=== PATIENT | male | born 1955 | race Caucasian/White ===

== ENCOUNTER 2017-11-02 12:06 | Outpatient (RCR) | payer SELFPAY | END 2017-11-05 23:59 | disposition home or self-care (01) | LOC: CR 12:06 | PROVIDERS: PCP Emergency Medicine; Visit Provider Family Medicine | DX: Z51.89 Encounter for other specified aftercare (principal) ==

== ENCOUNTER 2017-12-02 10:00 | Outpatient (RCR) | payer SELFPAY | END 2017-12-05 23:59 | disposition home or self-care (01) | LOC: CR 10:00 | PROVIDERS: PCP Emergency Medicine; Visit Provider Family Medicine | DX: Z51.89 Encounter for other specified aftercare (principal) ==

== ENCOUNTER 2018-01-04 10:00 | Outpatient (RCR) | payer SELFPAY | END 2018-01-05 23:59 | disposition home or self-care (01) | LOC: CR 10:00 | PROVIDERS: PCP Emergency Medicine; Visit Provider Family Medicine | DX: Z51.89 Encounter for other specified aftercare (principal) ==

== ENCOUNTER 2018-01-06 05:27 | Outpatient (RCR) | payer SELFPAY | END 2018-02-04 23:59 | disposition home or self-care (01) | LOC: CR 05:27 | PROVIDERS: PCP Emergency Medicine; Visit Provider Family Medicine | DX: Z51.89 Encounter for other specified aftercare (principal) ==

== ENCOUNTER 2018-02-24 09:00 | Outpatient (RCR) | payer SELFPAY | END 2018-03-07 23:59 | disposition home or self-care (01) | LOC: CR 09:00 | PROVIDERS: PCP Emergency Medicine; Visit Provider Family Medicine | DX: Z51.89 Encounter for other specified aftercare (principal) ==

== ENCOUNTER 2018-03-07 11:16 | Emergency (ER) | payer MEDICARE, SELFPAY ==
[2018-03-07 11:23] VITALS: BP 152/72; PULSE 71; RESP 20; TEMP 36.7; O2SAT 96
[2018-03-07 11:29] VITALS: RESP 20
--- NOTE | 2018-03-07 12:31 | W.ED.GENAD ---
Discharge Plan Disposition Patient Disposition: AGAINST MEDICAL ADVICE Condition: Stable Discharge Details Chief Complaint: GenMedical Clinical Impression: Cough, Bronchitis Primary Care Provider: Jonathan Medina ED Provider: Mookie Hamilton Home Meds and New Rx's Prescriptions: New azithromycin 250 mg tablet See Rx Instructions .ROUTE .COMPLEX Qty: 6 RF: 0 No Action docusate sodium 100 MG capsule 100 mg PO DAILY RF: 0 LAMISIL 15 GM CREAM..G. 15 gm Topical BID Qty: 1 RF: 4 aspirin 81 MG tablet,chewable 81 mg PO DAILY RF: 0 ergocalciferol (vitamin D2) [Vitamin D2] 50,000 UNIT capsule 1 tab-cap PO WEEKLY Qty: 12 RF: 4 venlafaxine 150 MG tablet extended release 24hr 150 mg PO DAILY Qty: 90 RF: 3 amlodipine 10 MG tablet 10 mg PO DAILY 60 Days Qty: 60 RF: 5 clonazepam 0.5 MG tablet,disintegrating 0.5 mg PO HS PRN 30 Days Qty: 30 RF: 1 atorvastatin 40 MG tablet 40 mg PO DAILY Qty: 90 RF: 3 nitroglycerin 0.4 MG tablet, sublingual 0.4 mg Sublingual PRN PRNQty: 25 RF: 2 gabapentin 800 mg tablet 400 mg PO .5 a.m. 1 tab pm Qty: 180 RF: 6 allopurinol 100 mg tablet 100 mg PO DAILY Qty: 90 RF: 3 lisinopril 10 mg tablet 10 mg PO DAILY Qty: 90 RF: 4 pantoprazole 40 mg tablet,delayed release (DR/EC) 40 mg PO DAILY Qty: 90 RF: 3 calcium carbonate [Tums] 200 MG tablet,chewable 200 mg PO PRNRF: 0 folic acid 400 MCG tablet 400 mcg PO DAILY RF: 0 Discharge Instructions Instructions: Acute Bronchitis (ED) Additional Instructions: Please take the medication as directed. Please follow-up closely with your primary care provider as soon as possible. If you like the remainder of your workup to be completed please return immediately. if you notice any worsening of your symptoms, or any new symptoms such as vomiting, diarrhea, fever, chills, shortness of breath, chest pain, numbness, weakness, or fainting , please return immediately to the emergency department for reevaluation. Please follow up with your primary care provider as soon as possible for reassessment and reevaluation. As always, it was a pleasure participating in your medical care today. Referrals: Jonathan Medina, [Primary Care Provider] - Discharge Data Discharge Date/Time-TO BE ENTERED AT DEPARTURE: 03/07/18 13:06 Medical Decision Making This is a pleasant 62-year-old male who presents with 2-3 days of mild cough with productive yellow sputum, occasional night sweats. He has no associated chest pain, no pleuritic chest pain, no pain in the arm neck or shoulders. He states that his symptoms are consistent with when he had his stents placed a year ago. Physical exam demonstrates no significant abnormalities. Differential includes bronchitis versus pneumonia versus unlikely atypical cardiac etiology. We will get labs, chest x-ray and EKG for further evaluation. EKG 11: 36 Rate 66, sinus rhythm, intervals normal, no significant ST elevations or depressions, inverted T wave noted in V1. Small Q wave in lead III. No other significant abnormalities. Patient is requesting to leave secondary to multiple other sick contacts here in the emergency department. Currently we are in a surge-like state with no beds available. Patient has not yet had his lab work or chest x-ray performed. I had a long discussion with him addressing his concerns, questions, and limits. Patient does have close follow-up with his PCP, he understands the risks of leaving without completion of his workup. His EKG is negative for any acute process, and this is encouraging however his workup is still clearly limited. Patient will be leaving against our medical advice or recommendation. He will be given azithromycin for concern for bronchitis versus community-acquired pneumonia. He will be following closely with his PCP, he will be returning if anything changes. HPI General Date/Time Provider Initiated Documentation: 03/07/18 11:25. HPI Narrative: This is a 62-year-old male with a past medical history of gout, hypertension, and 2 stents placed 1 year ago, who presents for evaluation of cough, with productive yellow sputum, occasional night sweats. Patient states his symptoms have been present for the last 2-3 days and have been gradually worsening. They are not exertional. He has no exertional chest pain, no chest pain general. He denies arm neck or shoulder pain. He states that the symptoms are inconsistent with when he had his stents placed. He is worried about pneumonia. He denies any fevers at home but does admit to occasional chills. He does admit to other sick contacts. He denies any other aggravating or modifying factors. He does not currently smoke. He denies any pertinent family history. He denies any recent surgeries. He denies any recent antibiotic use. Related Data Home Medications Medication Instructions Recorded Confirmed calcium carbonate [Tums] 200 mg PO PRN 05/29/12 03/15/15 folic acid 400 mcg PO DAILY 05/29/12 03/07/18 docusate sodium 100 mg PO DAILY tab-cap 11/01/13 03/07/18 aspirin 81 mg PO DAILY tab-cap 09/29/16 03/07/18 ergocalciferol (vitamin D2) 1 tab-cap PO WEEKLY #12 tab-cap 02/02/17 03/07/18 [Vitamin D2] venlafaxine 150 mg PO DAILY #90 tab-cap 06/08/17 03/07/18 amlodipine 10 mg PO DAILY 60 Days #60 tab-cap 09/16/17 03/07/18 clonazepam 0.5 mg PO HS PRN 30 Days #30 09/20/17 03/07/18 tab-cap atorvastatin 40 mg PO DAILY #90 tab-cap 10/01/17 03/07/18 nitroglycerin 0.4 mg SUBLINGUAL PRN PRN #25 10/19/17 03/07/18 tab.sl gabapentin 800 mg tablet 400 mg PO .5 a.m. 1 tab pm #180 11/24/17 03/07/18 tab-cap allopurinol 100 mg tablet 100 mg PO DAILY #90 tab-cap 12/28/17 03/07/18 lisinopril 10 mg tablet 10 mg PO DAILY #90 tab-cap 01/26/18 03/07/18 pantoprazole 40 mg tablet,delayed 40 mg PO DAILY #90 tab-cap 01/26/18 03/07/18 release azithromycin See Rx Instructions .ROUTE 03/07/18 .COMPLEX #6 tab Previous Rx's Medication Instructions Recorded ergocalciferol (vitamin D2) 1 tab-cap PO WEEKLY #12 tab-cap 02/02/17 [Vitamin D2] venlafaxine 150 mg PO DAILY #90 tab-cap 06/08/17 amlodipine 10 mg PO DAILY 60 Days #60 tab-cap 09/16/17 clonazepam 0.5 mg PO HS PRN 30 Days #30 09/20/17 tab-cap atorvastatin 40 mg PO DAILY #90 tab-cap 10/01/17 gabapentin 800 mg tablet 400 mg PO .5 a.m. 1 tab pm #180 11/24/17 tab-cap allopurinol 100 mg tablet 100 mg PO DAILY #90 tab-cap 12/28/17 lisinopril 10 mg tablet 10 mg PO DAILY #90 tab-cap 01/26/18 pantoprazole 40 mg tablet,delayed 40 mg PO DAILY #90 tab-cap 01/26/18 release azithromycin See Rx Instructions .ROUTE 03/07/18 .COMPLEX #6 tab Allergies Allergy/AdvReac Type Severity Reaction Status Date / Time Penicillins Allergy Mild Skin Rash Unverified 03/07/18 11:26 Sulfa (Sulfonamide Allergy Mild red spots Unverified 03/07/18 11:26 Antibiotics) codeine AdvReac Severe hypertention/pass Unverified 03/07/18 11:26 out aspirin AdvReac Intermediate stomach Unverified 03/07/18 11:26 bleeding General Stated Complaint: GenMedical KRISTIAN: 3 Review of Systems Review of Systems All systems reviewed & are unremarkable except as noted in HPI and below PFSH Medical History Chronic anxiety Chronic back pain DJD (degenerative joint disease) Depression GERD (gastroesophageal reflux disease) Gout Hypertension Obesity, Class III, BMI 40-49.9 (morbid obesity) Peripheral neuropathy Surgical History DISKECTOMY (03/07/89) HEMILAMINECTOMY (03/07/91) Hemorrhoidectomy (07/22/11) Family History Mother Essential hypertension Myocardial infarction Father Essential hypertension Asthma Brother Myocardial infarction FAMILY HISTORY CAD (coronary artery disease) Stroke COPD (chronic obstructive pulmonary disease) Social History Smoking/Tobacco Use Status: Never Exam Narrative Exam Narrative: 1.Const: Well-nourished, Well-developed, appearing stated age 2.Eyes: PERRL, no conjunctival injection, and symmetrical lids. 3.ENT: Atraumatic external nose and ears. Moist MM. Neck: Symmetric, trachea midline, No thyromegaly. 4.CVS: +S1/S2, No murmurs or gallops. Peripheral pulses 2+ and equal in all extremities. Brisk capillary refill in all extremities. 5.RESP: Unlabored respiratory effort. Clear to auscultation bilaterally. No wheezes rales or rhonchi 6.GI: Soft, Nontender/Nondistended, No hepatosplenomegaly. No guarding or rebound. 7.MSK: Normocephalic/Atraumatic, Extremities w/o deformity or ttp No cyanosis or clubbing, Normal movement of all extremities 8.Skin: Warm, Dry. No rashes or lesions. 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 Sensation grossly intact, no focal neurologic deficits. 10.Psych: (AAO) x3. Appropriate mood and affect Course Vital Signs Temperature 36.7 C 03/07/18 11:23 Pulse 71 03/07/18 11:23 Respiratory Rate 20 03/07/18 11:23 Blood Pressure 152/72 H 03/07/18 11:23 Pulse Oximetry 96 03/07/18 11:23 Temperature 36.7 C 03/07/18 11:23 Temperature Source Temporal Artery Scan 03/07/18 11:23 Pulse 71 03/07/18 11:23 Respiratory Rate 20 03/07/18 11:29 Respiratory Effort Non-Labored 03/07/18 11:29 Respiratory Depth Normal 03/07/18 11:29 Respiratory Pattern Normal 03/07/18 11:29 Blood Pressure 152/72 H 03/07/18 11:23 Blood Pressure Position Sitting 03/07/18 11:23 Pulse Oximetry 96 03/07/18 11:23 Oxygen Delivery Method Room Air 03/07/18 11:23 Oxygen Flow Rate 0 03/07/18 11:23 Pain Level 5 03/07/18 11:23
== END 2018-03-07 13:06 | disposition left against medical advice (07) ==
PROVIDERS: Emergency Provider Student in an Organized Health Care Education/Training Program; PCP Emergency Medicine
DX: J20.9 Acute bronchitis, unspecified (principal); Z53.29 Procedure and treatment not carried out because of patient's decision for other reasons; R94.31 Abnormal electrocardiogram [ECG] [EKG]; I10 Essential (primary) hypertension; Z95.5 Presence of coronary angioplasty implant and graft
CPT/HCPCS: 80053; 93005; 99283; 84484; 85025; 93010

== ENCOUNTER 2018-03-18 10:13 | Outpatient (CLI) | payer MEDICARE, SELFPAY ==
[2018-03-18 10:45] LABS: HCT 39.5 % (40.0-50.0); HGB 12.9 g/dL (13.5-17.5); Mean Corp. HGB Concentration 32.7 g/dL (32.0-36.0); Mean Corpuscular Hemoglobin 29.2 pg (27.0-33.0); Mean Corpuscular Volume 89.4 fL (80-95); Platelet Count 179 x1000/uL (130-400); RBC 4.42 m/cumm (4.50-6.00); RBC Distribution Width 14.6 % (11.8-14.1); White Blood Cell Count 5.82 k/cumm (4.4-10.8)
[2018-03-18 11:41] LABS: ESR 27 MM/HR (1-20)
[2018-03-18 11:45] LABS: ALT 44 U/L (12-78); AST 31 U/L (15-37); Albumin 3.5 g/dL (3.4-5.0); Alkaline Phosphatase 96 U/L (46-116); Anion Gap 11.5 mmol/L (3-11); BUN 17 mg/dL (7-18); Bilirubin, Total 0.4 mg/dL (0.2-1.0); CO2 25.5 mmol/L (21.0-32.0); CREATININE 1.34 mg/dL (0.70-1.30); Calcium 9.3 mg/dL (8.5-10.1); Chloride 102 mmol/L (98-107); Estimated GFR 53.84 (mL/min/1.73m2); Glucose 241 mg/dL (70-100); Potassium 4.4 mmol/L (3.5-5.1); Sodium 139 mmol/L (136-145)
== END 2018-03-18 10:33 ==
PROVIDERS: PCP Emergency Medicine; Visit Provider Internal Medicine Rheumatology
DX: M13.80 Other specified arthritis, unspecified site (principal); Z79.899 Other long term (current) drug therapy
CPT/HCPCS: 36415; 80053; 85027; 85652; 86140

== ENCOUNTER 2018-03-24 10:00 | Outpatient (RCR) | payer SELFPAY | END 2018-04-07 23:59 | disposition home or self-care (01) | LOC: CR 10:00 | PROVIDERS: PCP Emergency Medicine; Visit Provider Family Medicine | DX: Z51.89 Encounter for other specified aftercare (principal) ==

== ENCOUNTER 2018-04-08 03:54 | Outpatient (RCR) | payer SELFPAY | END 2018-05-05 23:59 | disposition home or self-care (01) | LOC: CR 03:54 | PROVIDERS: PCP Emergency Medicine; Visit Provider Family Medicine | DX: Z51.89 Encounter for other specified aftercare (principal) ==

== ENCOUNTER 2018-04-08 13:34 | Outpatient (CLI) | payer MEDICARE, SELFPAY | END 2018-04-08 13:54 | PROVIDERS: PCP Emergency Medicine; Visit Provider Internal Medicine Cardiovascular Disease | DX: I25.10 Atherosclerotic heart disease of native coronary artery without angina pectoris (principal); I10 Essential (primary) hypertension; I34.0 Nonrheumatic mitral (valve) insufficiency; E78.5 Hyperlipidemia, unspecified | CPT/HCPCS: 99214 ==

== ENCOUNTER 2018-06-06 06:37 | Outpatient (RCR) | payer SELFPAY | END 2018-07-05 23:59 | disposition home or self-care (01) | LOC: CR 06:37 | PROVIDERS: PCP Emergency Medicine; Visit Provider Family Medicine | DX: Z51.89 Encounter for other specified aftercare (principal) ==

== ENCOUNTER 2018-08-29 14:45 | Outpatient (CLI) | payer MEDICARE, SELFPAY ==
--- NOTE | 2018-08-29 14:40 | DI.RAD_ITS ---
SYMPTOM/DIAGNOSIS: BILAT KNEE PAIN RIGHT KNEE: The femoral tibial joint spaces are well maintained. There is mild spurring at the articular aspect of the patella. Patellar enthesophytes are also seen. IMPRESSION: Mild degenerative changes. LEFT KNEE: There is mild narrowing of the medial femoral tibial joint space and mild medial spurring. Spurring is also seen at the articular aspect of the patella. Spurring is also noted at the quadriceps insertion on the patella. No joint effusion is seen. IMPRESSION: Mild degenerative changes greatest of the medial femoral tibial joint.
== END 2018-08-29 15:05 ==
PROVIDERS: PCP Emergency Medicine; Referring Provider Emergency Medicine; Visit Provider Student in an Organized Health Care Education/Training Program
DX: M25.561 Pain in right knee (principal); M25.562 Pain in left knee; M17.0 Bilateral primary osteoarthritis of knee; Z98.890 Other specified postprocedural states; G62.9 Polyneuropathy, unspecified
CPT/HCPCS: 99203; 99214; 73564

== ENCOUNTER 2018-09-19 09:20 | Emergency (ER) | payer MEDICARE, SELFPAY ==
[2018-09-19 09:25] VITALS: BP 184/70; PULSE 79; RESP 14; TEMP 36.8; O2SAT 97
--- NOTE | 2018-09-19 09:25 | ED.GENADUL_ITS ---
Discharge Plan Disposition Patient Disposition: HOME Condition: Stable Discharge Details Chief Complaint: Headache Clinical Impression: Headache Primary Care Provider: Jonathan Medina ED Provider: Traci Fisher Home Meds and New Rx's Prescriptions: Continued lisinopril 20 mg tablet 20 mg PO DAILY Qty: 90 RF: 3 sulfasalazine 500 mg tablet 1 gm PO QAM RF: 0 sulfasalazine 500 mg tablet,delayed release (DR/EC) 0.5 gm PO .qhs RF: 0 docusate sodium 100 MG capsule 100 mg PO DAILY RF: 0 LAMISIL 15 GM CREAM..G. 15 gm Topical BID Qty: 1 RF: 4 aspirin 81 MG tablet,chewable 81 mg PO DAILY RF: 0 amlodipine 10 MG tablet 10 mg PO DAILY 60 Days Qty: 60 RF: 5 clonazepam 0.5 MG tablet,disintegrating 0.5 mg PO HS PRN 30 Days Qty: 30 RF: 1 nitroglycerin 0.4 MG tablet, sublingual 0.4 mg Sublingual PRN PRNQty: 25 RF: 2 gabapentin 800 mg tablet 400 mg PO .5 a.m. 1 tab pm Qty: 180 RF: 6 pantoprazole 40 mg tablet,delayed release (DR/EC) 40 mg PO DAILY Qty: 90 RF: 3 ergocalciferol (vitamin D2) [Vitamin D2] 50,000 unit capsule 50,000 unit PO WEEKLY Qty: 12 RF: 4 venlafaxine 150 mg tablet extended release 24hr 150 mg PO DAILY Qty: 90 RF: 3 calcium carbonate [Tums] 200 MG tablet,chewable 200 mg PO PRNRF: 0 folic acid 400 MCG tablet 400 mcg PO DAILY RF: 0 No Action atorvastatin 40 mg tablet 40 mg PO DAILY Qty: 90 RF: 3 allopurinol 100 mg tablet 100 mg PO DAILY Qty: 90 RF: 3 Discharge Instructions Instructions: General Headache (ED) Additional Instructions: You have elected to leave the emergency department AGAINST MEDICAL ADVICE. You may return to the emergency department anytime if you change your mind. Please return immediately to the emergency department if you develop any new or wor sening symptoms or if you become otherwise concerned. It is extremely important that you call as soon as possible to make an appointment to be seen by her primary care doctor in follow-up for this visit. It is also extremely important that you schedule an MRI to be performed soon as possible. Referrals: Jonathan Medina, DO [Primary Care Provider] - Discharge Data Discharge Date/Time-TO BE ENTERED AT DEPARTURE: 09/19/18 16:25 Medical Decision Making Acosta Driver is a 62-year-old man with history of gout, GERD, hypertension, coronary artery disease status post stent placement who presented to the emergency department with 3 to 4 days of sensation of buzzing in his head with concurrent headache. On exam patient is well and nontoxic appearing. Neurologic exam is nonfocal. TMs are normal bilaterally. Exam/history is not consistent with acute CVA, meningitis, sepsis, central venous thrombosis. Doubt acute intracranial bleeding. Unlikely stuttering TIA. Discussed patient with Dr. Can of neurology, who recommended MRI brain, particularly looking for low CSF volume which she states may be etiology of his symptoms. If MRI negative for findings consistent with low CSF volume, then LP could be performed for further evaluation. If MRI positive, then discuss with anesthesiology. CT had negative per radiology. Labs nondiagnostic nondiagnostic. Plan for MRI. Patient reporting complete resolution of his symptoms after Compazine and Benadryl. Notified by radiology that MRI at [facility] cannot accommodate the patient given his weight. Plan for transfer, patient amenable to the plan. I contacted transfer center at [facility], who refused ED to ED transfer on the basis that should the patient need to be admitted they would not be able to accept the patient to their facility based on limited bed space. [facility] accepted Pt for ED to ED transfer pending girth measurement for MRI. I discussed this plan for transfer to [facility] with the Pt, who at this time is refusing transfer to any facility. Patient has decision-making capacity. He states that he does not wish to be transferred out of [facility]. I discussed with the patient that LP could be performed in this ED, and could potentially be diagnostic particularly if we were to find low CSF volume. Patient refused lumbar puncture. I had a lengthy discussion with the patient regarding risks of leaving without full evaluation and treatment, including or permanent disability. Patient verbalized understanding of the risks and continue to refuse further evaluation either here at [facility] or transfer. Patient states that he has had significant bleeding with anticoagulation other than daily low-dose aspirin, will continue 81 mg aspirin daily. Plan for outpatient follow-up as soon as possible with his primary care doctor, and also with neurology. I had a lengthy discussion with the patient regarding return to emergency department precautions, that he may return to emergency department anytime should he change his mind about leaving AGAINST MEDICAL ADVICE, home care, and importance of outpatient follow-up and outpt MRI. Patient verbalized understanding the plan was amenable. Patient was discharged home with clear plan for outpatient follow-up. All questions were answered. Medical Records Medical records reviewed: Yes I reviewed the patient's medical records. Imaging Data Radiologic Study: Attestation: I personally reviewed and interpreted this imaging study as follows: Radiologist's impression: SYMPTOMS/DIAGNOSIS: HEADACHE, BUZZING IN HEAD CT BRAIN: Noncontrast examination. Comparison is 03/15/15. The ventricles and sulci are consistent with the patient's age. No acute territorial infarct, hemorrhage, midline shift or mass effect is identified. The visualized paranasal sinuses are clear as are the mastoid air cells. The calvarium is intact. IMPRESSION: No acute intracranial process. Lab Data Lab results reviewed: Yes I reviewed the patient's lab results. Laboratory Tests Range/Units 09/19/18 09/19/18 09/19/18 10:05 10:05 10:05 WBC (4.4-10.8) k/cumm 4.44 RBC (4.50-6.00) m/cumm 4.62 Hgb (13.5-17.5) g/dL 13.3 L Hct (40.0-50.0) % 40.3 MCV (80-95) fL 87.2 MCH (27.0-33.0) pg 28.8 MCHC (32.0-36.0) g/dL 33.0 RDW (11.8-14.1) % 14.2 H Plt Count (130-400) x1000/uL 172 MPV (8.0-11.0) fL 11.1 H Immature Gran % 0.2 Neutrophils % 62.4 Lymphocytes % 25.5 Monocytes % 8.1 Eosinophils % 3.6 Basophils % 0.2 Absolute Neutrophils (1.2-6.7) k/cumm 2.77 Absolute Lymphocytes (1.2-3.4) k/cumm 1.13 L Absolute Monocytes (0.11-0.7) k/cumm 0.36 Absolute Eosinophils (0.0-0.7) k/cumm 0.16 Absolute Basophils (0.0-0.2) k/cumm 0.01 PT (9.3-11.0) sec 10.5 INR (0.9-1.1) 1.1 APTT (21.0-31.4) sec 24.2 Sodium (136-145) mmol/L 138 Potassium (3.5-5.1) mmol/L 4.6 Chloride (98-107) mmol/L 102 Carbon Dioxide (21.0-32.0) mmol/L 29.4 Anion Gap (3-11) mmol/L 6.6 BUN (7-18) mg/dL 18 Creatinine (0.70-1.30) mg/dL 1.08 Estimated GFR/1.73 m2 (mL/min/1.73m2) >= 60.00 Glucose (70-100) mg/dL 178 H Calcium (8.5-10.1) mg/dL 9.3 Total Bilirubin (0.2-1.0) mg/dL 0.5 AST (15-37) U/L 31 ALT (12-78) U/L 45 Alkaline Phosphatase (46-116) U/L 95 Troponin I (0.00-0.06) ng/mL < 0.05 Total Protein (6.4-8.2) g/dL 7.7 Albumin (3.4-5.0) g/dL 3.6 ECG Data Attestation: I personally reviewed and interpreted this ECG (s) as follows: Interpretation: EKG shows sinus rhythm at 64, normal axis, no acute ischemic changes, nondiagnostic EKG HPI General Mode of arrival: ambulatory . Date/Time Provider Initiated Documentation: 09/19/18 09:25 . Limitations to Documentation: no limitations . Information obtained by: patient, RN notes reviewed and old records reviewed . HPI Narrative: Acosta Driver is a 62-year-old man with history of GERD, gout, hypertension, coronary artery disease status post stent placement on daily 81 mg aspirin presenting to the emergency department with buzzing in his head. Patient reports that for the past 3 to 4 days he has had a buzzing in his head. He notes that this does not feel like ringing in his ears. Patient reports that onset was sudden, with no known inciting factors. Patient reports that symptom has been somewhat intermittent, and does seem to improve when he lies down and get worse when he gets up and walks around. Has never had similar symptoms in the past. Patient also notes that he has had a headache that occurs with the buzzing, and also improves when the buzzing improves. Patient reports that headache is not the worst of his life, and was gradual in onset. He does have associated photophobia. Patient reports that his balance seems worse than baseline, although he notes that this has occurred multiple times in the past for him and does not seem worse than other episodes. He denies trauma. He denies fever, any other pain, shortness of breath, cough, vomiting, diarrhea, numbness/weakness the extremities, difficulty speaking, rash. No history of blood clot in the past. No vision changes other than photophobia. Related Data Home Medications Medication Instructions Recorded Confirmed calcium carbonate [Tums] 200 mg PO PRN 05/29/12 09/21/18 folic acid 400 mcg PO DAILY 05/29/12 09/21/18 docusate sodium 100 mg PO DAILY tab-cap 11/01/13 09/21/18 aspirin 81 mg PO DAILY tab-cap 09/29/16 09/21/18 amlodipine 10 mg PO DAILY 60 Days #60 tab-cap 09/16/17 09/21/18 clonazepam 0.5 mg PO HS PRN 30 Days #30 09/20/17 09/21/18 tab-cap nitroglycerin 0.4 mg SUBLINGUAL PRN PRN #25 10/19/17 09/21/18 tab.sl gabapentin 800 mg tablet 400 mg PO .5 a.m. 1 tab pm #180 11/24/17 09/21/18 tab-cap pantoprazole 40 mg tablet,delayed 40 mg PO DAILY #90 tab-cap 01/26/18 09/21/18 release sulfasalazine 500 mg tablet 1 gm PO QAM tab 03/15/18 09/21/18 sulfasalazine 500 mg 0.5 gm PO .qhs tab 03/15/18 09/21/18 tablet,delayed release ergocalciferol (vitamin D2) 50,000 50,000 unit PO WEEKLY #12 tab-cap 04/08/18 09/21/18 unit capsule lisinopril 20 mg tablet 20 mg PO DAILY #90 tab 04/08/18 09/21/18 venlafaxine 150 mg tablet,extended 150 mg PO DAILY #90 tab-cap 05/24/18 09/21/18 release 24 hr atorvastatin 40 mg tablet 40 mg PO DAILY #90 tab-cap 09/28/18 allopurinol 100 mg tablet 100 mg PO DAILY #90 tab-cap 09/30/18 Previous Rx's Medication Instructions Recorded amlodipine 10 mg PO DAILY 60 Days #60 tab-cap 09/16/17 clonazepam 0.5 mg PO HS PRN 30 Days #30 09/20/17 tab-cap gabapentin 800 mg tablet 400 mg PO .5 a.m. 1 tab pm #180 11/24/17 tab-cap pantoprazole 40 mg tablet,delayed 40 mg PO DAILY #90 tab-cap 01/26/18 release ergocalciferol (vitamin D2) 50,000 50,000 unit PO WEEKLY #12 tab-cap 04/08/18 unit capsule lisinopril 20 mg tablet 20 mg PO DAILY #90 tab 04/08/18 venlafaxine 150 mg tablet,extended 150 mg PO DAILY #90 tab-cap 05/24/18 release 24 hr atorvastatin 40 mg tablet 40 mg PO DAILY #90 tab-cap 09/28/18 allopurinol 100 mg tablet 100 mg PO DAILY #90 tab-cap 09/30/18 Allergies Allergy/AdvReac Type Severity Reaction Status Date / Time Penicillins Allergy Mild Skin Rash Verified 09/21/18 14:35 Sulfa (Sulfonamide Allergy Mild red spots Verified 09/21/18 14:35 Antibiotics) codeine AdvReac Severe hypertention/pass Verified 09/21/18 14:35 out aspirin AdvReac Intermediate stomach Verified 09/21/18 14:35 bleeding General KRISTIAN: 3 Review of Systems Review of Systems Constitutional: denies fevers Eyes: denies eye pain ENT: denies facial pain, dental pain, sore throat, ear pain, ringing in the ears Cardiovascular: denies chest pain, edema Respiratory: denies SOB, cough GI: denies abdominal pain, vomiting, diarrhea : denies flank pain MSK: denies back pain, neck pain, arthralgias, myalgias Skin: denies rash Neuro: denies vertigo, numbness, weakness, reports buzzing in head, headache PFSH Medical History Chronic anxiety Chronic back pain Depression Depression (Chronic) DJD (degenerative joint disease) External hemorrhoids with other complication (Resolved 05/11/11) GERD (gastroesophageal reflux disease) GERD (gastroesophageal reflux disease) (Chronic) Gout Gout (Chronic) Hypertension Hypertension (Chronic) Impacted cerumen of both ears (Resolved 03/12/16) COPELAND (nonalcoholic steatohepatitis) (Chronic 01/09/15) Obesity (Chronic 08/21/14) Obesity, Class III, BMI 40-49.9 (morbid obesity) Peripheral neuropathy Peripheral neuropathy (Chronic) Psoriatic arthritis (Chronic 11/01/13) Sensorineural hearing loss, bilateral (Chronic 04/24/13) Sensorineural hearing loss, bilateral (Chronic 01/07/15) Sleep apnea, unspecified (Chronic 04/17/15) Tubular adenoma (Chronic) Social History Smoking/Tobacco Use Status: Never Alcohol Intake: never Drug use: Never Substance use type: does not use Do you feel safe at home: Yes Do you feel safe in your relationship?: Yes Exam Narrative Exam Narrative: Constitutional: well and [id number], pleasant, conversing normally HENT: head atraumatic/normocephalic/normal inspection, mucous membranes moist, normal oropharynx, external ears normal b/l, TMs and canals normal b/l, no mastoid/preauricular/postauricular TTP Eyes: conjunctiva normal, sclera normal, pupils 3mm b/l ERRLA, EOMI Neck: no stridor, normal ROM, trachea midline Chest: normal inspection Resp: normal work of breathing, LCTAB Cardio: normal rate, normal rhythm, no murmur appreciated GI: abdomen soft, non-tender, non-distended Back: normal inspection, no rash Skin: warm, dry, normal color, no rash Neuro: alert, not altered, motor 5/5 throughout, normal cerebellar exam of the UEs and LEs, normal tone, no pronator drift, normal gait Ext: no edema Psych: normal mood, normal affect, normal behavior
--- NOTE | 2018-09-19 09:37 | DI.CT_ITS ---
SYMPTOMS/DIAGNOSIS: HEADACHE, BUZZING IN HEAD CT BRAIN: Noncontrast examination. Comparison is 03/15/15. The ventricles and sulci are consistent with the patient's age. No acute territorial infarct, hemorrhage, midline shift or mass effect is identified. The visualized paranasal sinuses are clear as are the mastoid air cells. The calvarium is intact. IMPRESSION: No acute intracranial process. The findings were discussed with the emergency department on the date of the examination.
[2018-09-19 10:11] LABS: Abs Immature Grans 0.01 k/cumm (0.0-0.09); Absolute Basophil Count 0.01 k/cumm (0.0-0.2); Absolute Eosinophil Count 0.16 k/cumm (0.0-0.7); Absolute Lymphocyte Count 1.13 k/cumm (1.2-3.4); Absolute Monocyte Count 0.36 k/cumm (0.11-0.7); Absolute Neutrophil Count 2.77 k/cumm (1.2-6.7); Basophils % 0.2; Eosinophils % 3.6; HCT 40.3 % (40.0-50.0); HGB 13.3 g/dL (13.5-17.5); Immature Grans % 0.2; Lymphocytes % 25.5; Mean Corpuscular Hemoglobin 28.8 pg (27.0-33.0); Mean Corpuscular Volume 87.2 fL (80-95); Mean Platelet Volume 11.1 fL (8.0-11.0); Monocytes % 8.1; Neutrophils % 62.4; Platelet Count 172 x1000/uL (130-400); RBC 4.62 m/cumm (4.50-6.00); RBC Distribution Width 14.2 % (11.8-14.1); White Blood Cell Count 4.44 k/cumm (4.4-10.8)
[2018-09-19 10:26] LABS: INR 1.1 (0.9-1.1); PTT Activated 24.2 sec (21.0-31.4); Prothrombin Time 10.5 sec (9.3-11.0)
[2018-09-19 10:30] LABS: ALT 45 U/L (12-78); AST 31 U/L (15-37); Albumin 3.6 g/dL (3.4-5.0); Alkaline Phosphatase 95 U/L (46-116); Anion Gap 6.6 mmol/L (3-11); BUN 18 mg/dL (7-18); Bilirubin, Total 0.5 mg/dL (0.2-1.0); CO2 29.4 mmol/L (21.0-32.0); CREATININE 1.08 mg/dL (0.70-1.30); Calcium 9.3 mg/dL (8.5-10.1); Chloride 102 mmol/L (98-107); Glucose 178 mg/dL (70-100); Potassium 4.6 mmol/L (3.5-5.1); Sodium 138 mmol/L (136-145); Total Protein 7.7 g/dL (6.4-8.2); Troponin I < 0.05 ng/mL (0.00-0.06)
[2018-09-19] MEDS: diphenhydrAMINE 50 MG/ML VIAL 25 MG IVP (11:37)
[2018-09-19] MEDS: Prochlorperazine 10 MG/2 ML VIAL IVP (11:38)
--- NOTE | 2018-09-19 14:16 | NUR.NOTE ---
pt back from mri unable to fit in machine md aware Nursing Note:
--- NOTE | 2018-09-19 14:59 | NUR.NOTE ---
pt resting in bed measurments obtained by this nurse for possible mri at [facility] Nursing Note:
--- NOTE | 2018-09-20 08:15 | NUR.NOTE ---
F/U referral faxed to pcp Dr Medina.Nursing Note:
== END 2018-09-19 16:25 | disposition home or self-care (01) ==
PROVIDERS: Emergency Provider Student in an Organized Health Care Education/Training Program; PCP Emergency Medicine
DX: R51 Headache (principal); H53.149 Visual discomfort, unspecified; I10 Essential (primary) hypertension
CPT/HCPCS: 36415; 80053; 93005; 96374; 96375; 99284; 70450; 84484; 85025; 85610; 85730; 93010; J0780; J1200

== ENCOUNTER 2018-10-04 09:45 | Outpatient (CLI) | payer MEDICARE, SELFPAY ==
[2018-10-04 12:45] LABS: ALT 43 U/L (12-78); AST 31 U/L (15-37); Albumin 3.7 g/dL (3.4-5.0); Alkaline Phosphatase 98 U/L (46-116); Anion Gap 12.3 mmol/L (3-11); BUN 15 mg/dL (7-18); Bilirubin, Total 0.4 mg/dL (0.2-1.0); CO2 23.7 mmol/L (21.0-32.0); CREATININE 1.09 mg/dL (0.70-1.30); Calcium 9.2 mg/dL (8.5-10.1); Calculated LDL 66 mg/dL; Chloride 103 mmol/L (98-107); Cholesterol 120 mg/dL (50-200); Glucose 112 mg/dL (70-100); HDL Cholesterol 38 mg/dL (40-60); Potassium 4.3 mmol/L (3.5-5.1); Sodium 139 mmol/L (136-145); Total Protein 7.1 g/dL (6.4-8.2); Triglyceride 80 mg/dL (30-150)
[2018-10-04 13:06] LABS: Bilirubin, Direct 0.13 mg/dL (0.00-0.20)
[2018-10-04 14:27] LABS: Hemoglobin A1C 6.3 % (4.5-6.2)
[2018-10-05 11:56] LABS: PSA, Screening 1.1 ng/ml (0-4.5)
== END 2018-10-04 10:05 ==
PROVIDERS: PCP Emergency Medicine; Visit Provider Emergency Medicine
DX: I10 Essential (primary) hypertension (principal); K75.81 Nonalcoholic steatohepatitis (NASH); R73.09 Other abnormal glucose; Z12.5 Encounter for screening for malignant neoplasm of prostate
CPT/HCPCS: 36415; 80048; 80061; 80076; 83721; 84153; 83036

== ENCOUNTER → 2018-10-10 14:24 | Outpatient (BNVA) | payer MEDICARE, SELFPAY | PROVIDERS: PCP Emergency Medicine; Referring Provider Emergency Medicine; Visit Provider Nurse Practitioner Adult Health | DX: G43.009 Migraine without aura, not intractable, without status migrainosus (principal); I10 Essential (primary) hypertension | CPT/HCPCS: 99204; 99214 ==

== ENCOUNTER → 2018-11-09 12:15 | Outpatient (BNVA) | payer MEDICARE, SELFPAY | PROVIDERS: PCP Emergency Medicine; Referring Provider Student in an Organized Health Care Education/Training Program; Visit Provider Psychiatry & Neurology Neurology | DX: G62.9 Polyneuropathy, unspecified (principal); M48.061 Spinal stenosis, lumbar region without neurogenic claudication; R51 Headache | CPT/HCPCS: 95885; 95908; 99215 ==

== ENCOUNTER → 2018-12-01 09:53 | Outpatient (BNVA) | payer MEDICARE, SELFPAY | PROVIDERS: PCP Emergency Medicine; Referring Provider Emergency Medicine; Visit Provider Physical Therapy Assistant | DX: Z12.11 Encounter for screening for malignant neoplasm of colon (principal); Z86.010 Personal history of colon polyps; I10 Essential (primary) hypertension; Z79.82 Long term (current) use of aspirin ==

== ENCOUNTER 2018-12-12 10:45 | Day surgery (SDC) | payer MEDICARE, SELFPAY ==
--- NOTE | 2018-12-12 07:07 | W.COLOREPORT ---
Date of service: 12/12/18 Time of Service: 12:09 Colonoscopy Report Date of procedure: 12/12/18 Pre-op diagnosis general: Hx of colon polyps Post-op diagnosis procedure note: other (Colon polyps, Diverticulosis) Procedure: Colonoscopy with polypectomy Surgeon: Shayna Cheng Anesthesia proc note operative: other (General/ ASA4 /Memo Gaines, PAMELA) Estimated blood loss (mL): 5 Pathology: other (ascending polyp, Hepatic flexure polyp and rectal polyp x4) Complications: None Disposition: same day Indications: Mr. Driver is a pleasant 63 year old male seen in the office for a follow up Colonoscopy. His last Colonoscopy was in 2014 and he was noted to have polyps. Risks, benefits and complications have been reviewed. Complications include but are not limited to bleeding, pain, perforation, missed small lesion/polyp, sore throat, aspiration and adverse reaction to the medications. Questions were entertained and answered to their satisfaction and they wished to proceed. No guarantees were given or implied. Prep: Miralax/Dulcolax Procedure Start Time: 12:09 Procedure End Time: 12:50 Retraction Time: 31 minutes Findings: multiple polyps. Ascending colon polyp was >2 cm and sessile, Hepatic flexure P x 1 and Rectal polyp x4 Procedure Description: After informed consent was obtained the patient was taken to the procedure room and placed in a left decubitous position. Monitors were applied and a time out was done. The patients name, date of , procedure, allergies to medications and metal in their body was reviewed. The patient was then sedated. Once sedated and comfortable a rectal exam was done. External exam was normal. Internal exam revealed a normal sphincter tone and no palpable masses. Unable to feel the prostate due the patients body habitus. The scope was then introduced and retro-flexed. No internal hemorrhoids were identified. The scope was then advanced to the cecum without difficulty. The TI and appendiceal orifice were identified. The prep was adequate. The scope was then slowly retracted over 31 minutes back into the rectum. Polyps were removed with hot snare in the distal ascending colon, with cold forceps in the hepatic flexure and x4 in the rectum. Moderate Descending colon diverticulosis was also noted. The scope was removed and the patient was woken up and taken back to Same day surgery in stable condition. The patient tolerated the procedure well and there were no immediate complications. Follow up: The patient should follow up in 3-5 years unless they develop changes in bowel habits or other new gastrointestinal complaints.
--- NOTE | 2018-12-12 07:08 | W.PM.DSUDISC ---
Discharge Plan Disposition Patient Disposition: HOME Condition: Good Discharge Details Reason For Visit: Colonoscopy Attending Provider: Shayna Cheng Primary Care Provider: Jonathan Medina Home Meds and New Rx's Prescriptions: Continued lisinopril 20 mg tablet 20 mg PO DAILY Qty: 90 RF: 3 sulfasalazine 500 mg tablet 1 gm PO QAM RF: 0 sulfasalazine 500 mg tablet,delayed release (DR/EC) 0.5 gm PO .qhs RF: 0 amlodipine 10 mg tablet 10 mg PO DAILY 60 Days Qty: 60 RF: 5 docusate sodium 100 MG capsule 100 mg PO DAILY RF: 0 aspirin 81 MG tablet,chewable 81 mg PO DAILY RF: 0 clonazepam 0.5 MG tablet,disintegrating 0.5 mg PO HS PRN 30 Days Qty: 30 RF: 1 nitroglycerin 0.4 MG tablet, sublingual 0.4 mg Sublingual PRN PRNQty: 25 RF: 2 pantoprazole 40 mg tablet,delayed release (DR/EC) 40 mg PO DAILY Qty: 90 RF: 3 ergocalciferol (vitamin D2) [Vitamin D2] 50,000 unit capsule 50,000 unit PO WEEKLY Qty: 12 RF: 4 venlafaxine 150 mg tablet extended release 24hr 150 mg PO DAILY Qty: 90 RF: 3 atorvastatin 40 mg tablet 40 mg PO DAILY Qty: 90 RF: 3 allopurinol 100 mg tablet 100 mg PO DAILY Qty: 90 RF: 3 calcium carbonate [Tums] 200 MG tablet,chewable 200 mg PO PRNRF: 0 folic acid 400 MCG tablet 400 mcg PO DAILY RF: 0 gabapentin 800 mg tablet 400 mg PO .5 a.m. 1 tab pm PRNRF: 0 Discontinued polyethylene glycol 3350 17 gram/dose powder 238 g PO ONCE Qty: 238 RF: 0 bisacodyl [Dulcolax (bisacodyl)] 5 mg tablet,delayed release (DR/EC) 5 mg PO ONCE Qty: 4 RF: 0 Discharge Instructions Instructions: Colonoscopy (DC), Diverticulosis (DC), Colorectal Polyps (DC) Additional Instructions: Findings: Multiple polyps Diverticulosis Follow up: 3-5 years Please call if you develop: fevers >101.5 Nausea or Vomiting Abdominal pain that is not transient DAY SURGERY UNIT POST ENDOSCOPY INSTRUCTIONS 1. Because there will be medication in your system for the next 24 hours, you may feel a little sleepy. Your coordination will be affected. Therefore: a. Do not drive or operate dangerous equipment for 24 hours. b. Do not drink alcohol beverages for 24 hours (not even beer). c. Plan to go home and rest for the day. 2. Generally there are no restrictions on your activity after a day or so has gone by, but you may feel a bit fatigued for a few days. 3 After you arrive home you may have a light meal and return to a normal diet as you can tolerate it without feeling sick to your stomach. 4. After surgery, you may feel pain or discomfort. This should be only transient, but if it persists please contact your doctor. 5. If there are any questions regarding the findings of your procedure, please feel free to contact your doctor. 6. If you are unable to contact your doctor with a problem, contact the hospital at [phone]. 7. Continue all your regular medications unless directed otherwise. I understand the above instructions and have no questions. Signature of Patient or Responsible Adult Escort Date/Time Name of Responsible Adult Escort Signature of Nurse Date/Time Activity:: Activity as Tolerated Diet:: high Fiber Diet Discharge Orders Discharge Orders: Discharge Order (Routine); Ordered 12/12/18 Ordered By: Shayna Cheng DS: Diagnosis Discharge Diagnosis (1) S/P colonoscopy: Status: Acute (2) Diverticulosis: Status: Acute
[2018-12-12 11:00] VITALS: BP 155/88; PULSE 82; RESP 16; TEMP 36.1; O2SAT 97
[2018-12-12] MEDS: Lactated Ringers 1,000 ML 80 ML IV (11:45)
--- NOTE | 2018-12-12 12:10 | BOWEL_PTH ---
PATIENT: Acosta Driver LOC: [facility] U#:[id number] AGE/SX: 63/M ROOM: RE12/12/[address]: Shayna Cheng MD : [id number] BED: DIS: 12/12/2018 SPEC #: [id number] RECD: 12/12/18 17:24 STATUS: [place] REQ #: [id number] CONCHITA: 12/12/18 12:[address]: Shayna Cheng DEPT: Surgical Specimen RECD BY: Sarah Sanon ENTERED: 12/12/18 17:25 SP TYPE: Bowel OTHR DR: Jonathan Medina DO Tissues: 1 - BIOPSY BOWEL 2 - BIOPSY BOWEL 3 - BIOPSY BOWEL Procedures: GROSS AND MICRO LEVEL 4 Comments: [id number]
[2018-12-12 13:42] VITALS: BP 136/86; PULSE 64; RESP 17; TEMP 36.4; O2SAT 95
== END 2018-12-12 14:03 | disposition home or self-care (01) ==
LOC: SUR 10:45
PROVIDERS: PCP Emergency Medicine; Visit Provider Surgery
PROC: 0DJD8ZZ Inspection of Lower Intestinal Tract, Via Natural or Artificial Opening Endoscopic (ICD-10-PCS; CPT 45378; principal; 2018-12-12 12:15)
DX: Z12.11 Encounter for screening for malignant neoplasm of colon (principal); D12.2 Benign neoplasm of ascending colon; D12.3 Benign neoplasm of transverse colon; K62.1 Rectal polyp; K57.30 Diverticulosis of large intestine without perforation or abscess without bleeding; Z86.010 Personal history of colon polyps; I10 Essential (primary) hypertension; K21.9 Gastro-esophageal reflux disease without esophagitis
CPT/HCPCS: 45385; 45380; 88305; J2250; J3010

== ENCOUNTER 2019-07-17 15:33 | Outpatient (CLI) | payer MEDICARE, SELFPAY ==
--- NOTE | 2019-07-17 15:02 | DI.RAD_ITS ---
EXAM: XR RIBS RT W PA LAT CHEST CLINICAL HISTORY: RT RIB PAIN, PERIPHERAL EDEMA, TECHNIQUE: COMPARISON: CR CHEST 2 VIEWS PA,LAT from 03/15/2015 FINDINGS: PA and lateral views of the chest and multiple additional right rib films were obtained. Heart is no t enlarged and the lungs are clear. Except for minimal changes left basilar scarring. No pleural ef fusion seen. No rib fracture or other rib deformity seen. IMPRESSION: Negative examination of the chest and ribs.
== END 2019-07-17 15:53 ==
PROVIDERS: PCP Emergency Medicine; Visit Provider Nurse Practitioner Family
DX: R07.81 Pleurodynia (principal); R60.0 Localized edema
CPT/HCPCS: 71046; 71100

== ENCOUNTER 2019-07-24 01:08 | Outpatient (CLI) | payer MEDICARE, SELFPAY ==
--- NOTE | 2019-07-24 14:37 | DI.US_ITS ---
APPROVED REPORT EXAM: Comprehensive 2D, Doppler, and color-flow Echocardiogram Patient Location: Out-Patient Biomedical Technician: Haydee Isaac RDCS (AE) Indications: CAD, Sleep apnea Other Information Study Quality: Fair Conclusion Left Ventricle : The left ventricle is normal size. Left ventricular systolic function is borderline. There is normal left ventricular wall thickness. There is normal LV segmental wall motion. The left ventricular diastolic function is normal. LVEF is 45-50%. Right Ventricle : The right ventricle is normal size. Atria : The left atrium size is normal. The right atrium size is normal. Valves: There are no hemodynamically significant valvular lesions. Great Vessels : IVC is normal in size and collapses >50% with inspiration. Compared to echocardiogram dated 12/14/2016: The patient's ejection fraction has decreased from 55-60% to 45-50%. Wall motion Left Ventricle The left ventricle is normal size. Left ventricular systolic function is borderline. There is normal left ventricular wall thickness. There is normal LV segmental wall motion. The left ventricular diast olic function is normal. There is no ventricular septal defect visualized. LVEF is 45-50%. Right Ventricle The right ventricle is normal size. The right ventricular systolic function is normal. Tricuspid regu rgitation was not visualized well enough to estimate RVSP. Atria The left atrium size is normal. The right atrium size is normal. The interatrial septum is intact wit h no evidence for an atrial septal defect. Aortic Valve Aortic valve is trileaflet. There is no aortic valvular stenosis. No aortic regurgitation is present. Mitral Valve There is mitral annular calcification. No evidence of mitral valve stenosis. Trace to mild mitral reg urgitation. Tricuspid Valve The tricuspid valve is normal in structure. There is no tricuspid valve stenosis. Trace tricuspid reg urgitation. Unable to assess PA pressure. Pulmonic Valve The pulmonary valve is normal in structure. There is no pulmonic valvular stenosis. There is no pulmo olena valvular regurgitation. Great Vessels The aortic root is normal in size. Aortic arch is normal in caliber. Ascending aorta is normal in yayo iber. IVC is normal in size and collapses >50% with inspiration. Pericardium There is no pericardial effusion. 2D Dimensions IVSD d PLAX 1.11 cm M: 0.6-1.2 LV Vol A2C d MOD 127.3 mL LVPW d PLAX 1.14 cm M: 0.6 - 1.2 LV Vol A4C d MOD 138.5 mL LVID d PLAX 5.41 cm M: 4.2 - 5.8 LA vol/ BSA A2C s A-L 11.4 mL/m2 LVDs 4.30 cm M: 2.5 - 4.0 LA vol/ BSA A4C s A-L 16.8 mL/m2 Ao Root d 3.10 cm M: 3.1 - 3.7 LA Vol/ BSA Biplane s A-L 14.4 mL/m2 RA Area A4C 21.88 cm2 LA Area A4C s MOD 16.83 cm2 RA Vol/ BSA A4C s A-L 24.2 mL/m2 LA Area A2C s MOD 13.35 cm2 Ao Asc Diam d 3.34 cm M: 2.6 - 3.4 LV EF A4C MOD 45.7 % LV EF Teichholz 40.0 % LV EF A2C MOD 49.8 % LVEF ([place]'s) 47.00 % M: 52 - 72 LV EF Biplane MOD 47.0 % LV Volume 89.29 mL M: 62 - 150 LV Volume Index 30.37 mL/m2 M: 34 - 74 LV Vol Biplane MOD 133.2 mL FS 19.65 % M-Mode TAPSE 2.65 cm (M/F) >1.7 LV Diastology MV E' medial 0.115 (>0.07 m/s) E/A Ratio 1.8 LV E/e MED 8.65 (<14) MV E Vmax 1.00 (0.4-1.3 m/s) MV E' lateral 0.143 (>0.1 m/s) MV A Vmax 0.55 (0.4-1.3 m/s) LV E/e LAT 6.95 (<14) MV E/A Ratio 1.74 MV E/E' medial 8.67 MV E/E' lateral 6.96 Aortic Valve LVOT Area 4.18 cm2 AoV Area Vmax 3.41 cm2 LVOT Vmax 1.04 m/s AoV Area/ BSA (Vmax) 1.16 cm2/m2 LVOT Mean Mika. 0.70 m/s SHANE Mean Mika. 3.39 cm2 LVOT Peak Grad 4.3 mmHg SHANE Mean Mika. Index 1.15 cm2/m2 LVOT Mean Grad 2.3 mmHg LVOT VTI 0.252 m LVOT Diam s 2.30 cm AoV Vmax 1.27 m/s Velocity Ratio 0.81 AoV Mean Mika. 0.87 m/s AoV Peak Grad 6.5 mmHg LVOT SV 105.07 mL AoV Mean Grad 3.4 mmHg AoV VTI 0.276 m AoV Area VTI 3.80 cm2 AoV Area/ BSA (VTI) 1.30 cm/m2 Mitral Valve MV DT 202 (160-240 msec) MV PHT 58 msec MV Area PHT 3.76 cm2 Pulmonary Valve PV Vmax 1.28 (0.5-1.5 m/s) RVOT Peak Gr. 3.02 mmHg PV Peak Grad 6.6 mmHg RVOT Mean Gr. 1.50 mmHg PV Mean Grad 3.4 mmHg RVOT VTI 0.179 m PV VTI 0.276 m RVOT Vmax 0.87 m/s
== END 2019-07-24 01:28 ==
PROVIDERS: PCP Emergency Medicine; Visit Provider Internal Medicine Cardiovascular Disease
DX: I25.118 Atherosclerotic heart disease of native coronary artery with other forms of angina pectoris (principal); I10 Essential (primary) hypertension; G47.30 Sleep apnea, unspecified
CPT/HCPCS: 93306

== ENCOUNTER 2019-07-24 09:48 | Outpatient (CLI) | payer MEDICARE, SELFPAY ==
[2019-07-24 15:48] LABS: Abs Immature Grans 0.01 k/cumm (0.0-0.09); Absolute Basophil Count 0.01 k/cumm (0.0-0.2); Absolute Eosinophil Count 0.17 k/cumm (0.0-0.7); Absolute Lymphocyte Count 1.85 k/cumm (1.2-3.4); Absolute Monocyte Count 0.73 k/cumm (0.11-0.7); Absolute Neutrophil Count 4.92 k/cumm (1.2-6.7); Basophils % 0.1; Eosinophils % 2.2; HCT 38.4 % (40.0-50.0); Immature Grans % 0.1 %; Lymphocytes % 24.1; Mean Corp. HGB Concentration 33.9 g/dL (32.0-36.0); Mean Corpuscular Hemoglobin 29.5 pg (27.0-33.0); Mean Corpuscular Volume 87.3 fL (80-95); Monocytes % 9.5; Platelet Count 213 x1000/uL (130-400); RBC Distribution Width 14.5 % (11.8-14.1); White Blood Cell Count 7.69 k/cumm (4.4-10.8)
== END 2019-07-24 10:08 ==
PROVIDERS: Nurse Practitioner Family; PCP Emergency Medicine; Visit Provider Emergency Medicine
DX: K92.1 Melena (principal); I25.118 Atherosclerotic heart disease of native coronary artery with other forms of angina pectoris; I10 Essential (primary) hypertension; G47.30 Sleep apnea, unspecified
CPT/HCPCS: 36415; 93306; 85025

== ENCOUNTER → 2019-07-27 10:50 | Outpatient (BNVA) | payer MEDICARE, SELFPAY | PROVIDERS: PCP Emergency Medicine; Referring Provider Emergency Medicine; Visit Provider Internal Medicine Cardiovascular Disease | DX: I25.118 Atherosclerotic heart disease of native coronary artery with other forms of angina pectoris (principal); R60.9 Edema, unspecified; I10 Essential (primary) hypertension; R06.02 Shortness of breath | CPT/HCPCS: 99204; 99215 ==

== ENCOUNTER 2019-11-22 14:50 | Outpatient (REF) | payer MEDICARE, SELFPAY ==
[2019-11-22 22:10] LABS: Hemoglobin A1C 6.2 % (<5.7)
== END 2019-11-22 15:10 ==
LOC: LBN 14:50
PROVIDERS: PCP Emergency Medicine; Visit Provider Emergency Medicine
DX: E11.9 Type 2 diabetes mellitus without complications (principal)
CPT/HCPCS: 80048; 83036

== ENCOUNTER → 2020-02-13 14:00 | Outpatient (BNVA) | payer MEDICARE, SELFPAY | PROVIDERS: PCP Emergency Medicine; Referring Provider Emergency Medicine; Visit Provider Internal Medicine Cardiovascular Disease | DX: I25.118 Atherosclerotic heart disease of native coronary artery with other forms of angina pectoris (principal); E66.9 Obesity, unspecified; R60.9 Edema, unspecified; I10 Essential (primary) hypertension; R06.02 Shortness of breath | CPT/HCPCS: 99214 ==

== ENCOUNTER 2020-05-21 10:39 | Outpatient (CLI) | payer MEDICARE, SELFPAY ==
[2020-05-21 12:49] LABS: Anion Gap 11.2 mmol/L (3-11); BUN 29 mg/dL (7-18); CO2 27.8 mmol/L (21.0-32.0); CREATININE 1.3 mg/dL (0.70-1.30); Calcium 10.2 mg/dL (8.5-10.1); Calculated LDL 117 mg/dL (<100); Chloride 101 mmol/L (98-107); Cholesterol 207 mg/dL (<200); Glucose 160 mg/dL (74-106); HDL Cholesterol 41 mg/dL (40-60); Sodium 140 mmol/L (136-145); Triglyceride 246 mg/dL (<150)
[2020-05-21 14:03] LABS: Hemoglobin A1C 6.6 % (<5.7)
== END 2020-05-21 10:40 | disposition home or self-care (01) ==
LOC: LOS 10:39
PROVIDERS: PCP Emergency Medicine; Visit Provider Emergency Medicine
DX: I10 Essential (primary) hypertension (principal); E11.9 Type 2 diabetes mellitus without complications
CPT/HCPCS: 36415; 80048; 80061; 83036

== ENCOUNTER 2020-07-01 09:28 | Emergency (ER) | payer MEDICARE, SELFPAY ==
[2020-07-01 09:36] VITALS: BP 158/92; PULSE 72; RESP 20; TEMP 36; O2SAT 98
--- NOTE | 2020-07-01 09:45 | DI.RAD_ITS ---
EXAM: XR ANKLE LT COMPLETE CLINICAL HISTORY: left lateral malleolus pain, twisting injury,. TECHNIQUE: 2D digital imaging was performed. COMPARISON: No exams were available for comparison FINDINGS: There is soft tissue swelling. Small calcific density subjacent to the lateral malleolus measuring 3 x 1 millimeter may be an avulsion injury. Small calcifications subjacent to the medial malleolus is either avulsion injury or accessory ossicle. There is no widening of the mortise. Talar dome appea rs unremarkable. Moderate size inferior calcaneal spur is noted. There is prominent calcification i n the plantar fascia. Vascular calcification in the posterior tibial artery is noted and this extend s into the plantar artery. There are significant degenerative changes evident at the talonavicular j oint level. Subtalar joint appears unremarkable and there are no prominent degenerative changes in t he ankle-tibiotalar joint. Calcification is noted within the distal Achilles tendon consistent chronic tendonitis. IMPRESSION: DATA REPOSITORY: RADIATION DOSE DELIVERED:
--- NOTE | 2020-07-01 09:51 | ED.GENADUL_ITS ---
Discharge Plan Disposition Patient Disposition: HOME Condition: Good Discharge Details Clinical Impression: Avulsion fracture of left ankle, Cellulitis Primary Care Provider: Jonathan Medina ED Provider: Sarah Chung Home Meds and New Rx's Prescriptions: New cephalexin 500 mg capsule 500 mg PO QID Qty: 40 RF: 0 diclofenac sodium 1 % gel 4 g topical QID Qty: 150 RF: 0 Continued nitroglycerin 0.4 mg tablet, sublingual 0.4 mg Sublingual PRN PRN (Reason: chest pain) Qty: 25 RF: 0 pantoprazole 40 mg tablet,delayed release (DR/EC) 40 mg PO DAILY Qty: 90 RF: 3 rosuvastatin [Crestor] 20 mg tablet 20 mg PO DAILY Qty: 90 RF: 3 lisinopril 20 mg tablet 20 mg PO DAILY Qty: 90 RF: 3 clonazepam 0.5 mg tablet 0.5 mg PO DAILY Qty: 30 RF: 2 docusate sodium 100 MG capsule 100 mg PO DAILY RF: 0 aspirin 81 MG tablet,chewable 81 mg PO DAILY RF: 0 ergocalciferol (vitamin D2) [Vitamin D2] 1,250 mcg (50,000 unit) capsule 50,000 unit PO WEEKLY Qty: 12 RF: 4 allopurinol 100 mg tablet 100 mg PO DAILY Qty: 90 RF: 3 furosemide 40 mg tablet 40 mg PO DAILY PRN (Reason: Leg swelling) Qty: 90 RF: 1 cyanocobalamin (vitamin B-12) [Vitamin B-12] 1,000 mcg tablet 1,000 mcg PO DAILY Qty: 90 RF: 3 sulfasalazine 500 mg tablet,delayed release (DR/EC) 500 mg PO .qhs Qty: 90 RF: 3 sulfasalazine 500 mg tablet 1,000 mg PO QAM Qty: 90 RF: 3 venlafaxine 150 mg tablet extended release 24hr 150 mg PO DAILY Qty: 90 RF: 3 folic acid 400 MCG tablet 400 mcg PO DAILY RF: 0 gabapentin 800 mg tablet 400 mg PO .5 a.m. 1 tab pm PRNRF: 0 Discharge Instructions Instructions: Cellulitis (ED) Additional Instructions: Take antibiotics as prescribed Follow-up with orthopedics in the outpatient setting Follow-up with your primary care physician in 24 to 48 hours for recheck of your likely skin infection Elevate your leg as much as possible You may take Tylenol as needed for discomfort You may also use Voltaren gel topically, this is an [id number] medication Referrals: Kvng Saldaña MD [ [facility] STAFF PHYSICIAN] - (avulsion fracture) Medical Decision Making <BRE Alexander - Last Filed: 07/01/20 11:54> Patient has a. Erythema on his left lateral ankle, distal pulses intact, no crepitus, x-ray shows evidence of avulsion injury There is concern for possible cellulitis given erythema which was delayed in onset, suspicion for septic arthritis or gout based on presentation, patient does have a mildly elevated CRP at 1.3 He requests outpatient follow-up, I have placed notification to care management to establish a 1 to 2-day outpatient recheck Patient is afebrile and nontoxic, he is ambulatory with steady and antalgic gait He was placed on Keflex and wound was marked Patient does have full range of motion of his ankle, low suspicion for septic arthritis As patient did not have an obvious wound with injury, low suspicion for open fracture Patient is given low threshold to return should he have new or worsening complaints and discharged home in stable condition with stable vitals at time of my evaluation Will use cane, placed in ankle boots Orthopedic referral supplied Differential Diagnosis Differential Diagnosis: Septic arthritis, cellulitis, strain, fracture Medical Records Medical records reviewed: Yes I reviewed the patient's medical records. Lab Data Lab results reviewed: Yes I reviewed the patient's lab results. <Traci Fisher MD - Last Filed: 07/01/20 12:05> Acosta Driver is a 64-year-old man with a history of GERD, hypertension, peripheral neuropathy who presented to emergency department with left-sided ankle pain after injury 1 week ago. X-rays show lateral malleolus avulsion. I was consulted regarding erythema of the lower leg. On my examination the patient has area 6x4 cm erythema lateral distal lower leg proximal to lateral malleolus. Able to range left ankle fully without issue. Mild tenderness palpation of the left lateral malleolus. Area of erythema is warm to the touch, no edema or drainage. Patient reports that he does not recall a skin wound from injury. He states he has been wrapping the ankle with an Gilles bandage. Labs reviewed, CRP mildly elevated, normal WBC. Concern for cellulitis, avulsion injury of the left ankle. Exam/history at this time is not consistent with open fracture, septic arthritis, sepsis. Agree with plan for outpatient antibiotic, outpatient follow-up with orthopedic, rosanna metzger. Medical Records Medical records reviewed: Yes I reviewed the patient's medical records. Lab Data Lab results reviewed: Yes I reviewed the patient's lab results. HPI <BRE Alexander - Last Filed: 07/01/20 11:54> This 64-year-old male with history of peripheral neuropathy, coronary artery disease, gout presents with report of left lateral ankle pain. Patient states that approximately a week ago he was in a restroom and turned quickly, twisting his ankle. He states he subsequently fell into the wall and had trouble ambulating after secondary to pain in his ankle. He denies any new paresthesias. He denies fever or chills. He was evaluated by his doctor but did not have imaging. He is concerned because he now has redness to the lateral region of his ankle and the pain is worsened. He does have a history of gout, he states the pain is worse. He denies any additional complaints at this time. General Mode of arrival: ambulatory . Date/Time Provider Initiated Documentation: 07/01/20 09:43 . Limitations to Documentation: no limitations . Related Data Home Medications Medication Instructions Recorded Confirmed folic acid 400 mcg PO DAILY 05/29/12 07/01/20 docusate sodium 100 mg PO DAILY tab-cap 11/01/13 07/01/20 aspirin 81 mg PO DAILY tab-cap 09/29/16 07/01/20 gabapentin 400 mg PO .5 a.m. 1 tab pm PRN 12/07/18 07/01/20 clonazepam 0.5 mg tablet 0.5 mg PO DAILY #30 tab 03/06/19 07/01/20 lisinopril 20 mg tablet 20 mg PO DAILY #90 tab 03/06/19 07/01/20 ergocalciferol (vitamin D2) 1,250 50,000 unit PO WEEKLY #12 tab-cap 07/04/19 07/01/20 mcg (50,000 unit) capsule allopurinol 100 mg tablet 100 mg PO DAILY #90 tab-cap 10/25/19 07/01/20 nitroglycerin 0.4 mg sublingual 0.4 mg SUBLINGUAL PRN PRN #25 11/22/19 07/01/20 tablet tab.sl pantoprazole 40 mg tablet,delayed 40 mg PO DAILY #90 tab-cap 11/22/19 07/01/20 release furosemide 40 mg tablet 40 mg PO DAILY PRN #90 tab 01/31/20 07/01/20 cyanocobalamin (vitamin B-12) 1,000 mcg PO DAILY #90 tab 03/04/20 07/01/20 1,000 mcg tablet sulfasalazine 500 mg tablet 1,000 mg PO QAM #90 tab 03/04/20 07/01/20 sulfasalazine 500 mg 500 mg PO .qhs #90 tab 03/04/20 07/01/20 tablet,delayed release venlafaxine 150 mg tablet,extended 150 mg PO DAILY #90 tab-cap 03/04/20 07/01/20 release 24 hr rosuvastatin 20 mg tablet 20 mg PO DAILY #90 tab 06/26/20 07/01/20 cephalexin 500 mg PO QID #40 cap 07/01/20 diclofenac sodium 4 g TOPICAL QID #150 g 07/01/20 Previous Rx's Medication Instructions Recorded clonazepam 0.5 mg tablet 0.5 mg PO DAILY #30 tab 03/06/19 lisinopril 20 mg tablet 20 mg PO DAILY #90 tab 03/06/19 ergocalciferol (vitamin D2) 1,250 50,000 unit PO WEEKLY #12 tab-cap 07/04/19 mcg (50,000 unit) capsule allopurinol 100 mg tablet 100 mg PO DAILY #90 tab-cap 10/25/19 nitroglycerin 0.4 mg sublingual 0.4 mg SUBLINGUAL PRN PRN #25 11/22/19 tablet tab.sl pantoprazole 40 mg tablet,delayed 40 mg PO DAILY #90 tab-cap 11/22/19 release furosemide 40 mg tablet 40 mg PO DAILY PRN #90 tab 01/31/20 cyanocobalamin (vitamin B-12) 1,000 mcg PO DAILY #90 tab 03/04/20 1,000 mcg tablet sulfasalazine 500 mg tablet 1,000 mg PO QAM #90 tab 03/04/20 sulfasalazine 500 mg 500 mg PO .qhs #90 tab 03/04/20 tablet,delayed release venlafaxine 150 mg tablet,extended 150 mg PO DAILY #90 tab-cap 03/04/20 release 24 hr rosuvastatin 20 mg tablet 20 mg PO DAILY #90 tab 06/26/20 cephalexin 500 mg PO QID #40 cap 07/01/20 diclofenac sodium 4 g TOPICAL QID #150 g 07/01/20 Allergies Allergy/AdvReac Type Severity Reaction Status Date / Time Penicillins Allergy Mild Skin Rash Verified 07/01/20 09:39 codeine AdvReac Severe hypertention/pass Verified 07/01/20 09:39 out General Stated Complaint: Orthopedic KRISTIAN: 4 <Traci Fisher MD - Last Filed: 07/01/20 12:05> This 64-year-old male with history of peripheral neuropathy, coronary artery disease, gout presents with report of left lateral ankle pain. Patient states that approximately a week ago he was in a restroom and turned quickly, twisting his ankle. He states he subsequently fell into the wall and had trouble ambulating after secondary to pain in his ankle. He denies any new p aresthesias. He denies fever or chills. He was evaluated by his doctor but did not have imaging. He is concerned because he now has redness to the lateral region of his ankle and the pain is worsened. He does have a history of gout, he states the pain is worse. He denies any additional complaints at this time. Review of Systems <BRE Alexander - Last Filed: 07/01/20 11:54> Narrative: Review of systems obtained x7 aside from where indicated in [facility] <BRE Alexander - Last Filed: 07/01/20 11:54> Medical History (Updated 07/01/20 @ 10:59 by BRE Alexander) Annual physical exam Chronic anxiety Chronic back pain Depression Diverticulosis DJD (degenerative joint disease) External hemorrhoids with other complication (05/11/11) GERD (gastroesophageal reflux disease) Gout Hypertension Impacted cerumen of both ears (03/12/16) Lumbar stenosis COP[place]AND (nonalcoholic steatohepatitis) (01/09/15) Obesity, Class III, BMI 40-49.9 (morbid obesity) Peripheral edema Peripheral neuropathy Psoriatic arthritis (11/01/13) Sensorineural hearing loss, bilateral (01/07/15) Sleep apnea, unspecified (04/17/15) Tubular adenoma 12/03/14; DENISE DEGROOT Surgical History DISKECTOMY (03/07/89) L5 S1 HEMILAMINECTOMY (03/07/91) Hemorrhoidectomy (07/22/11) L5 S/P colonoscopy (~12/12/18) 12/24: sessile serrated adenoma. Traditional serrated adenoma. 11/2014- [place]- Tubular adenoma Status post discectomy Status post hemorrhoidectomy Status post laminectomy Stented coronary artery (~2017) Family History Mother , 67 Essential hypertension Myocardial infarction Father , 67 Essential hypertension Asthma Brother , 64 Myocardial infarction FAMILY HISTORY CAD (coronary artery disease) Stroke COPD (chronic obstructive pulmonary disease) Social History Smoking/Tobacco Use Status: Never Smoking risk assessment performed?: Yes Alcohol Intake: never Drug use: Never Substance use type: does not use Caregiver/Support person: No Household members: spouse Housing: house Communication Needs: Hard of Hearing and Corrective Lenses Pets and animals: Yes Sexually active: No Do you think of yourself as: straight/heterosexual Current gender identity: male What is your relationship status?: How often do you talk on the phone with friends or family?: once per week How often do you get together with friends or relatives?: twice per week How often do you attend jehovah's witness or caodaism services?: decline to answer Do you belong to any clubs or organized social groups?: yes Panel score (0-1 are the most socially isolated patients): 3 Duration: < 15 minutes/day Frequency: 1-2 times per week Fatou/Gnosticism: Oriental Orthodox Special fatou needs: No Seatbelt use: always Drive intox or ride w/intox chassis driver: No Do you feel safe at home: Yes Do you feel safe in your relationship?: Yes Exam <BRE Alexander - Last Filed: 07/01/20 11:54> Const General: no acute distress Resp Effort & Inspection: normal respiratory effort Cardio Rate: regular rate Skin Other: approximately 6 x 6 regions of erythema to left lateral ankle Neuro General: patient alert and patient oriented x3 Extrem General: capillary refill normal Other: Distal pulses intact, tenderness to palpation to left lateral ankle, no evidence of obvious joint involvement, able to range ankle, reproducible palpable tenderness to left lateral ankle without crepitus No calf tenderness or swelling appreciated, no lymphangitis, Course <BRE Alexander - Last Filed: 07/01/20 11:54> Vital Signs Vital signs: Vital Signs Temperature 36.0 C L 07/01/20 09:36 Pulse 72 07/01/20 09:36 Respiratory Rate 20 07/01/20 09:36 Blood Pressure 158/92 H 07/01/20 09:36 Pulse Oximetry 98 07/01/20 09:36 Temperature 36.0 C L 07/01/20 09:36 Temperature Source Temporal Artery Scan 07/01/20 09:36 Pulse 72 07/01/20 09:36 Respiratory Rate 20 07/01/20 09:36 Respiratory Effort 07/01/20 09:40 Blood Pressure 158/92 H 07/01/20 09:36 Blood Pressure Position Sitting 07/01/20 09:36 Pulse Oximetry 98 07/01/20 09:36 Oxygen Delivery Method Room Air 07/01/20 09:36 Oxygen Flow Rate 0 07/01/20 09:36 Pain Level 9 07/01/20 09:40
[2020-07-01 10:34] LABS: Abs Immature Grans 0.03 10^3/uL (0.0-0.06); Absolute Basophil Count 0.03 10^3/uL (0.0-0.2); Absolute Eosinophil Count 0.25 10^3/uL (0.0-0.7); Absolute Lymphocyte Count 1.49 10^3/uL (1.2-3.4); Absolute Monocyte Count 0.56 10^3/uL (0.1-0.8); Absolute Neutrophil Count 4.34 10^3/uL (1.2-6.7); Basophils % 0.4; Eosinophils % 3.7; HCT 40.6 % (40.0-50.0); HGB 13.4 g/dL (13.5-17.5); Immature Grans % 0.4; Lymphocytes % 22.2; MCH 29.1 pg (27.0-33.0); MCV 88.3 fL (80-95); MPV 11.3 fL (8.0-11.0); Monocytes % 8.4; Neutrophils % 64.9; Nucleated RBC 0 %; Platelet Count 208 10^3/uL (130-400); RDW 14.1 % (11.8-14.1); RDW-SD 45.1 fL
[2020-07-01 10:39] LABS: Anion Gap 7.2 mmol/L (3-11); BUN 17 mg/dL (7-18); C-Reactive Protein 1.57 mg/dL (0.0-0.3); CO2 29.8 mmol/L (21.0-32.0); CREATININE 1.1 mg/dL (0.70-1.30); Calcium 9.3 mg/dL (8.5-10.1); Chloride 104 mmol/L (98-107); Glucose 138 mg/dL (74-106); Potassium 4.3 mmol/L (3.5-5.1); Sodium 141 mmol/L (136-145)
--- NOTE | 2020-07-01 11:21 | NUR.NOTE ---
Nursing Note: Referral faxed to PCP for follow up of cellulitis within 2 days. Mariann Kruger
== END 2020-07-01 11:10 | disposition home or self-care (01) ==
PROVIDERS: Emergency Provider Physician Assistant; PCP Emergency Medicine
DX: S82.65XA Nondisplaced fracture of lateral malleolus of left fibula, initial encounter for closed fracture (principal); L03.116 Cellulitis of left lower limb; X50.1XXA Overexertion from prolonged static or awkward postures, initial encounter
CPT/HCPCS: 29515; 80048; 99284; 73610; 85025; 86140; 99283

== ENCOUNTER → 2020-07-17 08:52 | Outpatient (BNVA) | payer MEDICARE, SELFPAY | PROVIDERS: PCP Emergency Medicine; Referring Provider Emergency Medicine; Visit Provider Physician Assistant Surgical | DX: S82.892A Other fracture of left lower leg, initial encounter for closed fracture (principal); X50.1XXA Overexertion from prolonged static or awkward postures, initial encounter | CPT/HCPCS: 99213 ==

== ENCOUNTER → 2020-08-12 10:39 | Outpatient (BNVA) | payer MEDICARE, SELFPAY | PROVIDERS: PCP Emergency Medicine; Referring Provider Emergency Medicine; Visit Provider Internal Medicine Cardiovascular Disease | DX: I25.118 Atherosclerotic heart disease of native coronary artery with other forms of angina pectoris (principal); I10 Essential (primary) hypertension | CPT/HCPCS: 99214 ==

== ENCOUNTER 2020-11-22 01:13 | Outpatient (CLI) | payer MEDICARE, SELFPAY ==
[2020-11-22 12:46] LABS: Calculated LDL 69 mg/dL (<100); Cholesterol 134 mg/dL (<200); HDL Cholesterol 43 mg/dL (40-60); Triglyceride 110 mg/dL (<150)
== END 2020-11-22 01:14 | disposition home or self-care (01) ==
LOC: LOS 01:13
PROVIDERS: PCP Emergency Medicine; Visit Provider Emergency Medicine
DX: I25.118 Atherosclerotic heart disease of native coronary artery with other forms of angina pectoris (principal)
CPT/HCPCS: 36415; 80061

== ENCOUNTER 2020-12-13 11:34 | Emergency (ER) | payer MEDICARE, SELFPAY ==
[2020-12-13 11:45] VITALS: BP 141/68; PULSE 67; RESP 16; TEMP 36.5; O2SAT 98
--- NOTE | 2020-12-13 11:56 | W.ED.GENAD ---
Discharge Plan Disposition Patient Disposition: HOME Condition: Stable Discharge Details Clinical Impression: Head injury Primary Care Provider: Jonathan Medina ED Provider: Vivek Juarez Home Meds and New Rx's Prescriptions: Continued nitroglycerin 0.4 mg tablet, sublingual 0.4 mg Sublingual PRN PRN (Reason: chest pain) Qty: 25 RF: 0 pantoprazole 40 mg tablet,delayed release (DR/EC) 40 mg PO DAILY Qty: 90 RF: 3 atorvastatin 40 mg tablet 40 mg PO DAILY Qty: 90 RF: 3 amlodipine 5 mg tablet 5 mg PO DAILY Qty: 90 RF: 3 lisinopril 20 mg tablet 20 mg PO DAILY Qty: 90 RF: 3 cyanocobalamin (vitamin B-12) [Vitamin B-12] 1,000 mcg tablet 1,000 mcg PO DAILY Qty: 90 RF: 3 venlafaxine 150 mg tablet extended release 24hr 150 mg PO DAILY Qty: 90 RF: 3 nystatin 100,000 unit/gram ointment 1 applic topical BID Qty: 15 RF: 2 docusate sodium 100 MG capsule 100 mg PO DAILY RF: 0 aspirin 81 MG tablet,chewable 81 mg PO DAILY RF: 0 sulfasalazine 500 mg tablet,delayed release (DR/EC) 500 mg PO .qhs Qty: 90 RF: 3 ergocalciferol (vitamin D2) [Vitamin D2] 1,250 mcg (50,000 unit) capsule 50,000 unit PO WEEKLY Qty: 12 RF: 4 sulfasalazine 500 mg tablet 1,000 mg PO QAM Qty: 180 RF: 3 allopurinol 100 mg tablet 100 mg PO DAILY Qty: 90 RF: 3 folic acid 400 MCG tablet 400 mcg PO DAILY RF: 0 diclofenac sodium 1 % gel 4 g topical QID Qty: 150 RF: 0 gabapentin 800 mg tablet 400 mg PO .5 a.m. 1 tab pm PRNRF: 0 Hold Instructions: Home Medication placed on hold at Doctor's office Discharge Instructions Instructions: Head Injury (ED) Additional Instructions: CT imaging of your head was unremarkable for any obvious emergent process. Please watch for new or worsening symptoms and return to the ER for any concerns. Otherwise please contact your primary care provider today or Wednesday to discuss your ER visit need for outpatient reevaluation Discharge Data Discharge Date/Time-TO BE ENTERED AT DEPARTURE: 12/13/20 13:17 Medical Decision Making This is a 65-year-old male, not anticoagulated, presenting after a mechanical slip and fall at a local grocery store striking the left side of his head. Reports mild global headache but denies LOC visual changes, neck pain, chest pain, shortness of breath, incontinence, nausea or vomiting. Given his age, injury, will obtain CT imaging of his head. Patient and family are comfortable with this plan. He appears well, nontoxic, neurologically intact. He has CT imaging is unremarkable per radiology. Discussed results with patient and family, they are relieved. They have no additional questions or concerns and are comfortable discharge. He remains asymptomatic. Standard discharge and return precautions provided This documentation was generated using [employer] system, please disregard any oddities of phrase or misspellings. Medical Records Medical records reviewed: Yes I reviewed the patient's medical records. Imaging Data Radiologic Study: Attestation: I personally reviewed and interpreted this imaging study as follows: Imaging: CT Scan Radiologist's impression: EXAM: CT HEAD WO CLINICAL HISTORY: fall/head injury/DUNLAP. TECHNIQUE: Imaging Protocol: Axial computed tomography images with coronal and sagittal reformatted images were created and reviewed COMPARISON: CT CT HEAD WO from 09/19/2018 FINDINGS: The ventricular system is normal in appearance. No evidence of acute intracranial hemorrhage, mass effect, or midline shift. The orbital structures are unremarkable. The temporal bone structures appear intact. Calvarium: Normal. Visualized Paranasal sinuses/Mastoids: Clear. IMPRESSION: Normal cranial CT. HPI General Mode of arrival: ambulatory. Date/Time Provider Initiated Documentation: 12/13/20 11:55. Limitations to Documentation: no limitations. Information obtained by: patient. HPI Narrative: This is a 65-year-old gentleman, past medical history that includes anxiety, chronic back pain, depression, GERD, hypertension, presenting to the ER today for evaluation status post mechanical slip and fall at a local supermarket because they were doing floor work, striking his head now with a mild dull global headache. This occurred just prior to arrival. He denies any other injury, LOC, neck pain, symptoms prior to the fall, nausea, vomiting, visual changes bowel or bladder incontinence, numbness, tingling, weakness, any other injuries. Patient did not take any medications prior to arrival. Patient is not anticoagulated. He came to the ER for evaluation at the request of the supermarket. Related Data Home Medications Medication Instructions Recorded Confirmed folic acid 400 mcg PO DAILY 05/29/12 12/13/20 docusate sodium 100 mg PO DAILY tab-cap 11/01/13 12/13/20 aspirin 81 mg PO DAILY tab-cap 09/29/16 12/13/20 gabapentin 400 mg PO .5 a.m. 1 tab pm PRN 12/07/18 12/13/20 nitroglycerin 0.4 mg sublingual 0.4 mg SUBLINGUAL PRN PRN #25 11/22/19 12/13/20 tablet tab.sl pantoprazole 40 mg tablet,delayed 40 mg PO DAILY #90 tab-cap 11/22/19 12/13/20 release sulfasalazine 500 mg 500 mg PO .qhs #90 tab 03/04/20 12/13/20 tablet,delayed release diclofenac sodium 4 g TOPICAL QID #150 g 07/01/20 12/13/20 atorvastatin 40 mg tablet 40 mg PO DAILY #90 tab 08/12/20 12/13/20 ergocalciferol (vitamin D2) 1,250 50,000 unit PO WEEKLY #12 tab-cap 09/03/20 12/13/20 mcg (50,000 unit) capsule sulfasalazine 500 mg tablet 1,000 mg PO QAM #180 tab 09/18/20 12/13/20 allopurinol 100 mg tablet 100 mg PO DAILY #90 tab-cap 10/11/20 12/13/20 cyanocobalamin (vitamin B-12) 1,000 mcg PO DAILY #90 tab 11/06/20 12/13/20 1,000 mcg tablet lisinopril 20 mg tablet 20 mg PO DAILY #90 tab 11/06/20 12/13/20 nystatin 100,000 unit/gram topical 1 applic TOPICAL BID #15 g 11/06/20 12/13/20 ointment venlafaxine 150 mg tablet,extended 150 mg PO DAILY #90 tab-cap 11/06/20 12/13/20 release 24 hr amlodipine 5 mg tablet 5 mg PO DAILY #90 tab 11/19/20 12/13/20 Previous Rx's Medication Instructions Recorded nitroglycerin 0.4 mg sublingual 0.4 mg SUBLINGUAL PRN PRN #25 09/16/20 tablet tab.sl pantoprazole 40 mg tablet,delayed 40 mg PO DAILY #90 tab-cap 11/22/19 release sulfasalazine 500 mg 500 mg PO .qhs #90 tab 03/04/20 tablet,delayed release diclofenac sodium 4 g TOPICAL QID #150 g 07/01/20 atorvastatin 40 mg tablet 40 mg PO DAILY #90 tab 08/12/20 ergocalciferol (vitamin D2) 1,250 50,000 unit PO WEEKLY #12 tab-cap 09/03/20 mcg (50,000 unit) capsule sulfasalazine 500 mg tablet 1,000 mg PO QAM #180 tab 09/18/20 allopurinol 100 mg tablet 100 mg PO DAILY #90 tab-cap 10/11/20 cyanocobalamin (vitamin B-12) 1,000 mcg PO DAILY #90 tab 11/06/20 1,000 mcg tablet lisinopril 20 mg tablet 20 mg PO DAILY #90 tab 11/06/20 nystatin 100,000 unit/gram topical 1 applic TOPICAL BID #15 g 11/06/20 ointment venlafaxine 150 mg tablet,extended 150 mg PO DAILY #90 tab-cap 11/06/20 release 24 hr amlodipine 5 mg tablet 5 mg PO DAILY #90 tab 11/19/20 Allergies Allergy/AdvReac Type Severity Reaction Status Date / Time Penicillins Allergy Mild Skin Rash Verified 12/13/20 11:53 codeine AdvReac Severe hypertention/pass Verified 12/13/20 11:53 out General Stated Complaint: HeadInjury KRISTIAN: 3 Review of Systems Constitutional Constitutional: Denies fever(s), Reports headache(s) and Denies weakness Eyes Eyes: Denies change in vision ENT Ears, Nose, Mouth, and Throat: Reports headache(s) and Denies neck pain Cardiovascular Cardiovascular: Denies chest pain and Denies dyspnea Respiratory Respiratory: Denies dyspnea Gastrointestinal Gastrointestinal: Denies nausea and Denies vomiting Musculoskeletal Musculoskeletal: Denies back pain, Denies neck pain, Denies numbness and Denies tingling Integumentary/Breasts Skin/Breast: Denies rash Neurologic Neurologic: Reports headache(s), Denies numbness, Denies tingling and Denies weakness Hematologic/Lymphatic Hematologic/Lymphatic: Denies easy bleeding and Denies easy bruising [facility] Medical History Annual physical exam Chronic anxiety Chronic back pain Depression Diverticulosis DJD (degenerative joint disease) External hemorrhoids with other complication (05/11/11) GERD (gastroesophageal reflux disease) Gout Hypertension Impacted cerumen of both ears (03/12/16) Lumbar stenosis COPELAND (nonalcoholic steatohepatitis) (01/09/15) Obesity, Class III, BMI 40-49.9 (morbid obesity) Peripheral edema Peripheral neuropathy Psoriatic arthritis (11/01/13) Sensorineural hearing loss, bilateral (01/07/15) Sleep apnea, unspecified (04/17/15) Tubular adenoma 12/03/14; DENISE DEGROOT Surgical History DISKECTOMY (03/07/89) L5 S1 HEMILAMINECTOMY (03/07/91) Hemorrhoidectomy (07/22/11) L5 S/P colonoscopy (~12/12/18) 12/24: sessile serrated adenoma. Traditional serrated adenoma. 11/2014- [place]ar- Tubular adenoma Status post discectomy Status post hemorrhoidectomy Status post laminectomy Stented coronary artery (~2017) Family History Mother , 67 Essential hypertension Myocardial infarction Father , 67 Essential hypertension Asthma Brother , 64 Myocardial infarction FAMILY HISTORY CAD (coronary artery disease) Stroke COPD (chronic obstructive pulmonary disease) Social History Smoking/Tobacco Use Status: Never Smoking risk assessment performed?: Yes Alcohol Intake: never Drug use: Never Substance use type: does not use Caregiver/Support person: No Household members: spouse Housing: house Communication Needs: Hard of Hearing and Corrective Lenses Pets and animals: Yes Sexually active: No Do you think of yourself as: straight/heterosexual Current gender identity: male What is your relationship status?: How often do you talk on the phone with friends or family?: once per week How often do you get together with friends or relatives?: twice per week How often do you attend yarsanism or religion services?: decline to answer Do you belong to any clubs or organized social groups?: yes Panel score (0-1 are the most socially isolated patients): 3 Duration: < 15 minutes/day Frequency: 1-2 times per week Fatou/Buddhism: Yarsani Special fatou needs: No Seatbelt use: always Drive intox or ride w/intox 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 Mild discomfort. Skin is intact Ears: external ears normal, TM's normal bilaterally and EAC's normal General nose exam: external nose normal Face and sinus: normal facial exam Mouth: moist mucous membranes Eyes General: appearance normal, both eyes and all related structures Alignment and Position: alignment normal Periorbital: periorbital findings normal Eyelids: eyelids normal Conjunctivae: conjunctivae normal Sclera: sclerae normal Cornea: corneas normal Pupils: PERRL EOM: EOM intact bilaterally Direct ophthalmoscopy: normal light reflex Neck Neck: normal visual inspection, full ROM, trachea midline, supple and nontender Resp Effort & Inspection: normal respiratory effort and able to speak in complete sentences Auscultation: clear to auscultation bilaterally Cardio Rate: regular rate Rhythm: regular rhythm GI Palpation: soft and nontender Back/Spine/Pelvis Back: No back tenderness Skin General skin exam: no rashes or lesions noted Neuro General: patient alert, patient awake, patient oriented x3, moves all extremities and no focal motor deficits Cognition: normal cognition Speech: speech normal Gait: normal gait Motor: muscle tone normal throughout Sensory Exam: no sensory deficits noted Extrem General: normal to inspection and full ROM Psych Appearance: grossly normal Mental Status: mental status grossly normal Course Vital Signs Vital signs: Vital Signs Temperature 36.5 C 12/13/20 11:45 Pulse 67 12/13/20 11:45 Respiratory Rate 16 12/13/20 11:45 Blood Pressure 141/68 H 12/13/20 11:45 Pulse Oximetry 98 12/13/20 11:45 Temperature 36.5 C 12/13/20 11:45 Pulse 67 12/13/20 11:45 Respiratory Rate 16 12/13/20 11:45 Respiratory Effort Non-Labored 12/13/20 11:51 Respiratory Depth Normal 12/13/20 11:51 Respiratory Pattern Normal 12/13/20 11:51 Blood Pressure 141/68 H 12/13/20 11:45 Blood Pressure Position Sitting 12/13/20 11:45 Pulse Oximetry 98 12/13/20 11:45 Oxygen Delivery Method Room Air 12/13/20 11:45 Oxygen Flow Rate 0 12/13/20 11:45 Pain Level 7 12/13/20 11:45
--- NOTE | 2020-12-13 12:00 | DI.CT_ITS ---
Exam(s) CT HEAD WO EXAM: CT HEAD WO CLINICAL HISTORY: fall/head injury/DUNLAP. TECHNIQUE: Imaging Protocol: Axial computed tomography images with coronal and sagittal reformatted images were created and reviewed COMPARISON: CT CT HEAD WO from 09/19/2018 FINDINGS: The ventricular system is normal in appearance. No evidence of acute intracranial hemorrhage, mass effect, or midline shift. The orbital structures are unremarkable. The temporal bone structures appear intact. Calvarium: Normal. Visualized Paranasal sinuses/Mastoids: Clear. IMPRESSION: Normal cranial CT. RADIATION DOSE DELIVERED: 979.26mGy.cm Total DLP 979.26mGy.cm Total DLP CTDIvol DATA REPOSITORY: All CT scans at this facility are submitted to the National Radiology Data Registry (NRDR) Dose Index Registry (DIR) with the [employer] [place] [employer] (ACR). RADIATION OPTIMIZATION: All CT scans at this facility use at least one of these dose optimization te chniques: automated exposure control; mA and/or kV adjustment per patient size (includes targeted exa ms where dose is matched to clinical indication); or iterative reconstruction.
[2020-12-13 13:15] VITALS: BP 143/80; PULSE 65; RESP 16; O2SAT 98
== END 2020-12-13 13:17 | disposition home or self-care (01) ==
PROVIDERS: Emergency Provider Physician Assistant; PCP Emergency Medicine
DX: S09.8XXA Other specified injuries of head, initial encounter (principal); W01.0XXA Fall on same level from slipping, tripping and stumbling without subsequent striking against object, initial encounter; Y92.512 Supermarket, store or market as the place of occurrence of the external cause
CPT/HCPCS: 99284; 70450; 99283

== ENCOUNTER 2021-02-13 02:42 | Outpatient (CLI) | payer MEDICARE, SELFPAY ==
[2021-02-13 10:11] LABS: BUN 17 mg/dL (7-18); Calcium 8.8 mg/dL (8.5-10.1); Calculated LDL 63 mg/dL (<100); Chloride 103 mmol/L (98-107); Cholesterol 131 mg/dL (<200); Glucose 147 mg/dL (74-106); HDL Cholesterol 39 mg/dL (40-60); Potassium 4.4 mmol/L (3.5-5.1); Sodium 140 mmol/L (136-145); Triglyceride 149 mg/dL (<150)
[2021-02-13 10:48] LABS: Hemoglobin A1C 6.8 % (<5.7)
== END 2021-02-13 02:43 | disposition home or self-care (01) ==
LOC: LBO 02:43
PROVIDERS: PCP Emergency Medicine; Visit Provider Emergency Medicine
DX: I10 Essential (primary) hypertension (principal); E11.9 Type 2 diabetes mellitus without complications
CPT/HCPCS: 36415; 80048; 80061; 83036

== ENCOUNTER 2021-08-05 13:28 | Outpatient (CLI) | payer MEDICARE, SELFPAY ==
[2021-08-05 13:23] LABS: HCT 40.5 % (40.0-50.0); HGB 13.6 g/dL (13.5-17.5); MCH 28.9 pg (27.0-33.0); MCHC 33.6 % (32.0-36.0); MCV 86 fL (80-95); MPV 11.4 fL (8.0-11.0); Platelet Count 188 10^3/uL (130-400); RDW 13.9 % (11.8-14.1); RDW-SD 43.5 fL; WBC 7.47 10^3/uL (4.4-10.8)
[2021-08-05 15:33] LABS: ALT 71 U/L (16-63); AST 68 U/L (15-37); Albumin 3.8 g/dL (3.4-5.0); Alkaline Phosphatase 101 U/L (46-116); Anion Gap 9.6 mmol/L (3-11); BUN 13 mg/dL (7-18); Bilirubin, Total 0.6 mg/dL (0.2-1.0); CO2 26.4 mmol/L (21.0-32.0); CREATININE 0.9 mg/dL (0.70-1.30); Calcium 9.3 mg/dL (8.5-10.1); Calculated LDL 70 mg/dL (<100); Chloride 104 mmol/L (98-107); Cholesterol 140 mg/dL (<200); Glucose 116 mg/dL (74-106); HDL Cholesterol 43 mg/dL (40-60); Lipase 53 U/L (73-393); Potassium 4.3 mmol/L (3.5-5.1); Sodium 140 mmol/L (136-145); Total Protein 7.4 g/dL (6.4-8.2); Triglyceride 135 mg/dL (<150)
[2021-08-05 23:07] LABS: PSA, Screening 1.4 ng/mL (<=4.5)
[2021-08-06 16:57] LABS: Uric Acid 5.9 mg/dL (3.5-7.2)
== END 2021-08-05 13:29 | disposition home or self-care (01) ==
LOC: LBO 13:36
PROVIDERS: PCP Family Medicine; Visit Provider Family Medicine
DX: E11.9 Type 2 diabetes mellitus without complications (principal); I10 Essential (primary) hypertension; K21.9 Gastro-esophageal reflux disease without esophagitis; M10.9 Gout, unspecified; R10.9 Unspecified abdominal pain; Z12.5 Encounter for screening for malignant neoplasm of prostate
CPT/HCPCS: 36415; 80053; 80061; 83690; 84153; 85027; 82043; 82570; 84550

== ENCOUNTER 2021-08-06 18:25 | Outpatient (REF) | payer MEDICARE, SELFPAY ==
[2021-08-06 17:34] LABS: COMMENT (LAB VIEW ONLY) 133.64 mg/dL
== END 2021-08-06 18:26 | disposition home or self-care (01) ==
LOC: LBN 18:25
PROVIDERS: PCP Nurse Practitioner Family; Visit Provider Family Medicine
DX: E11.9 Type 2 diabetes mellitus without complications (principal); I10 Essential (primary) hypertension; K21.9 Gastro-esophageal reflux disease without esophagitis; M10.9 Gout, unspecified; R10.9 Unspecified abdominal pain
CPT/HCPCS: 82043; 82570

== ENCOUNTER 2021-10-16 19:39 | Outpatient (REF) | payer MEDICARE, SELFPAY ==
[2021-10-16 22:16] LABS: Ferritin 183 ng/mL (26-388); TSH 1.36 uIU/mL (0.36-3.74)
[2021-10-16 22:48] LABS: Total Iron Binding Capacity 313 ug/dL (250-450)
== END 2021-10-16 19:40 | disposition home or self-care (01) ==
LOC: LBN 19:39
PROVIDERS: PCP Nurse Practitioner Family; Visit Provider Nurse Practitioner Family
DX: R53.83 Other fatigue (principal); K75.81 Nonalcoholic steatohepatitis (NASH)
CPT/HCPCS: 82728; 83550; 84443

== ENCOUNTER 2021-10-18 09:35 | Emergency (ER) | payer MEDICARE, SELFPAY ==
[2021-10-18 09:43] VITALS: BP 151/81; PULSE 70; RESP 20; TEMP 36.7; O2SAT 97
--- NOTE | 2021-10-18 10:08 | ED.GENADUL_ITS ---
Discharge Plan Disposition Patient Disposition: HOME Condition: Improving Discharge Details Clinical Impression: Right knee pain Primary Care Provider: Franck Plummer ED Provider: Waqas Bowman Home Meds and New Rx's Prescriptions: Continued nitroglycerin 0.4 mg tablet, sublingual 0.4 mg Sublingual PRN PRN (Reason: chest pain) Qty: 25 0RF gabapentin 800 mg tablet 800 mg PO ONCE PRN (Reason: pain) Qty: 90 2RF Hold Instructions: Home Medication placed on hold at Doctor's office Rx Instructions: hold as of 04/17 venlafaxine 150 mg tablet extended release 24hr 150 mg PO DAILY Qty: 90 3RF doxycycline hyclate 100 mg capsule 100 mg PO BID Qty: 10 0RF Rx Instructions: Avoid sun exposure. Take with meal. Take 1 pill every 12 hours x 5 days docusate sodium 100 MG capsule 100 mg PO DAILY aspirin 81 MG tablet,chewable 81 mg PO DAILY sulfasalazine 500 mg tablet,delayed release (DR/EC) 500 mg PO .qhs Qty: 90 3RF atorvastatin 40 mg tablet 40 mg PO DAILY Qty: 90 3RF ergocalciferol (vitamin D2) [Vitamin D2] 1,250 mcg (50,000 unit) capsule 50,000 unit PO WEEKLY Qty: 12 0RF sulfasalazine 500 mg tablet 1,000 mg PO QAM Qty: 180 3RF allopurinol 100 mg tablet 100 mg PO DAILY Qty: 90 3RF amlodipine 5 mg tablet 5 mg PO DAILY Qty: 90 3RF cyanocobalamin (vitamin B-12) [Vitamin B-12] 1,000 mcg tablet 1,000 mcg PO DAILY Qty: 90 3RF lisinopril 20 mg tablet 20 mg PO DAILY Qty: 90 3RF pantoprazole 40 mg tablet,delayed release (DR/EC) 40 mg PO DAILY Qty: 90 3RF folic acid 400 MCG tablet 400 mcg PO DAILY Discharge Instructions Instructions: Knee Pain (ED) Additional Instructions: May leave the Mepilex bandage in place 5 to 7 days time and then remove. Continue the previously prescribed antibiotics. May use Gilles bandage for comfort while awake and out of bed. May continue to use your crutches. Elevate above the level of the heart to reduce pain and swelling. Return to the emergency department for any acute concerns Medical Decision Making 65-year-old male presents from home stating that this past he tripped over a hose in the carwash and fell forward onto flexed right knee and abrasion to the right toes. He was seen in urgent care where wound care was initiated he was started on doxycycline. He now presents for ongoing right anterior knee pain. He states the left foot is improving. Abrasion was dressed with Mepilex. The patient was referred for x-ray to rule out underlying fracture HPI General Mode of arrival: ambulatory . Date/Time Provider Initiated Documentation: 10/18/21 09:59 . Limitations to Documentation: no limitations . Information obtained by: patient . History of Present Illness 65 year old M presents to the emergency department with the chief complaint of Right knee pain, described as moderate, Quality is described as dull, and is localized to the right and lower extremity. Patient started experiencing this day(s) and it has been constant. Rest improves symptom(s), Movement worsens symptoms . Patient notes denies fever/chills. Patient did receive the following treatments prior to arrival, other (Antibiotic) Related Data Home Medications Medication Instructions Recorded Confirmed folic acid 400 mcg tablet 400 mcg PO DAILY 05/29/12 10/18/21 docusate sodium 100 mg capsule 100 mg PO DAILY 11/01/13 10/18/21 aspirin 81 mg chewable tablet 81 mg PO DAILY 09/29/16 10/18/21 nitroglycerin 0.4 mg sublingual 0.4 mg sublingual PRN PRN chest 11/22/19 10/18/21 tablet pain ##25 sulfasalazine 500 mg 500 mg PO .qhs #90 tabs 03/04/20 10/18/21 tablet,delayed release venlafaxine 150 mg tablet,extended 150 mg PO DAILY #90 tab-caps 11/06/20 10/18/21 release 24 hr gabapentin 800 mg tablet 800 mg PO ONCE PRN pain #90 tabs 02/04/21 10/18/21 atorvastatin 40 mg tablet 40 mg PO DAILY #90 tabs 07/28/21 10/18/21 ergocalciferol (vitamin D2) 1,250 50,000 unit PO WEEKLY #12 tab-caps 09/30/21 10/18/21 mcg (50,000 unit) capsule (Vitamin D2) sulfasalazine 500 mg tablet 1,000 mg PO QAM #180 tabs 10/01/21 10/18/21 allopurinol 100 mg tablet 100 mg PO DAILY #90 tab-caps 10/15/21 10/18/21 amlodipine 5 mg tablet 5 mg PO DAILY #90 tabs 10/15/21 10/18/21 cyanocobalamin (vitamin B-12) 1,000 mcg PO DAILY #90 tabs 10/15/21 10/18/21 1,000 mcg tablet (Vitamin B-12) lisinopril 20 mg tablet 20 mg PO DAILY #90 tabs 10/15/21 10/18/21 pantoprazole 40 mg tablet,delayed 40 mg PO DAILY #90 tab-caps 10/15/21 10/18/21 release doxycycline hyclate 100 mg capsule 100 mg PO BID #10 caps 10/16/21 10/18/21 Previous Rx's Medication Instructions Recorded nitroglycerin 0.4 mg sublingual 0.4 mg sublingual PRN PRN chest 11/22/19 tablet pain ##25 sulfasalazine 500 mg 500 mg PO .qhs #90 tabs 03/04/20 tablet,delayed release venlafaxine 150 mg tablet,extended 150 mg PO DAILY #90 tab-caps 11/06/20 release 24 hr gabapentin 800 mg tablet 800 mg PO ONCE PRN pain #90 tabs 02/04/21 atorvastatin 40 mg tablet 40 mg PO DAILY #90 tabs 07/28/21 ergocalciferol (vitamin D2) 1,250 50,000 unit PO WEEKLY #12 tab-caps 09/30/21 mcg (50,000 unit) capsule (Vitamin D2) sulfasalazine 500 mg tablet 1,000 mg PO QAM #180 tabs 10/01/21 allopurinol 100 mg tablet 100 mg PO DAILY #90 tab-caps 10/15/21 amlodipine 5 mg tablet 5 mg PO DAILY #90 tabs 10/15/21 cyanocobalamin (vitamin B-12) 1,000 mcg PO DAILY #90 tabs 10/15/21 1,000 mcg tablet (Vitamin B-12) lisinopril 20 mg tablet 20 mg PO DAILY #90 tabs 10/15/21 pantoprazole 40 mg tablet,delayed 40 mg PO DAILY #90 tab-caps 10/15/21 release doxycycline hyclate 100 mg capsule 100 mg PO BID #10 caps 10/16/21 Allergies Allergy/AdvReac Type Severity Reaction Status Date / Time Penicillins Allergy Mild Skin Rash Verified 10/18/21 09:48 codeine AdvReac Severe hypertention/pass Verified 10/18/21 09:48 out General Stated Complaint: Orthopedic KRISTIAN: 3 Review of Systems Narrative: Left toe abrasions, no other injury, no knee/hip/back PFSH All Active Problems (Updated 10/18/21 @ 10:10 by Waqas Bowmna MD) Right knee pain (Acute) Irritable bowel syndrome (IBS) (Chronic) Epidermoid cyst of ear (Acute) Prediabetes (Acute) Avulsion fracture of left ankle (Acute 07/01/20) Cellulitis (Acute) Peripheral edema (Acute) S/P colonoscopy (Acute ~12/12/18) 12/24: sessile serrated adenoma. Traditional serrated adenoma. 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 (Chronic 09/29/16) stent [facility] 08/22 DJD (degenerative joint disease) (Chronic) WITH CHRONIC LOW BACK PAIN disability SSI Depression (Chronic) GERD (gastroesophageal reflux disease) (Chronic) Gout (Chronic) Hypertension (Chronic) COPELAND (nonalcoholic steatohepatitis) (Chronic 01/09/15) Obesity (Chronic 08/21/14) Peripheral neuropathy (Chronic) left great toe likely due to surgery Psoriatic arthritis (Chronic 11/01/13) Sensorineural hearing loss, bilateral (Chronic 01/07/15) Sleep apnea, unspecified (Chronic 04/17/15) Medical History Annual physical exam Chronic anxiety Chronic back pain DJD (degenerative joint disease) Obesity, Class III, BMI 40-49.9 (morbid obesity) Peripheral neuropathy Surgical History DISKECTOMY (03/07/89) L5 S1 HEMILAMINECTOMY (03/07/91) Hemorrhoidectomy (07/22/11) L5 Status post discectomy Status post hemorrhoidectomy Status post laminectomy Stented coronary artery (~2017) Family History Mother , 67 Essential hypertension Myocardial infarction Father , 67 Essential hypertension Asthma Brother , 64 Myocardial infarction FAMILY HISTORY CAD (coronary artery disease) Stroke COPD (chronic obstructive pulmonary disease) Social History Smoking/Tobacco Use Status: Never Smoking risk assessment performed?: Yes Alcohol Intake: never Drug use: Never Substance use type: does not use Caregiver/Support person: No Household members: spouse Housing: house Communication Needs: Hard of Hearing and Corrective Lenses Pets and animals: Yes Sexually active: No Do you think of yourself as: straight/heterosexual Current gender identity: male What is your relationship status?: How often do you talk on the phone with friends or family?: once per week How often do you get together with friends or relatives?: twice per week How often do you attend zoroastrian or mosque services?: decline to answer Do you belong to any clubs or organized social groups?: yes Panel score (0-1 are the most socially isolated patients): 3 Duration: < 15 minutes/day Frequency: 1-2 times per week Fatou/Adventist: Taoism Special fatou needs: No Seatbelt use: always 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 Exam Narrative Exam Narrative: GEN: awake, alert, oriented 3. Pleasant, well groomed, interactive. HEAD: Normocephalic, atraumatic ENT: Mucous membranes moist, oropharynx unremarkable, External ear exam unremarkable EYES: PERRL, EOMI NECK: Full ROM, no RAFFY, no menigismus CHEST/RESP: Nontender, clear to auscultation bilateral, no wheeze/rhonchi/rales CARDIOVASCULAR: RRR, no murmur, rub nguyen. 2+ Rad pulse bilateral ABDOMEN: Soft, nontender, no mass. +Bowel sounds EXT: Full ROM, no edema, right anterior infrapatellar abrasion with mild swelling and tenderness present. The joint is stable. Motor is 5 out of 5 throughout the lower extremity to the left toes on the dorsal surface have abrasions and previous repair/dressing with Steri-Strips Neuro: Grossly normal neurologic exam, conversant, interactive. Psych: Speech fluent, thoughts congruent, affect normal Course Vital Signs Vital signs: Vital Signs Temperature 36.7 C 10/18/21 09:43 Pulse 70 10/18/21 09:43 Respiratory Rate 20 10/18/21 09:43 Blood Pressure 151/81 H 10/18/21 09:43 Pulse Oximetry 97 10/18/21 09:43 Temperature 36.7 C 10/18/21 09:43 Temperature Source Temporal Artery Scan 10/18/21 09:43 Pulse 70 10/18/21 09:43 Respiratory Rate 20 10/18/21 09:43 Respiratory Effort Non-Labored 10/18/21 09:54 Blood Pressure 151/81 H 10/18/21 09:43 Blood Pressure Position Sitting 10/18/21 09:43 Pulse Oximetry 97 10/18/21 09:43 Oxygen Delivery Method Room Air 10/18/21 09:43 Oxygen Flow Rate 0 10/18/21 09:43 Pain Level 6 10/18/21 09:54
--- NOTE | 2021-10-18 10:30 | DI.RAD_ITS ---
Exam(s) XR KNEE RT 3V AP,LAT,CLARICE EXAM: XR KNEE RT 3V AP,LAT,CLARICE CLINICAL HISTORY: anterior pain after trauma. TECHNIQUE: 2D digital imaging was performed. Three views. COMPARISON: CR XR knee LT 4V AP,lat,clarice,pat from 08/29/2018 FINDINGS: BONES: No acute fracture is present. No bony destructive lesion is seen. Large patellar enthesophytes . JOINTS: The knee is normally aligned. No joint effusion is seen. Mild degenerative changes. SOFT TISSUE: Mild vascular calcifications. IMPRESSION: Unremarkable radiographs of the right knee. DATA REPOSITORY: RADIATION DOSE DELIVERED:
--- NOTE | 2021-10-18 10:44 | DI.VRAD_ITS ---
PROCEDURE INFORMATION: Exam: XR Right Knee Exam date and time: 10/18/2021 10:25 AM Age: 65 years old Clinical indication: Other: Anterior pain after trauma TECHNIQUE: Imaging protocol: Radiologic exam of the Right knee. Views: 3 views. COMPARISON: CR XR knee RT 4V AP,lat,omar,pat 08/29/2018 2:52 PM FINDINGS: Bones/joints: No acute bony abnormalities. Patellar enthesopathy is present. [id number] osteoarthritic changes are present. Soft tissues: No significant soft tissue abnormalities. Vasculature: Vascular calcifications are present. IMPRESSION: No acute findings. Dictated and Authenticated by: Donta Natarajan MD. Ordering:SONU Alan MD
[2021-10-18 10:51] VITALS: BP 151/81; PULSE 70; RESP 20; TEMP 36.7; O2SAT 97
== END 2021-10-18 11:37 | disposition home or self-care (01) ==
PROVIDERS: Emergency Provider Emergency Medicine; PCP Nurse Practitioner Family
DX: M25.561 Pain in right knee (principal); W01.0XXA Fall on same level from slipping, tripping and stumbling without subsequent striking against object, initial encounter; S90.414A Abrasion, right lesser toe(s), initial encounter
CPT/HCPCS: 73562; 99283

== ENCOUNTER 2022-01-17 09:02 | Emergency (ER) | payer MEDICARE, SELFPAY ==
[2022-01-17 09:05] VITALS: BP 169/69; PULSE 102; RESP 20; TEMP 37.3; O2SAT 97
--- OUTSIDE RECORDS SUMMARY | 2022-01-17 09:09 | XMS_ITS ---
:1955 Author Organization [facility] Address [address] [place] [address] Care Team Providers Name Role Phone Odalis Noriega Unavailable Unavailable PROBLEMS Type Condition ICD9-CM Code [id number] Onset Condition SNOMED Code Code Dates Status Problem Hammer toe of M20.42 Active 498435 [id number] left foot ALLERGIES Substance Reaction Event Type Date Status codeine hypertension, pass out Non Drug Allergy Sep, A ctive Penicillins skin rash Non Drug Allergy Sep, Active Suflfa red spots Non Drug Allergy Sep, Active Aspirin stomach bleeding Drug Allergy Sep, Active ENCOUNTERS Encounter Location Date Diagnosis [address] Sep, Abs cess of toe of left foot [address]97 L02.612 and Enmanuel er toe of left foot M20.[address] Sep, [id number] Aug, Abs cess of toe of left foot [address]47 L02.612 and Enmanuel er toe of left foot M20.[address] Aug, Abs cess of toe of left foot [address] L02.612 and Enmanuel er toe of left foot M20.[address] Aug, [address] IMMUNIZATIONS No Known Immunizations SOCIAL HISTORY Qualifiers Date Never Smoker REASON FOR REFERRAL FUNCTIONAL STATUS PLAN OF CARE Activity Details Follow Up prn Reason: VITAL SIGNS Height 77.5 in 2017-10-04 Height 77.5 in 2017-08-30 Height 77.5 in 2017-08-26 Weight 371 lbs 2017-08-30 Weight 366 lbs 2017-08-26 BMI 43.42 kg/m2 2017-08-30 BMI 42.84 kg/m2 2017-08-26 Temperature 98.3 degrees Fahrenheit 2017-10-04 Temperature 98.4 degrees Fahrenheit 2017-08-30 Temperature 97.7 degrees Fahrenheit 2017-08-26 Heart Rate 75 /min 2017-10-04 Heart Rate 62 /min 2017-08-30 Heart Rate 74 /min 2017-08-26 Respiratory Rate 16 /min 2017-10-04 Respiratory Rate 16 /min 2017-08-30 Respiratory Rate 20 /min 2017-08-26 Oximetry 95 % 2017-10-04 Oximetry 95 % 2017-08-30 Oximetry 98 % 2017-08-26 Blood pressure systolic 145 mm Hg 2017-10-04 Blood pressure diastolic 76 mm Hg 2017-10-04 MEDICATIONS Medication Instructions Dosage Frequency Start End Duration Statu s Date Date Clopidogrel orally once a 1 tab(s) 24h 30 day(s) Act denise Bisulfate 75 mg day Docusate Sodium orally once a 1 cap(s) 24h A ctive sodium 100 mg day -MEDICATIONS PER as directed Aug, Act denise [facility] 2018 PROVIDER Allopurinol 100 orally once a 1 tab(s) 24h A ctive mg day ERGOCALCIFEROL orally once a 1 cap(s) 30 day(s) Active 50,000 intl units week Folic Acid 0.4 mg orally once a 1 tab(s) 24h 30 day( s) Active day PANTOPRAZOLE 40 orally once a 1 tab(s) 24h 30 day(s) Active mg day amLODIPine orally once a 1 tab(s) 24h 30 day(s) Acti ve Besylate 5 mg day Lisinopril 10 mg orally once a 1 tab(s) 24h 30 day(s ) Active day Gabapentin 800 mg 0.5 tab in Act denise AM, 1 tab in PM GNP Terbinafine applied 1 ernst 12h 30 day(s) Active Hydrochloride 1% topically 2 times a day ASPIRIN 81 mg chewed once a 1 tab(s) 24h 30 day(s) A ctive day VENLAFAXINE 150 orally once a 1 cap(s) 24h 30 day(s) Active mg day NITROGLYCERIN sublingual as 0.4 mg tab A ctive needed Atorvastatin orally once a 1 tab(s) 24h 30 day(s) Ac tive Calcium 40 mg day Furosemide 40 mg orally once a 1 tab(s) 24h 30 day(s ) Active day Metoprolol orally once a 1 tab(s) 24h 30 day(s) Acti ve Succinate ER 25 day mg CALCIUM CARBONATE chewed once a 1 tab(s) 24h Active 400 mg day sulfaSALAzine 500 orally 2 times 2 tab(s) 12h 30 day (s) Active mg a day PROCEDURES Procedure Date Ordered Result Body Site I&D ABCESS/EFRAIN.CYST([id number]) August 26, 2017 POD-xray foot, 3 views August 26, 2017 COBAN TAPE ([id number]) August 30, 2017 INTERP FOOT, 3 VIEWS August 26, 2017 POD-xray foot, 3 views October 04, 2017 COBAN TAPE ([id number]) August 26, 2017 INTERP FOOT, 3 VIEWS October 04, 2017 RESULTS Name Result Date Reference Range POD Foot, L 3V (POD2) 2017-10-04 POD Foot, L 3V (POD2) 2017-08-26 CULTURE WOUND 2017-08-26 SED RATE 2017-08-26 ESR 42 0-20 CULTURE ANAEROBIC 2017-08-26 RESULT 1 PEPSTS CRP-INFLAM 2017-08-26 CRP 1.4 0.0-0.9 COMPMET 2017-08-26 GLUC 99 74-106 BUN 18 7-18 CREATS 1.09 0.55-1.30 EGFR >60 >=60 NA 139 136-144 K+ 4.4 3.7-5.0 CL 103 98-108 CO2 25 22-32 CA 9.2 8.5-10.1 TP 6.9 6.5-8.1 ALB 3.7 3.4-5.0 TBIL 0.4 0.3-1.2 DBIL 0.1 0.0-0.2 ALKP 91 46-116 AST 26 15-37 ALT 32 13-78 CBC WITH AUTO DIFF 2017-08-26 WBC 7.5 4.0-12.0 RBC 4.8 4.5-6.0 HGB 13.9 13.5-18.0 HCT 41.7 42.0-52.0 MCV 87 78-100 MCH 29.0 27.0-32.0 MCHC 33.3 32.0-36.0 RDW 14.1 11.0-14.0 PLT 192 140-440 MPV 11.6 7.4-11.0 ANC# 4.6 1.4-7.9 IG# 0.0 0.0-0.1 LY# 2.0 1.5-4.0 MO# 0.6 0.2-0.8 EO# 0.2 0.0-0.7 BA# 0.0 0.0-0.2 NE% 61.9 IG% 0.1 0.0-1.0 LY% 27.2 MO% 8.2 EO% 2.4 BA% 0.3 MULTIPLE LABS 2016-08-25 REASON FOR VISIT f/u, Referral Done, pt states he is here for a f/u on his left 2nd toe , pt states toe was doing well untill last night when he stubed his toe and it pulled the sca off and started bleeding , pt statesthe toenail fell off and he put the iordazobe on the wound so it wouldnt get infected, 2 week f/u ptcalled to reschedule , pt last seen by AR on 08/30/2017, pt was started on Cephalexin- Completed?, 2week f/u referral done, Pt last seen by AR on 08/30/2017, pt was started on cephalexin- Completed?, reschedule , 2 week f/u--patient r/s 09/01 due to conflict of other appt, 4 day f/u, Referral Done, Nonotes on last visit on 08/26/17 for ingrown toenail , Pt states no issues 2nd Left toes, aches but not much-sd, INGROWN TOE NAIL AND SORE TOES,LEFT FOOT, pt states that his left 2nd toe has blood blisters on it and it's very painful. The toe has been this way for 2-3 months, pt states that his big toes will bend down but he can't bend them upwards. They have been like this for a long time but do not cause him pain, Records request Insurance Providers [facility] Member Patient Patient Patient Patient Patient Subscriber Subscriber Subscriber Group Insurance Plan Plan Plan Plan ID Relationship Address Phone Name Date of ID Name Date of No Type Insurance Insurance Insurance Coverage to Subscriber Address Phone Name Dates MEDICARE [address] MEDICARE self TAMIKO [id number] [facility] [id number] MEDICARE 3000 [address] MEDICARE self TAMIKO [id number] [facility] [id number] [facility] [employer] ATT[employer] WHA self TAMIKO [id number] [facility]OND[facility] [place] [facility] [id number] SELF PAY SELF PAY self TAMIKO [id number] [address]AN [address]AN [place] SELF PAY [address] STRE[address] SELF PAY self T[place]IKO [id number] [place] [id number] S[address] SELF PAY self [place] [id number] [place] [id number] INSURANCE
--- OUTSIDE RECORDS SUMMARY | 2022-01-17 09:10 | XMS_ITS | Encounter Summary ---
:1955 Author Organization [facility] Address [address] [place] [address] Care Team Providers Name Role Phone Johann Simmons MD Primary Care Provider Encounter Details Date Type Department Care Team Description 12/03/2014 Results Only [facility]- Jessi Dawn, [address] [place] [address] [place], [place] [id number] (Wo rk) Social History Tobacco Use Types Packs/Day Years Used Date Smoking Tobacco: Never Assessed Sex Assigned at Date Recorded Not on file documented as of this encounter Plan of Treatment Not on filedocumented as of this encounter Procedures Procedure Name Priority Date/Time Associated Diagnosis Comme [facility] SURGICAL PATHOLOGY Routine 12/03/2014 18:11 Resul ts for this EDT procedure are i n the results section. documented in this encounter Results SURGICAL PATHOLOGY (12/03/2014 18:11 EDT) Component Value Ref Test Analysis Performed At [facility] Method Time Signature Pathology SURGICAL PATHOLOGY REPORT [facility] MEDICAL Report: Reports generated via electronic interface contain origina l data; CENTER however they are lacking the format of the original report. LABORATORY Caution should be taken when reading/interpreting unformat regina reports. SERVICES Name: ? ACOSTA MUNGUIA ? Accession #: ? [id number] ? : ? 1955 (Age: 5 0) ??M ? Collect Date: ? 12/03/2014 ? Location: ? [facility] ? Receive Date: ? 12/03/2014 ? Provider: JESSI CONKLIN MD Copy to: MELANY Casas CHINA DO ? Final Pathologic Diagnosis: A. COLON, ASCENDING, POLYP, BIOPSY: - ??Traditional serrated adenoma. B. COLON, DESCENDING, POLYP, BIOPSY: - ??Hyperplastic polyp. See comment. Comment: Radiologist Physician slides of this case were reviewed at the [facility] [place] ad[facility]al consultation conference. Deeper levels have been examined on (B1). Dr. Palacios 12/06/2014 05:52 PM Document reviewed and electronically signed by: YUMIKO PALACIOS MD Report ??Date: 12/06/2014 17:53 By the signature above, the attending physician certifies th at he/she has personally conducted a gross and/or microscopic examin ation of the described specimens and rendered or confirmed the above diagnosis. Specimen(s) Received: A. ??Ascending colon polyp B. ??Descending colon polyp Clinical History: H/O colon adenoma Gross Description: A. ?Received in formalin labelled with proper patie nt identification (initials T, A) and ascendi ng colon polyp are multiple fragments of kiran-brown tissue (2.0 x 1.1 x 0.4 cm i n aggregate). The specimen is submitted entirely in A1-A3. B. ?Received in formalin labelled with proper patie nt identification (initials T, A) and descending colon polyp are three fragments of kiran-pink tissue (each 0.3 x 0.2 x 0.2 cm). The specimens are submitted entirely in B1. 12/04/2014 8:47 AM End of Report Specimen Anatomical Collection Method Collection Time Receive d Time (Source) Location / / Volume Laterality 12/03/2014 18:11 12/03/2014 EDT 18:11 EDT Jessi Conklin MD PATHOLOGY ORDERABLES Performing Organization Address City/State/ZIP Code Phon e Number [facility] [address] [place] [id number] SERVICES documented in this encounter Visit Diagnoses Not on filedocumented in this encounter Care Teams [employer] Relationship Specialty Start Date End Date Johann Simmons MD PCP - General 07/23/11 [address] [place] [address] documented as of this encounter
--- OUTSIDE RECORDS SUMMARY | 2022-01-17 09:10 | XMS_ITS | Clinical Summary ---
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
--- OUTSIDE RECORDS SUMMARY | 2022-01-17 09:10 | XMS_ITS | Clinical Summary ---
:1955 Author Organization [facility] [place] [address] Care Team Providers Name Role Phone Adam Jonathan WYLIE Primary Care Provider Allergies Active Allergy Reactions Severity Noted Date Comments Acetaminophen-Calcium Other (See Comments) 08/20/2016 Drives blood Carbonat pressure up Aspirin-Codeine Anxiety High 08/20/2016 Makes me cr azy{ Penicillins Rash Medium 08/20/2016 Medications Medication Sig Dispensed Refills Start Date End Date Status sulfaSALAzine Take 1,000 mg by 0 Active (AZULFIDINE) 500 mg mouth 2 times Tablet daily. Per chart venlafaxine Take 150 mg by 0 Act denise (EFFEXOR-XR) 150 mg mouth daily. Per Capsule, Sust. Release chart 24 hr lisinopril Take 10 mg by 0 Activ e (PRINIVIL;ZESTRIL) 10 mouth daily. Per mg Tablet chart furosemide (LASIX) 40 Take 40 mg by 0 Active mg Tablet mouth daily. Per chart ergocalciferol Take 50,000 Units 0 Active (ERGOCALCIFEROL) 50,000 by mouth once a unit Capsule week. Per chart allopurinol (ZYLOPRIM) Take 100 mg by 0 Active 100 mg Tablet mouth daily. Per chart clonazePAM (KLONOPIN) Take 0.5 mg by 0 Active 0.5 mg Tablet, Rapid mouth daily. Per Dissolve chart METHYLCELLULOSE, WITH Take by mouth. 0 Active SUGAR, ORAL Per chart tolnaftate (TINACTIN) 1 Apply topically 2 0 Active % Cream times daily. Per chart docusate sodium Take 100 mg by 0 Active (COLACE) 100 mg Capsule mouth 2 times daily. Per chart folic acid (FOLVITE) Take 400 mcg by 0 Active 400 mcg Tablet mouth daily. Per chart calcium carbonate Take 1 tablet by 0 Active (TUMS) 200 mg calcium mouth daily. Per (500 mg) Tablet, chart Chewable aspirin 81 mg Tablet, Take 81 mg by 0 Active Delayed Release (E.C.) mouth daily. gabapentin (NEURONTIN) Take 400 mg by 0 Active 400 mg Capsule mouth every morning. gabapentin (NEURONTIN) Take 800 mg by 0 Active 800 mg Tablet mouth every evening. atorvastatin (LIPITOR) Take 40 mg by 0 Active 40 mg Tablet mouth daily. meTOPROLOL succinate Take 25 mg by 0 Active (TOPROL-XL) 25 mg mouth daily. Tablet Sustained Release 24 hr clopidogrel (PLAVIX) 75 Take 1 tablet by 90 tablet 3 7 Active mg Tablet mouth daily. nitroGLYcerin Place 1 tablet 90 tablet 12 08/21/2016 Active (NITROSTAT) 0.4 mg under the tongue Tablet, Sublingual every 5 minutes as needed for Chest pain. pantoprazole (PROTONIX) Take 1 tablet by 90 tablet 3 7 Active 40 mg Tablet, Delayed mouth daily. Release (E.C.) Active Problems Problem Noted Date ASCVD (arteriosclerotic cardiovascular disease) 2016 Social History Tobacco Use Types Packs/Day Years Used Date Never Assessed Sex Assigned at Date Recorded Not on file Last Filed Vital Signs Vital Sign Reading Time Taken Comments Blood Pressure 138/67 08/21/2016 7:40 AM EDT Pulse 71 08/21/2016 8:15 AM EDT Temperature 36.9 ??C (98.4 ??F) 08/21/2016 7:40 AM EDT Respiratory Rate 20 08/21/2016 7:40 AM EDT Oxygen Saturation 94% 08/21/2016 7:40 AM EDT Inhaled Oxygen Concentration - - Weight 161 kg (354 lb 15.1 oz) 08/20/2016 11:20 AM EDT Height 196.9 cm (6' 5.5) 08/20/2016 9:00 AM EDT Body Mass Index 41.55 08/20/2016 9:00 AM EDT Plan of Treatment Health Maintenance Due Date Last Done Comments Covid-19 Vaccine (#1) 05/03/1956 Hepatitis C Screening 1972 Tdap adult 1973 Tetanus vaccine 1973 Colonoscopy 11/01/1999 Zoster vaccine (1 of 2) 2004 Pneumoccocal Vaccine: 65+ (1 - PCV) 11/01/2019 Influenza (Flu) vaccine (1 of 1 - Influenza standard 11/06/2021 series) Insurance Payer Benefit Plan / Subscriber ID Effective Dates Phone Addre ss Type Group MEDICARE MEDICARE PART A [id number] 2010-Pardeep [phone] [place] [id number] Advance Directives Documents on File Type Date Recorded 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 Advance Directives and Living 05/20/2011 9:32 AM Will Latest Code Status on File Code Status Date Activated Date Inactivated Comments Full Code 08/20/2016 1:06 PM 08/21/2016 2:14 PM Does patient have capacity to make decision: Yes Full Code 08/20/2016 10:43 AM 08/20/2016 1:06 PM Does patient have capacity to make decision: Yes Healthcare Agents on File Name Relationship Healthcare Agent Communication Relationship Neeru Driver Spouse Health Care Agent Flavia March [facility] Agent (Mobile) Care Teams Bass String Winder Relationship Specialty Start Date End Date Jonathan Medina DO PCP - General Family Medicine 08/13/[address] [place] [address]
--- OUTSIDE RECORDS SUMMARY | 2022-01-17 09:10 | XMS_ITS | Encounter Summary ---
:1955 [place] [address] Care Team Providers Name Role Phone Jonathan Medina DO Primary Care Provider Reason for Visit Auth/Cert Specialty Diagnoses / Procedures Referred By Contact Refer red To Contact Diagnoses ASCVD (arteriosclerotic cardiovascular disease) ascvd Procedures CARDIAC CATHETERIZATION Referral ID Status Reason Start Date Expiration Date Visits Requ ested Visits Authorized [id number] 1 1 Encounter Details Date Type Department Care Team Description 08/20/2016 Surgery Family And Marriage Counsellor Paco Jolley CARDIAC CATHETERIZATION [facility] DR Zepeda [place] [address] [place] [id number] [phone] (Wo rk) Social History Tobacco Use Types Packs/Day Years Used Date Never Assessed Sex Assigned at Date Recorded Not on file documented as of this encounter Last Filed Vital Signs Vital Sign Reading Time Taken Comments Blood Pressure 155/93 08/20/2016 11:20 AM EDT Pulse 74 08/20/2016 11:20 AM EDT Temperature 37.1 ??C (98.8 ??F) 08/20/2016 9:00 AM EDT Respiratory Rate - - Oxygen Saturation 96% 08/20/2016 11:20 AM EDT Inhaled Oxygen Concentration - - Weight 161 kg (354 lb 15.1 oz) 08/20/2016 11:20 AM EDT Height 196.9 cm (6' 5.5) 08/20/2016 9:00 AM EDT Body Mass Index 41.55 08/20/2016 9:00 AM EDT documented in this encounter Discharge Summaries Cari Felipe MD - 08/21/2016 12:03 PM EDT Discharge Summary Patient Name: Acosta Drievr Patient Age: 60 y.o. Language: Senegalese Race: White Ethnicity: Unknown or Unavailable Admit date: 08/20/2016 Discharge date and time: 08/21/2016 Attending Physician: Paco Rubio II, MD Discharge Physician: Paco Rubio II, MD Follow-up Recommendations for Providers: - dual antiplatelet regimen as follows: - aspirin 81 mg daily lifelong - clopidogrel 75 mg daily for 6 months - switched omeprazole to pantoprazole while on plavix - recommend follow up with cardiology in 3-4 weeks; Dr Ruben Thacker Inpatient Provider Contact Information: Paco Rubio II, MD - attending Discharge Diagnoses (Hospital Problems) and Secondary Diagnoses (Chronic Problems): Active Hospital Problems Diagnosis ??? ASCVD (arteriosclerotic cardiovascular disease) Resolved Hospital Problems Diagnosis Date Resolved No resolved problems to display. There are no active non-hospital problems to display for this patient. Operations/Major Procedures: Operations: Procedure(s) with comments: CARDIAC CATHETERIZATION - Procedure: Coronary Angiography History of Presentation: Mr Driver has a Hx of HTN, HLD, GERD and Fhx for CAD, who was referred for cardiac catheterizationby Dr Ruben Thacker in the setting of anginal symptoms and recent abnormal cardiac stress test. He underwent cardiac catheterization on 08/20/16 via right femoral arteriotomy approach with successful placement of drug eluting stents to the mid LAD and mid LCx. Hospital Course: The patient was admitted following cardiac catheterization for overnight monitoring and observation.The patient did well overnight without significant chest pain or arrhythmias on telemetry. The rightfemoral access site was evaluated and the femoral pulse was palpable with no evidence of vascular com promise to the right groin (hematoma with overlying ecchymosis noted). Cardiac biomarkers and a repeat ECG were reviewed with no evidence of active ischemia. VS and renal function remained stable. The patient ambulated with nursing without chest discomfort or exertional dyspnea. The patient met criteria for discharge, and was released home in stable condition. Functional and Cognitive Status: Independent in ALDs and IADLs, A&O x 3, at baseline Important Studies and Lab Data: Labs: No results for input(s): INR in the last 168 hours. Lab Results Component Value Date NA 139 08/20/2016 K 4.9 08/20/2016 CL 100 08/20/2016 CO2 27 08/20/2016 BUN 14 08/20/2016 CREATININE 1.09 08/20/2016 Recent Labs 08/21/16 0135 CK 115 TROPONINT <0.03 Cardiac catheterization 08/20/16: Technique: A 6Fr sheath was inserted in the right femoral artery utilizing the Seldinger technique. The left coronary artery was injected utilizing a 6Fr JL 4 catheter. A 6Fr JR 4 catheter was used to inject the right coronary artery. Left ventricular pressure was performed with a 6Fr Angled pigtail catheter. Coronary stent insertion was performed and the equipment utilized will be described in the intervention summary section. 11,000 units of heparin were administered. Intracoronary nitroglycerin was given during this case. A total of 400cc of Omnipaque were opened, 320cc of Omnipaque were administered and 80cc of Omnipaque were wasted. Radiation: Fluoro time was 21.0 minutes, dose area product was 300,732 mGYcm2 and air kerma was 4,703 mGY. ?? The patient received the following medications prior to and during the procedure: Aspirin (any), Ticagrelor and Unfractionated Heparin (any). ? Hemodynamics: Left Heart Pressures Resting: Syst Diast EDP a v m Ao 134 70 96 ? Post Contrast: Syst Diast EDP a v m Ao 143 74 104 LV 124 ? Coronary Angiography: Dominance: Right ? Left Main There was mild diffuse disease of the entire vessel segment of the left main artery. ? Left Anterior Descending There was mild diffuse disease of the entire vessel segment of the left anterior descending artery (LAD). The mid segment of the LAD had a single discrete 75% stenosis. Distal flow was normal and the distal vessel was large. ?? There were multiple discrete 75% stenoses of the ostial segment of the lateral branch of the first diagonal branch (Diagonal 1 Lat) of the LAD. Distal flow was normal. The distal vessel was small. ? Left Circumflex There was mild diffuse disease of the entire vessel segment of the left circumflex artery (LCX). The mid segment of the LCX had a single discrete 95% stenosis. The distal vessel was large. ? Right Coronary Artery There was mild diffuse disease of the entire vessel segment of the right coronary artery (RCA). ? Intravascular Imaging/Physiology: Instantaneous wave-free ratio (iFR) was determined across the 75% stenosis in the mid LAD using a 6 Fr EBU 4.0 guiding catheter and a Verrata wire. Wire delivery was successful. The IFR across the 75% mid LAD lesion was 0.86. This lesion was hemodynamically significant. ? Indication for Intervention: Coronary intervention was indicated for treatment of stable angina, CCS Class III. Left Ventricular Ejection fraction was not assessed. The priority for the procedure was Elective. The NCDR indication for the procedure was Stable angina. ? Intervention Summary: Left Anterior Descending Artery Mid 75% Stent insertion was performed on the 75% stenosis in the mid segment of the LAD. This was a de sylvie lesion. According to the ACC/AHA classification system, this lesion was a type B1 moderate risk lesion. Primary prevention of restenosis was the indication for stent insertion. Vessel flow pre intervention was MARJ 3. ? Stent insertion was accomplished through a 6 Fr. EBU 4.0 guide. A premounted 2.50 x 16 mm Promus Premier (MADISON) was deployed with a maximum inflation pressure of 14 atmospheres. Following stent deployment, the lesion was dilated using a 2.50mm NC EMERGE 12 MM balloon with a maximum inflation pressure of 20 atmospheres. ?? The final outcome was defined as successful. A coronary arteriolar vasodilator was administered as part of the intervention on this lesion. There was no residual stenosis following this intervention. The final MARJ flow was 3. ? Left Circumflex Artery Mid 95% Stent insertion was performed on the 95% stenosis in the mid segment of the LCX. This was a de sylvie lesion. This lesion was designated a type A low risk lesion based on ACC/AHA classification system. Primary prevention of restenosis was the indication for stent insertion. This was the culprit lesion. Vessel flow pre intervention was MARJ 3. ? Stent insertion was accomplished through a 6 Fr. EBU 4.0 guide. The lesion was predilated with a 2.50mm APEX 12 MM balloon with a maximum inflation pressure of 10 atmospheres. A premounted 3.00 x 15 mm Resolute (MADISON) was deployed with a maximum inflation pressure of 10 atmospheres. Following stent deployment, the lesion was dilated using a 3.00mm NC EMERGE 12 MM balloon with a maximum inflation pressure of 15 atmospheres. ? The final outcome was defined as successful. A coronary arteriolar vasodilator was administered as part of the intervention on this lesion. There was no residual stenosis following this intervention. The final MARJ flow was 3. ? Vascular Access: Vascular Access Angiogram: A selective angiogram at the right femoral artery revealed no significant obstructive disease. ? Vascular Access Management: A 6 Fr Perclose was deployed at the right femoral artery access site. This device was successful. ? Dual Antiplatelet (DAPT) Recommendations: Drug eluting stent (MADISON) inserted for stable ischemic heart disease (SIHD). ? P2Y12 Loading dose Ticagrelor 180 mg PO given in lab. ? Recommend continuing ticagrelor 90 mg PO twice daily for 6 months. Recommend continuing aspirin 81 mg unless intolerant. ? Conclusions: * Two vessel coronary artery disease (LAD and LCX) * Successful stent insertion of the mid LAD lesion * Successful stent insertion of the mid LCX lesion * Recommend continuing ticagrelor 90 mg PO twice daily for 6 months (see DAPT Recommendations above for more information.) ? Complications/Events: The patient had no complications during these procedures. ? The attending physician was present for the entire procedure. ? Dr. Paco Rubio M.D. was present during the moderate sedation intraservice time as documented by the sedation nurse. Case time = 01:08. Pending Studies and Lab Data: None Discharge Conditions/Prognosis: Good Discharge to: Home Updated Allergies/ADRs: Allergies Allergen Reactions ??? Aspirin-Codeine Anxiety Makes me crazy{ ??? Pcn [Penicillins] Rash ??? [place] [Acetaminophen-Calcium Carbonat] Other (See Comments) Drives blood pressure up Immunizations Given this Hospitalization: There is no immunization history on file for this patient. Discharge Medications: Your Medications New Medications Dose Details clopidogrel 75 mg Tab Commonly known as: PLAVIX Take 1 tablet by mouth daily. 75 mg Quantity: 90 tablet Refills: 3 nitroGLYcerin 0.4 mg Subl Commonly known as: NITROSTAT Place 1 tablet under the tongue every 5 minutes as needed for Chest pain. 0.4 mg Quantity: 90 tablet Refills: 12 pantoprazole 40 mg Tbec Commonly known as: PROTONIX Take 1 tablet by mouth daily. 40 mg Quantity: 90 tablet Refills: 3 Continued medications, unchanged Dose Details allopurinol 100 mg Tab Commonly known as: ZYLOPRIM Take 100 mg by mouth daily. Per chart 100 mg Refills: 0 aspirin 81 mg Tbec Take 81 mg by mouth daily. 81 mg Refills: 0 atorvastatin 40 mg Tab Commonly known as: LIPITOR Take 40 mg by mouth daily. 40 mg Refills: 0 calcium carbonate 200 mg calcium (500 mg) Chew Commonly known as: TUMS Take 1 tablet by mouth daily. Per chart 1 tablet Refills: 0 clonazePAM 0.5 mg Tbdl Commonly known as: KlonoPIN Take 0.5 mg by mouth daily. Per chart 0.5 mg Refills: 0 docusate sodium 100 mg Cap Commonly known as: COLACE Take 100 mg by mouth 2 times daily. Per chart 100 mg Refills: 0 ergocalciferol 50,000 unit Cap Commonly known as: ERGOCALCIFEROL Take 50,000 Units by mouth once a week. Per chart 36416 Units Refills: 0 folic acid 400 mcg Tab Commonly known as: FOLVITE Take 400 mcg by mouth daily. Per chart 400 mcg Refills: 0 furosemide 40 mg Tab Commonly known as: LASIX Take 40 mg by mouth daily. Per chart 40 mg Refills: 0 * gabapentin 400 mg Cap Commonly known as: NEURONTIN Take 400 mg by mouth every morning. 400 mg Refills: 0 * gabapentin 800 mg Tab Commonly known as: NEURONTIN Take 800 mg by mouth every evening. 800 mg Refills: 0 lisinopril 10 mg Tab Commonly known as: PRINIVIL;ZESTRIL Take 10 mg by mouth daily. Per chart 10 mg Refills: 0 METHYLCELLULOSE (WITH SUGAR) ORAL Take by mouth. Per chart Refills: 0 meTOPROLOL succinate 25 mg Tablet sr Commonly known as: TOPROL-XL Take 25 mg by mouth daily. 25 mg Refills: 0 sulfaSALAzine 500 mg Tab Commonly known as: AZULFIDINE Take 1,000 mg by mouth 2 times daily. Per chart 1000 mg Refills: 0 tolnaftate 1 % Crea Commonly known as: TINACTIN Apply topically 2 times daily. Per chart Refills: 0 venlafaxine 150 mg Cp24 Commonly known as: EFFEXOR-XR Take 150 mg by mouth daily. Per chart 150 mg Refills: 0 * Notice: This list has 2 medication(s) that are the same as other medications prescribed for you. Read the directions carefully, and ask your doctor or other care provider to review them with you. STOPPED Medications omeprazole 20 mg Cpdr Commonly known as: PriLOSEC Smoking Status at Discharge: History Smoking Status ??? Not on file Smokeless Tobacco ??? Not on file Instructions Given to Patient at Discharge: Patient Instructions Cardiology Instructions Call your doctor if: Chest pain, dyspnea, pain or swelling in legs occurs. If you have non-emergent questions between now and the time of your follow up appointments: -During 8am-5pm Wednesday through Wednesday call [phone] to speak with a nurse in the cardiology clinic -All other times call [phone] and ask to speak to the field tech senior instrumentation engineer. MEDICATIONS - have switched your omeprazole to pantoprazole while on plavix - you need to be on daily Plavix for at least 6 months and aspirin for lifetime to help prevent clots forming inside of your stent. - keep nitroglycerin with you at all times, if you have chest pain, can take 1 tablet under your tongue every 5 minutes up to 3 tablets. If your pain does not resolve you need to call 911. Return to work/ usual actvities: 1 week, as tolerated. Do not lift anything greater than 1 gallon for milk for 1 week You can shower the day after your procedure, but don't take any tub baths or soak in pools for 1 week after your procedure. Driving: No driving for 48 hours after catheterization. Follow up Appointments: Primary care provider: Cardiology: Jonathan Medina DO [phone] Follow up as planned or as needed. Dr. Ruben Thacker Call to confirm 3-4 week follow-up appointment General Instructions None Discharge References/Attachments None documented in this encounter Discharge Instructions Patient InstructionsCari Felipe MD - 08/20/2016 6:52 PM EDT Cardiology Instructions Call your doctor if: Chest pain, dyspnea, pain or swelling in legs occurs. If you have non-emergent questions between now and the time of your follow up appointments: -During 8am-5pm Wednesday through Wednesday call [phone] to speak with a nurse in the cardiology clinic -All other times call [phone] and ask to speak to the field tech senior instrumentation engineer. MEDICATIONS - have switched your omeprazole to pantoprazole while on plavix - you need to be on daily Plavix for at least 6 months and aspirin for lifetime to help prevent clots forming inside of your stent. - keep nitroglycerin with you at all times, if you have chest pain, can take 1 tablet under your tongue every 5 minutes up to 3 tablets. If your pain does not resolve you need to call 911. Return to work/ usual actvities: 1 week, as tolerated. Do not lift anything greater than 1 gallon for milk for 1 week You can shower the day after your procedure, but don't take any tub baths or soak in pools for 1 week after your procedure. Driving: No driving for 48 hours after catheterization. Follow up Appointments: Primary care provider: Cardiology: Jonathan Medina DO [phone] Follow up as planned or as needed. Dr. Ruben Thacker Call to confirm 3-4 week follow-up appointment documented in this encounter Medications at Time of Discharge Medication Sig Dispensed Refills Start Date End Date clopidogrel (PLAVIX) 75 mg Take 1 tablet by 90 tablet 3 Tablet mouth daily. nitroGLYcerin (NITROSTAT) Place 1 tablet under 90 tablet 12 08/21/2016 0.4 mg Tablet, Sublingual the tongue every 5 minutes as needed for Chest pain. pantoprazole (PROTONIX) 40 Take 1 tablet by 90 tablet 3 mg Tablet, Delayed Release mouth daily. (E.C.) aspirin 81 mg Tablet, Take 81 mg by mouth 0 Delayed Release (E.C.) daily. gabapentin (NEURONTIN) 400 Take 400 mg by mouth 0 mg Capsule every morning. gabapentin (NEURONTIN) 800 Take 800 mg by mouth 0 mg Tablet every evening. atorvastatin (LIPITOR) 40 Take 40 mg by mouth 0 mg Tablet daily. meTOPROLOL succinate Take 25 mg by mouth 0 (TOPROL-XL) 25 mg Tablet daily. Sustained Release 24 hr sulfaSALAzine (AZULFIDINE) Take 1,000 mg by 0 500 mg Tablet mouth 2 times daily. Per chart venlafaxine (EFFEXOR-XR) Take 150 mg by mouth 0 150 mg Capsule, Sust. daily. Per chart Release 24 hr lisinopril Take 10 mg by mouth 0 (PRINIVIL;ZESTRIL) 10 mg daily. Per chart Tablet furosemide (LASIX) 40 mg Take 40 mg by mouth 0 Tablet daily. Per chart ergocalciferol Take 50,000 Units by 0 (ERGOCALCIFEROL) 50,000 mouth once a week. unit Capsule Per chart allopurinol (ZYLOPRIM) 100 Take 100 mg by mouth 0 mg Tablet daily. Per chart clonazePAM (KLONOPIN) 0.5 Take 0.5 mg by mouth 0 mg Tablet, Rapid Dissolve daily. Per chart METHYLCELLULOSE, WITH Take by mouth. Per 0 SUGAR, ORAL chart tolnaftate (TINACTIN) 1 % Apply topically 2 0 Cream times daily. Per chart docusate sodium (COLACE) Take 100 mg by mouth 0 100 mg Capsule 2 times daily. Per chart folic acid (FOLVITE) 400 Take 400 mcg by mouth 0 mcg Tablet daily. Per chart calcium carbonate (TUMS) Take 1 tablet by 0 200 mg calcium (500 mg) mouth daily. Per Tablet, Chewable chart documented as of this encounter Progress Notes Jamaica Lion RN - 08/21/2016 10:40 AM EDT The patient has met discharge criteria per policy. Discharge instruction reviewed and patient discharged to responsible adult. Patient???s pain level has been assessed and patient states that his/her level is tolerable at this time. The After Visit Summary (AVS) and accompanying hand-outs have been reviewed with the patient; the patient verbalizes understanding at this time. Opportunity for clarification provided. All new medications have been reviewed with the patient and the appropriate hand-outs have been given to the patient. Reportable sign and symptoms have been reviewed with patient. Patient is leaving the floor via wheelchair, accompanied by the CIRCULATION DIRECTOR/ Jamaica Lion RN - 08/21/2016 10:36 AM EDT Activity Summary: By discharge, patient will be able to perform self care, walk 5-7 minutes without signs or symptoms of ischemia. Date /Initials Baseline Response Symptoms/Comments HE 08/21/16 Activity HR 72 99 HR reached as high as 107. Telemetry showing NSR. 5 min walk BP 120/72 (82) 146/84 (100) No c/o chest pain/pressure or SOB O2 Sat 95% 95% Right groin site WNL. Pt tolerated well. ECG NSR NSR *did not do stairs due to patient's baseline neuropathy. Pt does not do stairs because his neuropathy causes him to lose balance frequently. Cari Felipe MD - 08/21/2016 8:52 AM EDT Inpatient Interventional Cardiology Discharge Day Note Patient Name: Acosta Driver Service: interventional cardiology Responsible Attending: Paco Rubio MD Reason for continued hospitalization: Overnight observation after PCI Pending discharge today Active Problems: Active Hospital Problems Diagnosis ??? ASCVD (arteriosclerotic cardiovascular disease) Resolved Hospital Problems Diagnosis Date Resolved No resolved problems to display. Interval History: - uneventful night - no angina or dyspnea - no access site pain - no arrhythmia on telemetry Telemetry: reviewed Meds: ??? allopurinol 100 mg Oral Daily ??? aspirin 81 mg Oral Daily ??? clonazePAM 0.5 mg Oral Daily ??? docusate sodium 100 mg Oral BID ??? furosemide 40 mg Oral Daily ??? gabapentin 400 mg Oral QAM ??? gabapentin 800 mg Oral QPM ??? lisinopril 10 mg Oral Daily ??? sulfaSALAzine 1,000 mg Oral BID ??? venlafaxine 150 mg Oral Daily ??? clopidogrel 75 mg Oral Daily ??? pantoprazole 40 mg Oral Daily ??? atorvastatin 40 mg Oral Daily ??? meTOPROLOL succinate 25 mg Oral Daily Physical Exam: Vital Signs: reviewed Physical Exam Gen: NAD HEENT: No pallor, no jaundice CV: RRR, no m/g/r, JVP at 7 cmH2O Pulm: CTAB, no w/r/r Abd: Soft, NT, ND, +BS Vasc: 2+ radial and femoral pulses bilat. Access site c/d/i with small area of hematoma and ecchymosis, drsg c/d/i Extr: Wwp, no c/c/e Lab Comments: No results found for: WBC, HGB, HCT, MCV, PLATELET Lab Results Component Value Date CREATININE 1.09 08/20/2016 BUN 14 08/20/2016 NA 139 08/20/2016 K 4.9 08/20/2016 CL 100 08/20/2016 CO2 27 08/20/2016 Lab Results Component Value Date CK 115 08/21/2016 TROPONINT <0.03 08/21/2016 Pertinent Radiographic/Diagnostic Results: ECG: reviewed Discharge Medication Checklist: Aspirin continue Clopidogrel/prasugrel clopidogrel for 6 months Gilles inhibitor/or ARB continue lisinopril Beta Soha continue metoprolol Lipid Lowering continue lipitor Nitroglycerin SL NTG PRN Assessment: Acosta Driver is a 60 y.o. male who is POD #1 s/p PCI to mid LAD and mid LCx who was admitted overnight for observation. There were no overnight events, patient tolerated ambulating without angina or dyspnea, remained hemodynamically stable, no evidence of active ischemia or vascular comp lications, stable renal fx. Patient is stable for discharge today. Plan: 1. Discharge today 2. F/U with cardiology in 3-4 weeks: Dr. Ruben Felipe MD Tamara Fernandez RN - 08/20/2016 2:58 PM EDT Report taken from Marquita STRONG in screedman/laborer Pt arrived at 1500 [address] Ambulated from stretcher to bed total assist with yellow slipp. Patient hooked up to monitors, Patient is neurologically intact, A&Ox4, vss. Lung sounds clear, Patient is on RA baseline, currently 2lnc no SOB, WILLIAM, CP 5/5 strengths all extremities.No numbness or tingling, Radial and dorsalis pulses normal Bowel sounds active x4,soft non tender. To ambulate: patient has not been OOB yet. FLAT bedrest until 1730 Assistance [level of assistance required for transfers and ambulation]: At baseline patient is independent Bathroom: urinal, bathroom. Skin: RT groin site no drainage, intact, tender Drsg on : C/D/I. otherwise skin intact. No S/S of PU, or breakdown. Pain: 04/17 Patient belongs with Patient/ family. Oriented to room, staff, use of call light. Patient verbalized/demonstrated understanding. Plan of care, treatments, goals, tests, services written on white board and discussed with patient/family for discharge readiness. Patient-specific fall risk factors per assessment/individualized fall prevention interventions: fallrisk precautions initiated. Patient is cooperative, POD #0, receiving pain medication. Patient has tubes and lines. Patient able to reliably summon for assistance Bed in low position. Bed alarms with 3 side rails raised. urinal at bedside. Tolieting offered. Bathing/hygeine/dressing assistance provided while encouraging independence. Environment clear of obstacles/tripping hazard. Lighting provided/adjusted. Patient instructed in use of call corbett. call corbett within reach at all times. Patient will remain free from falls this shift. Supervision [direct monitoring required during toileting and ADLs]: At baseline patient is independent with all ADL's, currently patient is eyes on / within reach assist with all ADL's when patient is out of bed. Surveillance [continuous indirect monitoring]: Purposeful hourly rounding done, pulse oximetry, roomnear nurses station, call corbett within reach, family at bedside, Patient-specific fall prevention interventions for sensory deficits provided, if applicable: N/A documented in this encounter H&P Notes Paco Rubio II, MD - 08/20/2016 1:15 PM EDT Post-PCI Admission History and Physical PCP: Jonathan Medina DO Referring: Ruben Thacker MD Date of Admission: 08/20/2016 Admission Diagnosis: S/p PCI Problem List: Patient Active Problem List Diagnosis ??? ASCVD (arteriosclerotic cardiovascular disease) HPI: This 60 y.o. male is admitted with a chief complaint of CAD s/p PCI. I have reviewed the available records, interviewed and examined the patient. This patient is admitted post PCI for IV hydration, pain management, access site management in the setting of anticoagulation, serial cardiac biomarker monitoring, telemetry monitoring, evaluation of their medical condition, and cardiac rehabilitation. ROS/PMHx/Fam Hx/Soc Hx: Reviewed, see outpatient note. Physical Exam BP 148/73 Pulse 72 Temp 37.1 ??C (98.8 ??F) (Oral) Resp 15 Ht (!) 196.9 cm (6' 5.5) Wt (!) 161 kg (354 lb 15.1 oz) SpO2 93% BMI 41.55 kg/m2 Gen: Well-appearing, NAD HEENT: No pallor, no jaundice CV: RRR, no m/g/r, JVP at 6 cm H20 Lungs: CTAB, no increased WOB Abd: Soft, NTND, +NABS Ext: Wwp, no c/c/e Vasc: 2+ radial and 1+ femoral pulses, access site c/d/i Labs: No results found for: WBC, HGB, HCT, MCV, PLATELET Lab Results Component Value Date CREATININE 1.09 08/20/2016 BUN 14 08/20/2016 NA 139 08/20/2016 K 4.9 08/20/2016 CL 100 08/20/2016 CO2 27 08/20/2016 No results found for: CK, CKMB, CKMBINDEX, TROPONINT Assessment/ Plan: #CAD, s/p PCI to LAD and LCx - Admit for overnight monitoring - Telemetry, serial ECGs, cycle cardiac biomarkers - Dual antiplatelet therapy - IVF - Monitor access site - Cardiac rehab consult - Anticipate discharge in am Cari Felipe MD Cardiology Staff Addendum I have seen the patient and reviewed Dr. Felipe's above history and I agree with the details as written. The assessment and plan were formulated in discussion with me and I agree with them as documented. Paco Rubio MD Rodríguez Moore MD - 08/20/2016 10:43 AM EDT 24H H&P 60 year old male patient of Dr. Thacker at [facility] who is referred for elective LHC and coronary angiography for CCS class II-III stable angina refractory to 2 drug therapy. A recent stress test was positive for lateral ischemia. There has been no change since his recent office visit. Medications have not been formally reconciled yet but the med list from the OSH is reviewed. He took aspirin this morning. Exam Vitals: 08/20/16 0900 BP: 131/63 Pulse: 68 Temp: 37.1 ??C (98.8 ??F) Nontoxic, nad Obese jvp cannot be seen Chest clear Cor distant, s1/2, no mrg abd soft 1+ right radial, normal Kt's 1+ RFA pulse No edema Skin warm and dry Imaging Nuc stress at [facility] - report reviewed. Describes LVEF 55% with large size, severely intense lateral ischemia EKG today NSR, otherwise normal Impression: 1. CAD by symptoms and stress testing with refractory stable angina. 2. Preserved LV function 3. Morbid obesity Plan Proceed to lab FULL CODE The indications, expected benefits, and potential risks of heart catheterization were reviewed in detail with the patient. The potential for , heart attack, stroke, kidney failure, hemorrhage, allergic reaction, vascular complications and infection were reviewed in detail. The possibility of stenting and other percutaneous intervention, with associated risk, was reviewed. The possible need for emergent coronary artery bypass surgery was reviewed. Alternatives were discussed and the patient's questions were answered in full. Following this discussion, the patient consented to the procedure and signed a form attesting to this. Rodríguez Moore MD Supervisor [place] Pager [phone] documented in this encounter Miscellaneous Notes Consult Note - Ema Sung RN - 08/21/2016 9:42 AM EDT Acosta Driver was seen today by Cardiac Rehabilitation for: S/p PCI to LAD, LCX Activity evaluation - Nursing staff will complete cardiac walk with patient this morning. Educational packet regarding CAD, cardiac risk factors, and managing angina given to the patient. Heart diagram reviewed. Reviewed managing angina /use of sl nitroglycerin. He has nitro at home and is able to describe the directions for use. Mediterranean diet guidelines briefly reviewed. He has been working on improving his diet and has lost 12 lbs over the past month! Given parameters for home exercise. Patient is somewhat limited by neuropathy and arthritis. He doessome short walks at home. Participation to an outpatient cardiac rehabilitation program at [facility] was discussed. Patient agrees to a referral to this program. The referral will be sent at discharge and the patient should be contacted by the Program within 1- 2 weeks from discharge. Plan of Care - Martha Randolph RN - 08/21/2016 4:52 AM EDT Problem: Patient Care Overview Goal: Plan of Care Review Outcome: Ongoing (Interventions Implemented as Appropriate) 08/21/16 0449 Coping/Psychosocial Plan Of Care Reviewed With patient Plan of Care Review Progress improving S/P: PCI Stents LAD and LCX Outcome Summary: VSS. Tele = NSR. Rare PVC. Denies chest pain/pressure. No WILLIAM/SOB R groin site = CDI with ecchymosis. Mehreen PO. Ambulating freq in mendez. Voiding lg amts clear yellow urine. Plan: Ongoing monitoring/assessments. TELE. I/O. Cardiac walk in AM. EKG in AM. D/C home. Pt states his friend will drive him home. INDIVIDUALIZED FALL PREVENTION: Assistance: Assisted with bed mobility to find comfortable position, will assist when OOB as needed. Supervision: Stand-by assist with initial ambulation and supervised activity as needed. Surveillance: Continuous pulse ox, call corbett within reach, purposeful rounding documented in this encounter Plan of Treatment Not on filedocumented as of this encounter Procedures Procedure Name Priority Date/Time Associated Diagnosis Comme nts EKG 12-LEAD Routine 08/21/2016 7:29 AM ASCVD (arterioscleroti c Results for this EDT cardiovascular disease) proc edure are in the results section. CARDIAC ENZYMES Routine 08/21/2016 1:35 AM Result s for this ([facility]) EDT procedure are i n the results section. PIANO BUILDER 08/21/2016 12:00 Results for this SCAN AM EDT procedure are i n the results section. EKG 12-LEAD Routine 08/20/2016 1:22 PM ASCVD (arterioscleroti c Results for this EDT cardiovascular disease) proc edure are in the results section. EKG 12-LEAD Routine 08/20/2016 10:34 ASCVD (arteriosclerotic Results for this AM EDT cardiovascular disease) proc edure are in the results section. BMP W/FASTING STAT 08/20/2016 9:52 AM ASCVD (arteriosclerot ic Results for this GLUCOSE EDT cardiovascular disease) proc edure are in the results section. documented in this encounter Results EKG 12 Lead (08/21/2016 7:29 AM EDT) Component Value Ref Range Test Analysis Performed Pathologis t Method Time At Signature Ventricular rate 65 BPM MUSE SYSTEM Atrial Rate 65 BPM MUSE SYSTEM P-R Interval 174 ms MUSE SYSTEM QRS Duration 92 ms MUSE SYSTEM Q-T Interval 418 ms MUSE SYSTEM QTC Calculated 434 ms MUSE SYSTEM (Bezet) Calculated P [place] 72 degrees MUSE SYSTEM Calculated R [place] 58 degrees MUSE SYSTEM Calculated T [place] 72 degrees MUSE SYSTEM INTERPRETATION Normal sinus rhythm MUSE SYSTEM Normal ECG When compared with ECG of 20-AUG-2016 13:22, No significant change was found Confirmed by MD Stu, Mook ([id number]) on 08/21/2016 8:50:45 AM Specimen Anatomical Collection Method Collection Time Receive d Time (Source) Location / / Volume Laterality 08/21/2016 7:29 AM 7 8:50 EDT AM EDT Paco Rubio II, MD ECG ORDERABLES Performing Organization Address City/State/ZIP Code Phon e Number MUSE SYSTEM Cardiac Enzymes (08/21/2016 1:35 AM EDT) P athologist Signature Troponin-T <0.03 <=0.03 CHELSEA FRANKO ng/mL [facility] Comment: 0.03 ng/mL: Represents the 99th percenti le upper reference limit for normals. >0.03 ng/mL: Elevated cardiac troponin T level indicative of myocardial damage. Diagnosis of acute, evolving or recent M I requires a typical rise and gradual fall of cTnT with at least ONE of the fo llowing: a) Ischemic symptoms b) Development of pathologic Q waves on the ECG c) ECG changes indicative of eschemia (S -T segment elevation/depression) d) Coronary artery intervention Serial bloods should be obtained for georgina ting on admission, at 6 to 9 hrs and again at 12 to 24 hrs if earlier samples are negative and the clinical index of suspicion is high. Reference: [Myocardial infarction redefined? a consensus document of the Joint Society of Cardiology/[place] College o f [employer] Committee for the redefinition of myocardial infarction. ? ?Journal of the [place] [employer] 2000; 36: 959-969] CK, Total 115 0 - 200 unit/L [facility] Specimen Anatomical Collection Method Collection Time Receive d Time (Source) Location / / Volume Laterality Blood specimen 08/21/2016 1:35 AM 017 1:41 (specimen) EDT AM EDT Resulting Agency Comment Spec In Lab Paco Rubio II, MD CHEMISTRY ORDERABLES Performing Organization Address City/State/[place] [address] SCAN DOC: PIANO BUILDER (08/21/2016 12:00 AM EDT) Narrative 08/21/2016 12:00 AM EDT This result has an attachment that is no t available. Ordered by an unspecified provider. Scanning Provider MEDIA MGR SCAN EXT ORDR/RSLT EKG 12 Lead (08/20/2016 1:22 PM EDT) Component Value Ref Range Test Analysis Performed Pathologis t Method Time At Signature Ventricular rate 61 BPM MUSE SYSTEM Atrial Rate 61 BPM MUSE SYSTEM P-R Interval 160 ms MUSE SYSTEM QRS Duration 84 ms MUSE SYSTEM Q-T Interval 428 ms MUSE SYSTEM QTC Calculated 430 ms MUSE SYSTEM (Bezet) Calculated P [place] 34 degrees MUSE SYSTEM Calculated R [place] 54 degrees MUSE SYSTEM Calculated T [place] 50 degrees MUSE SYSTEM INTERPRETATION Normal sinus rhythm MUSE SYSTEM Normal ECG When compared with ECG of 20-AUG-2016 10:34, No significant change was found Confirmed by MD Maurilio, Rajan ([id number]) on 08/20/2016 2:4 2:40 PM Specimen Anatomical Collection Method Collection Time Receive d Time (Source) Location / / Volume Laterality 08/20/2016 1:22 PM 7 2:42 EDT PM EDT Paco Rubio II, MD ECG ORDERABLES Performing Organization Address City/State/ZIP Code Phon e Number MUSE SYSTEM EKG 12 Lead (08/20/2016 10:34 AM EDT) Patholo gist Method Time Signature Ventricular rate 68 BPM MUSE SYSTEM Atrial Rate 68 BPM MUSE SYSTEM P-R Interval 156 ms MUSE SYSTEM QRS Duration 88 ms MUSE SYSTEM Q-T Interval 402 ms MUSE SYSTEM QTC Calculated 427 ms MUSE SYSTEM (Bezet) Calculated P [place] -11 degrees MUSE SYSTEM Calculated R [place] 35 degrees MUSE SYSTEM Calculated T [place] 46 degrees MUSE SYSTEM INTERPRETATION Normal sinus rhythm MUSE SYSTEM Normal ECG No previous ECGs available Confirmed by MD Maurilio, Rajan ([id number]) on 08/20/2016 2:4 2:06 PM Specimen Anatomical Collection Method Collection Time Receive d Time (Source) Location / / Volume Laterality 08/20/2016 10:34 08/20/2016 2:42 AM EDT PM EDT Paco Rubio II, MD ECG ORDERABLES Performing Organization Address [facility] Phon e Number MUSE SYSTEM (ABNORMAL) BMP w/fasting Glucose (08/20/2016 9:52 AM EDT) P athologist Signature Glucose 113 (H) 65 - 99 [facility] Fasting mg/dL [facility] Comment: ?Fasting* Glucose Interpretive C riteria Normal ?65-99 mg/dL Impaired Fasting glucose ?100-125 mg/dL Consistent with Diabetes Mellitus ? >or= 126 mg/dL *Fasting is defined as no caloric intake for at least 8 hours In the absence of unequivocal hypergly cemia a plasma glucose value of >or= 126 mg/dL should be repeated on a subseq uent day. Diagnosis and Classification of Diabetes Mellitus, Position Statement from the [place] [employer]. ??Diabete s Care, Volume 33, Supplement 1, Mar 2009 BUN 14 10 - 20 mg/dL [facility] Creatinine 1.09 0.80 - 1.50 mg/dL [facility] Comment: Please note that the pediatric reference intervals supplied above were not validated at [facility]. Results from pediatri c patients should be interpreted in conjunction to the patient's age, height and muscle mass. Sodium 139 135 - 145 mmol/L [facility] Potassium 4.9 3.5 - 5.0 mmol/L [facility] Comment: Please note: ??Patients with WBC >100,00 0 may have falsely elevated Potassium levels. ??For accurate Potassium quantif ication in these patients send serum separator tube (gold top) for subsequent determinations. ??Contact the Clinical Chemistry Laboratory if there are any qu estions. Chloride 100 98 - 107 mmol/L [facility] CO2 27 22 - 31 mmol/L [facility] Anion Gap 12 5 - 15 mmol/L [facility] Calcium 9.7 8.5 - 10.5 mg/dL [facility] Estimated GFR >60 >=60 [facility] Comment: This estimated GFR (eGFR) value was calc ulated using the MDRD equation which has been validated on patients between t he ages of 18 and 70. The MDRD should not be used to assess kidney function in patients < 18 years of age or in patients with extremes of body mass, or in patients with acute kidney failure. This value should be multiplied by 1.2 f or patients. For further information please copy and past e the following links into your internet browser. [email or web address] Specimen Anatomical Collection Method Collection Time Receive d Time (Source) Location / / Volume Laterality Blood specimen 08/20/2016 9:52 AM 017 (specimen) EDT 10:01 AM EDT Resulting Agency Comment Spec In Lab Paco Rubio II, MD CHEMISTRY ORDERABLES Performing Organization Address City/State/[place] [address] documented in this encounter Visit Diagnoses Diagnosis ASCVD (arteriosclerotic cardiovascular d isease) Unspecified cardiovascular disease S/P coronary artery stent placement Postsurgical percutaneous transluminal c oronary angioplasty status ASCVD (arteriosclerotic cardiovascular d isease) Unspecified cardiovascular disease documented in this encounter Admitting Diagnoses Diagnosis ASCVD (arteriosclerotic cardiovascular d isease) Unspecified cardiovascular disease documented in this encounter Administered Medications Inactive Administered Medications - up to 3 most recent administrations Medication Order MAR Action Action Date Dose Rate Site allopurinol (ZYLOPRIM) tablet 100 Given 08/21/2016 8:15 AM EDT 1 00 mg mg 100 mg, Oral, DAILY, First dose on Wed08/20/16 at 1700, Until Discontinued, Routine aspirin EC tablet 81 mg Given 08/21/2016 8:15 AM EDT 81 mg 81 mg, Oral, DAILY, First dose on Wed08/21/16 at 0900, Until Discontinued, Routine atorvastatin (LIPITOR) tablet 40 mg Given 08/21/2016 8:16 AM EDT 40 mg 40 mg, Oral, DAILY, First dose on Wed08/20/16 at 1545, Until Discontinued, Routine Given 08/20/2016 5:15 PM EDT 40 mg clonazePAM (KlonoPIN) disintegrating tablet Given 08/21/2016 8:15 AM EDT 0.5 mg 0.5 mg 0.5 mg, Oral, DAILY, First dose on Wed08/20/16 at 1545, Until Discontinued, Routine Given 08/20/2016 5:16 PM EDT 0.5 mg clopidogrel (PLAVIX) tablet 300 mg Given 08/20/2016 9:00 PM EDT 300 mg 300 mg, Oral, ONCE, 1 dose, On Wed08/20/16 at 2100, Routine clopidogrel (PLAVIX) tablet 75 mg Given 08/21/2016 8:15 AM EDT 75 mg 75 mg, Oral, DAILY, First dose on Wed08/21/16 at 0900, Until Discontinued, Routine docusate sodium (COLACE) capsule 100 mg Given 08/21/2016 8:15 AM EDT 100 mg 100 mg, Oral, 2 TIMES DAILY, First dose on Wed08/20/16 at 2100, Until Discontinued, Routine Given 08/20/2016 9:05 PM EDT 100 mg fentaNYL 50 mcg/mL multi-dose injection Given 08/20/2016 12:52 PM EDT 25 mcg ONCE PRN, Starting on Wed08/20/16 at 1127, Until Iliana 08/20/16 at 1310, Intra-Operative (Intra-Procedure), Routine Given 08/20/2016 12:39 PM EDT 25 mcg Given 08/20/2016 11:27 AM EDT 25 mcg fentaNYL 50mcg/mL injection Given 08/20/2016 1:35 PM EDT 25 mcg 25 mcg, Intravenous, EVERY 15 MIN PRN, Starting on Iliana 08/20/16 at 1311, Until Iliana 08/20/16 at 1458, Pain, For sheath removal, May repeat once, while in Cath Recovery Unit, Cath (Recovery-Hospital Unit), Routine furosemide (LASIX) tablet 40 mg Given 08/21/2016 8:15 AM EDT 40 mg 40 mg, Oral, DAILY, First dose on Iliana 08/20/16 at 1700, Until Discontinued, Routine Given 08/20/2016 8:10 PM EDT 40 mg gabapentin (NEURONTIN) capsule 400 mg Given 08/21/2016 7:00 AM EDT 400 mg 400 mg, Oral, EVERY MORNING, First dose on Wed08/21/16 at 0700, Until Discontinued, Routine heparin (porcine) injection Given 08/20/2016 12:28 PM EDT 2,000 Units ONCE PRN, Starting on Iliana 08/20/16 at 1145, Until Iliana 08/20/16 at 1310, Cath (Intra-Procedure), Routine Given 08/20/2016 12:18 PM EDT 2,000 Units Given 08/20/2016 11:59 AM EDT 5,000 Units iohexol (OMNIPAQUE) 350 mg/mL solution Given 08/20/2016 12:56 PM EDT 320 mLs ONCE PRN, Starting on Iliana 08/20/16 at 1256, Until Iliana 08/20/16 at 1310, Cath (Intra-Procedure), Routine lisinopril (PRINIVIL;ZESTRIL) tablet 10 mg Given 08/21/2016 8:15 AM EDT 10 mg 10 mg, Oral, DAILY, First dose on Wed08/21/16 at 0900, Until Discontinued, Routine meTOPROLOL succinate (TOPROL-XL) XL tablet 25 Given 8:15 AM EDT 25 mg mg 25 mg, Oral, DAILY, First dose on Wed08/20/16 at 1700, Until Discontinued, DO NOT CRUSH OR OPEN, Routine Given 08/20/2016 5:19 PM EDT 25 mg midazolam (PF) (VERSED) 1 mg/mL multi-dose Given 08/20/2016 11:2 7 AM EDT 1 mg injection ONCE PRN, Starting on Iliana 08/20/16 at 1127, Until Iliana 08/20/16 at 1310, Cath (Intra-Procedure), Routine nitroGLYcerin (NITROSTAT) SL tablet 0.4 mg 0.4 mg, Sublingual, EVERY 5 MIN PRN, Starting on Iliana at 1311, Until Wed08/21/16 at 1413, Chest pain, May repeat every 5 minutes for a total of three doses. Notify provider if chest pain not reliev ed with nitroglycerin. Do not administer nitroglycerin if the patinet has received or taken clay sphodiesterase (PDE-5) inhibitors such as sildenafil, tadalafil or vardenafil within the last 24 to 72 hours., Recovery (Recovery-Hospital Unit), Routine nitroGLYcerin 100 mcg/mL intracoronary Given 08/20/2016 11:48 AM EDT 100 mcg dilution ONCE PRN, Starting on Iliana 08/20/16 at 1148, Until Iliana 08/20/16 at 1310, Cath (Intra-Procedure), Routine pantoprazole (PROTONIX) tablet 40 mg Given 08/21/2016 8:15 AM EDT 40 mg 40 mg, Oral, DAILY, First dose on Iliana 08/20/16 at 1545, Until Discontinued, DO NOT CRUSH OR OPEN, Routine Given 08/20/2016 5:16 PM EDT 40 mg sodium chloride 0.9% infusion New Bag 08/20/2016 1:35 PM EDT 100 mL/hr 100 mL/hr 100 mL/hr, Intravenous, CONTINUOUS, Starting on Iliana 08/20/16 at 1330, Until Iliana 08/20/16 at 1629, Recovery (Recovery-Hospital Unit) sodium chloride 0.9% infusion New Bag 08/20/2016 1:35 PM EDT 100 mL/hr 100 mL/hr 100 mL/hr, Intravenous, CONTINUOUS, Starting on Iliana 08/20/16 at 1330, Until Iliana 08/20/16 at 1345, Recovery (Recovery-Hospital Unit) sulfaSALAzine (AZULFIDINE) tablet 1,000 mg Given 08/21/2016 8:15 AM EDT 1,000 mg 1,000 mg, Oral, 2 TIMES DAILY, First dose on Wed08/20/16 at 2100, Until Discontinued, Routine Given 08/20/2016 9:04 PM EDT 1,000 mg ticagrelor (BRILINTA) tablet Given 08/20/2016 12:17 PM EDT 180 mg ONCE PRN, Starting on Wed08/20/16 at 1217, Until Wed08/20/16 at 1310, Cath (Intra-Procedure), Routine venlafaxine (EFFEXOR-XR) XR Capsule 150 mg Given 08/21/2016 8:15 AM EDT 150 mg 150 mg, Oral, DAILY, First dose on Wed08/21/16 at 0900, Until Discontinued, DO NOT CRUSH OR OPEN, Routine documented in this encounter Active and Recently Administered Medications Times are shown in EDT. Scheduled Medication Order 08/19/2016 08/20/2016 08/21/2016 allopurinol (ZYLOPRIM) tablet 100 mg 171 7 (Not Given - Provider: Tamara Fernandez RN - Reason: Patient/family refused - Comment: took this am) 0815 (Given - Provider: Jamaica Lion RN) 100 mg, Oral, DAILY, First dose on Wed at 1700, Until Discontinued, Routine aspirin EC tablet 81 mg 0815 (Gi maxwell - Provider: Jamaica Loin, TAE) 81 mg, Oral, DAILY, First dose on Wed at 0900, Until Discontinued, Routine atorvastatin (LIPITOR) tablet 40 mg 1715 (Given - Provider: Tamara Fernandez RN) 0816 (Given - Provider: Jamaica Lion, TAE) 40 mg, Oral, DAILY, First dose on Wed at 1545, Until Discontinued, Routine clonazePAM (KlonoPIN) disintegrating tablet 0.5 mg 1716 (Given - Provider: Tamara Fernandez RN) 0815 (Given - Provider: Jamaica Lion, TAE) 0.5 mg, Oral, DAILY, First dose on Wed at 1545, Until Discontinued, Routine clopidogrel (PLAVIX) tablet 300 mg (COMPLETED) 2099 (Given - Provider: Martha Randolph RN) 300 mg, Oral, ONCE, 1 dose, Wed08/20/16 at 2100, Routine clopidogrel (PLAVIX) tablet 75 mg 814 (Given - Provider: Jamaica Lion, TAE) 75 mg, Oral, DAILY, First dose on Wed at 0900, Until Discontinued, Routine docusate sodium (COLACE) capsule 100 mg 2104 (Given - Provider: Martha Randolph RN) 814 (Given - Provider: Jamaica Lion, TAE) 100 mg, Oral, 2 TIMES DAILY, First dose on Wed08/20/16 at 2100, Until Discontinued, Routine furosemide (LASIX) tablet 40 mg 2009 (Gi maxwell - Provider: Martha Randolph RN - Comment: patient request) 814 (Given - Provider: Jamaica Lion RN) 40 mg, Oral, DAILY, First dose on Wed at 1700, Until Discontinued, Routine gabapentin (NEURONTIN) capsule 400 mg 699 (Given - Provider: Martha Randolph RN) 400 mg, Oral, EVERY MORNING, First dose on Wed08/21/16 at 0700, Until Discontinued, Routine gabapentin (NEURONTIN) capsule 800 mg (Not Given - Provider: Tamara Fernandez RN - Reason: Patient/family refused) 800 mg, Oral, EVERY EVENING, First dose on Wed08/20/16 at 1700, Until Discontinued, Routine lisinopril (PRINIVIL;ZESTRIL) tablet 10 mg 814 (Given - Provider: Jamaica Lion RN) 10 mg, Oral, DAILY, First dose on Wed at 0900, Until Discontinued, Routine meTOPROLOL succinate (TOPROL-XL) XL tablet 25 mg 1718 (Given - Provider: Tamara Fernandez RN) 814 (Given - Provider: Jamaica Lion, TAE) 25 mg, Oral, DAILY, First dose on Wed at 1700, Until Discontinued, DO NOT CRUSH OR OPEN, Routine pantoprazole (PROTONIX) tablet 40 mg (Given - Provider: Tamara Fernandez RN) 814 (Given - Provider: Jamaica Lion, TAE) 40 mg, Oral, DAILY, First dose on Wed at 1545, Until Discontinued, DO NOT CRUSH OR OPEN, Routine sulfaSALAzine (AZULFIDINE) tablet 1,000 mg 2103 (Given - Provider: Martha Randolph, RN) 08 (Given - Provider: Jamaica Lion, TAE) 1,000 mg, Oral, 2 TIMES DAILY, First dos e on Wed08/20/16 at 2100, Until Discontinued, Routine venlafaxine (EFFEXOR-XR) XR Capsule 150 mg 814 (Given - Provider: Jamaica Lion, TAE) 150 mg, Oral, DAILY, First dose on Wed at 0900, Until Discontinued, DO NOT CRUSH OR OPEN, Routine Continuous Medication Order 08/19/2016 08/20/2016 08/21/2016 sodium chloride 0.9% infusion () 1335 (New Bag - Provider: Anju Castillo RN)1600 (Stopped - Provider: Tamara Fernandez RN) 100 mL/hr, at 100 mL/hr, Intravenous, CO NTINUOUS, Starting Iliana 08/20/16 at 1330, Until Iliana 08/20/16 at 1629, Recovery (Recovery-Hospital Unit) sodium chloride 0.9% infusion (CANCELED) 1335 (New Bag - Provider: Anju Castillo RN) 100 mL/hr, at 100 mL/hr, Intravenous, CO NTINUOUS, Starting Iliana 08/20/16 at 1330, Until Iliana 08/20/16 at 1345, Recovery (Recovery-Hospital Unit) PRN Medication Order 08/19/2016 08/20/2016 08/21/2016 fentaNYL 50 mcg/mL multi-dose injection (CANCELED) 1127 (Given - Provider: Mook Alexander RN)1239 (Given - Provider: Mook Alexander RN)1252 (Given - Provider: Mook Alexander, TAE) ONCE PRN, Starting Iliana 08/20/16 at 1127, Until Iliana 08/20/16 at 1310, Intra- Operative (Intra-Procedure), Routine fentaNYL 50mcg/mL injection (CANCELED) 1 335 (Given - Provider: Anju Castillo RN) 25 mcg, Intravenous, EVERY 15 MIN PRN, S tarting Iliana 08/20/16 at 1311, Until Iliana 08/20/16 at 1458, Pain, For sheath removal, May repeat once, while in Cath Recovery Unit, Cath (Recovery-Hospital Unit), Routine heparin (porcine) injection (CANCELED) 1 145 (Given - Provider: Mook Alexander RN)1159 (Given - Provider: Mook Alexander RN)1218 (Given - Provider: Mook Alexander, TAE)1228 (Given - Provider: Mook Alexander RN) ONCE PRN, Starting Iliana 08/20/16 at 1145, Until Iliana 08/20/16 at 1310, Cath (Intra- Procedure), Routine iohexol (OMNIPAQUE) 350 mg/mL solution (CANCELED) 1256 (Given - Provider: Paco Rubio II, MD) ONCE PRN, Starting Iliana 08/20/16 at 1256, Until Iliana 08/20/16 at 1310, Cath (Intra- Procedure), Routine midazolam (PF) (VERSED) 1 mg/mL multi-dose injection (CANCEL ED) 1127 (Given - Provider: Mook Alexander RN) ONCE PRN, Starting Iliana 08/20/16 at 1127, Until Iliana 08/20/16 at 1310, Cath (Intra- Procedure), Routine nitroGLYcerin (NITROSTAT) SL tablet 0.4 mg 0.4 mg, Sublingual, EVERY 5 MIN PRN, Sta rting Iliana 08/20/16 at 1311, Until Wed08/21/16 at 1413, Chest pain, May repeat every 5 minutes for a total of three doses. Notify provider if chest pain not relieve d with nitroglycerin. Do not administer nitroglycerin if the patinet has received or taken phosphodiesterase (PDE-5) inhibitors such as sildenafil, tadalafil or vardenafil within the last 24 to 72 hours., Recovery (Recovery- Hospital Unit), Routine nitroGLYcerin 100 mcg/mL intracoronary dilution (CANCELED) 1148 (Given - Provider: Paco Rubio II, MD) ONCE PRN, Starting Iliana 08/20/16 at 1148, Until Iliana 08/20/16 at 1310, Cath (Intra- Procedure), Routine ticagrelor (BRILINTA) tablet (CANCELED) 1217 (Given - Provider: Mook Alexander RN) ONCE PRN, Starting Iliana 08/20/16 at 1217, Until Iliana 08/20/16 at 1310, Cath (Intra- Procedure), Routine documented in this encounter Care Teams Steward/Stewardess Second Class Relationship Specialty Start Date End Date Jonathan Medina DO PCP - General Family Medicine 08/13/[address] [place] [address] documented as of this encounter
--- OUTSIDE RECORDS SUMMARY | 2022-01-17 09:10 | XMS_ITS | Encounter Summary ---
:1955 Author Organization [facility] Address [address] [place] [address] Care Team Providers Name Role Phone Johann Simmons MD Primary Care Provider Encounter Details Date Type Department Care Team Description 12/12/2018 Hospital Encounter [facility]- Brandy Unknown, Provider, [facility] [address] [place] [address] [place] [address] (Work) [phone] Social History Tobacco Use Types Packs/Day Years Used Date Smoking Tobacco: Never Assessed Sex Assigned at Date Recorded Not on file documented as of this encounter Discharge Disposition Disposition Code Departure Means Destination Home or Self Custodial documented in this encounter Plan of Treatment Not on filedocumented as of this encounter Visit Diagnoses Not on filedocumented in this encounter Care Teams Search Planner Relationship Specialty Start Date End Date Johann Simmons MD PCP - General 07/23/11 [address] [place] [address] documented as of this encounter
--- OUTSIDE RECORDS SUMMARY | 2022-01-17 09:10 | XMS_ITS | Encounter Summary ---
:1955 [place] [address] Care Team Providers Name Role Phone Jonathan Medina DO Primary Care Provider Reason for Visit Auth/Cert Specialty Diagnoses / Procedures Referred By Contact Refer red To Contact Diagnoses ASCVD (arteriosclerotic cardiovascular disease) ascvd Procedures CARDIAC CATHETERIZATION Referral ID Status Reason Start Date Expiration Date Visits Requ ested Visits Authorized [id number] 1 Encounter Details Date Type Department Care Team Description 08/20/2016 - Hospital Short Stay Unit at [facility] ASCVD (arteriosclerotic cardiovascular disease); 08/21/2016 Encounter Kylee Acosta II, MD S/P coronary artery stent placement [facility] [address] CARDIOLOGY DEPT. [place] [id number] [phone] Social History Tobacco Use Types Packs/Day Years [...] PM EDT Discharge Summary Patient Name: Acosta Driver Patient Age: 60 y.o. Language: Citizen Of [place] Race: White Ethnicity: Unknown or Unavailable Admit [...] me crazy{ ??? Pcn [Penicillins] Rash ??? 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 Per chart 38573 Units Refills: 0 folic acid 400 mcg [...] appointments: -During 8am-5pm Wednesday through Wednesday call [phone] to speak with a nurse in the cardiology clinic -All other times call [phone] and ask to speak to the instructional media services technician implementation engineer. MEDICATIONS - have switched your omeprazole [...] Primary care provider: Cardiology: Jonathan Medina DO [phone] Follow up as planned or as needed. [...] appointments: -During 8am-5pm Wednesday through Wednesday call [phone] to speak with a nurse in the cardiology clinic -All other times call [phone] and ask to speak to the instructional media services technician implementation engineer. MEDICATIONS - have switched your omeprazole [...] does not resolve you need to call [phone]. Return to work/ usual actvities: 1 week, [...] Primary care provider: Cardiology: Jonathan Medina DO [phone] Follow up as planned or as needed. [...] the floor via wheelchair, accompanied by the HARNESS BRUSHER/ Jamaica Lion RN - 08/21/2016 10:36 AM [...] EDT Report taken from Marquita STRONG in laboratory aide Pt arrived at 1500 [address] Ambulated from [...] old male patient of Dr. Thacker at [facility] who is referred for elective LHC and [...] warm and dry Imaging Nuc stress at [facility] - report reviewed. Describes LVEF 55% with [...] form attesting to this. Rodríguez Moore MD Chip Applying Machine Tender Pager [phone] documented in this encounter Miscellaneous Notes Consult [...] to an outpatient cardiac rehabilitation program at [facility] was discussed. Patient agrees to a referral [...] 08/21/2016 1:35 AM Result s for this ([facility]) EDT procedure are i n the results section. SHEETMETAL PATTERNMAKER 08/21/2016 12:00 Results for this SCAN AM [...] 434 ms MUSE SYSTEM (Bezet) Calculated P [place] 72 degrees MUSE SYSTEM Calculated R [place] 58 degrees MUSE SYSTEM Calculated T [place] 72 degrees MUSE SYSTEM INTERPRETATION Normal sinus rhythm MUSE SYSTEM Normal ECG When compared with ECG of 20-AUG-2016 13:22, No significant change was found Confirmed by MD Stu, Mook ([id number]) on 08/21/2016 8:50:45 AM Specimen Anatomical Collection Method Collection Time Receive d Time (Source) Location / / Volume Laterality 08/21/2016 7:29 AM 7 8:50 EDT AM EDT Paco Ruibo II, MD ECG ORDERABLES Performing Organization Address City/State/ZIP Code Phon e Number MUSE SYSTEM Cardiac Enzymes (08/21/2016 1:35 AM EDT) P athologist Signature Troponin-T <0.03 <=0.03 [facility]mL [facility] Comment: 0.03 ng/mL: Represents the 99th [...] consensus document of the Joint Society of Cardiology/[place] College o f Cardiology Committee for the redefinition of myocardial infarction. ? ?Journal of the [place] College of Cardiology 2000; 36: 959-969] CK, Total 115 0 - 200 unit/L [facility] Specimen Anatomical Collection Method Collection Time Receive d Time (Source) Location / / Volume Laterality Blood specimen 08/21/2016 1:35 AM 017 1:41 (specimen) EDT AM EDT Resulting Agency Comment Spec In Lab Paco Rubio II, MD CHEMISTRY ORDERABLES Performing Organization Address City/State/ZIP Code Phon e Number [place] [phone] SCAN DOC: SHEETMETAL PATTERNMAKER (08/21/2016 12:00 AM EDT) Narrative 08/21/2016 12:00 [...] 430 ms MUSE SYSTEM (Bezet) Calculated P [place] 34 degrees MUSE SYSTEM Calculated R [place] 54 degrees MUSE SYSTEM Calculated T [place] 50 degrees MUSE SYSTEM INTERPRETATION Normal sinus rhythm MUSE SYSTEM Normal ECG When compared with ECG of 20-AUG-2016 10:34, No significant change was found Confirmed by MD Maurilio, Rajan ([id number]) on 08/20/2016 2:4 2:40 PM Specimen Anatomical Collection Method Collection Time Receive d Time (Source) Location / / Volume Laterality 08/20/2016 1:22 PM 7 2:42 EDT PM EDT Paco Rubio II, MD ECG ORDERABLES Performing Organization Address City/[facility]/ZIP Code Phon e Number MUSE SYSTEM EKG 12 Lead (08/20/2016 10:34 AM EDT) Patholo gist Method Time Signature Ventricular rate 68 BPM MUSE SYSTEM Atrial Rate 68 BPM MUSE SYSTEM P-R Interval 156 ms MUSE SYSTEM QRS Duration 88 ms MUSE SYSTEM Q-T Interval 402 ms MUSE SYSTEM QTC Calculated 427 ms MUSE SYSTEM (Bezet) Calculated P [place] -11 degrees MUSE SYSTEM Calculated R [place] 35 degrees MUSE SYSTEM Calculated T [place] 46 degrees MUSE SYSTEM INTERPRETATION Normal sinus rhythm MUSE SYSTEM Normal ECG No previous ECGs available Confirmed by MD Maurilio, Rajan ([id number]) on 08/20/2016 2:4 2:06 PM Specimen Anatomical Collection Method Collection Time Receive d Time (Source) Location / / Volume Laterality 08/20/2016 10:34 08/20/2016 2:42 AM EDT PM EDT Paco Rubio II, MD ECG ORDERABLES Performing Organization Address [facility] Phon e Number MUSE SYSTEM (ABNORMAL) BMP w/fasting Glucose (08/20/2016 9:52 AM EDT) P athologist Signature Glucose 113 (H) 65 - 99 KYLEE ABDUL Fasting mg/dL [facility] Comment: ?Fasting* Glucose Interpretive C riteria [...] of Diabetes Mellitus, Position Statement from the [place] Diabetes Association. ??Diabete s Care, Volume 33, Supplement 1, Mar 2009 BUN 14 10 - 20 mg/dL [facility] Creatinine 1.09 0.80 - 1.50 mg/dL [facility] Comment: Please note that the pediatric reference intervals supplied above were not validated at [facility]. Results from pediatri c patients should be interpreted in conjunction to the patient's age, height and muscle mass. Sodium 139 135 - 145 mmol/L [facility] Potassium 4.9 3.5 - 5.0 mmol/L [facility] Comment: Please note: ??Patients with WBC >100,00 0 may have falsely elevated Potassium levels. ??For accurate Potassium quantif ication in these patients send serum separator tube (gold top) for subsequent determinations. ??Contact the Clinical Chemistry Laboratory if there are any qu estions. Chloride 100 98 - 107 mmol/L [facility] CO2 27 22 - 31 mmol/L [facility] Anion Gap 12 5 - 15 mmol/L [facility] Calcium 9.7 8.5 - 10.5 mg/dL [facility] Estimated GFR >60 >=60 [facility] Comment: This estimated GFR (eGFR) [...] the following links into your internet browser. [email or web address] [email or web address] Specimen Anatomical Collection Method Collection Time Receive d Time (Source) Location / / Volume Laterality Blood specimen 08/20/2016 9:52 AM 017 (specimen) EDT 10:01 AM EDT Resulting Agency Comment Spec In Lab Paco Rubio II, MD CHEMISTRY ORDERABLES Performing Organization Address City/State/[place] [address] documented in this encounter Visit Diagnoses Diagnosis ASCVD (arteriosclerotic cardiovascular d isease) Unspecified cardiovascular disease S/P coronary artery stent placement Postsurgical percutaneous transluminal c oronary angioplasty status documented in this encounter Admitting Diagnoses Diagnosis ASCVD (arteriosclerotic cardiovascular d isease) Unspecified cardiovascular disease documented in this encounter Administered Medications Inactive Administered Medications - up to 3 most recent administrations Medication Order MAR Action Action Date Dose Rate Site allopurinol (ZYLOPRIM) tablet 100 Given 08/21/2016 8:15 AM EDT 1 00 mg mg 100 mg, Oral, DAILY, First dose on Iliana 08/20/16 at 1700, Until Discontinued, Routine aspirin EC [...] 0.5 mg, Oral, DAILY, First dose on Iliana 08/20/16 at 1545, Until Discontinued, Routine Given 08/20/2016 [...] Oral, 2 TIMES DAILY, First dose on Iliana 08/20/16 at 2100, Until Discontinued, Routine Given 08/20/2016 9:05 PM EDT 100 mg fentaNYL 50mcg/mL injection Given 08/20/2016 1:35 PM [...] on Wed08/21/16 at 0700, Until Discontinued, Routine lisinopril (PRINIVIL;ZESTRIL) tablet 10 mg Given 08/21/2016 8:15 AM EDT 10 mg 10 mg, Oral, DAILY, First dose on Wed08/21/16 at 0900, Until Discontinued, Routine meTOPROLOL succinate (TOPROL-XL) XL tablet 25 Given 8:15 AM EDT 25 mg mg 25 mg, Oral, DAILY, First dose on Iliana 08/20/16 at 1700, Until Discontinued, DO NOT CRUSH OR OPEN, Routine Given 08/20/2016 5:19 PM EDT 25 mg nitroGLYcerin (NITROSTAT) SL tablet 0.4 mg 0.4 [...] to 72 hours., Recovery (Recovery-Hospital Unit), Routine pantoprazole (PROTONIX) tablet 40 mg Given [...] Given 08/20/2016 9:04 PM EDT 1,000 mg venlafaxine (EFFEXOR-XR) XR Capsule 150 mg Given [...] mg 0815 (Gi maxwell - Provider: Jamaica Lion RN) 81 mg, Oral, DAILY, First dose on Wed at 0900, Until Discontinued, Routine atorvastatin (LIPITOR) tablet 40 mg 1715 (Given - Provider: Tamara Fernandez RN) 0816 (Given - Provider: Jamaica Lion RN) 40 mg, Oral, DAILY, First dose on Wed at 1545, Until Discontinued, Routine clonazePAM (KlonoPIN) disintegrating tablet 0.5 mg 1715 (Given - Provider: Tamara Fernandez RN) 814 (Given - Provider: Jamaica Lion RN) 0.5 mg, Oral, DAILY, First dose on Wed at 1545, Until Discontinued, Routine clopidogrel (PLAVIX) tablet 300 mg (COMPLETED) 2099 (Given - Provider: Martha Randolph RN) 300 mg, Oral, ONCE, 1 dose, Wed08/20/16 at 2100, Routine clopidogrel (PLAVIX) tablet 75 mg 814 (Given - Provider: Jamaica Lion RN) 75 mg, Oral, DAILY, First dose on Wed at 0900, Until Discontinued, Routine docusate sodium (COLACE) capsule 100 mg 2104 (Given - Provider: Martha Randolph RN) 814 (Given - Provider: Jamaica Lion RN) 100 mg, Oral, 2 TIMES DAILY, First dose on Wed08/20/16 at 2100, Until Discontinued, Routine furosemide (LASIX) tablet 40 mg 2009 (Gi maxwell - Provider: Martha Randolph, TAE - Comment: patient request) 814 (Given - Provider: Jamaica Lion RN) 40 mg, Oral, DAILY, First dose on Wed at 1700, Until Discontinued, Routine gabapentin (NEURONTIN) capsule 400 mg 07 (Given - Provider: Martha Randolph RN) 400 mg, Oral, EVERY MORNING, First dose on Wed08/21/16 at 0700, Until Discontinued, Routine gabapentin (NEURONTIN) capsule 800 mg 17 (Not Given - Provider: Tamara Fernandez RN [...] 1718 (Given - Provider: Tamara Fernandez RN) 0815 (Given - Provider: Jamaica Lion, TAE) 25 mg, Oral, DAILY, First dose on Wed at 1700, Until Discontinued, DO NOT CRUSH OR OPEN, Routine pantoprazole (PROTONIX) tablet 40 mg 171 6 (Given - Provider: Tamara Fernandez, TAE) 0815 (Given - Provider: Jamaica Lion, TAE) 40 mg, Oral, DAILY, First dose on Wed at 1545, Until Discontinued, DO NOT CRUSH OR OPEN, Routine sulfaSALAzine (AZULFIDINE) tablet 1,000 mg 2104 (Given - Provider: Martha Randolph RN) 0815 (Given - Provider: Jamaica Loin, TAE) 1,000 mg, Oral, 2 TIMES DAILY, First dos e on Wed08/20/16 at 2100, Until Discontinued, Routine venlafaxine (EFFEXOR-XR) XR Capsule 150 mg 0815 (Given - Provider: Jamaica Lion RN) 150 mg, Oral, DAILY, First dose on [...] (CANCELED) 1335 (New Bag - Provider: Anju Castillo, TAE) 100 mL/hr, at 100 mL/hr, Intravenous, CO NTINUOUS, Starting Iliana 08/20/16 at 1330, Until Iliana 08/20/16 at 1345, Recovery (Recovery-Hospital Unit) PRN Medication Order 08/19/2016 08/20/2016 08/21/2016 fentaNYL 50 mcg/mL multi-dose injection (CANCELED) 1127 (Given - Provider: Mook Alexander RN)1239 (Given - Provider: Mook Alexander, TAE)1252 (Given - Provider: Mook Alexander, TAE) ONCE PRN, Starting Iliana 08/20/16 at 1127, Until Iliana 617 at 1310, Intra- Operative (Intra-Procedure), Routine fentaNYL [...] Mook Alexander RN)1218 (Given - Provider: Mook Alexander RN)1228 (Given - Provider: Mook Alexander RN) ONCE PRN, Starting Iliana 08/20/16 at 1145, Until Iliana 08/20/16 at 1310, Cath (Intra- Procedure), Routine iohexol (OMNIPAQUE) 350 mg/mL solution (CANCELED) 1256 (Given - Provider: Paco Rubio II, MD) ONCE PRN, Starting Iliana 08/20/16 at 1256, Until Iliana 617 at 1310, Cath (Intra- Procedure), Routine midazolam (PF) (VERSED) 1 mg/mL multi-dose injection (CANCEL ED) 1127 (Given - Provider: Mook Alexander, TAE) ONCE PRN, Starting Iliana 6 at 1127, Until Iliana 617 at 1310, Cath (Intra- Procedure), Routine nitroGLYcerin (NITROSTAT) SL tablet 0.4 mg 0.4 mg, Sublingual, EVERY 5 MIN PRN, Sta rting Iliana 08/20/16 at 1311, Until 08/21/16 at 1413, Chest pain, May repeat every [...] Routine documented in this encounter Care Teams Fisheries Technician Relationship Specialty Start Date End Date Jonathan Medina DO PCP - General Family Medicine 08/13/[address] [place] [address] documented as of this encounter
--- OUTSIDE RECORDS SUMMARY | 2022-01-17 09:10 | XMS_ITS | Encounter Summary ---
:1955 [place] [address] Care Team Providers Name Role Phone Jonathan Medina DO Primary Care Provider Encounter Details Date Type Department Care Team Description 08/19/2016 Orders Only [place] [facility] [place] ASC[place] (arteriosclerotic [facility] cardiovascular disease) [place], [place] C[place] [id number] CARDIOLOGY DEPT. [phone] [place], [place] [address] Social History Tobacco Use Types Packs/Day Years Used Date Never Assessed Sex Assigned at Date Recorded Not on file documented as of this encounter Plan of Treatment Not on filedocumented as of this encounter Procedures Procedure Name Priority Date/Time Associated Diagnosis Comme nts CARDIAC CATHETERIZATION Routine 08/20/2016 1:00 ASCVD R esults for this PM EDT (arteriosclerotic procedure are in cardiovascular the results disease) section. documented in this encounter Results CARDIAC CATHETERIZATION (08/20/2016 1:00 PM EDT) Anatomical Region Laterality Modality Other Specimen (Source) Anatomical Location Collection Method / Collectio n Time Received Time / Laterality Volume Narrative 08/20/2016 1:23 PM EDT ?[facility] ? Cardiac Cathete rization/Intervention Report ? Patient Name: Acosta Driver. ? Procedure Date: 08/20/2016 ? A #: [id number] ? Primary Physician: Paco Rubio W ? Case #: [id number] ? File Name: [id number] ? Catheterization Order Number: [id number] ? [facility] ? Final Report [place], [place] ? Patient Name: ? Acosta R. Thomps on ? ID#: ?[id number] ? : ?1955 ? Procedure Date: ? August 20, 2016 ?Case #: ? [id number] ? Room: ? 1 ? Case Physician: ? Paco W Alicia welch, M.D. ?Start: ?11:35 ?Fellow: ? Rodríguez S Por ter, M.D. ? Admission: ??08/20/2016 ?Craifuad Felipe, M.D. ? Referring ? Jonathan mejia, M.D. ? Physicians: ?Preeth K Sundaran, M.D. ? Procedures: ?* Coronary Angiography ?* Left Heart Catheterization ?* Coronary Instantaneous Wave-F ree Ratio (iFR) ?* Coronary Stent Insertion ?* Vascular Closure Device Deplo yment ?* Access Site Angiography ? History ?Acosta Driver is a 60 year o ld man. He has hypertension, a family ?history of coronary artery dise ase and morbid obesity. The patient has ?hypercholesterolemia managed wi th lipid therapy. He has stable angina and ?a history of chest pain. The pa tient also has a history of dyspnea. Prior ?to the initiation of this proce dure, the patient was designated as ASA ?Class III. ? Patient Status at Catheterization: ?The patient presented with: sta ble angina (w/i 42 days). [place] ?Cardiovascular Society angina c lass was III. This patient was on beta ?blockers prior to the procedure . A SPECT stress test was performed and ?results were Positive and High Risk ischemia assessment. ? Technique: ?A 6Fr sheath was inserted in th e right femoral artery utilizing the ?Seldinger technique. The left c oronary artery was injected utilizing a ?6Fr JL 4 catheter. A 6Fr JR 4 c atheter was used to inject the right ?coronary artery. Left ventricul ar pressure was performed with a 6Fr ?Angled pigtail catheter. Senior ry stent insertion was performed and the ?equipment utilized will be desc ribed in the intervention summary section. ?11,000 units of heparin were ad ministered. Intracoronary nitroglycerin ?was given during this case. A t otal of 400cc of Omnipaque were opened, ?320cc of Omnipaque were adminis tered and 80cc of Omnipaque were wasted. ?Radiation: Fluoro time was 21.0 minutes, dose area product was 300,732 ?mGYcm2 and air kerma was 4,703 mGY. ?The patient received the follow ing medications prior to and during the ?procedure: Aspirin (any), Ticag relor and Unfractionated Heparin (any). ? Hemodynamics: ?Left Heart Pressures ? Resting: ? Syst D iast ? EDP ?a ?v ? m ?Ao 134 ?? 70 ?96 ? Post Contrast: ? Syst D iast ? EDP ?a ?v ? m ?Ao 143 ?? 74 ?104 ?LV 124 ? Coronary Angiography: ?Dominance: Right ?Left Main ? There was mild diffuse d isease of the entire vessel segment of the ? left main artery. ?Left Anterior Descending ? There was mild diffuse d isease of the entire vessel segment of the ? left anterior descending artery (LAD). ??The mid segment of the LAD ? had a single discrete 75 % stenosis. ??Distal flow was normal and the ? distal vessel was large. ? There were multiple disc rete 75% stenoses of the ostial segment of ? the lateral branch of th e first diagonal branch (Diagonal 1 Lat) of ? the LAD. ??Distal flow w as normal. ??The distal vessel was small. ?Left Circumflex ? There was mild diffuse d isease of the entire vessel segment of the ? left circumflex artery ( LCX). ??The mid segment of the LCX had a ? single discrete 95% sten osis. ??The distal vessel was large. ?Right Coronary Artery ? There was mild diffuse d isease of the entire vessel segment of the ? right coronary artery (R CA). ? Intravascular Imaging/Physiology: ?Instantaneous wave-free ratio ( iFR) was determined across the 75% ?stenosis in the mid LAD using a 6 Fr EBU 4.0 guiding catheter and a ?Verrata wire. ??Wire delivery w as successful. ??The IFR across the 75% mid ?LAD lesion was 0.86. ??This les ion was hemodynamically significant. ? Indication for Intervention: ?Coronary intervention was indic ated for treatment of stable angina, CCS ?Class III. Left Ventricular Eje ction fraction was not assessed. The ?priority for the procedure was Elective. The NCDR indication for the ?procedure was Stable angina. ? Intervention Summary: ?Left Anterior Descending Artery ? Mid 75% ? Stent insertion was performed on the 75% stenosis in the mid ? segment of the LAD. This was a de sylvie lesion. According to ? the ACC/AHA cla ssification system, this lesion was a type B1 ? moderate risk l esion. Primary prevention of restenosis was the ? indication for stent insertion. Vessel flow pre intervention ? was MARJ 3. ? Stent insertion was accomplished through a 6 Fr. EBU 4.0 ? guide. ??A marla ounted 2.50 x 16 mm Promus Premier ([place]) was ? deployed with a maximum inflation pressure of 14 atmospheres. ? Following stent deployment, the lesion was dilated using a ? 2.50mm NC EMERG E 12 MM balloon with a maximum inflation ? pressure of 20 atmospheres. ? The final outco me was defined as successful. A coronary ? arteriolar vaso dilator was administered as part of the ? intervention on this lesion. There was no residual stenosis ? following this intervention. The final MARJ flow was 3. ?Left Circumflex Artery ? Mid 95% ? Stent insertion was performed on the 95% stenosis in the mid ? segment of the LCX. This was a de sylvie lesion. This lesion was ? designated a ty pe A low risk lesion based on ACC/AHA ? classification system. Primary prevention of restenosis was ? the indication for stent insertion. This was the culprit ? lesion. Vessel flow pre intervention was MARJ 3. ? Stent insertion was accomplished through a 6 Fr. EBU 4.0 ? guide. ??The le shahid was predilated with a 2.50mm APEX 12 MM ? balloon with a maximum inflation pressure of 10 atmospheres. ? A premounted 3. 00 x 15 mm Resolute ([place]) was deployed with a ? maximum inflati on pressure of 10 atmospheres. ??Following stent ? deployment, the lesion was dilated using a 3.00mm NC EMERGE 12 ? MM balloon with a maximum inflation pressure of 15 ? atmospheres. ? The final outco me was defined as successful. A coronary ? arteriolar vaso dilator was administered as part of the ? intervention on this lesion. There was no residual stenosis ? following this intervention. The final MARJ flow was 3. ? Vascular Access: ?Vascular Access Angiogram: ? A selective angiogram at the right femoral artery revealed no ? significant obstructive disease. ?Vascular Access Management: ? A 6 Fr Perclose was depl oyed at the right femoral artery access ? site. This device was rene ccessful. ? Dual Antiplatelet (DAPT) Recommendations : ?Drug eluting stent ([place]) insert ed for stable ischemic heart disease ?(SIHD). ?P2Y12 Loading dose Ticagrelor 1 80 mg PO given in lab. ?Recommend continuing ticagrelor 90 mg PO twice daily for 6 months. ?Recommend continuing aspirin 81 mg unless intolerant. ? Conclusions: ?* Two vessel coronary artery di sease (LAD and LCX) ?* Successful stent insertion of the mid LAD lesion ?* Successful stent insertion of the mid LCX lesion ?* Recommend continuing ticagrel or 90 mg PO twice daily for 6 months (see ?DAPT Recommendations above for more information.) ? Complications/Events: ?The patient had no complication s during these procedures. ?The attending physician was presen t for the entire procedure. ?Dr. Paco Rubio M.D. was pr esent during the moderate sedation ?intraservice time as documented by the sedation nurse. ??Case time = 01:08. ?Dr. Paco Rubio M.D. perfor med the coronary angiography, left heart ?catheterization, access site angio graphy, vascular closure device, stent ?insertion-coronary and IFR-coronar y. ? Paco Rubio M.D. ? Electronically Signed by: Paco johnson M.D. ? Report Finalized: 08/20/2016 ??13:11 ? Procedure Note Paco Rubio II, MD - 08/20/2016Fo rmatting of this note might be different from the original. [facility]iac Catheterization/Intervention Re port Patient Name: Acosta Driver Procedure Date: 08/20/2016 A #: [id number] Primary Physician: Paco Rubio Case #: [id number] File Name: [id number] Catheterization Order Number: [id number] [facility] Final Report [place], [place] Patient Name: Acosta Driver ID#: [id number] : 1955 Procedure Date: August 20, 2016 Case #: [id number] Room: 1 Case Physician: Paco Rubio M.D. Start: 11:35 Fellow: Rodríguez Moore M.D. Admission: 08/20/2016 Cari Felipe M.D. Referring Jonathan Medina M.D. Physicians: Ruben Thacker M.D. Procedures: * Coronary Angiography * Left Heart Catheterization * Coronary Instantaneous Wave-Free Rati o (iFR) * Coronary Stent Insertion * Vascular Closure Device Deployment * Access Site Angiography History Acosta Driver is a 60 year old man. He has hypertension, a family history of coronary artery disease and morbid obesity. The patient has hypercholesterolemia managed with lipid therapy. He has stable angina and a history of chest pain. The patient al so has a history of dyspnea. Prior to the initiation of this procedure, th e patient was designated as ASA Class III. Patient Status at Catheterization: The patient presented with: stable lupillo na (w/i 42 days). [place] Cardiovascular Society angina class was III. This patient was on beta blockers prior to the procedure. A SPEC T stress test was performed and results were Positive and High Risk isc hemia assessment. Technique: A 6Fr sheath was inserted in the right femoral artery utilizing the Seldinger technique. The left coronary artery was injected utilizing a 6Fr JL 4 catheter. A 6Fr JR 4 catheter was used to inject the right coronary artery. Left ventricular press ure was performed with a 6Fr Angled pigtail catheter. Coronary stent insertion was performed and the equipment utilized will be described in the intervention summary section. 11,000 units of heparin were administer ed. Intracoronary nitroglycerin was given during this case. A total of 400cc of Omnipaque were opened, 320cc of Omnipaque were administered an d 80cc of Omnipaque were wasted. Radiation: Fluoro time was 21.0 minutes , dose area product was 300,732 mGYcm2 and air kerma was 4,703 mGY. The patient received the following medi cations prior to and during the procedure: Aspirin (any), Ticagrelor an d Unfractionated Heparin (any). Hemodynamics: Left Heart Pressures Resting: Syst Diast EDP a v m Ao 134 70 96 Post Contrast: Syst Diast EDP a v m Ao 143 74 104 LV 124 Coronary Angiography: Dominance: Right Left Main There was mild diffuse disease of the e ntire vessel segment of the left main artery. Left Anterior Descending There was mild diffuse disease of the e ntire vessel segment of the left anterior descending artery (LAD). The mid segment of the LAD had a single discrete 75% stenosis. Dis mary flow was normal and the distal vessel was large. There were multiple discrete 75% stenos es of the ostial segment of the lateral branch of the first diagona l branch (Diagonal 1 Lat) of the LAD. Distal flow was normal. The di stal vessel was small. Left Circumflex There was mild diffuse disease of the e ntire vessel segment of the left circumflex artery (LCX). The mid s egment of the LCX had a single discrete 95% stenosis. The dista l vessel was large. Right Coronary Artery There was mild diffuse disease of the e ntire vessel segment of the right coronary artery (RCA). Intravascular Imaging/Physiology: Instantaneous wave-free ratio (iFR) was determined across the 75% stenosis in the mid LAD using a 6 Fr EB U 4.0 guiding catheter and a Verrata wire. Wire delivery was success ful. The IFR across the 75% mid LAD lesion was 0.86. This lesion was he modynamically significant. Indication for Intervention: Coronary intervention was indicated for treatment of stable angina, CCS Class III. Left Ventricular Ejection fr action was not assessed. The priority for the procedure was Elective . The NCDR indication for the procedure was Stable angina. Intervention Summary: Left Anterior Descending Artery Mid 75% Stent insertion was performed on the 75 % stenosis in the mid segment of the LAD. This was a de sylvie lesion. According to the ACC/AHA classification system, this lesion was a type B1 moderate risk lesion. Primary preventio n of restenosis was the indication for stent insertion. Vessel flow pre intervention was MARJ 3. Stent insertion was accomplished throug h a 6 Fr. EBU 4.0 guide. A premounted 2.50 x 16 mm Promus Premier ([place]) was deployed with a maximum inflation press ure of 14 atmospheres. Following stent deployment, the lesion was dilated using a 2.50mm NC EMERGE 12 MM balloon with a m aximum inflation pressure of 20 atmospheres. The final outcome was defined as succes sful. A coronary arteriolar vasodilator was administered as part of the intervention on this lesion. There was no residual stenosis following this intervention. The final MARJ flow was 3. Left Circumflex Artery Mid 95% Stent insertion was performed on the 95 % stenosis in the mid segment of the LCX. This was a de sylvie lesion. This lesion was designated a type A low risk lesion bas ed on ACC/AHA classification system. Primary preventi on of restenosis was the indication for stent insertion. Thi s was the culprit lesion. Vessel flow pre intervention wa s MARJ 3. Stent insertion was accomplished throug h a 6 Fr. EBU 4.0 guide. The lesion was predilated with a 2.50mm APEX 12 MM balloon with a maximum inflation pressu re of 10 atmospheres. A premounted 3.00 x 15 mm Resolute ([place]ISON ) was deployed with a maximum inflation pressure of 10 atmosp heres. Following stent deployment, the lesion was dilated usin g a 3.00mm NC EMERGE 12 MM balloon with a maximum inflation pre ssure of 15 atmospheres. The final outcome was defined as succes sful. A coronary arteriolar vasodilator was administered as part of the intervention on this lesion. There was no residual stenosis following this intervention. The final MARJ flow was 3. Vascular Access: Vascular Access Angiogram: A selective angiogram at the right femo ral artery revealed no significant obstructive disease. Vascular Access Management: A 6 Fr Perclose was deployed at the [facility] femoral artery access site. This device was successful. Dual Antiplatelet (DAPT) Recommendations : Drug eluting stent ([place]) inserted for s table ischemic heart disease (SIHD). P2Y12 Loading dose Ticagrelor 180 mg PO given in lab. Recommend continuing ticagrelor 90 mg P O twice daily for 6 months. Recommend continuing aspirin 81 mg unle ss intolerant. Conclusions: * Two vessel coronary artery disease (L AD and LCX) * Successful stent insertion of the mid LAD lesion * Successful stent insertion of the mid LCX lesion * Recommend continuing ticagrelor 90 mg PO twice daily for 6 months (see DAPT Recommendations above for more inf ormation.) Complications/Events: The patient had no complications during these procedures. The attending physician was present for the entire procedure. Dr. Paco Rubio M.D. was present during the moderate sedation intraservice time as documented by the sedation nurse. Case time = 01:08. Dr. Paco Rubio M.D. performed t he coronary angiography, left heart catheterization, access site angiograph y, vascular closure device, stent insertion-coronary and IFR-coronary. Paco Rubio M.D. Electronically Signed by: Paco johnson M.D. Report Finalized: 08/20/2016 13:11 Paco Rubio II, MD CARDIAC CATH ORDERABLES documented in this encounter Visit Diagnoses Diagnosis ASCVD (arteriosclerotic cardiovascular d isease) Unspecified cardiovascular disease ASCVD (arteriosclerotic cardiovascular d isease) Unspecified cardiovascular disease documented in this encounter Care Teams Cooler Conveyor Loader Relationship Specialty Start Date End Date Jonathan Medina DO PCP - General Family Medicine 08/13/16 [address] [place] [address] documented as of this encounter
--- OUTSIDE RECORDS SUMMARY | 2022-01-17 09:10 | XMS_ITS | Encounter Summary ---
:1955 Author Organization [facility] Address [address] [place] [address] Care Team Providers Name Role Phone Unknown, Provider Primary Care Provider Encounter Details Date Type Department Care Team Description 07/22/2011 Results Only [facility]- Rosa Cornelius, DO [phone] [place] [address] [address] [place], [place] [id number] (Wo rk) Social History Tobacco Use Types Packs/Day Years Used Date Smoking Tobacco: Never Assessed Sex Assigned at Date Recorded Not on file documented as of this encounter Plan of Treatment Not on filedocumented as of this encounter Procedures Procedure Name Priority Date/Time Associated Diagnosis Comme nts SURGICAL PATHOLOGY Routine 07/22/2011 0:00 EDT Re sults for this procedure are i n the results section. documented in this encounter Results SURGICAL PATHOLOGY (07/22/2011 0:00 EDT) Component Value Ref Test Analysis Performed At [facility] Method Time Signature Pathology SURGICAL PATHOLOGY REPORT SOMMER CHARLES Report: Reports generated via electronic interface contain naz florez; LILA PULIDO however they are lacking the format of the original report. Caution should be taken when reading/interpreting unformatte d reports. Name: ? ACOSTA DRIVER ? Accession #: ? [id number] ? : ? 1955 (Age: 55) ??M ? Collect Date: ? 07/22/2011 ? Location: ? [facility] ? Receive Date: ? 07/22/2011 ? Provider: ROSA ESCUDERO DO Copy to: ZULEIMA KIMBLE MD ? Final Pathologic Diagnosis: ? Soft tissue, external/internal hemorrhoids, excision: - Squamous and rectal mucosa with dilated and congested vessels, consistent with hemorrhoids. Document reviewed and electronically signed by: HUSSEIN VIVAR MD Report ??Date: 07/24/2011 14:25 By the signature above, the attending physician certifies th at he/she has personally conducted a gross and/or microscopic examin ation of the described specimens and rendered or confirmed the above diagnosis. Specimen(s) Received: ? External/internal hemorrhoids x two Clinical History: ? Bleeding external hemorrhoids requiring excision Gross Description: ? Received in formalin labelled Driver, Acosta and external/internal hemorrhoids x 2 are two sof t tissues which measure 2.9 x 1.8 x 1.5 cm and 3.3 x 1.6 x 1.1 cm. ??The mucosa i s pink-kiran and focally blue and smooth to wrinkled. The cut surfaces are kiran-bro wn and contain distal vessels. ??Two insurance claim representative sections from each tissue are submitted as (A1) and (A2). (Lucia Ruby)/[facility] End of Report Specimen (Source) Anatomical Collection Method Collection Time Re ceived Time Location / / Volume Laterality 07/22/2011 07/22/2011 16:4 5 EDT Rosa Escudero DO PATHOLOGY ORDERABLES Performing Organization Address City/State/ZIP Code Phon e Number [facility] [address] [place] [address] SERVICES [facility] [address] [place] [address] documented in this encounter Visit Diagnoses Not on filedocumented in this encounter Care Teams Feeder/Folder Relationship Specialty Start Date End Date Unknown, Provider, PCP - General 04/24/11 07/22/11 documented as of this encounter
--- OUTSIDE RECORDS SUMMARY | 2022-01-17 09:10 | XMS_ITS | Encounter Summary ---
:1955 Author Organization [facility] Address [address] [place] [address] Care Team Providers Name Role Phone Unknown, Provider Primary Care Provider Encounter Details Date Type Department Care Team Description 04/24/2011 Results Only [facility]- Rosa Cornelius, DO [phone] [place] [address] [address] [place], [place] [id number] (Wo rk) Social History Tobacco Use Types Packs/Day Years Used Date Smoking Tobacco: Never Assessed Sex Assigned at Date Recorded Not on file documented as of this encounter Plan of Treatment Not on filedocumented as of this encounter Procedures Procedure Name Priority Date/Time Associated Diagnosis Comme [facility] SURGICAL PATHOLOGY Routine 04/24/2011 0:00 EST Re sults for this procedure are i n the results section. documented in this encounter Results SURGICAL PATHOLOGY (04/24/2011 0:00 EST) Component Value Ref Test Analysis Performed At [facility] Method Time Signature Pathology SURGICAL PATHOLOGY REPORT SOMMER CHARLES Report: Reports generated via electronic interface contain naz jackson data; LILA PULIDO however they are lacking the format of the original report. Caution should be taken when reading/interpreting unformatte d reports. Name: ? ACOSTA DRIVER ? Accession #: ? [id number] ? : ? 1955 (Age: 55) ??M ? Collect Date: ? 04/24/2011 ? Location: ? [facility] ? Receive Date: ? 04/24/2011 ? Provider: ROSA ESCUDERO DO Copy to: ZULEIMA KIMBLE MD ? Final Pathologic Diagnosis: A. ?Colon, transverse, biopsy: 1. ?Hyperplastic polyp. B. ?Colon, sigmoid, biopsy: 1. ?Tubular adenoma. C. ?Colon, transverse, biopsy: 1. ?Tubulovillous adenoma. Document reviewed and electronically signed by: MIGDALIA DYE MD Report ??Date: 04/29/2011 16:22 By the signature above, the attending physician certifies th at he/she has personally conducted a gross and/or microscopic examin ation of the described specimens and rendered or confirmed the above diagnosis. Specimen(s) Received: A. ?Transverse colon polyp B. ? Sigmoid polyp C. ? Transverse colon polyp Clinical History: ? Rectal bleeding Gross Description: ? Received in formalin labelled Driver, Acosta and transverse colon polyp are four kiran-pink irregular soft tissue fragments ranging from 0.4 x 0.3 x 0.2 cm to 0.6 x 0.5 x 0.3 cm. ??The specimens are entirely submitted as (A1) and (A2). Received in formalin ozzy d Driver, Acosta and sigmoid polyp is a kiran-pink 0.3 x 0.2 x 0.2 cm soft tiss ue fragment. ??The specimen is entirely submitted as (B). Received in formalin ozzy d Driver, Acosta and transverse colon polyp are two kiran-pink irregular soft tissue fragments sharita suring 0.4 x 0.4 x 0.3 cm and 0.7 x 0.5 x 0.4 cm. ??The rene rgical margin on each tissue is inked. ??The smaller tissue is bisected and submi tted as (C1). ??The larger is trisected and submitted as (C2). ??(Eamon Velazquez)/basil End of Report Specimen (Source) Anatomical Collection Method Collection Time Re ceived Time Location / / Volume Laterality 04/24/2011 04/24/2011 9:35 EST Rosa Escudero DO PATHOLOGY ORDERABLES Performing Organization Address City/State/ZIP Code Phon e Number [facility] [address] [place] [address] SERVICES [facility] [address] [place] [address] documented in this encounter Visit Diagnoses Not on filedocumented in this encounter Care Teams Director Of Aviation Relationship Specialty Start Date End Date Unknown, Provider, PCP - General 04/24/11 07/22/11 documented as of this encounter
--- OUTSIDE RECORDS SUMMARY | 2022-01-17 09:10 | XMS_ITS | Encounter Summary ---
:1955 Author Organization [facility] Address [address] [place] [address] Care Team Providers Name Role Phone Johann Simmons MD Primary Care Provider Encounter Details Date Type Department Care Team Description 12/12/2018 Results Only [facility]- Jessi Dawn, [address] [place] [address] [address] [place], [place] [id number] (Wo rk) Social History Tobacco Use Types Packs/Day Years Used Date Smoking Tobacco: Never Assessed Sex Assigned at Date Recorded Not on file documented as of this encounter Plan of Treatment Not on filedocumented as of this encounter Procedures Procedure Name Priority Date/Time Associated Diagnosis Comme [facility] SURGICAL PATHOLOGY Routine 12/12/2018 22:48 Resul ts for this EDT procedure are i n the results section. documented in this encounter Results SURGICAL PATHOLOGY (12/12/2018 22:48 EDT) Component Value Ref Test Analysis Performed At [facility] Method Time Signature Pathology SURGICAL PATHOLOGY REPORT [facility] MEDICAL Report: Reports generated via electronic interface contain origina l data; CENTER however they are lacking the format of the original report. LABORATORY Caution should be taken when reading/interpreting unformat regina reports. SERVICES Name: ? ACOSTA MUNGUIA ? Accession #: ? [id number] ? : ? 1955 (Age: [age]) ??M ? Collect Date: ? 12/12/2018 ? Location: ? [facility] ? Receive Date: ? 12/12/2018 ? Provider: JESSI CONKLIN MD Copy to: MELANY ATKINSON DO ? Final Pathologic Diagnosis: A. RECTUM, POLYPS, BIOPSY: - ??Fragments of hyperplastic polyps. B. COLON, ASCENDING, POLYP, BIOPSY: - ??Fragments of traditional serrated adenoma. C. COLON, HEPATIC FLEXURE, POLYP, BIOPSY: - ??Fragments of sessile serrated adenoma. Document reviewed and electronically signed by: BOBO HOLBROOK MD Report ??Date: 12/16/2018 13:56 By the signature above, the attending physician certifies th at he/she has personally conducted a gross and/or microscopic examin ation of the described specimens and rendered or confirmed the above diagnosis. Specimen(s) Received: A. ??Rectal polyps x4 B. ??Ascending colon polyp C. ??Hepatic flexure polyp Clinical History: Colon cancer screening, history of polyps Gross Description: A. ?Received in formalin labelled with proper patie nt identification (initials T, A) and rectal polyps are six kiran tissues (0.1 x 0.1 x 0.1 cm to 0.3 x 0.1 x 0.1 cm). Entirely submitted in A1 and A2. B. ?Received in formalin labelled with proper patie nt identification (initials T, A) and ascending colon polyp is a single kiran- white tissue fragment (0.4 x 0.3 x 0.2 cm). Submitted intact in B1. C. ?Received in formalin labelled with proper patie nt identification (initials T, A) and hepatic flexure polyp are four kiran-white tissues (0.3 x 0.1 x 0.1 cm to 0.4 x 0.1 x 0.1 cm). Entirely submitted in C 1 and C2. Kaitlin Eubanks 12/13/2018 8:36 AM End of Report Specimen Anatomical Collection Method Collection Time Receive d Time (Source) Location / / Volume Laterality 12/12/2018 22:48 12/12/2018 EDT 22:48 EDT Jessi Conklin MD PATHOLOGY ORDERABLES Performing Organization Address City/State/ZIP Code Phon e Number [facility] [address] [place] [address] SERVICES documented in this encounter Visit Diagnoses Not on filedocumented in this encounter Care Teams Infusion Rn Relationship Specialty Start Date End Date Johann Simmons MD PCP - General 07/23/[address] [place] [id number] documented as of this encounter
--- NOTE | 2022-01-17 09:15 | DI.US_ITS ---
Exam(s) US LOWER EXTREMITY VENOUS LT EXAM: US LOWER EXTREMITY VENOUS LT CLINICAL HISTORY: left leg swelling, pain. redness TECHNIQUE: Grayscale, color, and doppler imaging of the deep venous system of the left lower extremi ty was performed. COMPARISON: US US ECHOCARDIOGRAM from 07/24/2019 FINDINGS: There is no evidence of intraluminal thrombus and there is normal compression and augmentation demons trated within the common femoral vein, femoral vein, and popliteal vein. In the ipsilateral calf the interrogated veins also exhibit normal compression/ augmentation properti es. The ipsilateral saphenofemoral junction is patent. IMPRESSION: 1. No evidence of DVT in the left lower extremity. DATA REPOSITORY:
--- NOTE | 2022-01-17 09:19 | W.ED.GENAD ---
Discharge Plan Disposition Patient Disposition: HOME Condition: Stable Discharge Details Clinical Impression: Cellulitis of left leg, Left leg swelling Primary Care Provider: Franck Plummer ED Provider: Rajan Garvin [place] Meds and New Rx's Prescriptions: New prednisone 20 mg tablet 60 mg PO DAILY 4 Days Qty: 12 0RF cephalexin 500 mg tablet 500 mg PO QID Qty: 28 0RF Continued nitroglycerin 0.4 mg tablet, sublingual 0.4 mg Sublingual PRN PRN (Reason: chest pain) Qty: 25 0RF gabapentin 800 mg tablet 800 mg PO ONCE PRN (Reason: pain) Qty: 90 2RF Hold Instructions: Home Medication placed on hold at Doctor's office Rx Instructions: hold as of 04/17 lisinopril 30 mg tablet 30 mg PO DAILY Qty: 90 3RF docusate sodium 100 MG capsule 100 mg PO DAILY aspirin 81 MG tablet,chewable 81 mg PO DAILY sulfasalazine 500 mg tablet,delayed release (DR/EC) 500 mg PO .qhs Qty: 90 3RF atorvastatin 40 mg tablet 40 mg PO DAILY Qty: 90 3RF sulfasalazine 500 mg tablet 1,000 mg PO QAM Qty: 180 3RF allopurinol 100 mg tablet 100 mg PO DAILY Qty: 90 3RF amlodipine 5 mg tablet 5 mg PO DAILY Qty: 90 3RF cyanocobalamin (vitamin B-12) [Vitamin B-12] 1,000 mcg tablet 1,000 mcg PO DAILY Qty: 90 3RF pantoprazole 40 mg tablet,delayed release (DR/EC) 40 mg PO DAILY Qty: 90 3RF venlafaxine 150 mg capsule,extended release 24hr 150 mg PO DAILY Qty: 90 1RF ergocalciferol (vitamin D2) [Vitamin D2] 1,250 mcg (50,000 unit) capsule 50,000 unit PO WEEKLY Qty: 12 0RF folic acid 400 MCG tablet 400 mcg PO DAILY No Action doxycycline hyclate 100 mg capsule 100 mg PO BID Qty: 10 0RF Rx Instructions: Avoid sun exposure. Take with meal. Take 1 pill every 12 hours x 5 days Discharge Instructions Instructions: Cellulitis (ED) Additional Instructions: your ultrasound and blood work did not show concerning findings at this time follow up with your primary care provider next week if you feel more ill, have severe worsening pain or fevers return to the emergency department Medical Decision Making 66 yo male with hx of ibs, gout, cad, gerd, htn, who comes in with 2 days of left leg redness and swelling along with pain. He has not checked his temperature so is not sure if he has had a fever. Denies any falls or trauma. He is stable on arrival and on exam has erythema and warm to touch skin of his dorsal foot and up to his medial proximal lower leg just distal to the knee. He has intact sensation and cap refill and full rom of the ankle, foot and knee. The leg is mildly swollen compared to the right leg. No crepitus, drainage or fluctuance and not significantly tender to palpation. Suspect cellulitis and possible a gout flare superimposed as he states he has had similar episodes in the past. Will obtain blood cultures, cbc, cmp, lactate, procalcitonin and dvt u/s. Will also provide a dose of methylprednisolone to treat possible gout flare and also a dose of ceftriaxone. labs reassuring, lactate less than 2, no leukocytosis, mild increase in esr and reassuring procalcitonin. DVT u/s negative. He is stable, feels well. Discussed results with him and discussed observation admission vs outpatient trial of steroids and antibiotics and given reassuring workup he prefers outpatient management which I feel is reasonable. He will f/u with his pcp this week, return precautions given Differential Diagnosis Differential Diagnosis: cellulitis, dvt, gout Medical Records Medical records reviewed: Yes I reviewed the patient's medical records. Imaging Data Radiologic Study: Attestation: I personally reviewed and interpreted this imaging study as follows: Imaging: Ultrasound Radiologist's impression: no acute findings Lab Data Lab results reviewed: Yes I reviewed the patient's lab results. HPI General Mode of arrival: ambulatory. Date/Time Provider Initiated Documentation: 01/17/22 09:02. Limitations to Documentation: no limitations. Information obtained by: patient. History of Present Illness 66 year old M presents to the emergency department with the chief complaint of left leg redness, described as moderate, Patient started experiencing this day(s) (2) and it has been constant. No relieving factors improve symptom(s), No exacerbating factors reported . Patient notes no other symptoms.. Patient did receive the following treatments prior to arrival, none Related Data Home Medications Medication Instructions Recorded Confirmed folic acid 400 mcg tablet 400 mcg PO DAILY 05/29/12 12/04/21 docusate sodium 100 mg capsule 100 mg PO DAILY 11/01/13 12/04/21 aspirin 81 mg chewable tablet 81 mg PO DAILY 09/29/16 12/04/21 nitroglycerin 0.4 mg sublingual 0.4 mg sublingual PRN PRN chest 11/22/19 12/04/21 tablet pain ##25 sulfasalazine 500 mg 500 mg PO .qhs #90 tabs 03/04/20 12/04/21 tablet,delayed release gabapentin 800 mg tablet 800 mg PO ONCE PRN pain #90 tabs 02/04/21 12/04/21 atorvastatin 40 mg tablet 40 mg PO DAILY #90 tabs 07/28/21 12/04/21 sulfasalazine 500 mg tablet 1,000 mg PO QAM #180 tabs 10/01/21 12/04/21 allopurinol 100 mg tablet 100 mg PO DAILY #90 tab-caps 10/15/21 12/04/21 amlodipine 5 mg tablet 5 mg PO DAILY #90 tabs 10/15/21 12/04/21 cyanocobalamin (vitamin B-12) 1,000 mcg PO DAILY #90 tabs 10/15/21 12/04/21 1,000 mcg tablet (Vitamin B-12) pantoprazole 40 mg tablet,delayed 40 mg PO DAILY #90 tab-caps 10/15/21 12/04/21 release doxycycline hyclate 100 mg capsule 100 mg PO BID #10 caps 10/16/21 12/04/21 lisinopril 30 mg tablet 30 mg PO DAILY #90 tabs 11/05/21 12/04/21 venlafaxine 150 mg 150 mg PO DAILY #90 caps 12/08/21 capsule,extended release 24 hr ergocalciferol (vitamin D2) 1,250 50,000 unit PO WEEKLY #12 tab-caps 12/31/21 mcg (50,000 unit) capsule (Vitamin D2) cephalexin 500 mg tablet 500 mg PO QID #28 tabs 01/17/22 prednisone 20 mg tablet 60 mg PO DAILY 4 days #12 tabs 01/17/22 Previous Rx's Medication Instructions Recorded nitroglycerin 0.4 mg sublingual 0.4 mg sublingual PRN PRN chest 11/22/19 tablet pain ##25 sulfasalazine 500 mg 500 mg PO .qhs #90 tabs 03/04/20 tablet,delayed release gabapentin 800 mg tablet 800 mg PO ONCE PRN pain #90 tabs 02/04/21 atorvastatin 40 mg tablet 40 mg PO DAILY #90 tabs 07/28/21 sulfasalazine 500 mg tablet 1,000 mg PO QAM #180 tabs 10/01/21 allopurinol 100 mg tablet 100 mg PO DAILY #90 tab-caps 10/15/21 amlodipine 5 mg tablet 5 mg PO DAILY #90 tabs 10/15/21 cyanocobalamin (vitamin B-12) 1,000 mcg PO DAILY #90 tabs 10/15/21 1,000 mcg tablet (Vitamin B-12) pantoprazole 40 mg tablet,delayed 40 mg PO DAILY #90 tab-caps 10/15/21 release doxycycline hyclate 100 mg capsule 100 mg PO BID #10 caps 10/16/21 lisinopril 30 mg tablet 30 mg PO DAILY #90 tabs 11/05/21 venlafaxine 150 mg 150 mg PO DAILY #90 caps 12/08/21 capsule,extended release 24 hr ergocalciferol (vitamin D2) 1,250 50,000 unit PO WEEKLY #12 tab-caps 12/31/21 mcg (50,000 unit) capsule (Vitamin D2) cephalexin 500 mg tablet 500 mg PO QID #28 tabs 01/17/22 prednisone 20 mg tablet 60 mg PO DAILY 4 days #12 tabs 01/17/22 Allergies Allergy/AdvReac Type Severity Reaction Status Date / Time Penicillins Allergy Mild Skin Rash Verified 12/04/21 14:35 codeine AdvReac Severe hypertention/pass Verified 12/04/21 14:35 out General Stated Complaint: Cellulitis KRISTIAN: 3 Review of Systems All systems reviewed & are unremarkable except as noted in HPI and below Constitutional Constitutional: Denies chills, Denies fever(s) and Denies weakness Cardiovascular Cardiovascular: Denies chest pain and Denies dyspnea Respiratory Respiratory: Denies cough and Denies dyspnea Gastrointestinal Gastrointestinal: Denies abdominal pain, Denies nausea and Denies vomiting Neurologic Neurologic: Denies weakness PFSH All Active Problems (Updated 01/17/22 @ 11:00 by Rajan Garvin MD) Cellulitis of left leg (Acute) Left leg swelling (Acute) Vitamin D deficiency (Acute) Onychomycosis (Acute) Hammer toes, bilateral (Acute) Fatigue (Acute) Irritable bowel syndrome (IBS) (Chronic) Epidermoid cyst of ear (Acute) Prediabetes (Acute) Avulsion fracture of left ankle (Acute 07/01/20) Cellulitis (Acute) Peripheral edema (Acute) S/P colonoscopy (Acute ~12/12/18) 12/24: sessile serrated adenoma. Traditional serrated adenoma. 11/2014- [place]- Tubular adenoma Lumbar stenosis (Acute) Chronic anxiety (Chronic) Coronary artery disease of [place] artery of [place] heart with stable angina pectoris (Chronic 09/29/16) [place] [facility] [place] DJD (degenerative joint disease) (Chronic) WITH CHRONIC LOW BACK PAIN disability SSI Depression (Chronic) GERD (gastroesophageal reflux disease) (Chronic) Gout (Chronic) Hypertension (Chronic) COPELAND (nonalcoholic steatohepatitis) (Chronic 01/09/15) Obesity (Chronic 08/21/14) Peripheral neuropathy (Chronic) left great toe likely due to surgery Psoriatic arthritis (Chronic 11/01/13) Sensorineural hearing loss, bilateral (Chronic 01/07/15) Sleep apnea, unspecified (Chronic 04/17/15) Medical History Annual physical exam Chronic anxiety Chronic back pain DJD (degenerative joint disease) Obesity, Class III, BMI 40-49.9 (morbid obesity) Peripheral neuropathy Surgical History DISKECTOMY (03/07/89) L5 S1 HEMILAMINECTOMY (03/07/91) Hemorrhoidectomy (07/22/11) L5 Status post discectomy Status post hemorrhoidectomy Status post laminectomy Stented coronary artery (~2017) Family History Mother , 67 Essential hypertension Myocardial infarction Father , 67 Essential hypertension Asthma Brother , 64 Myocardial infarction FAMILY HISTORY CAD (coronary artery disease) Stroke COPD (chronic obstructive pulmonary disease) Social History Smoking/Tobacco Use Status: Never Smoking risk assessment performed?: Yes Alcohol Intake: never Drug use: Never Substance use type: does not use Caregiver/Support person: No Household members: spouse Housing: house Communication Needs: Hard of Hearing and Corrective Lenses Pets and animals: Yes Sexually active: No Do you think of yourself as: straight/heterosexual Current gender identity: male What is your relationship status?: How often do you talk on the phone with friends or family?: once per week How often do you get together with friends or relatives?: twice per week How often do you attend sikh or moravian services?: decline to answer Do you belong to any clubs or organized social groups?: yes Panel score (0-1 are the most socially isolated patients): 3 Duration: < 15 minutes/day Frequency: 1-2 times per week Fatou/Holiness: Religious Special fatou needs: No Seatbelt use: always Drive intox or ride w/intox tow motor driver: No Do you feel safe at home: Yes Do you feel safe in your relationship?: Yes Exam Const General: no acute distress Orientation: alert HENMT Head: normal to inspection Ears: external ears normal General nose exam: external nose normal Mouth: moist mucous membranes Eyes General: appearance normal, both eyes and all related structures Neck Neck: normal visual inspection Resp Effort & Inspection: normal respiratory effort and able to speak in complete sentences Cardio Rate: regular rate Skin General skin exam: erythema Neuro General: patient alert and patient oriented x3 Extrem General: normal to inspection Psych Mental Status: mental status grossly normal Course Vital Signs Vital signs: Vital Signs Temperature 37.3 C 01/17/22 09:05 Pulse 102 H 01/17/22 09:05 Respiratory Rate 20 01/17/22 09:05 Blood Pressure 169/69 H 01/17/22 09:05 Pulse Oximetry 97 01/17/22 09:05 Temperature 37.3 C 01/17/22 09:05 Temperature Source Tympanic 01/17/22 09:05 Pulse 102 H 01/17/22 09:05 Respiratory Rate 20 01/17/22 09:05 Respiratory Effort Non-Labored 01/17/22 09:08 Blood Pressure 169/69 H 01/17/22 09:05 Blood Pressure Position Sitting 01/17/22 09:05 Pulse Oximetry 97 01/17/22 09:05 Oxygen Delivery Method Room Air 01/17/22 09:05 Oxygen Flow Rate 0 01/17/22 09:05 Pain Level 6 01/17/22 09:05 Lab/Test Results Lab/Test Results: 01/17/22 09:15 Blood Blood Culture - Pending 01/17/22 09:15 Blood Blood Culture - Pending
--- NOTE | 2022-01-17 09:53 | DI.VRAD_ITS ---
PROCEDURE INFORMATION: Exam: US Duplex Left Lower Extremity Veins, Limited Exam date and time: 01/17/2022 9:33 AM Age: 66 years old Clinical indication: Pain; Leg, lower; Left TECHNIQUE: Imaging protocol: Real-time Duplex ultrasound of the Left Lower Extremity with 2-D rehman scale, color Doppler flow and spectral waveform analysis with image documentation. Limited exam focused on the left lower extremity veins. COMPARISON: None FINDINGS: Left deep veins: No deep venous thrombosis in the visualized left common femoral, femoral, or popliteal veins. Left superficial veins: Saphenofemoral junction is patent without thrombus. Soft tissues: Unremarkable. Lymph nodes: Subcentimeter fatty replaced lymph nodes. IMPRESSION: No deep venous thrombosis in the visualized left lower extremity. Dictated and Authenticated by: Hair Atkins MD. Ordering:DERRICK Tolentino MD
[2022-01-17 09:54] LABS: Lactate 1.8 mmol/L (0.6-1.4)
[2022-01-17 09:55] LABS: Abs Immature Grans 0.02 10^3/uL (0.0-0.06); Absolute Basophil Count 0.02 10^3/uL (0.0-0.2); Absolute Eosinophil Count 0.18 10^3/uL (0.0-0.7); Absolute Lymphocyte Count 1.36 10^3/uL (1.2-3.4); Absolute Monocyte Count 0.82 10^3/uL (0.1-0.8); Basophils % 0.2; Eosinophils % 1.7; HCT 38.8 % (40.0-50.0); HGB 12.9 g/dL (13.5-17.5); Immature Grans % 0.2; Lymphocytes % 13.1; MCH 29.1 pg (27.0-33.0); MCHC 33.2 % (32.0-36.0); MCV 88 fL (80-95); MPV 11.2 fL (8.0-11.0); Monocytes % 7.9; Neutrophils % 76.9; Platelet Count 176 10^3/uL (130-400); RBC 4.43 10^6/uL (4.36-5.78); RDW-SD 44.6 fL
[2022-01-17 09:58] LABS: ESR 60 mm/hr (0-20)
[2022-01-17] MEDS: cefTRIAXone 2 GM/50 ML BAG IVPB (10:04)
[2022-01-17] MEDS: methylPREDNISolone SUCC 125 MG VIAL IVP (10:04)
[2022-01-17 10:17] LABS: ALT 33 U/L (16-63); AST 28 U/L (15-37); Albumin 3.5 g/dL (3.4-5.0); Alkaline Phosphatase 96 U/L (46-116); Anion Gap 9.9 mmol/L (3-11); BUN 21 mg/dL (7-18); Bilirubin, Total 0.9 mg/dL (0.2-1.0); CO2 27.1 mmol/L (21.0-32.0); CREATININE 1.2 mg/dL (0.70-1.30); Calcium 9.2 mg/dL (8.5-10.1); Chloride 103 mmol/L (98-107); Estimated GFR 66.28 (mL/min/1.73m2); Glucose 197 mg/dL (74-106); Magnesium 1.6 mg/dL (1.8-2.4); Potassium 3.8 mmol/L (3.5-5.1); Sodium 140 mmol/L (136-145); Total Protein 8.2 g/dL (6.4-8.2)
[2022-01-17 10:40] LABS: Procalcitonin 0.1 ng/mL
== END 2022-01-17 11:13 | disposition home or self-care (01) ==
PROVIDERS: Emergency Provider Emergency Medicine; PCP Nurse Practitioner Family
DX: L03.116 Cellulitis of left lower limb (principal); I25.10 Atherosclerotic heart disease of native coronary artery without angina pectoris; I10 Essential (primary) hypertension; R60.0 Localized edema
CPT/HCPCS: 36415; 80053; 84145; 85652; 87040; 96365; 96375; 99284; 83605; 83735; 85025; 93971; J2930

== ENCOUNTER 2022-01-19 04:17 | Outpatient (CLI) | payer MEDICARE, SELFPAY ==
[2022-01-19 12:28] LABS: Vitamin D 25 Total 62.7 ng/mL (30-100)
== END 2022-01-19 04:18 | disposition home or self-care (01) ==
LOC: LBO 04:17
PROVIDERS: PCP Nurse Practitioner Family; Visit Provider Nurse Practitioner Family
DX: E55.9 Vitamin D deficiency, unspecified (principal)
CPT/HCPCS: 36415; 82306

== ENCOUNTER 2022-03-09 20:06 | Emergency (ER) | payer MEDICARE, SELFPAY ==
[2022-03-09 20:09] VITALS: BP 153/68; PULSE 84; RESP 20; TEMP 36.4; O2SAT 97
--- NOTE | 2022-03-09 20:15 | DI.CT_ITS ---
Exam(s) CT LUMBAR SPINE WO EXAM: CT LUMBAR SPINE WO CLINICAL HISTORY: lower lumbar pain. TECHNIQUE: Imaging Protocol: Axial computed tomography images with coronal and sagittal reformatted images were created and reviewed COMPARISON: No exams were available for comparison FINDINGS: Bones: There are no fractures, listhesis, nor pars defects. There are no lytic osseous lesions evide nt.There are bridging right-sided osteophytes at L2-3 level. INDIVIDUAL LEVELS: T12-L1:No disc herniation nor canal stenosis. Facet joints unremarkable. No foraminal stenosis. L1-2: Decreased disc height. Broad posterior annular bulging slightly more right-sided than left. Moderate central canal stenosis due to the annular bulging. Mild-moderate degenerative changes in th e facet joints. Mild bilateral foraminal stenosis. L2-3: Moderate disc space narrowing. Bridging right-sided osteophytes. No obvious focal disc herni ation. Central canal dimensions are lower normal. No obvious foraminal stenosis. Mild facet arthro josh. L3-4: Preserved disc height. There is symmetrical annular bulging. There is severe central spinal canal stenosis due to broad annular bulging and short AP dimensions of the pedicles. There are mild degenerative changes in the facet joints. Mild bilateral foraminal stenosis also evident. L4-5: Preserved disc height. Symmetrical annular bulging with mild central canal stenosis. Moderat e facet arthropathy bilaterally. Mild bilateral foraminal stenosis. L5-S1: Diminished and calcified disc space but no disc herniation nor central canal stenosis evident at this level. Mild bilateral foraminal stenosis. The visualized sacroiliac joints and sacrum appear unremarkable. IMPRESSION: 1. Multilevel findings as described individually above. There is severe spinal canal stenosis at L3- 4 level and mild central canal stenosis at L4-5 level. 2. There is mild multilevel bilateral foraminal stenosis. 3. Large right-sided bridging osteophytes noted at L2-3 level. RADIATION DOSE DELIVERED: 1,285.29mGy.cm Total DLP DATA REPOSITORY: All CT scans at this facility are submitted to the National Radiology Data Registry (NRDR) Dose Index Registry (DIR) with the [employer] (A[employer]). RADIATION OPTIMIZATION: All CT scans at this facility use at least one of these dose optimization te chniques: automated exposure control; mA and/or kV adjustment per patient size (includes targeted exa ms where dose is matched to clinical indication); or iterative reconstruction.
--- NOTE | 2022-03-09 20:30 | ED.GENADUL_ITS ---
Discharge Plan Disposition Patient Disposition: Home Condition: Stable Discharge Details Clinical Impression: Lumbar back pain Primary Care Provider: Franck Plummer ED Provider: Rajan Garvin Home Meds and New Rx's Prescriptions: New cyclobenzaprine 10 mg tablet 10 mg PO TID PRNQty: 20 0RF Continued nitroglycerin 0.4 mg tablet, sublingual 0.4 mg Sublingual PRN PRN (Reason: chest pain) Qty: 25 0RF gabapentin 800 mg tablet 800 mg PO ONCE PRN (Reason: pain) Qty: 90 2RF Hold Instructions: Home Medication placed on hold at Doctor's office Rx Instructions: hold as of 04/17 lisinopril 30 mg tablet 30 mg PO DAILY Qty: 90 3RF docusate sodium 100 MG capsule 100 mg PO DAILY aspirin 81 MG tablet,chewable 81 mg PO DAILY sulfasalazine 500 mg tablet,delayed release (DR/EC) 500 mg PO .qhs Qty: 90 3RF atorvastatin 40 mg tablet 40 mg PO DAILY Qty: 90 3RF sulfasalazine 500 mg tablet 1,000 mg PO QAM Qty: 180 3RF allopurinol 100 mg tablet 100 mg PO DAILY Qty: 90 3RF amlodipine 5 mg tablet 5 mg PO DAILY Qty: 90 3RF cyanocobalamin (vitamin B-12) [Vitamin B-12] 1,000 mcg tablet 1,000 mcg PO DAILY Qty: 90 3RF pantoprazole 40 mg tablet,delayed release (DR/EC) 40 mg PO DAILY Qty: 90 3RF venlafaxine 150 mg capsule,extended release 24hr 150 mg PO DAILY Qty: 90 1RF ergocalciferol (vitamin D2) [Vitamin D2] 1,250 mcg (50,000 unit) capsule 50,000 unit PO WEEKLY Qty: 12 0RF folic acid 400 MCG tablet 400 mcg PO DAILY Discharge Instructions Instructions: Back Pain (ED) Additional Instructions: follow up with your primary care provider this week if you feel more ill, have severe worsening pain or fevers return to the emergency department Medical Decision Making 66 yo male with hx of dm, cad, prior episodes of issues with his lower back per patient, comes in with several days of worsening lower lumbar pain. He states that he shoveled last week and the next day started to have lumbar pain that has progressively worsened. Denies any falls or trauma. He states the pain will intermittently shoot down his left leg. He denies paresthesias, numbness, difficulty urinating. He arrives stable speaking in full sentences caox4. He localizes the pain to the midline lumbar region and has no lateral tenderness. He has no abdominal tenderness, no saddle ansthesia, no leg swelling, intact distal sensation and normal cap refill. No cva tenderness, no erythema or warmth. Suspect strain of his back but given his age will obtain ct to evaluate for possible compression fracture. He has no abdominal tenderness to suggest abdominal pathology and no findings on history or exam to suggest cauda equina or spinal epidural abscess. pt stable feels better after toradol and flexeril, ct shows multlevel spondylosis and also evidence of possible muscle spasm. He is stable, discussed with pt and he is stable for d/c and is comfortable with this, will f/u with his pcp, return precautions given Differential Diagnosis Differential Diagnosis: spasm, strain, djd, disc herniation, compression fx Medical Records Medical records reviewed: Yes I reviewed the patient's medical records. Imaging Data Radiologic Study: Attestation: I personally reviewed and interpreted this imaging study as follows: Imaging: CT Scan Radiologist's impression: FINDINGS: Bones/joints: There is straightening of the normal lumbar lordosis, nonspecific but commonly seen with underlying muscle spasm. There is hypertrophic spurring and underlying facet arthropathy at the L1-L2 level with fairly severe stenosis. Similar changes noted with mild stenosis of the L2-L3 level. There is severe stenosis at the L3-L4 level and more mild stenosis at L4- L5. Kidneys and ureters: Probable nonobstructing left renal calculus. Vasculature: Moderate atherosclerotic change present in the vasculature. Soft tissues: See Bones/joints finding. IMPRESSION: Multilevel spondylosis with multiple levels of stenosis sparing L5-S1. HPI General Mode of arrival: ambulatory . Date/Time Provider Initiated Documentation: 03/09/22 20:08 . Limitations to Documentation: no limitations . Information obtained by: patient . History of Present Illness 66 year old M presents to the emergency department with the chief complaint of lumbar back pain, described as moderate, Patient started experiencing this day(s) (3) and it has been constant. Movement improves symptom(s), Rest worsens symptoms . Patient notes no other symptoms.. Patient did receive the following treatments prior to arrival, other (tylenol) Related Data Home Medications Medication Instructions Recorded Confirmed folic acid 400 mcg tablet 400 mcg PO DAILY 05/29/12 01/28/22 docusate sodium 100 mg capsule 100 mg PO DAILY 11/01/13 01/28/22 aspirin 81 mg chewable tablet 81 mg PO DAILY 09/29/16 01/28/22 nitroglycerin 0.4 mg sublingual 0.4 mg sublingual PRN PRN chest 11/22/19 01/28/22 tablet pain ##25 sulfasalazine 500 mg 500 mg PO .qhs #90 tabs 03/04/20 01/28/22 tablet,delayed release gabapentin 800 mg tablet 800 mg PO ONCE PRN pain #90 tabs 02/04/21 01/28/22 atorvastatin 40 mg tablet 40 mg PO DAILY #90 tabs 07/28/21 01/28/22 sulfasalazine 500 mg tablet 1,000 mg PO QAM #180 tabs 10/01/21 01/28/22 allopurinol 100 mg tablet 100 mg PO DAILY #90 tab-caps 10/15/21 01/28/22 amlodipine 5 mg tablet 5 mg PO DAILY #90 tabs 10/15/21 01/28/22 cyanocobalamin (vitamin B-12) 1,000 mcg PO DAILY #90 tabs 10/15/21 01/28/22 1,000 mcg tablet (Vitamin B-12) pantoprazole 40 mg tablet,delayed 40 mg PO DAILY #90 tab-caps 10/15/21 01/28/22 release lisinopril 30 mg tablet 30 mg PO DAILY #90 tabs 11/05/21 01/28/22 venlafaxine 150 mg 150 mg PO DAILY #90 caps 12/08/21 01/28/22 capsule,extended release 24 hr ergocalciferol (vitamin D2) 1,250 50,000 unit PO WEEKLY #12 tab-caps 12/31/21 01/28/22 mcg (50,000 unit) capsule (Vitamin D2) cyclobenzaprine 10 mg tablet 10 mg PO TID PRN #20 tabs 03/09/22 Previous Rx's Medication Instructions Recorded nitroglycerin 0.4 mg sublingual 0.4 mg sublingual PRN PRN chest 11/22/19 tablet pain ##25 sulfasalazine 500 mg 500 mg PO .qhs #90 tabs 03/04/20 tablet,delayed release gabapentin 800 mg tablet 800 mg PO ONCE PRN pain #90 tabs 02/04/21 atorvastatin 40 mg tablet 40 mg PO DAILY #90 tabs 07/28/21 sulfasalazine 500 mg tablet 1,000 mg PO QAM #180 tabs 10/01/21 allopurinol 100 mg tablet 100 mg PO DAILY #90 tab-caps 10/15/21 amlodipine 5 mg tablet 5 mg PO DAILY #90 tabs 10/15/21 cyanocobalamin (vitamin B-12) 1,000 mcg PO DAILY #90 tabs 10/15/21 1,000 mcg tablet (Vitamin B-12) pantoprazole 40 mg tablet,delayed 40 mg PO DAILY #90 tab-caps 10/15/21 release lisinopril 30 mg tablet 30 mg PO DAILY #90 tabs 11/05/21 venlafaxine 150 mg 150 mg PO DAILY #90 caps 12/08/21 capsule,extended release 24 hr ergocalciferol (vitamin D2) 1,250 50,000 unit PO WEEKLY #12 tab-caps 12/31/21 mcg (50,000 unit) capsule (Vitamin D2) cyclobenzaprine 10 mg tablet 10 mg PO TID PRN #20 tabs 03/09/22 Allergies Allergy/AdvReac Type Severity Reaction Status Date / Time Penicillins Allergy Mild Skin Rash Verified 01/23/22 11:00 codeine AdvReac Severe hypertention/pass Verified 01/23/22 11:00 out General Stated Complaint: Nk/Back Pain KRISTIAN: 3 Review of Systems All systems reviewed & are unremarkable except as noted in HPI and below Constitutional Constitutional: Denies chills, Denies fever(s) and Denies weakness Cardiovascular Cardiovascular: Denies chest pain and Denies dyspnea Respiratory Respiratory: Denies cough and Denies dyspnea Gastrointestinal Gastrointestinal: Denies abdominal pain, Denies nausea and Denies vomiting Musculoskeletal Musculoskeletal: Denies joint swelling Neurologic Neurologic: Denies weakness PFSH All Active Problems (Updated 03/09/22 @ 21:46 by Rajan Garvin MD) Lumbar back pain (Acute) Balance problem (Acute) Diabetes mellitus (Chronic) Vitamin D deficiency (Acute) Onychomycosis (Acute) Hammer toes, bilateral (Acute) Fatigue (Acute) Irritable bowel syndrome (IBS) (Chronic) Epidermoid cyst of ear (Acute) Avulsion fracture of left ankle (Acute 04/26/21) Cellulitis (Acute) Peripheral edema (Acute) S/P colonoscopy (Acute ~12/12/18) 12/24: sessile serrated adenoma. Traditional serrated adenoma. 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 (Chronic 09/29/16) stent [facility] [place] 08/22 DJD (degenerative joint disease) (Chronic) WITH CHRONIC LOW BACK PAIN disability SSI Depression (Chronic) GERD (gastroesophageal reflux disease) (Chronic) Gout (Chronic) Hypertension (Chronic) COPELAND (nonalcoholic steatohepatitis) (Chronic 01/09/15) Obesity (Chronic 08/21/14) Peripheral neuropathy (Chronic) left great toe likely due to surgery Psoriatic arthritis (Chronic 11/01/13) Sensorineural hearing loss, bilateral (Chronic 01/07/15) Sleep apnea, unspecified (Chronic 04/17/15) Medical History Annual physical exam Chronic anxiety Chronic back pain DJD (degenerative joint disease) Obesity, Class III, BMI 40-49.9 (morbid obesity) Peripheral neuropathy Surgical History DISKECTOMY (03/07/89) L5 S1 HEMILAMINECTOMY (03/07/91) Hemorrhoidectomy (07/22/11) L5 Status post discectomy Status post hemorrhoidectomy Status post laminectomy Stented coronary artery (~2017) Family History Mother , 67 Essential hypertension Myocardial infarction Father , 67 Essential hypertension Asthma Brother , 64 Myocardial infarction FAMILY HISTORY CAD (coronary artery disease) Stroke COPD (chronic obstructive pulmonary disease) Social History Smoking/Tobacco Use Status: Never Smoking risk assessment performed?: Yes Alcohol Intake: never Drug use: Never Substance use type: does not use Caregiver/Support person: No Household members: spouse Housing: house Communication Needs: Hard of Hearing and Corrective Lenses Pets and animals: Yes Sexually active: No Do you think of yourself as: straight/heterosexual Current gender identity: male What is your relationship status?: How often do you talk on the phone with friends or family?: once per week How often do you get together with friends or relatives?: twice per week How often do you attend sikhism or pentecostal services?: decline to answer Do you belong to any clubs or organized social groups?: yes Panel score (0-1 are the most socially isolated patients): 3 Duration: < 15 minutes/day Frequency: 1-2 times per week Fatou/Alevism: Jew Special fatou needs: No Seatbelt use: always Drive intox or ride w/intox wedding transportation driver: No Do you feel safe at home: Yes Do you feel safe in your relationship?: Yes Exam Const General: no acute distress Orientation: alert HENMT Head: normal to inspection Ears: external ears normal General nose exam: external nose normal Mouth: moist mucous membranes Eyes General: appearance normal, both eyes and all related structures Neck Neck: normal visual inspection Resp Effort & Inspection: normal respiratory effort and able to speak in complete sentences Cardio Rate: regular rate Back/Spine/Pelvis Back: no CVA tenderness, No erythema, No warmth and No sacral edema Skin General skin exam: no rashes or lesions noted Neuro General: patient alert and patient oriented x3 Extrem General: normal to inspection Psych Mental Status: mental status grossly normal Course Vital Signs Vital signs: Vital Signs Temperature 36.4 C L 03/09/22 20:09 Pulse 84 03/09/22 20:09 Respiratory Rate 20 03/09/22 20:09 Blood Pressure 153/68 H 03/09/22 20:09 Pulse Oximetry 97 03/09/22 20:09 Temperature 36.4 C L 03/09/22 20:09 Pulse 84 03/09/22 20:09 Respiratory Rate 20 03/09/22 20:09 Blood Pressure 153/68 H 03/09/22 20:09 Blood Pressure Position Sitting 03/09/22 20:09 Pulse Oximetry 97 03/09/22 20:09 Oxygen Delivery Method Room Air 03/09/22 20:09 Oxygen Flow Rate 0 03/09/22 20:09 Pain Level 9 03/09/22 20:09
[2022-03-09] MEDS: Cyclobenzaprine 10 MG TAB PO (20:34)
[2022-03-09] MEDS: Ketorolac 30 MG/ML VIAL IM (20:34)
--- NOTE | 2022-03-09 21:36 | DI.VRAD_ITS ---
PROCEDURE INFORMATION: Exam: CT Lumbar Spine Without Contrast Exam date and time: 03/09/2022 8:39 PM Age: 66 years old Clinical indication: Other: Lower lumbar pain TECHNIQUE: Imaging protocol: Computed tomography of the lumbar spine without contrast. Radiation optimization: All CT scans at this facility use at least one of these dose optimization techniques: automated exposure control; mA and/or kV adjustment per patient size (includes targeted exams where dose is matched to clinical indication); or iterative reconstruction. COMPARISON: No relevant prior studies available. FINDINGS: Bones/joints: There is straightening of the normal lumbar lordosis, nonspecific but commonly seen with underlying muscle spasm. There is hypertrophic spurring and underlying facet arthropathy at the L1-L2 level with fairly severe stenosis. Similar changes noted with mild stenosis of the L2-L3 level. There is severe stenosis at the L3-L4 level and more mild stenosis at L4-L5. Kidneys and ureters: Probable nonobstructing left renal calculus. Vasculature: Moderate atherosclerotic change present in the vasculature. Soft tissues: See Bones/joints finding. IMPRESSION: Multilevel spondylosis with multiple levels of stenosis sparing L5-S1. Dictated and Authenticated by: Addie Whitmore MD. Ordering:DERRICK Tolentino MD
[2022-03-09] MEDS: Cyclobenzaprine 10 MG TAB, 3 TABS/BTL PO (21:48)
== END 2022-03-09 21:51 | disposition home or self-care (01) ==
PROVIDERS: Emergency Provider Emergency Medicine; PCP Nurse Practitioner Family
DX: M54.50 Low back pain, unspecified (principal); I25.10 Atherosclerotic heart disease of native coronary artery without angina pectoris; E11.42 Type 2 diabetes mellitus with diabetic polyneuropathy; Z79.82 Long term (current) use of aspirin
CPT/HCPCS: 96372; 99284; 72131; J1885

== ENCOUNTER 2022-04-27 02:52 | Outpatient (CLI) | payer MEDICARE, SELFPAY | END 2022-04-27 02:53 | disposition home or self-care (01) | LOC: LOS 02:52 | PROVIDERS: PCP Nurse Practitioner Family; Visit Provider Nurse Practitioner Family | DX: E55.9 Vitamin D deficiency, unspecified (principal) | CPT/HCPCS: 36415; 82306 ==

== ENCOUNTER 2022-05-01 13:10 | Outpatient (CLI) | payer MEDICARE, SELFPAY ==
--- NOTE | 2022-05-01 10:15 | DI.RAD_ITS ---
Exam(s) XR CHEST 2V PA LATERAL EXAM: XR CHEST 2V PA LATERAL CLINICAL HISTORY: Worsening SOB, wheezing, ronchi R06.02 WHEEZING R06.02 SOB TECHNIQUE: 2D digital imaging was performed. COMPARISON: CR XR RIBS RT W PA LAT CHEST from 07/17/2019 FINDINGS: HEART: Normal size. Aorta: Not dilated. PULMONARY VASCULATURE: Normal. LUNGS: Clear. PLEURAL SPACE: No pleural effusion or pneumothorax. BONE:Unremarkable for age. IMPRESSION: No acute abnormality. DATA REPOSITORY: RADIATION DOSE DELIVERED:
== END 2022-05-01 13:30 ==
LOC: DI 13:12
PROVIDERS: PCP Nurse Practitioner Family; Visit Provider Nurse Practitioner Family
DX: R06.02 Shortness of breath (principal); R06.2 Wheezing
CPT/HCPCS: 71046

== ENCOUNTER 2022-05-13 07:24 | Emergency (ER) | payer MEDICARE, SELFPAY ==
[2022-05-13 07:26] VITALS: BP 192/90; PULSE 73; RESP 24; TEMP 36.1; O2SAT 97
--- NOTE | 2022-05-13 07:30 | RT.EKG_ITS ---
APPROVED REPORT Exam: Resting ECG Reason for Exam: shortness of breath Patient Location: E HR:69 bpm ECG Measurements Heart Rate 69 AXIS [place] 166 P -61 QRSd 102 QRS 48 QT 420 T 48 QTc 450 Conclusion Sinus or ectopic atrial rhythm...P axis (-45,135)
[2022-05-13 07:32] VITALS: RESP 24
--- NOTE | 2022-05-13 07:46 | W.ED.GENAD ---
Discharge Plan Disposition Patient Disposition: Home Condition: Stable Discharge Details Clinical Impression: Shortness of breath, Wheezing Primary Care Provider: Franck Plummer ED Provider: Rajan Garvin Home Meds and New Rx's Prescriptions: New prednisone 20 mg tablet 60 mg PO DAILY 4 Days Qty: 12 0RF Continued nitroglycerin 0.4 mg tablet, sublingual 0.4 mg Sublingual PRN PRN (Reason: chest pain) Qty: 25 0RF gabapentin 800 mg tablet 800 mg PO ONCE PRN (Reason: pain) Qty: 90 2RF Hold Instructions: Home Medication placed on hold at Doctor's office Rx Instructions: hold as of 04/17 lisinopril 30 mg tablet 30 mg PO DAILY Qty: 90 3RF ropinirole 2 mg tablet 2 mg PO QHS Rx Instructions: administer 1-3 hours before bedtime docusate sodium 100 MG capsule 100 mg PO DAILY aspirin 81 MG tablet,chewable 81 mg PO DAILY atorvastatin 40 mg tablet 40 mg PO DAILY Qty: 90 3RF sulfasalazine 500 mg tablet 1,000 mg PO QAM Qty: 180 3RF allopurinol 100 mg tablet 100 mg PO DAILY Qty: 90 3RF amlodipine 5 mg tablet 5 mg PO DAILY Qty: 90 3RF cyanocobalamin (vitamin B-12) [Vitamin B-12] 1,000 mcg tablet 1,000 mcg PO DAILY Qty: 90 3RF pantoprazole 40 mg tablet,delayed release (DR/EC) 40 mg PO DAILY Qty: 90 3RF venlafaxine 150 mg capsule,extended release 24hr 150 mg PO DAILY Qty: 90 1RF tizanidine 2 mg tablet 2 mg PO TID PRN (Reason: muscle spasticity) Qty: 90 0RF ergocalciferol (vitamin D2) [Vitamin D2] 1,250 mcg (50,000 unit) capsule 50,000 unit PO WEEKLY Qty: 12 0RF folic acid 400 MCG tablet 400 mcg PO DAILY Discharge Instructions Instructions: Wheezing (ED) Additional Instructions: Follow up with your primary care provider within 1 week if you feel more ill, have worsening trouble breathing or chest pain return to the emergency department Medical Decision Making 66 yo male with hx of dm, htn, gerd, denies smoking history, comes in with chief complaint of dyspnea and cough for 2 weeks. He states he was put on an antibiotic he thinks was doxy and finished this over a week ago. Despite this he continues to have a cough and dyspnea. Denies chest pain, n/v, headache, no fevers. He arrives stable speaking in full sentences. He has diffuse wheezing in both lungs and no murmurs, no jvd, no calf tenderness, no abdominal tenderness. Given his lung sounds suspect his symptoms could be due to reactive airway disease. Will treat with duoneb and solumedrol and reassess. Though he has not had chest pain will check ekg and troponin. Wells score is low, will send d dimer to screen for pe and also obtain cxr labs unremarkable other than d dimer over 1000, xray unremarkable. Troponin negative and given over 3 hours of symptoms do not feel delta troponin indicated. HE feels significantly better and only has mild apical wheezing bilaterally now. Will proceed with CTA for PE per radiology techs the infuser for CT contrast is broken, unclear when it will be fixed. Discussed with pt and he doesn't want to wait and wants to proceed with vq scan vq scan interpreted as low probability for pe. No hypoxia or tachycardia so do not feel further testing indicated. Will provide inhaler and short course of steroids, return precautions given Differential Diagnosis Differential Diagnosis: asthma, copd, pneumonia, pe Medical Records Medical records reviewed: Yes I reviewed the patient's medical records. Imaging Data Radiologic Study: Attestation: I personally reviewed and interpreted this imaging study as follows: Imaging: X-Ray My impression: Radiologist's impression: no acute findings Radiologic Study #2: Attestation: I personally reviewed and interpreted this imaging study as follows: Imaging: X-Ray (vq scan) Radiologist's impression: low probability PE Lab Data Lab results reviewed: Yes I reviewed the patient's lab results. ECG Data Attestation: I personally reviewed and interpreted this ECG (s) as follows: Prior ECG tracings: available for review Interpretation: sinus rhythm, rate of 69, pr 166, no acute ischemic findings HPI General Mode of arrival: ambulatory. Date/Time Provider Initiated Documentation: 05/13/22 07:34. Limitations to Documentation: no limitations. Information obtained by: patient. History of Present Illness 66 year old M presents to the emergency department with the chief complaint of shortness of breath, described as moderate, Patient started experiencing this week(s) (2) and it has been constant. No relieving factors improve symptom(s), No exacerbating factors reported . Patient notes cough; denies chest pain. Related Data Home Medications Medication Instructions Recorded Confirmed folic acid 400 mcg tablet 400 mcg PO DAILY 05/29/12 05/13/22 docusate sodium 100 mg capsule 100 mg PO DAILY 11/01/13 05/13/22 aspirin 81 mg chewable tablet 81 mg PO DAILY 09/29/16 05/13/22 nitroglycerin 0.4 mg sublingual 0.4 mg sublingual PRN PRN chest 11/22/19 05/13/22 tablet pain ##25 gabapentin 800 mg tablet 800 mg PO ONCE PRN pain #90 tabs 02/04/21 05/13/22 atorvastatin 40 mg tablet 40 mg PO DAILY #90 tabs 07/28/21 05/13/22 sulfasalazine 500 mg tablet 1,000 mg PO QAM #180 tabs 10/01/21 05/13/22 allopurinol 100 mg tablet 100 mg PO DAILY #90 tab-caps 10/15/21 05/13/22 amlodipine 5 mg tablet 5 mg PO DAILY #90 tabs 10/15/21 05/13/22 cyanocobalamin (vitamin B-12) 1,000 mcg PO DAILY #90 tabs 10/15/21 05/13/22 1,000 mcg tablet (Vitamin B-12) pantoprazole 40 mg tablet,delayed 40 mg PO DAILY #90 tab-caps 10/15/21 05/13/22 release lisinopril 30 mg tablet 30 mg PO DAILY #90 tabs 11/05/21 05/13/22 venlafaxine 150 mg 150 mg PO DAILY #90 caps 12/08/21 05/13/22 capsule,extended release 24 hr tizanidine 2 mg tablet 2 mg PO TID PRN muscle spasticity 03/18/22 05/13/22 #90 tabs ergocalciferol (vitamin D2) 1,250 50,000 unit PO WEEKLY #12 tab-caps 04/20/22 05/13/22 mcg (50,000 unit) capsule (Vitamin D2) ropinirole 2 mg tablet 2 mg PO QHS 05/01/22 05/13/22 prednisone 20 mg tablet 60 mg PO DAILY 4 days #12 tabs 05/13/22 Previous Rx's Medication Instructions Recorded nitroglycerin 0.4 mg sublingual 0.4 mg sublingual PRN PRN chest 11/22/19 tablet pain ##25 gabapentin 800 mg tablet 800 mg PO ONCE PRN pain #90 tabs 02/04/21 atorvastatin 40 mg tablet 40 mg PO DAILY #90 tabs 07/28/21 sulfasalazine 500 mg tablet 1,000 mg PO QAM #180 tabs 10/01/21 allopurinol 100 mg tablet 100 mg PO DAILY #90 tab-caps 10/15/21 amlodipine 5 mg tablet 5 mg PO DAILY #90 tabs 10/15/21 cyanocobalamin (vitamin B-12) 1,000 mcg PO DAILY #90 tabs 10/15/21 1,000 mcg tablet (Vitamin B-12) pantoprazole 40 mg tablet,delayed 40 mg PO DAILY #90 tab-caps 10/15/21 release lisinopril 30 mg tablet 30 mg PO DAILY #90 tabs 11/05/21 venlafaxine 150 mg 150 mg PO DAILY #90 caps 12/08/21 capsule,extended release 24 hr tizanidine 2 mg tablet 2 mg PO TID PRN muscle spasticity 03/18/22 #90 tabs ergocalciferol (vitamin D2) 1,250 50,000 unit PO WEEKLY #12 tab-caps 04/20/22 mcg (50,000 unit) capsule (Vitamin D2) prednisone 20 mg tablet 60 mg PO DAILY 4 days #12 tabs 05/13/22 Allergies Allergy/AdvReac Type Severity Reaction Status Date / Time Penicillins Allergy Mild Skin Rash Verified 05/13/22 07:30 codeine AdvReac Severe hypertention/pass Verified 05/13/22 07:30 out General Stated Complaint: SOB KRISTIAN: 3 Review of Systems All systems reviewed & are unremarkable except as noted in HPI and below Constitutional Constitutional: Denies chills and Denies weakness Cardiovascular Cardiovascular: Denies chest pain Respiratory Respiratory: Denies cough Gastrointestinal Gastrointestinal: Denies abdominal pain and Denies nausea Genitourinary Genitourinary: Denies dysuria Musculoskeletal Musculoskeletal: Denies joint swelling Integumentary/Breasts Skin/Breast: Denies rash Neurologic Neurologic: Denies weakness PFSH All Active Problems (Updated 05/13/22 @ 14:03 by Rajan Garvin MD) Shortness of breath (Acute) Wheezing (Acute) Shortness of breath (Acute) Wheezing (Acute) Muscle spasm (Acute) Balance problem (Acute) Diabetes mellitus (Chronic) Vitamin D deficiency (Acute) Onychomycosis (Acute) Hammer toes, bilateral (Acute) Fatigue (Acute) Irritable bowel syndrome (IBS) (Chronic) Epidermoid cyst of ear (Acute) Avulsion fracture of left ankle (Acute 07/01/20) Cellulitis (Acute) Peripheral edema (Acute) S/P colonoscopy (Acute ~12/12/18) 12/24: sessile serrated adenoma. Traditional serrated adenoma. 11/2014- [place]- Tubular adenoma Lumbar stenosis (Acute) Chronic anxiety (Chronic) Coronary artery disease of [place] artery of [place] heart with stable angina pectoris (Chronic 09/29/16) stent [facility] [place]22 DJD (degenerative joint disease) (Chronic) WITH CHRONIC LOW BACK PAIN disability SSI Depression (Chronic) GERD (gastroesophageal reflux disease) (Chronic) Gout (Chronic) Hypertension (Chronic) COPELAND (nonalcoholic steatohepatitis) (Chronic 01/09/15) Obesity (Chronic 08/21/14) Peripheral neuropathy (Chronic) left great toe likely due to surgery Psoriatic arthritis (Chronic 11/01/13) Sensorineural hearing loss, bilateral (Chronic 01/07/15) Sleep apnea, unspecified (Chronic 04/17/15) Medical History Annual physical exam Chronic anxiety Chronic back pain DJD (degenerative joint disease) Obesity, Class III, BMI 40-49.9 (morbid obesity) Peripheral neuropathy Surgical History DISKECTOMY (03/07/89) L5 S1 HEMILAMINECTOMY (03/07/91) Hemorrhoidectomy (07/22/11) L5 Status post discectomy Status post hemorrhoidectomy Status post laminectomy Stented coronary artery (~2018) Family History Mother , 67 Essential hypertension Myocardial infarction Father , 67 Essential hypertension Asthma Brother , 64 Myocardial infarction FAMILY HISTORY CAD (coronary artery disease) Stroke COPD (chronic obstructive pulmonary disease) Social History Smoking/Tobacco Use Status: Never Smoking risk assessment performed?: Yes Alcohol Intake: never Drug use: Never Substance use type: does not use Caregiver/Support person: No Household members: spouse Housing: house Communication Needs: Hard of Hearing and Corrective Lenses Pets and animals: Yes Sexually active: No Do you think of yourself as: straight/heterosexual Current gender identity: male What is your relationship status?: How often do you talk on the phone with friends or family?: once per week How often do you get together with friends or relatives?: twice per week How often do you attend jainism or anabaptism services?: decline to answer Do you belong to any clubs or organized social groups?: yes Panel score (0-1 are the most socially isolated patients): 3 Duration: < 15 minutes/day Frequency: 1-2 times per week Fatou/Cheondoism: Evangelical Special fatou needs: No Seatbelt use: always Drive intox or ride w/intox piledriver carpenter: No Do you feel safe at home: Yes Do you feel safe in your relationship?: Yes Exam Const General: no acute distress Orientation: alert HENMT Head: normal to inspection Ears: external ears normal General nose exam: external nose normal Mouth: moist mucous membranes Eyes General: appearance normal, both eyes and all related structures Neck Neck: normal visual inspection Resp Effort & Inspection: normal respiratory effort and able to speak in complete sentences Auscultation: wheezes Cardio Rate: regular rate Heart Sounds: no murmurs Back/Spine/Pelvis Back: no CVA tenderness, No erythema, No warmth and No sacral edema Skin General skin exam: no rashes or lesions noted Neuro General: patient alert and patient oriented x3 Extrem General: normal to inspection Psych Mental Status: mental status grossly normal Course Vital Signs Vital signs: Vital Signs Temperature 36.1 C L 05/13/22 07:26 Pulse 73 05/13/22 07:26 Respiratory Rate 24 05/13/22 07:26 Blood Pressure 192/90 H 05/13/22 07:26 Pulse Oximetry 97 05/13/22 07:26 Temperature 36.1 C L 05/13/22 07:26 Temperature Source Tympanic 05/13/22 07:26 Pulse 73 05/13/22 07:26 Respiratory Rate 24 05/13/22 07:32 Respiratory Effort Short of Breath, Labored 05/13/22 07:32 Respiratory Depth Normal 05/13/22 07:32 Respiratory Pattern Normal 05/13/22 07:32 Blood Pressure 192/90 H 05/13/22 07:26 Blood Pressure Position Sitting 05/13/22 07:26 Pulse Oximetry 97 05/13/22 07:26 Oxygen Delivery Method Room Air 05/13/22 07:26 Oxygen Flow Rate 0 05/13/22 07:26 Pain Level 0 05/13/22 07:26
--- NOTE | 2022-05-13 08:00 | DI.RAD_ITS ---
Exam(s) XR PORTABLE CHEST AP EXAM: XR PORTABLE CHEST AP CLINICAL HISTORY: cough, dyspnea TECHNIQUE: 2D digital imaging was performed. COMPARISON: No exams were available for comparison FINDINGS: LUNGS: Suboptimally inflated but grossly clear. No pleural abnormality seen. HEART: Mildly enlarged. Coronary artery stent seen. AORTA: Normal diameter. BONES: Unremarkable for age. Soft tissues: Unremarkable. IMPRESSION: No acute findings. DATA REPOSITORY: RADIATION DOSE DELIVERED:
[2022-05-13] MEDS: methylPREDNISolone SUCC 125 MG VIAL IVP (08:30)
[2022-05-13 08:32] VITALS: RESP 12; RESP 4; O2SAT 97
[2022-05-13] MEDS: Albuterol/Ipratropium 3 ML UPD VIAL UPD (08:32)
[2022-05-13 08:38] LABS: BE (Venous) 4 mmol/L (-2-3); HCO3 (Venous) 30 mmol/L (23-28); O2 Sat (Venous) 75 %; TCO2 (Venous) 27 mmol/L (24-29); pCO2 (Venous) 52 mmHg (41-51); pH (Venous) 7.36 (7.31-7.41); pO2 (Venous) 42 mmHg
[2022-05-13 08:40] LABS: Abs Immature Grans 0.02 10^3/uL (0.0-0.06); Absolute Basophil Count 0.02 10^3/uL (0.0-0.2); Absolute Lymphocyte Count 1.72 10^3/uL (1.2-3.4); Absolute Monocyte Count 0.62 10^3/uL (0.1-0.8); Absolute Neutrophil Count 3.86 10^3/uL (1.2-6.7); Basophils % 0.3; HCT 39.6 % (40.0-50.0); HGB 12.8 g/dL (13.5-17.5); Immature Grans % 0.3; Lymphocytes % 25.9; MCH 28.5 pg (27.0-33.0); MCHC 32.3 % (32.0-36.0); MCV 88 fL (80-95); MPV 11.1 fL (8.0-11.0); Monocytes % 9.3; Neutrophils % 58.2; Platelet Count 172 10^3/uL (130-400); RBC 4.49 10^6/uL (4.36-5.78); RDW 14.6 % (11.8-14.1); RDW-SD 46.7 fL; WBC 6.64 10^3/uL (4.4-10.8)
[2022-05-13 08:52] LABS: COVID-19 PCR Negative (Negative); Influenza A PCR Negative (Negative); Influenza B PCR Negative (Negative); RSV PCR Negative (Negative)
[2022-05-13 08:53] LABS: PTT Activated 26.1 sec (21.5-31.9); Prothrombin Time 10.4 sec (9.3-11.0)
[2022-05-13 08:59] LABS: Source Nasopharynx
[2022-05-13 09:04] LABS: NT-proBNP 72 pg/mL (<300)
[2022-05-13 09:07] LABS: ALT 50 U/L (16-63); AST 44 U/L (15-37); Albumin 3.7 g/dL (3.4-5.0); Alkaline Phosphatase 100 U/L (46-116); Anion Gap 6.4 mmol/L (3-11); BUN 22 mg/dL (7-18); Bilirubin, Total 0.5 mg/dL (0.2-1.0); CO2 31.6 mmol/L (21.0-32.0); Calcium 9.8 mg/dL (8.5-10.1); Chloride 104 mmol/L (98-107); Estimated GFR 82.49 (mL/min/1.73m2); Glucose 147 mg/dL (74-106); Lipase 21 U/L (16-77); Magnesium 1.7 mg/dL (1.8-2.4); Potassium 4.3 mmol/L (3.5-5.1); Sodium 142 mmol/L (136-145); TSH (W/Ref FT4) 2.33 uIU/mL (0.36-3.74); Total Protein 7.6 g/dL (6.4-8.2); Troponin I < 50 ng/L (<or=60)
[2022-05-13 09:20] LABS: D-Dimer 1152 ng/mlFEU (<500)
--- NOTE | 2022-05-13 10:19 | DI.NM_ITS ---
Exam(s) NM LUNG SCAN VENT PERF AEROS EXAM: NM LUNG SCAN VENT PERF AEROS CLINICAL HISTORY: dyspnea, elevated d dimer, ?PE. TECHNIQUE: Injected Dose: Ventilation: 29.5 mCi Tc-99m DTPA via inhalation Perfusion: 4.8 mCi Tc-99m MAA via IV COMPARISON: CR XR PORTABLE CHEST AP from 05/13/2022 FINDINGS: Chest X-Ray: Clear lungs. Perfusion: Normal. Ventilation:Normal IMPRESSION: 1. Low probability VQ examination. . . . Modified PIOPED II criteria Probability Criteria High Two or more segments of V/Q mismatch Low Normal Perfusion, Non segmental perfusion abnormalitie s, pleural effusion in at least 1/3 of pleural cavity with no other defect Radiograph/perfusion matched defect in mid to upper lung confined to segment, one to three small segmental perfusion defects (<25% of segment) Perfusion defect smaller than corresponding radiogra phic lesion. Intermediate All other findings DATA REPOSITORY:
[2022-05-13] MEDS: Albuterol HFA 8 GM 60 PUFF INH IH (14:14)
[2022-05-13] MEDS: Inhaler, Assist Device 1 EACH MC (14:14)
== END 2022-05-13 14:14 | disposition home or self-care (01) ==
PROVIDERS: Emergency Provider Emergency Medicine; PCP Nurse Practitioner Family
DX: R06.02 Shortness of breath (principal); R06.2 Wheezing; I10 Essential (primary) hypertension
CPT/HCPCS: 36415; 80053; 82805; 83690; 87637; 93005; 94640; 96374; 99284; 71045; 78582; 83735; 83880; 84443; 84484; 85025; 85379; 85610; 85730; 93010; J2930; J7620

== ENCOUNTER 2022-08-10 07:51 | Outpatient (CLI) | payer MEDICARE, SELFPAY ==
--- NOTE | 2022-08-10 07:45 | RT.EKG_ITS ---
APPROVED REPORT Exam: Resting ECG Reason for Exam: CAD Patient Location: O HR:63 bpm ECG Measurements Heart Rate 63 AXIS [place] 208 P -37 QRSd 105 QRS 29 QT 419 T 42 QTc 429 Conclusion Sinus rhythm...normal P axis, V-rate 50- 99 Low voltage, precordial leads...precordial leads <1.0mV Otherwise normal ECG
== END 2022-08-10 07:52 | disposition home or self-care (01) ==
LOC: DI.CARD 07:52
PROVIDERS: PCP Nurse Practitioner Family; Visit Provider Internal Medicine Cardiovascular Disease
DX: I25.118 Atherosclerotic heart disease of native coronary artery with other forms of angina pectoris (principal)
CPT/HCPCS: 93010

== ENCOUNTER → 2022-08-10 09:27 | Outpatient (BNVA) | payer MEDICARE, SELFPAY | PROVIDERS: PCP Nurse Practitioner Family; Referring Provider Nurse Practitioner Family; Visit Provider Internal Medicine Cardiovascular Disease | DX: I25.810 Atherosclerosis of coronary artery bypass graft(s) without angina pectoris (principal) | CPT/HCPCS: 93005; 99214 ==

== ENCOUNTER 2022-08-19 03:32 | Outpatient (CLI) | payer MEDICARE, SELFPAY ==
[2022-08-19 13:00] LABS: Calculated LDL 52 mg/dL (<100); Cholesterol 112 mg/dL (<200); HDL Cholesterol 40 mg/dL (40-60); Triglyceride 102 mg/dL (<150)
== END 2022-08-19 03:33 | disposition home or self-care (01) ==
LOC: LOS 03:32
PROVIDERS: PCP Nurse Practitioner Family; Visit Provider Nurse Practitioner Family
DX: I10 Essential (primary) hypertension (principal)
CPT/HCPCS: 36415; 80061

== ENCOUNTER 2022-08-20 01:37 | Outpatient (CLI) | payer MEDICARE, SELFPAY ==
[2022-08-20] MEDS: Inhaler, Assist Device 1 EACH MC (17:09)
[2022-08-20] MEDS: Albuterol HFA 18 GM 200 PUFF INH IH (17:09)
--- NOTE | 2022-08-21 14:33 | W.PFT ---
Date of service: 08/20/22 Time of Service: 15:38 Pulmonary Function Test Result Indications: Wheezing Interpretation Spirometry: There is no airflow limitation. There is no significant bronchodilator response. Lung Volumes: Normal lung volumes Diffusion Capacity: Normal diffusion Airway Pressure: Normal airways resistance. Impression Normal pulmonary function testing. Clinical Correlation therefore is recommended.
== END 2022-08-20 01:38 | disposition home or self-care (01) ==
LOC: RT 01:37
PROVIDERS: PCP Nurse Practitioner Family; Visit Provider Nurse Practitioner Family
DX: R06.2 Wheezing (principal)
CPT/HCPCS: 94060; 94726; 94729

== ENCOUNTER 2022-08-27 01:03 | Outpatient (CLI) | payer MEDICARE, SELFPAY ==
--- NOTE | 2022-08-27 10:41 | DI.NM_ITS ---
APPROVED REPORT Exam: Pharmacologic Patient Location: Out-Patient Room/Bed: Stress Nurse: Usha Louis RN Ordering Provider:CHELSEA GALEANA, Contact Number: [phone] BMI: 42.75 Baseline Rhythm: Sinus Rhythm Comment: Rare PAC Indications: CAD, exertional dyspnea, heart disease Medical History Medical History: SOB, DM, Vit D deficiency, fatigue, IBS, peripheral edema, anxiety, CAD, DJD, depres shahid, GERD, gout, PN, NELL, HTN, COPELAND, obesity Cardiac Medications: Venlafaxine, tizanidine, sulfasalazide, ropinirole, pantoprazole, nitro SL, losa rtan, gabapentin, vit D3, cyanocobalamin, atorvastatin, aspirin, amlodipine, allopurinol Allergies: Pencillins, codeine Cardiac Risk Factors: Family hx, HTN, HLD, CVD, diabetes, obesity Previous Cardiac Procedures: Stent 08/2016 Exercise History: Sedentary Physical Disabilities: Legs Lung Sounds: Clear to auscultation Heart Sounds: Regular Stress Test Details Test: Pharmacologic stress testing performed using 0.4 mg of regadenoson per 5 mL given IV over 10 s econds. Reason for pharmacologic stress test: physical limitation. Nuclear Acquisition: Rest Tc-99m/Stress Tc-99m 1 day Rest Isotope: Tc-99m Sestamibi. Dose: 16.4 Date: 08/27/2022 Injection Time: 1055 Stress Isotope: Tc-99m Sestamibi. Dose: 46.5 Date: 08/27/2022 Injection Time: 1240 HR Resting HR Supine: 63 bpm Max Heart Rate (APMHR): 153.992113 bpm Target HR (85% APMHR): 130.995373 bpm Max HR Achieved: 79 bpm % of APMHR: 51.63 Recovery HR: 71 bpm BP Resting BP Supine: 162/86 mmHg Max BP: 168/68 mmHg Recovery BP: 152/74 mmHg ECG Resting ECG: Sinus Rhythm Ectopy: Rare PAC Stress ECG: Sinus Rhythm ST Change: Nondiagnostic low heart rate Arrhythmia: Occasional PVC Recovery ECG: Sinus Rhythm Recovery ST Change: Nondiagnostic low heart rate Recovery Arrhythmia: Occasional PVC Clinical Stress Symptoms: Mild-Moderate SOB Angina Score: None Rate Pressure Product: 21395 Stress ECG Conclusion 1. Resting electrocardiogram was within normal limits 2. Patient underwent testing using pharmacologic stress with regadenoson 3. Peak heart rate achieved was 52% of predicted for age 4. Electrocardiographic portion of the test was nondiagnostic 5. See MPI report Stress Test Summary STAGE HR BP SpO2 Symptoms NOTES Supine 63 162/86 1 min post Lexiscan injection 76 164/84 98 Mild-mod SOB 3 min post Lexiscan injection 74 168/68 6 min post Lexiscan injection 71 152/74 98 SOB resolved MPI Conclusion Technically suboptimal There is no significant ischemia or evidence of infarction on myocardial perfusion imaging Calculated EF was 41% but visually EF appears within the range of normal, normal wall motion Radiologist Interpretation Radiologist agrees with Project Finance Analyst's Interpretation. Radiologist Interpretation by: Molly Vega MD Interpretation Date/Time: 08/27/2022 16:44:53
[2022-08-27] MEDS: Regadenoson 0.4 MG/5 ML SYR IVP (13:10)
== END 2022-08-27 01:23 ==
LOC: DI 01:03
PROVIDERS: PCP Nurse Practitioner Family; Visit Provider Internal Medicine Cardiovascular Disease
DX: I25.10 Atherosclerotic heart disease of native coronary artery without angina pectoris (principal); R06.09 Other forms of dyspnea
CPT/HCPCS: 78452; 93016; 93018; 93017; J2785

== ENCOUNTER 2022-11-17 19:11 | Emergency (ER) | payer MEDICARE, SELFPAY ==
[2022-11-17 19:14] VITALS: BP 164/58; PULSE 68; RESP 18; TEMP 36.8; O2SAT 96
--- NOTE | 2022-11-17 20:27 | W.ED.GENAD ---
Discharge Plan Disposition Patient Disposition: Home Condition: Stable Discharge Details Clinical Impression: Otitis externa of left ear Primary Care Provider: Franck Plummer ED Provider: Marisabel Wade Home Meds and New Rx's Prescriptions: New clindamycin HCl 300 mg capsule 300 mg PO TID 7 Days Qty: 21 0RF Rx Instructions: Take one capsule by mouth 3 times a day x 7 days ofloxacin 0.3 % drops 10 drp otic (ear) DAILY 7 Days Qty: 5 0RF Rx Instructions: Place 10 drops into left ear daily x 7 days Continued gabapentin 800 mg tablet 800 mg PO ONCE PRN (Reason: pain) Qty: 90 2RF Hold Instructions: Home Medication placed on hold at Doctor's office Rx Instructions: hold as of 04/17 furosemide 20 mg tablet 20 mg PO DAILY Qty: 30 0RF docusate sodium 100 mg capsule 100 mg PO DAILY Qty: 90 3RF metformin 500 mg tablet 500 mg PO BID Qty: 180 3RF Rx Instructions: Starting dose: Take 1/2 tablet daily for 7 days, then take 1/2 tablet twice daily for 7 days, then take 1 tablet in AM and 1/2 tablet in PM for 7 days, then 1 tablet twice daily thereafter. losartan 100 mg tablet 100 mg PO DAILY Qty: 90 3RF sulfasalazine 500 mg tablet 1,000 mg PO QAM Qty: 180 3RF atorvastatin 40 mg tablet 40 mg PO DAILY Qty: 90 3RF nystatin 100,000 unit/gram ointment 1 applic topical BID Qty: 30 2RF cyanocobalamin (vitamin B-12) [Vitamin B-12] 1,000 mcg tablet 1,000 mcg PO DAILY nitroglycerin 0.4 mg tablet, sublingual 0.4 mg Sublingual PRN PRN (Reason: chest pain) Qty: 25 3RF aspirin 81 MG tablet,chewable 81 mg PO DAILY amlodipine 5 mg tablet 5 mg PO DAILY Qty: 90 3RF tizanidine 2 mg tablet 2 mg PO TID PRN (Reason: muscle spasticity) Qty: 90 0RF ropinirole 2 mg tablet 2 mg PO QHS Qty: 60 2RF Rx Instructions: administer 1-3 hours before bedtime venlafaxine 150 mg capsule,extended release 24hr 150 mg PO DAILY Qty: 90 3RF allopurinol 100 mg tablet 100 mg PO DAILY Qty: 90 3RF ergocalciferol (vitamin D2) [Vitamin D2] 1,250 mcg (50,000 unit) capsule 50,000 unit PO WEEKLY Qty: 12 0RF pantoprazole 40 mg tablet,delayed release (DR/EC) 40 mg PO DAILY Qty: 90 3RF folic acid 400 MCG tablet 400 mcg PO DAILY Discharge Instructions Instructions: Otitis Externa (ED) Additional Instructions: Please take the antibiotics with yogurt or a probiotic 3 times daily as directed. Use the eardrops once a day for the next 7 days. Follow up with primary care provider or ear nose and throat in 3-5 days. Return to ED sooner if any worsening or concerns. Increase oral fluids. Please take Tylenol with food every 4-6 hours as needed for pain and swelling. Referrals: Franck Plummer NP [Primary Care Provider] - Jensen Cardona MD [ [facility] STAFF PHYSICIAN] - 5 days Medical Decision Making 67-year-old male with a past medical history of diabetes, irritable bowel syndrome lumbar stenosis degenerative joint disease depression GERD gout hypertension sleep apnea presents to the ER with a chief complaint of left ear pain which began couple of days ago. He reports intermittent stabbing pains now constant. His left earlobe does look erythemic and swollen. No trismus noted. Denies any sore throat no lymphadenopathy. No loss of hearing. He denies any known injury to the area. He denies any recent swimming or being hit to the ear. He is allergic to penicillin and codeine. Will give 450 mg of clindamycin due to penicillin allergy and ofloxacin otic drops 0.3%. We will give referral to ear nose and throat and or PCP in the next 3 to 5 days. Discussed home care and strict return instructions if any worsening. Differential diagnosis includes but not limited to otitis externa, mastoiditis, otitis media, perichondritis, malignant otitis externa This text was generated using [employer]ation system, please disregard any oddities of phrase or misspellings. HPI General Mode of arrival: ambulatory. Date/Time Provider Initiated Documentation: 11/17/22 19:57. Limitations to Documentation: no limitations. Information obtained by: patient, RN notes reviewed and old records reviewed. HPI Narrative: 67-year-old male with a past medical history of diabetes, irritable bowel syndrome lumbar stenosis degenerative joint disease depression GERD gout hypertension sleep apnea presents to the ER with a chief complaint of left ear pain which began couple of days ago. He reports intermittent stabbing pains now constant. His left earlobe does look erythemic and swollen. No trismus noted. Denies any sore throat no lymphadenopathy. No loss of hearing. He denies any known injury to the area. He denies any recent swimming or being hit to the ear. He is allergic to penicillin and codeine. Related Data Home Medications Medication Instructions Recorded Confirmed folic acid 400 mcg tablet 400 mcg PO DAILY 05/29/12 11/16/22 aspirin 81 mg chewable tablet 81 mg PO DAILY 09/29/16 11/16/22 gabapentin 800 mg tablet 800 mg PO ONCE PRN pain #90 tabs 02/04/21 11/16/22 amlodipine 5 mg tablet 5 mg PO DAILY #90 tabs 10/15/21 11/16/22 tizanidine 2 mg tablet 2 mg PO TID PRN muscle spasticity 03/18/22 11/16/22 #90 tabs ropinirole 2 mg tablet 2 mg PO QHS #60 tabs 05/27/22 11/16/22 venlafaxine 150 mg 150 mg PO DAILY #90 caps 06/10/22 11/16/22 capsule,extended release 24 hr atorvastatin 40 mg tablet 40 mg PO DAILY #90 tabs 07/06/22 11/16/22 losartan 100 mg tablet 100 mg PO DAILY #90 tabs 07/06/22 11/16/22 nystatin 100,000 unit/gram topical 1 applic topical BID #30 grams 07/06/22 11/16/22 ointment sulfasalazine 500 mg tablet 1,000 mg PO QAM #180 tabs 07/06/22 11/16/22 nitroglycerin 0.4 mg sublingual 0.4 mg sublingual PRN PRN chest 08/07/22 11/16/22 tablet pain ##25 cyanocobalamin (vitamin B-12) 1,000 mcg PO DAILY 08/10/22 11/16/22 1,000 mcg tablet (Vitamin B-12) allopurinol 100 mg tablet 100 mg PO DAILY #90 tab-caps 10/28/22 11/16/22 ergocalciferol (vitamin D2) 1,250 50,000 unit PO WEEKLY #12 tab-caps 10/28/22 11/16/22 mcg (50,000 unit) capsule (Vitamin D2) pantoprazole 40 mg tablet,delayed 40 mg PO DAILY #90 tab-caps 10/28/22 11/16/22 release docusate sodium 100 mg capsule 100 mg PO DAILY #90 tab-caps 11/16/22 11/16/22 furosemide 20 mg tablet 20 mg PO DAILY #30 tabs 11/16/22 11/16/22 metformin 500 mg tablet 500 mg PO BID #180 tabs 11/16/22 11/16/22 clindamycin HCl 300 mg capsule 300 mg PO TID Otitis externa 7 11/17/22 days #21 caps ofloxacin 0.3 % ear drops 10 drp otic (ear) DAILY otitis 11/17/22 externa 7 days #5 mL Previous Rx's Medication Instructions Recorded gabapentin 800 mg tablet 800 mg PO ONCE PRN pain #90 tabs 02/04/21 amlodipine 5 mg tablet 5 mg PO DAILY #90 tabs 10/15/21 tizanidine 2 mg tablet 2 mg PO TID PRN muscle spasticity 03/18/22 #90 tabs ropinirole 2 mg tablet 2 mg PO QHS #60 tabs 05/27/22 venlafaxine 150 mg 150 mg PO DAILY #90 caps 06/10/22 capsule,extended release 24 hr atorvastatin 40 mg tablet 40 mg PO DAILY #90 tabs 07/06/22 losartan 100 mg tablet 100 mg PO DAILY #90 tabs 07/06/22 nystatin 100,000 unit/gram topical 1 applic topical BID #30 grams 07/06/22 ointment sulfasalazine 500 mg tablet 1,000 mg PO QAM #180 tabs 07/06/22 nitroglycerin 0.4 mg sublingual 0.4 mg sublingual PRN PRN chest 08/07/22 tablet pain ##25 allopurinol 100 mg tablet 100 mg PO DAILY #90 tab-caps 10/28/22 ergocalciferol (vitamin D2) 1,250 50,000 unit PO WEEKLY #12 tab-caps 10/28/22 mcg (50,000 unit) capsule (Vitamin D2) pantoprazole 40 mg tablet,delayed 40 mg PO DAILY #90 tab-caps 10/28/22 release docusate sodium 100 mg capsule 100 mg PO DAILY #90 tab-caps 11/16/22 furosemide 20 mg tablet 20 mg PO DAILY #30 tabs 11/16/22 metformin 500 mg tablet 500 mg PO BID #180 tabs 11/16/22 clindamycin HCl 300 mg capsule 300 mg PO TID Otitis externa 7 11/17/22 days #21 caps ofloxacin 0.3 % ear drops 10 drp otic (ear) DAILY otitis 11/17/22 externa 7 days #5 mL Allergies Allergy/AdvReac Type Severity Reaction Status Date / Time Penicillins Allergy Mild Skin Rash Verified 11/16/22 08:40 codeine AdvReac Severe hypertention/pass Verified 11/16/22 08:40 out General Stated Complaint: EarProblem KRISTIAN: 4 Review of Systems All systems reviewed & are unremarkable except as noted in HPI and below Constitutional Constitutional: Denies headache(s) ENT Ears, Nose, Mouth, and Throat: Reports as per HPI, Denies ear discharge, Reports otalgia, Denies headache(s) and Denies hearing loss Neurologic Neurologic: Denies headache(s) PFSH All Active Problems (Updated 11/17/22 @ 20:38 by Marisabel Wade NP) Otitis externa of left ear (Acute) Bilateral lower extremity edema (Acute) Nail dystrophy (Acute) Ankle weakness (Acute) Shortness of breath (Acute) Wheezing (Acute) Muscle spasm (Acute) Balance problem (Acute) Diabetes mellitus (Chronic) Vitamin D deficiency (Acute) Onychomycosis (Acute) Hammer toes, bilateral (Acute) Fatigue (Acute) Irritable bowel syndrome (IBS) (Chronic) Epidermoid cyst of ear (Acute) Avulsion fracture of left ankle (Acute 07/01/20) Cellulitis (Acute) Peripheral edema (Acute) S/P colonoscopy (Acute ~12/12/18) 12/24: sessile serrated adenoma. Traditional serrated adenoma. 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) stent [facility] 08/22 DJD (degenerative joint disease) (Chronic) WITH CHRONIC LOW BACK PAIN disability SSI Depression (Chronic) GERD (gastroesophageal reflux disease) (Chronic) Gout (Chronic) Hypertension (Chronic) COPELAND (nonalcoholic steatohepatitis) (Chronic 01/09/15) Obesity (Chronic 08/21/14) Peripheral neuropathy (Chronic) left great toe likely due to surgery Psoriatic arthritis (Chronic 11/01/13) Sensorineural hearing loss, bilateral (Chronic 01/07/15) Sleep apnea, unspecified (Chronic 04/17/15) Medical History Annual physical exam Chronic anxiety Chronic back pain DJD (degenerative joint disease) Obesity, Class III, BMI 40-49.9 (morbid obesity) Peripheral neuropathy Surgical History DISKECTOMY (03/07/89) L5 S1 HEMILAMINECTOMY (03/07/91) Hemorrhoidectomy (07/22/11) L5 Status post discectomy Status post hemorrhoidectomy Status post laminectomy Stented coronary artery (~2017) Family History Mother , 67 Essential hypertension Myocardial infarction Father , 67 Essential hypertension Asthma Brother , 64 Myocardial infarction FAMILY HISTORY CAD (coronary artery disease) Stroke COPD (chronic obstructive pulmonary disease) Social History Smoking/Tobacco Use Status: Never Smoking risk assessment performed?: Yes Alcohol Intake: never Drug use: Never Substance use type: does not use Caregiver/Support person: No Household members: spouse Housing: house Communication Needs: Hard of Hearing and Corrective Lenses Pets and animals: Yes Sexually active: No Do you think of yourself as: straight/heterosexual Current gender identity: male What is your relationship status?: How often do you talk on the phone with friends or family?: once per week How often do you get together with friends or relatives?: twice per week How often do you attend jew or restorationism services?: decline to answer Do you belong to any clubs or organized social groups?: yes Panel score (0-1 are the most socially isolated patients): 3 Duration: < 15 minutes/day Frequency: 1-2 times per week Fatou/Synagogue: Pentecost[employer]ism Special fatou needs: No Seatbelt use: always Drive 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 Erythema and swelling Ears: TM normal on the right, TM normal on the left, mastoids normal on the left, EAC abnormal EAC tenderness on the left, external ear abnormal (Swelling to Pinna, and external ear, erythema noted pre-auricularly) other (erythema and swollen); no auricular hematomas and no pain with movement of external ear and no periauricular adenopathy Outer ear/TM images: 1. Erythema General nose exam: external nose normal Mouth: oral mucosae normal, lip normal and tongue normal Throat: posterior oropharynx normal Course Vital Signs Vital signs: Vital Signs Temperature 36.8 C 11/17/22 19:14 Pulse 68 11/17/22 19:14 Respiratory Rate 18 11/17/22 19:14 Blood Pressure 164/58 H 11/17/22 19:14 Pulse Oximetry 96 11/17/22 19:14 Temperature 36.8 C 11/17/22 19:14 Pulse 68 11/17/22 19:14 Respiratory Rate 18 11/17/22 19:14 Respiratory Effort Normal 11/17/22 19:18 Blood Pressure 164/58 H 11/17/22 19:14 Pulse Oximetry 96 11/17/22 19:14 Oxygen Delivery Method Room Air 11/17/22 19:14 Oxygen Flow Rate 0 11/17/22 19:14 Pain Level 2 11/17/22 19:18
[2022-11-17] MEDS: Clindamycin 150 MG CAP 450 MG PO (21:08)
[2022-11-17] MEDS: Acetaminophen 500 MG TAB PO (21:08)
[2022-11-17] MEDS: Ofloxacin 0.3% OTIC 5 ML BTL AU (21:08)
== END 2022-11-17 21:14 | disposition home or self-care (01) ==
PROVIDERS: Emergency Provider Registered Nurse Emergency; PCP Nurse Practitioner Family
DX: H60.502 Unspecified acute noninfective otitis externa, left ear (principal); E11.9 Type 2 diabetes mellitus without complications; I10 Essential (primary) hypertension; I25.119 Atherosclerotic heart disease of native coronary artery with unspecified angina pectoris; Z95.5 Presence of coronary angioplasty implant and graft; Z79.84 Long term (current) use of oral hypoglycemic drugs; Z79.82 Long term (current) use of aspirin
CPT/HCPCS: 99282

== ENCOUNTER → 2023-02-16 02:29 | Outpatient (CLI) | payer MEDICARE, SELFPAY ==
--- NOTE | 2023-02-16 07:45 | DI.RAD_ITS ---
Exam(s) XR KNEE RT 3V AP,LAT,CLARICE EXAM: XR KNEE RT 3V AP,LAT,CLARICE CLINICAL HISTORY: Worsening pain,RT KNEE, M25.561. TECHNIQUE: 2D digital imaging was performed. Three views. COMPARISON: CR XR knee RT 4V AP,lat,clarice,pat from 08/29/2018 CR XR knee LT 4V AP,lat,clarice,pat from 08/29/2018 CR XR KNEE LT 3V AP,LAT,CLARICE from 02/16/2023 FINDINGS: BONES: No acute fracture is present. No bony destructive lesion is seen. Patellar enthesophytes. JOINTS: The knee is normally aligned. No joint effusion is seen. Femoral tibial joint spaces are colin ntained. Mild periarticular spurring. Mild spurring at the articular aspect of patella. SOFT TISSUE: Normal. IMPRESSION: Mild degenerative changes. DATA REPOSITORY: RADIATION DOSE DELIVERED:
--- NOTE | 2023-02-16 07:45 | DI.RAD_ITS ---
Exam(s) XR KNEE LT 3V AP,LAT,CLARICE EXAM: XR KNEE LT 3V AP,LAT,CLARICE CLINICAL HISTORY: Worsening pain,LT KNEE,M25.562. TECHNIQUE: 2D digital imaging was performed. Three views. COMPARISON: CR XR knee LT 4V AP,lat,clarice,pat from 08/29/2018 CR,XR XR KNEE RT 3V AP,LAT,CLARICE from 10/18/2021 FINDINGS: BONES: No acute fracture is present. No bony destructive lesion is seen. Patellar enthesophytes. JOINTS: Mild narrowing medial femoral tibial joint space. Mild periarticular spurring throughout. T he knee is normally aligned. No joint effusion is seen. SOFT TISSUE: Vascular calcifications. IMPRESSION: [id number] degenerative changes. DATA REPOSITORY: RADIATION DOSE DELIVERED:
== END ==
PROVIDERS: PCP Nurse Practitioner Family; Visit Provider Nurse Practitioner Family
DX: M17.0 Bilateral primary osteoarthritis of knee (principal)
CPT/HCPCS: 73562

== ENCOUNTER 2023-02-28 11:55 | Emergency (ER) | payer MEDICARE, SELFPAY ==
[2023-02-28 11:58] VITALS: BP 161/68; PULSE 77; RESP 18; TEMP 36.2; O2SAT 97
--- NOTE | 2023-02-28 12:56 | W.ED.GENAD ---
Discharge Plan Disposition Patient Disposition: Home Condition: Good Discharge Details Clinical Impression: Acute ear pain, Pain, dental, Trigeminal neuralgia Primary Care Provider: Franck Plummer ED Provider: Veena Sin Home Meds and New Rx's Prescriptions: New carbamazepine 100 mg tablet,chewable 100 mg PO BID 14 Days Qty: 28 0RF No Action gabapentin 800 mg tablet 800 mg PO ONCE PRN (Reason: pain) Qty: 90 2RF Hold Instructions: Home Medication placed on hold at Doctor's office Rx Instructions: hold as of 04/17 docusate sodium 100 mg capsule 100 mg PO DAILY Qty: 90 3RF metformin 500 mg tablet 500 mg PO BID Qty: 180 3RF Rx Instructions: Starting dose: Take 1/2 tablet daily for 7 days, then take 1/2 tablet twice daily for 7 days, then take 1 tablet in AM and 1/2 tablet in PM for 7 days, then 1 tablet twice daily thereafter. losartan 100 mg tablet 100 mg PO DAILY Qty: 90 3RF sulfasalazine 500 mg tablet 1,000 mg PO QAM Qty: 180 3RF atorvastatin 40 mg tablet 40 mg PO DAILY Qty: 90 3RF nystatin 100,000 unit/gram ointment 1 applic topical BID Qty: 30 2RF cyanocobalamin (vitamin B-12) [Vitamin B-12] 1,000 mcg tablet 1,000 mcg PO DAILY nitroglycerin 0.4 mg tablet, sublingual 0.4 mg Sublingual PRN PRN (Reason: chest pain) Qty: 25 3RF chlorhexidine gluconate 0.12 % mouthwash 15 ml mucous membrane DAILY Qty: 473 0RF Rx Instructions: Swish and spit 15 mL twice daily for the next 7 days aspirin 81 MG tablet,chewable 81 mg PO DAILY tizanidine 2 mg tablet 2 mg PO TID PRN (Reason: muscle spasticity) Qty: 90 0RF ropinirole 2 mg tablet 2 mg PO QHS Qty: 60 2RF Rx Instructions: administer 1-3 hours before bedtime venlafaxine 150 mg capsule,extended release 24hr 150 mg PO DAILY Qty: 90 3RF allopurinol 100 mg tablet 100 mg PO DAILY Qty: 90 3RF pantoprazole 40 mg tablet,delayed release (DR/EC) 40 mg PO DAILY Qty: 90 3RF amlodipine 5 mg tablet 5 mg PO DAILY Qty: 90 3RF semaglutide 1 mg/dose (4 mg/3 mL) pen injector 1 mg subcut QWEEK Qty: 3 0RF Rx Instructions: for 4 weeks furosemide 20 mg tablet 20 mg PO DAILY Qty: 30 0RF ergocalciferol (vitamin D2) [Vitamin D2] 1,250 mcg (50,000 unit) capsule 50,000 unit PO WEEKLY Qty: 12 0RF folic acid 400 MCG tablet 400 mcg PO DAILY ofloxacin 0.3 % drops 10 drp otic (ear) BID Discharge Instructions Instructions: Trigeminal Neuralgia (ED), Toothache (ED) Additional Instructions: 1. Start carbamazepine 100 mg every 12 hours for 2 weeks. This may cause drowsiness and lower your sodium. We have scheduled to have your sodium and carbamazepine level checked on March 04. 2. You will be contacted by Dr. Can's office. This is a neurologist who can help with trigeminal neuralgia. Bring your carbamazepine and gabapentin prescriptions with you to your follow-up appointment. 3. Call your primary care provider and dentist on March 02 for follow-up appointments and recheck. Tell them about today's visit and that CT scans done in the department were negative of your face and of your brain. 4. You were given several tablets of oxycodone here today. This is for severe pain that prohibits you from sleeping and that is not relieved by [id number] medications. Do not drink alcohol, drive, operate heavy machinery or make important decisions while taking this medication. This can also cause drowsiness and constipation. Follow-up. Return here for any new or worrisome symptoms. 5. Read the information from up-to-date on patient education of trigeminal neuralgia. Discharge Data Discharge Physician: Veena Sin Medical Decision Making This is a 67-year-old male who presents with joint pain 3 weeks after having been a dental extraction. There is no obvious swelling. There is no signs of buccal cellulitis or Dain's angina. My plan is to obtain a CT scan of his head because he is complaining of a severe headache and a CT of his face to rule out abscess or complication from his prior extraction. I will order the facial CT with IV contrast and we will check his renal function prior to administering the IV contrast. The patient and I discussed analgesia and he has elected to take p.o. oxycodone for his pain. He has an essentially unremarkable exam. If indicated we will administer antibiotics and likely have him follow-up with his primary care provider and dentist. Differential Diagnosis Differential Diagnosis: Dentalgia, apical abscess, trigeminal neuralgia Medical Records Medical records reviewed: Yes I reviewed the patient's medical records. Imaging Data Radiologic Study: Imaging: CT Scan (CT Maxillofacial with contrast) Radiologist's impression: V rad impression: Recent extraction of tooth 15 in the interval since 12/13/2020, without demonstration of acute abnormality. Radiologic Study #2: Imaging: CT Scan (Head Noncon) Radiologist's impression: vRad Impression:IMPRESSION: No acute intracranial abnormality. Stable appearance of the brain. Lab Data Lab results reviewed: Yes I reviewed the patient's lab results. HPI General Date/Time Provider Initiated Documentation: 02/28/23 12:55. Limitations to Documentation: no limitations. Information obtained by: patient and family. HPI Narrative: Patient is a 67-year-old male brought in by his for left lower jaw pain. 3 weeks ago he had a dental extraction in the same area. 2 days ago he began having increasing pain. The pain is 15 out of 10 in severity. It radiates to the left ear and is associated with a migraine headache.. He denies any swelling in his mouth or purulent discharge. He denies any change in hearing. He did take 600 mg of ibuprofen and 1000 mg of acetaminophen at 11 AM today with minimal relief. He denies any fevers or chills. He says the pain is aggravated by hot and cold and chewing. The pain is constant and sharp. He denies any change in his voice or fever. He denies any intraoral swelling. He has not seen his dentist since his symptoms recurred. He denies any chest pain or shortness of breath. He denies any cough or any other respiratory symptoms. He denies any change in his voice. Related Data Home Medications Medication Instructions Recorded Confirmed folic acid 400 mcg tablet 400 mcg PO DAILY 05/29/12 02/28/23 aspirin 81 mg chewable tablet 81 mg PO DAILY 09/29/16 02/28/23 gabapentin 800 mg tablet 800 mg PO ONCE PRN pain #90 tabs 02/04/21 02/28/23 tizanidine 2 mg tablet 2 mg PO TID PRN muscle spasticity 03/18/22 02/28/23 #90 tabs ropinirole 2 mg tablet 2 mg PO QHS #60 tabs 05/27/22 02/28/23 venlafaxine 150 mg 150 mg PO DAILY #90 caps 06/10/22 02/28/23 capsule,extended release 24 hr atorvastatin 40 mg tablet 40 mg PO DAILY #90 tabs 07/06/22 02/28/23 losartan 100 mg tablet 100 mg PO DAILY #90 tabs 07/06/22 02/28/23 nystatin 100,000 unit/gram topical 1 applic topical BID #30 grams 07/06/22 02/28/23 ointment sulfasalazine 500 mg tablet 1,000 mg (2 x 500 mg) PO QAM #180 07/06/22 02/28/23 tabs nitroglycerin 0.4 mg sublingual 0.4 mg sublingual PRN PRN chest 08/07/22 02/28/23 tablet pain ##25 cyanocobalamin (vitamin B-12) 1,000 mcg PO DAILY 08/10/22 02/28/23 1,000 mcg tablet (Vitamin B-12) allopurinol 100 mg tablet 100 mg PO DAILY #90 tab-caps 10/28/22 02/28/23 pantoprazole 40 mg tablet,delayed 40 mg PO DAILY #90 tab-caps 10/28/22 02/28/23 release docusate sodium 100 mg capsule 100 mg PO DAILY #90 tab-caps 11/16/22 02/28/23 metformin 500 mg tablet 500 mg PO BID #180 tabs 11/16/22 02/28/23 amlodipine 5 mg tablet 5 mg PO DAILY #90 tabs 12/21/22 02/28/23 chlorhexidine gluconate 0.12 % 15 ml mucous membrane DAILY #473 mL 01/15/23 02/28/23 mouthwash ergocalciferol (vitamin D2) 1,250 50,000 unit PO WEEKLY #12 tab-caps 02/15/23 02/28/23 mcg (50,000 unit) capsule (Vitamin D2) furosemide 20 mg tablet 20 mg PO DAILY #30 tabs 02/15/23 02/28/23 semaglutide 1 mg/dose (4 mg/3 mL) 1 mg (0.75 mL) subcut QWEEK #3 mL 02/15/23 02/28/23 subcutaneous pen injector carbamazepine 100 mg chewable 100 mg PO BID trigeminal neuralgia 02/28/23 tablet 14 days #28 tabs ofloxacin 0.3 % ear drops 10 drp otic (ear) BID 02/28/23 02/28/23 Previous Rx's Medication Instructions Recorded gabapentin 800 mg tablet 800 mg PO ONCE PRN pain #90 tabs 02/04/21 tizanidine 2 mg tablet 2 mg PO TID PRN muscle spasticity 03/18/22 #90 tabs ropinirole 2 mg tablet 2 mg PO QHS #60 tabs 05/27/22 venlafaxine 150 mg 150 mg PO DAILY #90 caps 06/10/22 capsule,extended release 24 hr atorvastatin 40 mg tablet 40 mg PO DAILY #90 tabs 07/06/22 losartan 100 mg tablet 100 mg PO DAILY #90 tabs 07/06/22 nystatin 100,000 unit/gram topical 1 applic topical BID #30 grams 07/06/22 ointment sulfasalazine 500 mg tablet 1,000 mg (2 x 500 mg) PO QAM #180 07/06/22 tabs nitroglycerin 0.4 mg sublingual 0.4 mg sublingual PRN PRN chest 08/07/22 tablet pain ##25 allopurinol 100 mg tablet 100 mg PO DAILY #90 tab-caps 10/28/22 pantoprazole 40 mg tablet,delayed 40 mg PO DAILY #90 tab-caps 10/28/22 release docusate sodium 100 mg capsule 100 mg PO DAILY #90 tab-caps 11/16/22 metformin 500 mg tablet 500 mg PO BID #180 tabs 11/16/22 amlodipine 5 mg tablet 5 mg PO DAILY #90 tabs 12/21/22 chlorhexidine gluconate 0.12 % 15 ml mucous membrane DAILY #473 mL 01/15/23 mouthwash ergocalciferol (vitamin D2) 1,250 50,000 unit PO WEEKLY #12 tab-caps 02/15/23 mcg (50,000 unit) capsule (Vitamin D2) furosemide 20 mg tablet 20 mg PO DAILY #30 tabs 02/15/23 semaglutide 1 mg/dose (4 mg/3 mL) 1 mg (0.75 mL) subcut QWEEK #3 mL 02/15/23 subcutaneous pen injector carbamazepine 100 mg chewable 100 mg PO BID trigeminal neuralgia 02/28/23 tablet 14 days #28 tabs Allergies Allergy/AdvReac Type Severity Reaction Status Date / Time Penicillins Allergy Mild Skin Rash Verified 02/28/23 12:01 codeine AdvReac Severe hypertention/pass Verified 02/28/23 12:01 out General Stated Complaint: DentalOral KRISTIAN: 3 Review of Systems Narrative: see hpi PFSH All Active Problems (Updated 02/28/23 @ 15:55 by Veena Sin MD) Trigeminal neuralgia (Acute) Pain, dental (Acute) Acute ear pain (Acute) Bilateral knee pain (Acute) Sensorineural hearing loss (Acute) Foot drop, left (Acute) Bilateral lower extremity edema (Acute) Nail dystrophy (Acute) Ankle weakness (Acute) Shortness of breath (Acute) Wheezing (Acute) Muscle spasm (Acute) Balance problem (Acute) Diabetes mellitus (Chronic) Vitamin D deficiency (Acute) Onychomycosis (Acute) Hammer toes, bilateral (Acute) Fatigue (Acute) Irritable bowel syndrome (IBS) (Chronic) Epidermoid cyst of ear (Acute) Avulsion fracture of left ankle (Acute 07/01/20) Cellulitis (Acute) Peripheral edema (Acute) S/P colonoscopy (Acute ~12/12/18) 12/24: sessile serrated adenoma. Traditional serrated adenoma. 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) [place] [facility] [place] DJD (degenerative joint disease) (Chronic) WITH CHRONIC LOW BACK PAIN disability SSI Depression (Chronic) GERD (gastroesophageal reflux disease) (Chronic) Gout (Chronic) Hypertension (Chronic) COPELAND (nonalcoholic steatohepatitis) (Chronic 01/09/15) Obesity (Chronic 08/21/14) Peripheral neuropathy (Chronic) left great toe likely due to surgery Psoriatic arthritis (Chronic 11/01/13) Sensorineural hearing loss, bilateral (Chronic 01/07/15) Sleep apnea, unspecified (Chronic 04/17/15) Medical History Annual physical exam Chronic anxiety Chronic back pain DJD (degenerative joint disease) Obesity, Class III, BMI 40-49.9 (morbid obesity) Peripheral neuropathy Surgical History Stented coronary artery (~2018) Status post discectomy Status post hemorrhoidectomy Status post laminectomy Hemorrhoidectomy (07/22/11) L5 HEMILAMINECTOMY (03/07/91) DISKECTOMY (03/07/89) L5 S1 Family History Mother , 67 Essential hypertension Myocardial infarction Father , 67 Essential hypertension Asthma Brother , 64 Myocardial infarction FAMILY HISTORY CAD (coronary artery disease) Stroke COPD (chronic obstructive pulmonary disease) Social History Smoking/Tobacco Use Status: Never Smoking risk assessment performed?: Yes Alcohol Intake: never Drug use: Never Substance use type: does not use Caregiver/Support person: No Household members: spouse Housing: house Communication Needs: Hard of Hearing and Corrective Lenses Pets and animals: Yes Sexually active: No Do you think of yourself as: straight/heterosexual Current gender identity: male What is your relationship status?: How often do you talk on the phone with friends or family?: once per week How often do you get together with friends or relatives?: twice per week How often do you attend worship or worship services?: decline to answer Do you belong to any clubs or organized social groups?: yes Panel score (0-1 are the most socially isolated patients): 3 Duration: < 15 minutes/day Frequency: 1-2 times per week Fatou/Buddhism: Mu-Ism Special fatou needs: No Seatbelt use: always Drive intox or ride w/intox 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 He is hypertensive he is not tachycardic tachypneic or febrile. His room air O2 sat is normal at 97%. He has normal phonation and no obvious facial swelling. Const General: cooperative, healthy appearing, no acute distress, well developed, well groomed and well hydrated Nutritional Appearance: well nourished Orientation: alert, awake and oriented x3 HENMT Head: normal to inspection, normocephalic and atraumatic Ears: hearing grossly normal bilaterally, external ears normal, TM's normal bilaterally and other (Canals are normal, mastoids are normal, canals are normal) General nose exam: external nose normal, nares normal and no nasal discharge Face and sinus: normal facial exam, sinuses nontender and face symmetric Throat: posterior oropharynx normal and uvula midline Other: The patient has had multiple extractions. There is no swelling of the left upper or lower jaw. There is no evidence of buccal cellulitis or Dain's angina. He is handling secretions he has normal phonation. He is not stridorous Eyes General: appearance normal, both eyes and all related structures Eyelids: eyelids normal Conjunctivae: conjunctivae normal Sclera: sclerae normal Cornea: corneas normal Pupils: PERRL EOM: EOM intact bilaterally and No nystagmus Other: No photophobia. Optic discs were not well-visualized but the retina appeared normal Neck Neck: normal visual inspection, full ROM, no lymphadenopathy, no meningeal signs, trachea midline, supple, no lymphadenopathy noted and No submandibular swelling Lymphatic: no lymphadenopathy noted Resp Effort & Inspection: normal respiratory effort, able to speak in complete sentences, no audible wheezes, no nasal flaring, no respiratory distress, no retractions, no stridor, not tachypneic, no tracheal deviation, no use of accessory muscles, No prolonged expiratory phase and other (Normal inspiratory to expiratory ratio.) Auscultation: clear to auscultation bilaterally, no rales, no rhonchi, no wheezes and no rubs Tactile Fremitus: tactile fremitus absent Cardio Jugular venous pressure: no JVD Palpation: normal PMI Rate: regular rate Rhythm: regular rhythm Heart Sounds: S1 normal, S2 normal, no gallops, no murmurs and no rubs GI Inspection: normal to inspection and non-distended Palpation: soft, no hepatosplenomegaly, no guarding and nontender Percussion: normal to percussion Auscultation: normal bowel sounds Skin General skin exam: no rashes or lesions noted, turgor normal, no petechiae, no purpura and other (Skin is normal for ethnicity.) Lesions: no lesions Rashes: no rashes Trauma: no lacerations or abrasions Neuro General: patient alert, patient awake, patient oriented x3, moves all extremities, no meningeal signs, no focal motor deficits and CN's II-XI intact bilaterally Cranial Nerves: CN's II-XI intact bilaterally, PERRL, accommodation normal, EOM intact bilaterally, no nystagmus, facial strength normal, tongue midline, hearing normal and no nystagmus Cognition: normal cognition Speech: speech normal Gait: normal gait Motor: muscle tone normal throughout and strength 5/5 throughout Sensory Exam: no sensory deficits noted Extrem General: normal to inspection, full ROM, capillary refill normal, no clubbing, cyanosis or edema and no calf tenderness Psych Appearance: grossly normal Affect: normal affect Attitude: cooperative Thought Process: normal Thought Content: normal Insight: insight good Judgment: judgment good Other: The patient appears to have capacity make medical decisions. Course 15:44 PM: I reviewed the interactions of his medications plus carbamazepine. He is on gabapentin for peripheral neuropathy. I have advised about the increased risks of depression and I will fill out a lab slip to have his sodium rechecked next week. We will discharge him home on oxycodone and carbamazepine. Will have him follow-up with neurology and his primary care provider and return here for any new or worrisome symptoms. The patient voiced understanding agreement with the discharge plan. All his questions and concerns were addressed prior to discharge. I have looked up trigeminal neuralgia patient education on up-to-date and I printed a copy for the patient. Vital Signs Vital signs: Vital Signs Temperature 36.2 C L 02/28/23 11:58 Pulse 77 02/28/23 11:58 Respiratory Rate 18 02/28/23 11:58 Blood Pressure 161/68 H 02/28/23 11:58 Pulse Oximetry 97 02/28/23 11:58 Temperature 36.2 C L 02/28/23 11:58 Temperature Source Temporal Artery Scan 02/28/23 11:58 Pulse 77 02/28/23 11:58 Respiratory Rate 18 02/28/23 11:58 Respiratory Effort Normal, Non-Labored 02/28/23 12:04 Blood Pressure 161/68 H 02/28/23 11:58 Blood Pressure Position Sitting 02/28/23 11:58 Pulse Oximetry 97 02/28/23 11:58 Oxygen Delivery Method Room Air 02/28/23 11:58 Oxygen Flow Rate 0 02/28/23 11:58 Pain Level 8 02/28/23 12:31
--- NOTE | 2023-02-28 13:00 | DI.CT_ITS ---
Exam(s) CT FACIAL W EXAM: CT FACIAL W CLINICAL HISTORY: Left jaw pain, s/p extraction, wait for cr/GFR. TECHNIQUE: Imaging Protocol: Axial computed tomography images with coronal and sagittal reformatted images were created and reviewed. No IV contrast COMPARISON: CT CT HEAD WO from 12/13/2020 FINDINGS: MAXILLOFACIAL CT SCAN: There has been extraction of tooth 15 (posterior left-upper). The outer cortex at this level exhibit some dehiscence. There is no true discernible abscess at this level. No fluid in the overlying lef t maxillary sinus. There is mild mucosal thickening anteriorly in the maxillary sinuses but no fluid levels. Sphenoid sinuses are clear. Frontal sinuses clear although the right frontal sinus is not developed. Mastoid air cells and middle ear cavities are clear There is no evidence of facial fractures nor fluid the visualized paranasal sinuses. There is no isis dence of orbital blowout fracture. IMPRESSION: Recently extracted tooth 15., when compared 12/13/2020. No obvious abscess evident. RADIATION DOSE DELIVERED: Total DLP DATA REPOSITORY: All CT scans at this facility are submitted to the National Radiology Data Registry (NRDR) Dose Index Registry (DIR) with the [employer] (A[employer]). RADIATION OPTIMIZATION: All CT scans at this facility use at least one of these dose optimization te chniques: automated exposure control; mA and/or kV adjustment per patient size (includes targeted exa ms where dose is matched to clinical indication); or iterative reconstruction.
--- NOTE | 2023-02-28 13:09 | DI.CT_ITS ---
Exam(s) CT HEAD WO EXAM: CT HEAD WO CLINICAL HISTORY: headache. TECHNIQUE: Imaging Protocol: Axial computed tomography images with coronal and sagittal reformatted images were created and reviewed COMPARISON: CT CT FACIAL W from 02/28/2023 FINDINGS: There are no skull fractures. There is no fluid in the visualized paranasal sinuses. There is no evidence of intracranial hemorrhage, mass effect, or shift of midline structures. There are no extra-axial fluid collections. The ventricles are not enlarged or shifted and there is no blo od within the ventricular system nor within the basal cisterns. IMPRESSION: No acute intracranial findings on this noninfused CT scan of the brain. RADIATION DOSE DELIVERED: Total DLP DATA REPOSITORY: All CT scans at this facility are submitted to the National Radiology Data Registry (NRDR) Dose Index Registry (DIR) with the [employer] (ACR). RADIATION OPTIMIZATION: All CT scans at this facility use at least one of these dose optimization te chniques: automated exposure control; mA and/or kV adjustment per patient size (includes targeted exa ms where dose is matched to clinical indication); or iterative reconstruction.
[2023-02-28] MEDS: oxyCODONE 5 MG TAB PO (13:21)
[2023-02-28 13:56] LABS: Abs Immature Grans 0.02 10^3/uL (0.0-0.06); Absolute Basophil Count 0.02 10^3/uL (0.0-0.2); Absolute Eosinophil Count 0.22 10^3/uL (0.0-0.7); Absolute Lymphocyte Count 2.14 10^3/uL (1.2-3.4); Absolute Monocyte Count 0.71 10^3/uL (0.1-0.8); Absolute Neutrophil Count 5.66 10^3/uL (1.2-6.7); Basophils % 0.2; Eosinophils % 2.5; HCT 39.5 % (40.0-50.0); HGB 13.1 g/dL (13.5-17.5); Immature Grans % 0.2; Lymphocytes % 24.4; MCH 29.1 pg (27.0-33.0); MCHC 33.2 % (32.0-36.0); MCV 88 fL (80-95); MPV 10.7 fL (8.0-11.0); Monocytes % 8.1; Neutrophils % 64.6; Platelet Count 198 10^3/uL (130-400); RDW 14.7 % (11.8-14.1); RDW-SD 46.9 fL; WBC 8.77 10^3/uL (4.4-10.8)
[2023-02-28 14:08] LABS: BUN 17 mg/dL (7-18); CREATININE 1.1 mg/dL (0.70-1.30); Calcium 9.8 mg/dL (8.5-10.1); Chloride 101 mmol/L (98-107); Estimated GFR 73.12 (mL/min/1.73m2); Glucose 92 mg/dL (74-106); Potassium 4.2 mmol/L (3.5-5.1); Sodium 138 mmol/L (136-145)
[2023-02-28] MEDS: Omnipaque 350 MG/ML 100 ML BTL IJ (14:45)
[2023-02-28] MEDS: Normal Saline - Diluent 50 ML VIAL IJ (14:45)
[2023-02-28] MEDS: Normal Saline Flush 10 ML SYR IVP (14:47)
[2023-02-28 15:00] VITALS: BP 136/65; PULSE 68; RESP 18; O2SAT 95
--- NOTE | 2023-02-28 15:02 | DI.VRAD_ITS ---
PROCEDURE INFORMATION: Exam: CT Head Without Contrast Exam date and time: 02/28/2023 2:35 PM Age: 67 years old Clinical indication: Pain; Headache; Prior surgery; Surgery date: <1 month; Surgery type: Left wisdon tooth exraction TECHNIQUE: Imaging protocol: Computed tomography of the head without contrast. COMPARISON: CT HEAD WO 12/13/2020 12:46 PM FINDINGS: Brain: Cerebral and cerebellar volume is appropriate for the patient's age. No CT evidence of acute transcortical infarction. No acute intracranial hemorrhage, midline shift, or herniation. Cerebral ventricles: No ventriculomegaly. Paranasal sinuses: Minimal mucosal thickening of the paranasal sinuses. No air-fluid level. Mastoid air cells: Visualized mastoid air cells are well aerated. Bones/joints: Unremarkable. No acute fracture. Soft tissues: Unremarkable. Vasculature: Mild calcifications of the intracranial internal carotid arteries. IMPRESSION: No acute intracranial abnormality. Stable appearance of the brain. Dictated and Authenticated by: Greyson Forde MD. Ordering:JACINDA Curiel MD
--- NOTE | 2023-02-28 15:05 | DI.VRAD_ITS ---
PROCEDURE INFORMATION: Exam: CT Maxillofacial With Contrast Exam date and time: 02/28/2023 2:35 PM Age: 67 years old Clinical indication: Other: Left jaw pain, S/P extraction, wait for cr/gfr; Prior surgery; Surgery date: <1 month; Surgery type: Wisd[place] tooth exracted 2 weeks ago TECHNIQUE: Imaging protocol: Computed tomography of the face with contrast. Contrast material: OMNIPAQUE 350; Contrast volume: 100 ml; Contrast route: INTRAVENOUS (IV); COMPARISON: CT HEAD WO 12/13/2020 12:46 PM FINDINGS: Orbital cavities: Orbits are normal. Globes are unremarkable. Bones/joints: No acute fracture. Paranasal sinuses: Minimal mucosal thickening of the paranasal sinuses. No air-fluid level. Soft tissues: Unremarkable. Dental: The patient is status post recent extraction of tooth 15, concordant with the patient's history. Scattered dental caries are appreciated. No dental origin abscess is identified. IMPRESSION: Recent extraction of tooth 15 in the interval since 12/13/2020, without demonstration of acute abnormality. Dictated and Authenticated by: Greyson Forde MD. Ordering:JACINDA Curiel MD
[2023-02-28 16:05] VITALS: BP 164/98; PULSE 65; RESP 18; TEMP 36.4; O2SAT 95
--- NOTE | 2023-02-28 18:43 | NUR.NOTE ---
Referral faxed to [facility] Neurology for R/O trigeminal neuralgia, in 2 weeks. Nursing Note:
== END 2023-02-28 16:17 | disposition home or self-care (01) ==
PROVIDERS: Emergency Provider Emergency Medicine Emergency Medical Services; PCP Nurse Practitioner Family
DX: H92.03 Otalgia, bilateral (principal); G50.0 Trigeminal neuralgia; E11.9 Type 2 diabetes mellitus without complications; I10 Essential (primary) hypertension; I25.10 Atherosclerotic heart disease of native coronary artery without angina pectoris; Z95.5 Presence of coronary angioplasty implant and graft; Z98.818 Other dental procedure status; Z79.84 Long term (current) use of oral hypoglycemic drugs; Z79.82 Long term (current) use of aspirin
CPT/HCPCS: 80048; 99285; 70450; 70487; 85025; 99284; J3490

== ENCOUNTER 2023-03-05 13:13 | Outpatient (CLI) | payer MEDICARE, SELFPAY ==
[2023-03-05 12:34] LABS: Anion Gap 6.3 mmol/L (3-11); BUN 16 mg/dL (7-18); CO2 27.7 mmol/L (21.0-32.0); Calcium 9.4 mg/dL (8.5-10.1); Chloride 105 mmol/L (98-107); Estimated GFR 81.98 (mL/min/1.73m2); Glucose 154 mg/dL (74-106); Potassium 4.2 mmol/L (3.5-5.1); Sodium 139 mmol/L (136-145)
[2023-03-05 12:35] LABS: TROPONIN-I < 0.5 ug/mL (4.0-12.0)
== END 2023-03-05 13:14 | disposition home or self-care (01) ==
LOC: LBO 13:14
PROVIDERS: PCP Nurse Practitioner Family; Visit Provider Emergency Medicine Emergency Medical Services
DX: G50.0 Trigeminal neuralgia (principal); Z51.81 Encounter for therapeutic drug level monitoring; Z79.899 Other long term (current) drug therapy
CPT/HCPCS: 36415; 80048; 80156

== ENCOUNTER → 2023-03-11 13:40 | Outpatient (BNVA) | payer MEDICARE, SELFPAY | PROVIDERS: PCP Nurse Practitioner Family; Referring Provider Emergency Medicine Emergency Medical Services; Visit Provider Psychiatry & Neurology Neurology | DX: G62.9 Polyneuropathy, unspecified (principal); M48.061 Spinal stenosis, lumbar region without neurogenic claudication; G50.0 Trigeminal neuralgia; R51.9 Headache, unspecified | CPT/HCPCS: 99215; G2212 ==

== ENCOUNTER 2023-03-16 03:49 | Outpatient (CLI) | payer MEDICARE, SELFPAY ==
[2023-03-16 15:32] LABS: Vitamin B12 806 pg/mL (193-986)
[2023-03-17 12:39] LABS: Albumin 54.8 % (55.8-66.1); Albumin g/dL 3.9 g/dL (3.6-5.2); Total Protein 7.2 g/dL (6.3-8.2)
== END 2023-03-16 03:50 | disposition home or self-care (01) ==
LOC: LBO 04:01
PROVIDERS: PCP Nurse Practitioner Family; Visit Provider Psychiatry & Neurology Neurology
DX: G62.9 Polyneuropathy, unspecified (principal)
CPT/HCPCS: 36415; 82607; 84165

== ENCOUNTER → 2023-03-19 09:18 | Outpatient (BNVA) | payer MEDICARE, SELFPAY | PROVIDERS: PCP Nurse Practitioner Family; Referring Provider Nurse Practitioner Family | DX: M17.11 Unilateral primary osteoarthritis, right knee (principal) | CPT/HCPCS: 20610; J1040 ==

== ENCOUNTER → 2023-08-09 09:31 | Outpatient (BNVA) | payer MEDICARE, SELFPAY | PROVIDERS: PCP Family Medicine; Referring Provider Family Medicine; Visit Provider Internal Medicine Cardiovascular Disease | DX: R06.02 Shortness of breath (principal); I25.118 Atherosclerotic heart disease of native coronary artery with other forms of angina pectoris | CPT/HCPCS: 99213 ==

== ENCOUNTER → 2023-08-12 09:25 | Outpatient (BNVA) | payer MEDICARE, SELFPAY | PROVIDERS: PCP Family Medicine; Visit Provider Psychiatry & Neurology Neurology | DX: M48.061 Spinal stenosis, lumbar region without neurogenic claudication (principal); G62.9 Polyneuropathy, unspecified | CPT/HCPCS: 99215 ==

== ENCOUNTER 2023-11-29 10:21 | Emergency (ER) | payer MEDICARE, SELFPAY ==
[2023-11-29 10:25] VITALS: BP 154/77; PULSE 79; RESP 20; TEMP 37; O2SAT 97
--- NOTE | 2023-11-29 10:45 | RT.EKG_ITS ---
APPROVED REPORT Exam: Resting ECG Reason for Exam: falls Patient Location: E HR:61 bpm ECG Measurements Heart Rate 61 AXIS ID 161 P -59 QRSd 102 QRS 27 QT 423 T 38 QTc 427 Conclusion Sinus or ectopic atrial rhythm...P axis (-45,135)
--- NOTE | 2023-11-29 10:49 | ED.GENADUL_ITS ---
Discharge Plan Disposition Patient Disposition: Home Condition: Stable Discharge Details Clinical Impression: Fall, Contusion of left shoulder, Hypomagnesemia Primary Care Provider: Jonathan Walker ED Provider: Modesto Fisher Home Meds and New Rx's Prescriptions: Continued metformin 500 mg tablet 500 mg PO BID Qty: 180 3RF Rx Instructions: Starting dose: Take 1/2 tablet daily for 7 days, then take 1/2 tablet twice daily for 7 days, then take 1 tablet in AM and 1/2 tablet in PM for 7 days, then 1 tablet twice daily thereafter. sulfasalazine 500 mg tablet 1,000 mg PO QAM Qty: 180 3RF nystatin 100,000 unit/gram ointment 1 applic topical BID Qty: 30 2RF polyethylene glycol 3350 [Miralax] 17 gram powder in packet 17 g PO DAILY PRN nitroglycerin 0.4 mg tablet, sublingual 0.4 mg Sublingual PRN PRN (Reason: chest pain) Qty: 25 3RF multivitamin Tablet 1 tab PO DAILY gabapentin 800 mg tablet 800 mg PO BID Qty: 180 3RF losartan 100 mg tablet 100 mg PO DAILY Qty: 90 3RF prochlorperazine maleate 5 mg tablet 5 - 10 mg PO ONCE PRN (Reason: headache) pantoprazole 40 mg tablet,delayed release (DR/EC) 40 mg PO DAILY Qty: 90 3RF topiramate 100 mg tablet 100 mg PO BID Qty: 180 3RF hydrochlorothiazide 12.5 mg tablet 12.5 mg PO DAILY Qty: 90 3RF ropinirole 2 mg tablet 2 mg PO QHS Qty: 60 2RF Rx Instructions: administer 1-3 hours before bedtime (DME) AFO, bilateral, custom made See Rx Instructions .Route .MEDSUPPLY Qty: 1 0RF Rx Instructions: As directed; aspirin 81 MG tablet,chewable 81 mg PO DAILY amlodipine 5 mg tablet 5 mg PO DAILY Qty: 90 3RF venlafaxine 150 mg capsule,extended release 24hr 150 mg PO DAILY Qty: 90 3RF cyanocobalamin (vitamin B-12) [Vitamin B-12] 1,000 mcg tablet See Rx Instructions .ROUTE .COMPLEX Qty: 90 3RF Dose Instruction: TAKE ONE TABLET BY MOUTH EVERY DAY Rx Instructions: TAKE ONE TABLET BY MOUTH EVERY DAY atorvastatin 40 mg tablet 40 mg PO DAILY Qty: 90 3RF ergocalciferol (vitamin D2) 1,250 mcg (50,000 unit) capsule See Rx Instructions .ROUTE .COMPLEX Qty: 12 0RF Dose Instruction: TAKE 1 CAPSULE BY MOUTH EVERY WEEK Rx Instructions: TAKE 1 CAPSULE BY MOUTH EVERY WEEK allopurinol 100 mg tablet 100 mg PO DAILY Qty: 90 3RF armodafinil 150 mg tablet 150 mg PO QAM Qty: 30 3RF folic acid 400 MCG tablet 400 mcg PO DAILY modafinil 100 mg tablet 100 mg PO QAM Patient Comments: 100 mg orally every morning Discharge Instructions Instructions: Preventing falls in adults, Minor Contusion ED, Hypomagnesemia Additional Instructions: Please use walker to assist with ambulation. Please follow-up with your primary care physician. Be sure to discuss chronic leg weakness and ongoing physical therapy with your primary care physician. Please contact your primary care physician to arrange follow-up. Return to the ER immediately for any worsening or new concerning symptoms. Referrals: Jonatahn Walker DO [Primary Care Provider] - HPI General Mode of arrival: ambulatory . Date/Time Provider Initiated Documentation: 11/29/23 10:39 . Limitations to Documentation: no limitations . Information obtained by: patient . HPI Narrative: 68-year-old male presents with chief complaint of left arm pain. Patient notes over the past week his legs have given out at least 4 times resulting in falls. He notes chronic intermittent weakness of his lower extremities with neuropathy. He denies LOC. His fall yesterday resulted in injury to his left arm which has been painful with any movement. Patient notes some mild pain in his left hip as well. No chest pain or abdominal pain. No head injury. No headache. No neck pain. Related Data Home Medications ?Medication ?Instructions ?Recorded ?Confirmed folic acid 400 mcg tablet 400 mcg PO DAILY 05/29/12 11/29/23 aspirin 81 mg chewable tablet 81 mg PO DAILY 09/29/16 11/29/23 nystatin 100,000 unit/gram topical 1 applic topical BID #30 grams 07/06/22 11/29/23 ointment sulfasalazine 500 mg tablet 1,000 mg (2 x 500 mg) PO QAM #180 07/06/22 11/29/23 tabs nitroglycerin 0.4 mg sublingual 0.4 mg sublingual PRN PRN chest 08/07/22 11/29/23 tablet pain ##25 metformin 500 mg tablet 500 mg PO BID #180 tabs 11/16/22 11/29/23 amlodipine 5 mg tablet 5 mg PO DAILY #90 tabs 12/21/22 11/29/23 gabapentin 800 mg tablet 800 mg PO BID #180 tabs 03/11/23 11/29/23 multivitamin 1 tab PO DAILY 04/30/23 11/29/23 venlafaxine 150 mg 150 mg PO DAILY #90 caps 06/09/23 11/29/23 capsule,extended release 24 hr polyethylene glycol 3350 17 gram 17 g PO DAILY PRN 07/13/23 11/29/23 oral powder packet (Miralax) cyanocobalamin (vitamin B-12) See Rx Instructions .Route 07/26/23 11/29/23 1,000 mcg tablet (Vitamin B-12) .COMPLEX #90 tabs losartan 100 mg tablet 100 mg PO DAILY #90 tabs 08/13/23 11/29/23 atorvastatin 40 mg tablet 40 mg PO DAILY #90 tabs 09/01/23 11/29/23 hydrochlorothiazide 12.5 mg tablet 12.5 mg PO DAILY #90 tabs 09/21/23 11/29/23 pantoprazole 40 mg tablet,delayed 40 mg PO DAILY #90 tab-caps 09/21/23 11/29/23 release prochlorperazine maleate 5 mg 5 - 10 mg PO ONCE PRN headache 09/21/23 11/29/23 tablet ropinirole 2 mg tablet 2 mg PO QHS #60 tabs 09/21/23 11/29/23 topiramate 100 mg tablet 100 mg PO BID #180 tabs 09/21/23 11/29/23 ergocalciferol (vitamin D2) 1,250 See Rx Instructions .Route 10/25/23 11/29/23 mcg (50,000 unit) capsule .COMPLEX #12 caps allopurinol 100 mg tablet 100 mg PO DAILY #90 tab-caps 10/28/23 11/29/23 AFO, bilateral, custom made #1 ea 11/02/23 11/29/23 armodafinil 150 mg tablet 150 mg PO QAM #30 tabs 11/09/23 11/29/23 modafinil 100 mg tablet 100 mg PO QAM 11/29/23 11/29/23 Previous Rx's ?Medication ?Instructions ?Recorded nystatin 100,000 unit/gram topical 1 applic topical BID #30 grams 07/06/22 ointment sulfasalazine 500 mg tablet 1,000 mg (2 x 500 mg) PO QAM #180 07/06/22 tabs nitroglycerin 0.4 mg sublingual 0.4 mg sublingual PRN PRN chest 08/07/22 tablet pain ##25 metformin 500 mg tablet 500 mg PO BID #180 tabs 11/16/22 amlodipine 5 mg tablet 5 mg PO DAILY #90 tabs 12/21/22 gabapentin 800 mg tablet 800 mg PO BID #180 tabs 03/11/23 venlafaxine 150 mg 150 mg PO DAILY #90 caps 06/09/23 capsule,extended release 24 hr cyanocobalamin (vitamin B-12) See Rx Instructions .Route 07/26/23 1,000 mcg tablet (Vitamin B-12) .COMPLEX #90 tabs losartan 100 mg tablet 100 mg PO DAILY #90 tabs 08/13/23 atorvastatin 40 mg tablet 40 mg PO DAILY #90 tabs 09/01/23 hydrochlorothiazide 12.5 mg tablet 12.5 mg PO DAILY #90 tabs 09/21/23 pantoprazole 40 mg tablet,delayed 40 mg PO DAILY #90 tab-caps 09/21/23 release ropinirole 2 mg tablet 2 mg PO QHS #60 tabs 09/21/23 topiramate 100 mg tablet 100 mg PO BID #180 tabs 09/21/23 ergocalciferol (vitamin D2) 1,250 See Rx Instructions .Route 10/25/23 mcg (50,000 unit) capsule .COMPLEX #12 caps allopurinol 100 mg tablet 100 mg PO DAILY #90 tab-caps 10/28/23 AFO, bilateral, custom made #1 ea 11/02/23 armodafinil 150 mg tablet 150 mg PO QAM #30 tabs 11/09/23 Allergies Allergy/AdvReac Type Severity Reaction Status Date / Time Penicillins Allergy Mild Skin Rash Verified 11/29/23 10:29 codeine AdvReac Severe hypertention/pass Verified 11/29/23 10:29 out General Stated Complaint: GenMedical KRISTIAN: 3 Exam Const General: cooperative and no acute distress HENHI Head: normocephalic and atraumatic Mouth: moist mucous membranes Eyes EOM: EOM intact bilaterally Neck Neck: trachea midline and supple Resp Auscultation: clear to auscultation bilaterally, no rales, no rhonchi and no wheezes Cardio Rate: regular rate and not tachycardic Rhythm: regular rhythm GI Palpation: soft, not firm, no guarding, no masses, not rigid and nontender Skin General skin exam: no rashes or lesions noted Neuro General: patient alert, patient awake, patient oriented x3 and tone normal Extrem General: no edema Left upper extremity: shoulder/upper arm Details: tenderness; no swelling, no ecchymosis and no crepitus, elbow/forearm Details: normal to inspection and wrist Details: normal to inspection Psych Appearance: grossly normal Mental Status: mental status grossly normal Course Vital Signs Vital signs: Vital Signs Temperature 37.0 C 11/29/23 10:25 Pulse 79 11/29/23 10:25 Respiratory Rate 20 11/29/23 10:25 Blood Pressure 154/77 H 11/29/23 10:25 Pulse Oximetry 97 11/29/23 10:25 Temperature 37.0 C 11/29/23 10:25 Pulse 79 11/29/23 10:25 Respiratory Rate 20 11/29/23 10:25 Respiratory Effort Short of Breath 11/29/23 10:32 Blood Pressure 154/77 H 11/29/23 10:25 Pulse Oximetry 97 11/29/23 10:25 Oxygen Delivery Method Room Air 11/29/23 10:25 Oxygen Flow Rate 0 11/29/23 10:25 Pain Level 8 11/29/23 10:25 Medical Decision Making 68-year-old male with multiple medical problems including history of chronic left leg weakness, neuropathy, here today after multiple falls last week, sustaining fall yesterday with injury to his left shoulder. No head injury. Patient does have weakness of the left lower extremity. Patient notes this is chronic and unchanged. Screening EKG was reviewed and interpreted by me: Please report, sinus rhythm 61 bpm, normal axis, nondiagnostic. X-ray of the left humerus interpreted by radiology: No acute fracture or dislocation. X-ray of the left shoulder interpreted by radiology: No acute fracture or dislocation. Concern for calcific tendinitis. X-ray of the C-spine interpreted by radiology: 1. No definite acute fracture or subluxation in the cervical spine. 2. Limited visualization of the cervical thoracic junction. Labs reviewed: Mild hypomagnesemia. I will give magnesium oxide PO. Suspect shoulder contusion. Regarding recurrent falls, patient does have walker and he has not been using this. He has been using a cane which I believe is insufficient. I reviewed recommendation to use walker with the patient. I will have him follow-up with his primary care physician. Lab Data Lab results reviewed: Yes I reviewed the patient's lab results. Labs: Laboratory Tests Range/Units 11/29/23 11:31 WBC (4.4-10.8) 10^3/uL 7.87 RBC (4.36-5.78) 10^6/uL 4.21 L Hgb (13.5-17.5) g/dL 12.3 L Hct (40.0-50.0) % 37.7 L MCV (80-95) fL 90 MCH (27.0-33.0) pg 29.2 MCHC (32.0-36.0) % 32.6 RDW (11.8-14.1) % 14.6 H Plt Count (130-400) 10^3/uL 167 MPV (8.0-11.0) fL 10.8 Immature Gran % % 0.3 Neutrophils % % 73.2 Lymphocytes % % 16.8 Monocytes % % 5.2 Eosinophils % % 4.2 Basophils % % 0.3 Nucleated RBC % (0.0-0.3) % 0.0 Absolute Neutrophils (1.2-6.7) 10^3/uL 5.77 Absolute Lymphocytes (1.2-3.4) 10^3/uL 1.32 Absolute Monocytes (0.1-0.8) 10^3/uL 0.41 Absolute Eosinophils (0.0-0.7) 10^3/uL 0.33 Absolute Basophils (0.0-0.2) 10^3/uL 0.02 Sodium (136-145) mmol/L 139 Potassium (3.5-5.1) mmol/L 3.6 Chloride (98-107) mmol/L 104 Carbon Dioxide (21.0-32.0) mmol/L 27.1 Anion Gap (3-11) mmol/L 7.9 BUN (7-18) mg/dL 19 H Creatinine (0.70-1.30) mg/dL 1.2 Est GFR (CKD-EPI 2020) (mL/min/1.73m2) 65.46 Glucose (74-106) mg/dL 152 H Calcium (8.5-10.1) mg/dL 9.3 Magnesium (1.8-2.4) mg/dL 1.7 L Total Bilirubin (0.2-1.0) mg/dL 0.49 AST (15-37) U/L 21 ALT (16-63) U/L 29 Alkaline Phosphatase (46-116) U/L 99 Total Protein (6.4-8.2) g/dL 7.4 Albumin (3.4-5.0) g/dL 3.4 Quality:SDOH Health Related Social Needs: Health related social needs risk of homeless Health related social needs details Not answered PFSH All Active Problems (Updated 11/29/23 @ 13:39 by Modesto Fisher MD) Hypomagnesemia (Acute) Contusion of left shoulder (Acute) Fall (Acute) Bilateral foot-drop (Acute) Daytime sleepiness (Acute) Memory problem (Acute) Hip pain (Acute) Back pain (Acute) Migraine (Chronic) Bilateral primary osteoarthritis of knee (Acute) DEPO INJECTION R KNEE: 03/19/23 Diarrhea (Acute) Diabetic neuropathy, type II diabetes mellitus (Acute) Bilateral knee pain (Acute) Sensorineural hearing loss (Acute) Foot drop, left (Acute) Bilateral lower extremity edema (Acute) Nail dystrophy (Acute) Ankle weakness (Acute) Shortness of breath (Acute) Wheezing (Acute) Muscle spasm (Acute) Balance problem (Acute) Diabetes mellitus (Chronic) Vitamin D deficiency (Acute) Onychomycosis (Acute) Hammer toes, bilateral (Acute) Fatigue (Acute) Irritable bowel syndrome (IBS) (Chronic) Epidermoid cyst of ear (Acute) Avulsion fracture of left ankle (Acute 07/01/20) Cellulitis (Acute) Peripheral edema (Acute) S/P colonoscopy (Acute ~12/12/18) 12/24: sessile serrated adenoma. Traditional serrated adenoma. 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) [place] [facility] [place] [facility] [place] DJD (degenerative joint disease) (Chronic) WITH CHRONIC LOW BACK PAIN disability SSI Depression (Chronic) GERD (gastroesophageal reflux disease) (Chronic) Gout (Chronic) Hypertension (Chronic) COPELAND (nonalcoholic steatohepatitis) (Chronic 01/09/15) Obesity (Chronic 08/21/14) Peripheral neuropathy (Chronic) left great toe likely due to surgery Psoriatic arthritis (Chronic 11/01/13) Sensorineural hearing loss, bilateral (Chronic 01/07/15) Sleep apnea, unspecified (Chronic 04/17/15) Medical History Annual physical exam Chronic anxiety Chronic back pain Peripheral neuropathy DJD (degenerative joint disease) Obesity, Class III, BMI 40-49.9 (morbid obesity) Surgical History Stented coronary artery (~2018) Status post discectomy Status post hemorrhoidectomy Status post laminectomy Hemorrhoidectomy (07/22/11) L5 HEMILAMINECTOMY (03/07/91) DISKECTOMY (03/07/89) L5 S1 Family History Mother , 67 Essential hypertension Myocardial infarction Depression Heart disease Hypertension Father , 67 Essential hypertension Asthma Depression Heart disease Brother , 64 Myocardial infarction Depression Heart disease Hypertension FAMILY HISTORY CAD (coronary artery disease) Stroke COPD (chronic obstructive pulmonary disease) Social History Smoking/Tobacco Use Status: Never Smoking risk assessment performed?: Yes Alcohol Intake: never Drug use: Never Substance use type: does not use Adopted: No Caregiver/Support person: Yes Foster care: No Household members: spouse Housing: house Number of Children: 1 number of grandchildren: 2 Communication Needs: Hard of Hearing Education Level: high school Do you need help understanding health information?: Often current occupation: Retired Pets and animals: Yes (1) Pets and animals: cat(s) Sexually active: No Do you think of yourself as: straight/heterosexual Current gender identity: male What is your relationship status?: How often do you talk on the phone with friends or family?: decline to answer How often do you get together with friends or relatives?: decline to answer How often do you attend holiness or jainism services?: decline to answer Do you belong to any clubs or organized social groups?: no Panel score (0-1 are the most socially isolated patients): 1 Fatou/Christian: Adventist Special fatou needs: No Seatbelt use: always Drive intox or ride w/intox locomotive driver: No Do you feel safe at home: Yes Do you feel safe in your relationship?: Yes
[2023-11-29 11:37] LABS: Abs Immature Grans 0.02 10^3/uL (0.0-0.06); Absolute Basophil Count 0.02 10^3/uL (0.0-0.2); Absolute Eosinophil Count 0.33 10^3/uL (0.0-0.7); Absolute Lymphocyte Count 1.32 10^3/uL (1.2-3.4); Absolute Monocyte Count 0.41 10^3/uL (0.1-0.8); Absolute Neutrophil Count 5.77 10^3/uL (1.2-6.7); Basophils % 0.3 %; Eosinophils % 4.2 %; HCT 37.7 % (40.0-50.0); HGB 12.3 g/dL (13.5-17.5); Immature Grans % 0.3 %; Lymphocytes % 16.8 %; MCH 29.2 pg (27.0-33.0); MCHC 32.6 % (32.0-36.0); MCV 90 fL (80-95); MPV 10.8 fL (8.0-11.0); Monocytes % 5.2 %; Neutrophils % 73.2 %; Platelet Count 167 10^3/uL (130-400); RBC 4.21 10^6/uL (4.36-5.78); RDW 14.6 % (11.8-14.1); RDW-SD 47.5 fL; WBC 7.87 10^3/uL (4.4-10.8)
[2023-11-29 11:54] LABS: ALT 29 U/L (16-63); AST 21 U/L (15-37); Albumin 3.4 g/dL (3.4-5.0); Alkaline Phosphatase 99 U/L (46-116); Anion Gap 7.9 mmol/L (3-11); BUN 19 mg/dL (7-18); Bilirubin, Total 0.49 mg/dL (0.2-1.0); CO2 27.1 mmol/L (21.0-32.0); CREATININE 1.2 mg/dL (0.70-1.30); Calcium 9.3 mg/dL (8.5-10.1); Chloride 104 mmol/L (98-107); Estimated GFR 65.46 (mL/min/1.73m2); Glucose 152 mg/dL (74-106); Magnesium 1.7 mg/dL (1.8-2.4); Potassium 3.6 mmol/L (3.5-5.1); Sodium 139 mmol/L (136-145); Total Protein 7.4 g/dL (6.4-8.2)
--- NOTE | 2023-11-29 12:00 | DI.RAD_ITS ---
Exam(s) XR CERVICAL SPINE COMP 4-5V EXAM: XR CERVICAL SPINE COMP 4-5V CLINICAL HISTORY: fall. TECHNIQUE: 2D digital imaging was performed. Six images were obtained. AP, odontoid, lateral and gloria ateral oblique images were obtained. COMPARISON: No exams were available for comparison FINDINGS: The odontoid is intact. The lateral masses are well aligned. There is normal alignment of the cervi yayo spine. The cervical thoracic junction is partially obscured on the swimmer's view. Age-appropri ate degenerative changes are seen in the cervical spine. No acute fracture or subluxation is seen in the visualized cervical spine. No significant neural foraminal stenosis is present. The prevertebr al soft tissues are unremarkable. Lung apices are clear. IMPRESSION: 1. No definite acute fracture or subluxation in the cervical spine. 2. Limited visualization of the cervical thoracic junction. DATA REPOSITORY: RADIATION DOSE DELIVERED:
--- NOTE | 2023-11-29 12:00 | DI.RAD_ITS ---
Exam(s) XR HUMERUS LT EXAM: XR HUMERUS LT CLINICAL HISTORY: fall, pain. TECHNIQUE: 2D digital imaging was performed of the left humerus. Four images were obtained. AP and lateral views were obtained. COMPARISON: No exams were available for comparison FINDINGS: BONES: No acute fracture is present. No bony destructive lesion is seen. There are degenerative bazzi es seen at the shoulder. SOFT TISSUE: Normal. IMPRESSION: No acute fracture or dislocation. DATA REPOSITORY: RADIATION DOSE DELIVERED:
--- NOTE | 2023-11-29 12:00 | DI.RAD_ITS ---
Exam(s) XR SHOULDER LT COMPLETE 2+V EXAM: XR SHOULDER LT COMPLETE 2+V CLINICAL HISTORY: fall, pain. TECHNIQUE: 2D digital imaging was performed of the left shoulder. Six images were obtained. AP, Gr ashey, Y-view and axillary views were obtained. COMPARISON: No exams were available for comparison FINDINGS: BONES: No acute fracture is present. No bony destructive lesion is seen. JOINTS: No dislocation present. There are degenerative changes seen at the acromioclavicular and donny ohumeral joints. SOFT TISSUE: There is a tiny well corticated osseous density adjacent to the greater tuberosity which may reflect calcific tendinitis. IMPRESSION: No acute fracture or dislocation. DATA REPOSITORY: RADIATION DOSE DELIVERED:
[2023-11-29 13:26] VITALS: BP 138/74; PULSE 88; RESP 22; O2SAT 96
[2023-11-29] MEDS: Magnesium Oxide 400 MG TAB PO (13:39)
[2023-11-29 13:40] VITALS: BP 126/56; PULSE 57; O2SAT 100
== END 2023-11-29 13:48 | disposition home or self-care (01) ==
PROVIDERS: Emergency Provider Student in an Organized Health Care Education/Training Program; PCP Family Medicine
DX: S40.012A Contusion of left shoulder, initial encounter (principal); M79.602 Pain in left arm; M25.552 Pain in left hip; W19.XXXA Unspecified fall, initial encounter; Z91.81 History of falling; R53.1 Weakness
CPT/HCPCS: 36415; 80053; 93005; 99284; 72050; 73030; 73060; 83735; 85025; 93010; 99283

== ENCOUNTER → 2023-12-22 13:05 | Outpatient (BNVA) | payer MEDICARE, SELFPAY | PROVIDERS: PCP Family Medicine; Referring Provider Family Medicine; Visit Provider Psychiatry & Neurology Neurology | DX: M25.551 Pain in right hip (principal); M25.552 Pain in left hip; G62.9 Polyneuropathy, unspecified; M48.061 Spinal stenosis, lumbar region without neurogenic claudication; M54.9 Dorsalgia, unspecified | CPT/HCPCS: 99214 ==

== ENCOUNTER 2024-03-04 10:14 | Emergency (ER) | payer MEDICARE, SELFPAY ==
[2024-03-04 10:18] VITALS: BP 168/72; PULSE 68; RESP 16; TEMP 36.6; O2SAT 96
--- NOTE | 2024-03-04 10:46 | W.ED.GENAD ---
Discharge Plan Disposition Patient Disposition: Home Condition: Stable Discharge Details Clinical Impression: Axillary odor Primary Care Provider: Jonathan Walker ED Provider: Modesto Fisher Stevens Meds and New Rx's Prescriptions: New chlorhexidine gluconate 4 % liquid 1 applic topical BID Qty: 473 0RF Continued nystatin 100,000 unit/gram ointment 1 applic topical BID Qty: 30 2RF polyethylene glycol 3350 [Miralax] 17 gram powder in packet 17 g PO DAILY PRN triamcinolone acetonide 0.1 % cream 1 applic topical DAILY Qty: 15 0RF nitroglycerin 0.4 mg tablet, sublingual 0.4 mg Sublingual PRN PRN (Reason: chest pain) Qty: 25 3RF multivitamin Tablet 1 tab PO DAILY losartan 100 mg tablet 100 mg PO DAILY Qty: 90 3RF prochlorperazine maleate 5 mg tablet 5 - 10 mg PO ONCE PRN (Reason: headache) pantoprazole 40 mg tablet,delayed release (DR/EC) 40 mg PO DAILY Qty: 90 3RF hydrochlorothiazide 12.5 mg tablet 12.5 mg PO DAILY Qty: 90 3RF ropinirole 2 mg tablet 2 mg PO QHS Qty: 60 2RF Rx Instructions: administer 1-3 hours before bedtime (DME) AFO, bilateral, custom made See Rx Instructions .Route .MEDSUPPLY Qty: 1 0RF Rx Instructions: As directed; amlodipine 5 mg tablet 5 mg PO DAILY Qty: 90 3RF gabapentin 800 mg tablet 800 mg PO BID Qty: 180 3RF aspirin 81 MG tablet,chewable 81 mg PO DAILY venlafaxine 150 mg capsule,extended release 24hr 150 mg PO DAILY Qty: 90 3RF cyanocobalamin (vitamin B-12) [Vitamin B-12] 1,000 mcg tablet See Rx Instructions .ROUTE .COMPLEX Qty: 90 3RF Dose Instruction: TAKE ONE TABLET BY MOUTH EVERY DAY Rx Instructions: TAKE ONE TABLET BY MOUTH EVERY DAY atorvastatin 40 mg tablet 40 mg PO DAILY Qty: 90 3RF allopurinol 100 mg tablet 100 mg PO DAILY Qty: 90 3RF armodafinil 150 mg tablet 150 mg PO QAM Qty: 30 3RF (DME) Diabetic shoes See Rx Instructions .Route .MEDSUPPLY Qty: 1 0RF Rx Instructions: Please provide one pair. magnesium oxide 500 mg capsule 500 mg PO DAILY Qty: 90 0RF ergocalciferol (vitamin D2) 1,250 mcg (50,000 unit) capsule See Rx Instructions .ROUTE .COMPLEX Qty: 12 3RF Dose Instruction: TAKE 1 CAPSULE BY MOUTH EVERY WEEK Rx Instructions: TAKE 1 CAPSULE BY MOUTH EVERY WEEK metformin 500 mg tablet 500 mg PO BID Qty: 180 3RF folic acid 400 MCG tablet 400 mcg PO DAILY Discharge Instructions Additional Instructions: Use chlorhexidine solution or towelettes, clean armpit twice a day for the next week. Use a deodorant for sensitive skin - consider [employer] [place]. Apply in the morning and again at night as needed. Please contact your primary care physician to arrange follow-up. Return to the ER immediately for any worsening or new concerning symptoms. Referrals: Jonathan Walker DO [Primary Care Provider] - [facility] General Date/Time Provider Initiated Documentation: 03/04/24 10:34. HPI Narrative: 68-year-old male with multiple medical problems here with concern for body odor today. Patient notes over the past 4 months his has complained about his increased body odor. People at [facility] have also noticed. He has tried 2 different deodorants and is now trying a different soap to see if this will help. He denies associated rash although does note that in the remote past he used arm and Hammer deodorant which caused rash in his armpits. Patient denies change in diet. He does note new medications over the past few months including magnesium and metformin. He states he did call his primary care physician to try to schedule a visit but that this was delayed. He does have a visit scheduled for mid March. Related Data Home Medications ?Medication ?Instructions ?Recorded ?Confirmed folic acid 400 mcg tablet 400 mcg PO DAILY 05/29/12 03/04/24 aspirin 81 mg chewable tablet 81 mg PO DAILY 09/29/16 03/04/24 nystatin 100,000 unit/gram topical 1 applic topical BID #30 grams 07/06/22 03/04/24 ointment nitroglycerin 0.4 mg sublingual 0.4 mg sublingual PRN PRN chest 08/07/22 03/04/24 tablet pain ##25 multivitamin 1 tab PO DAILY 04/30/23 03/04/24 venlafaxine 150 mg 150 mg PO DAILY #90 caps 06/09/23 03/04/24 capsule,extended release 24 hr polyethylene glycol 3350 17 gram 17 g PO DAILY PRN 07/13/23 03/04/24 oral powder packet (Miralax) cyanocobalamin (vitamin B-12) See Rx Instructions .Route 07/26/23 03/04/24 1,000 mcg tablet (Vitamin B-12) .COMPLEX #90 tabs losartan 100 mg tablet 100 mg PO DAILY #90 tabs 08/13/23 03/04/24 atorvastatin 40 mg tablet 40 mg PO DAILY #90 tabs 09/01/23 03/04/24 hydrochlorothiazide 12.5 mg tablet 12.5 mg PO DAILY #90 tabs 09/21/23 03/04/24 pantoprazole 40 mg tablet,delayed 40 mg PO DAILY #90 tab-caps 09/21/23 03/04/24 release prochlorperazine maleate 5 mg 5 - 10 mg PO ONCE PRN headache 09/21/23 03/04/24 tablet ropinirole 2 mg tablet 2 mg PO QHS #60 tabs 09/21/23 03/04/24 allopurinol 100 mg tablet 100 mg PO DAILY #90 tab-caps 10/28/23 03/04/24 AFO, bilateral, custom made #1 ea 11/02/23 03/04/24 armodafinil 150 mg tablet 150 mg PO QAM #30 tabs 11/09/23 03/04/24 amlodipine 5 mg tablet 5 mg PO DAILY #90 tabs 12/07/23 03/04/24 gabapentin 800 mg tablet 800 mg PO BID #180 tabs 12/22/23 03/04/24 Diabetic shoes #1 ea 01/05/24 03/04/24 magnesium oxide 500 mg capsule 500 mg PO DAILY #90 caps 01/06/24 03/04/24 triamcinolone acetonide 0.1 % 1 applic topical DAILY #15 grams 01/25/24 03/04/24 topical cream ergocalciferol (vitamin D2) 1,250 See Rx Instructions .Route 01/28/24 03/04/24 mcg (50,000 unit) capsule .COMPLEX #12 caps metformin 500 mg tablet 500 mg PO BID #180 tabs 01/28/24 03/04/24 chlorhexidine gluconate 4 % 1 applic topical BID #473 mL 03/04/24 topical liquid Previous Rx's ?Medication ?Instructions ?Recorded nystatin 100,000 unit/gram topical 1 applic topical BID #30 grams 07/06/22 ointment nitroglycerin 0.4 mg sublingual 0.4 mg sublingual PRN PRN chest 08/07/22 tablet pain ##25 venlafaxine 150 mg 150 mg PO DAILY #90 caps 06/09/23 capsule,extended release 24 hr cyanocobalamin (vitamin B-12) See Rx Instructions .Route 07/26/23 1,000 mcg tablet (Vitamin B-12) .COMPLEX #90 tabs losartan 100 mg tablet 100 mg PO DAILY #90 tabs 08/13/23 atorvastatin 40 mg tablet 40 mg PO DAILY #90 tabs 09/01/23 hydrochlorothiazide 12.5 mg tablet 12.5 mg PO DAILY #90 tabs 09/21/23 pantoprazole 40 mg tablet,delayed 40 mg PO DAILY #90 tab-caps 09/21/23 release ropinirole 2 mg tablet 2 mg PO QHS #60 tabs 09/21/23 allopurinol 100 mg tablet 100 mg PO DAILY #90 tab-caps 10/28/23 AFO, bilateral, custom made #1 ea 11/02/23 armodafinil 150 mg tablet 150 mg PO QAM #30 tabs 11/09/23 amlodipine 5 mg tablet 5 mg PO DAILY #90 tabs 12/07/23 gabapentin 800 mg tablet 800 mg PO BID #180 tabs 12/22/23 Diabetic shoes #1 ea 01/05/24 magnesium oxide 500 mg capsule 500 mg PO DAILY #90 caps 01/06/24 triamcinolone acetonide 0.1 % 1 applic topical DAILY #15 grams 01/25/24 topical cream ergocalciferol (vitamin D2) 1,250 See Rx Instructions .Route 01/28/24 mcg (50,000 unit) capsule .COMPLEX #12 caps metformin 500 mg tablet 500 mg PO BID #180 tabs 01/28/24 chlorhexidine gluconate 4 % 1 applic topical BID #473 mL 03/04/24 topical liquid Allergies Allergy/AdvReac Type Severity Reaction Status Date / Time Penicillins Allergy Mild Skin Rash Verified 03/04/24 10:24 codeine AdvReac Severe hypertention/pass Verified 03/04/24 10:24 out General Stated Complaint: GenMedical KRISTIAN: 4 Review of Systems All systems reviewed & are unremarkable except as noted in HPI and below Exam Const General: cooperative and no acute distress HENMT Mouth: moist mucous membranes Eyes Conjunctivae: normal conjunctivae Sclera: normal sclerae Resp Auscultation: clear to auscultation bilaterally, no rales, no rhonchi and no wheezes Cardio Rate: regular rate and not tachycardic Rhythm: regular rhythm Skin General skin exam: no rashes or lesions noted Other: no axillary rash or swelling, mild DELMI; faint 4cm circular rash right abd Neuro General: patient alert, patient awake and tone normal Extrem General: no edema Psych Appearance: grossly normal Mental Status: mental status grossly normal Speech and Movement: speech and movement normal Course Vital Signs Vital signs: Vital Signs Temperature 36.6 C 03/04/24 10:18 Pulse 68 03/04/24 10:18 Respiratory Rate 16 03/04/24 10:18 Blood Pressure 168/72 H 03/04/24 10:18 Pulse Oximetry 96 03/04/24 10:18 Temperature 36.6 C 03/04/24 10:18 Pulse 68 03/04/24 10:18 Respiratory Rate 16 03/04/24 10:18 Blood Pressure 168/72 H 03/04/24 10:18 Pulse Oximetry 96 03/04/24 10:18 Pain Level 0 03/04/24 10:18 Medical Decision Making 68-year-old male with multiple medical problems, here with concern for increased body odor over the past 4 months. No concerning dermatologic findings on exam. Concern for bromhidrosis. Discussed hygiene best practices. I will prescribe short course of chlorhexidine to perform axillary wash over the next week. Patient was instructed to follow-up with his primary care physician. Quality:SDOH Health Related Social Needs: Health related social needs housing instability, housed, with risk of homelessness(Z59.811) Health related social needs details Not answered PFSH All Active Problems Axillary odor (Acute) Bilateral foot-drop (Acute) Daytime sleepiness (Acute) Memory problem (Acute) Hip pain (Acute) Back pain (Acute) Migraine (Chronic) Bilateral primary osteoarthritis of knee (Acute) DEPO INJECTION R KNEE: 03/19/23 Diarrhea (Acute) Diabetic neuropathy, type II diabetes mellitus (Acute) Bilateral knee pain (Acute) Sensorineural hearing loss (Acute) Foot drop, left (Acute) Bilateral lower extremity edema (Acute) Nail dystrophy (Acute) Ankle weakness (Acute) Shortness of breath (Acute) Wheezing (Acute) Muscle spasm (Acute) Balance problem (Acute) Diabetes mellitus (Chronic) Vitamin D deficiency (Acute) Onychomycosis (Acute) Hammer toes, bilateral (Acute) Fatigue (Acute) Irritable bowel syndrome (IBS) (Chronic) Epidermoid cyst of ear (Acute) Avulsion fracture of left ankle (Acute 07/01/20) Cellulitis (Acute) Peripheral edema (Acute) S/P colonoscopy (Acute ~12/12/18) 12/24: sessile serrated adenoma. Traditional serrated adenoma. 11/2014- [place]- Tubular adenoma Lumbar stenosis (Acute) Chronic anxiety (Chronic) Coronary artery disease of [place] artery of [place] heart with stable angina pectoris (Chronic 09/29/16) stent [facility] [place] 08/22 DJD (degenerative joint disease) (Chronic) WITH CHRONIC LOW BACK PAIN disability SSI Depression (Chronic) GERD (gastroesophageal reflux disease) (Chronic) Gout (Chronic) Hypertension (Chronic) COPELAND (nonalcoholic steatohepatitis) (Chronic 01/09/15) Obesity (Chronic 08/21/14) Peripheral neuropathy (Chronic) left great toe likely due to surgery Psoriatic arthritis (Chronic 11/01/13) Sensorineural hearing loss, bilateral (Chronic 01/07/15) Sleep apnea, unspecified (Chronic 04/17/15) Medical History Constipation Annual physical exam Chronic anxiety Chronic back pain Peripheral neuropathy DJD (degenerative joint disease) Obesity, Class III, BMI 40-49.9 (morbid obesity) Surgical History Stented coronary artery (~2017) Status post discectomy Status post hemorrhoidectomy Status post laminectomy Hemorrhoidectomy (07/22/11) L5 HEMILAMINECTOMY (03/07/91) DISKECTOMY (03/07/89) L5 S1 Family History Mother , 67 Essential hypertension Myocardial infarction Depression Heart disease Hypertension Father , 67 Essential hypertension Asthma Depression Heart disease Brother , 64 Myocardial infarction Depression Heart disease Hypertension FAMILY HISTORY CAD (coronary artery disease) Stroke COPD (chronic obstructive pulmonary disease) Social History Smoking/Tobacco Use Status: Never Smoking risk assessment performed?: Yes Alcohol Intake: never Drug use: Never Substance use type: does not use Adopted: No Caregiver/Support person: Yes Foster care: No Household members: spouse Housing: house Number of Children: 1 number of grandchildren: 2 Communication Needs: Hard of Hearing Education Level: high school Do you need help understanding health information?: Often current occupation: Retired Pets and animals: Yes (1) Pets and animals: cat(s) Sexually active: No Do you think of yourself as: straight/heterosexual Current gender identity: male What is your relationship status?: How often do you talk on the phone with friends or family?: decline to answer How often do you get together with friends or relatives?: decline to answer How often do you attend pentecostalism or advent services?: decline to answer Do you belong to any clubs or organized social groups?: no Panel score (0-1 are the most socially isolated patients): 1 Fatou/Lutheran: Orthodox Special fatou needs: No Seatbelt use: always Drive intox or ride w/intox 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
[2024-03-04 10:55] VITALS: RESP 16
== END 2024-03-04 11:01 | disposition home or self-care (01) ==
PROVIDERS: Emergency Provider Student in an Organized Health Care Education/Training Program; PCP Family Medicine
DX: L75.0 Bromhidrosis (principal); E11.40 Type 2 diabetes mellitus with diabetic neuropathy, unspecified; I25.119 Atherosclerotic heart disease of native coronary artery with unspecified angina pectoris; I10 Essential (primary) hypertension; Z95.5 Presence of coronary angioplasty implant and graft; Z79.82 Long term (current) use of aspirin; Z79.84 Long term (current) use of oral hypoglycemic drugs
CPT/HCPCS: 99283

== ENCOUNTER → 2024-04-06 10:04 | Outpatient (BNVA) | payer MEDICARE, SELFPAY | PROVIDERS: PCP Family Medicine; Referring Provider Family Medicine; Visit Provider Student in an Organized Health Care Education/Training Program | DX: Z12.11 Encounter for screening for malignant neoplasm of colon (principal); K64.9 Unspecified hemorrhoids; Z86.0101 Personal history of adenomatous and serrated colon polyps ==

== ENCOUNTER 2024-04-25 08:57 | Day surgery (SDC) | payer MEDICARE, SELFPAY ==
--- NOTE | 2024-04-25 09:47 | W.ANESPRE ---
General Info Date of Service Date Performed: 04/25/24 Height: 6 ft 6 in Weight: 156.036 kg Body Mass Index (BMI): 39.7 Surgical Procedure: Operation Date: 04/25/24 10:40 Proposed Procedure Side Surgeon p Colonoscopy Joshua Olivares MD s Hemorrhoid Banding Joshua Olivares MD Meds Allergies and Home Medications Allergies Allergy/AdvReac Type Severity Reaction Status Date / Time aspirin (From [place]) Allergy Severe Swelling/Ed Verified 04/25/24 10:03 [place] citric acid (From Allergy Severe Swelling/Ed Verified 04/25/24 10:03 [facility]) [place] sodium bicarbonate (From Allergy Severe Swelling/Ed Verified 04/25/24 10:03 [facility]) [place] Penicillins Allergy Mild Skin Rash Verified 04/25/24 10:03 codeine AdvReac Severe hypertention/pass Verified 04/25/24 10:03 out Home Medication ?Medication ?Instructions ?Recorded folic acid 400 mcg tablet 400 mcg PO DAILY 05/29/12 aspirin 81 mg chewable tablet 81 mg PO DAILY 09/29/16 nystatin 100,000 unit/gram topical 1 applic topical BID #30 grams 07/06/22 ointment multivitamin 1 tab PO DAILY 04/30/23 venlafaxine 150 mg 150 mg PO DAILY #90 caps 06/09/23 capsule,extended release 24 hr polyethylene glycol 3350 17 gram 17 g PO DAILY PRN 07/13/23 oral powder packet (Miralax) cyanocobalamin (vitamin B-12) See Rx Instructions .Route 07/26/23 1,000 mcg tablet (Vitamin B-12) .COMPLEX #90 tabs losartan 100 mg tablet 100 mg PO DAILY #90 tabs 08/13/23 atorvastatin 40 mg tablet 40 mg PO DAILY #90 tabs 09/01/23 hydrochlorothiazide 12.5 mg tablet 12.5 mg PO DAILY #90 tabs 09/21/23 pantoprazole 40 mg tablet,delayed 40 mg PO DAILY #90 tab-caps 09/21/23 release prochlorperazine maleate 5 mg 5 - 10 mg PO ONCE PRN headache 09/21/23 tablet allopurinol 100 mg tablet 100 mg PO DAILY #90 tab-caps 10/28/23 AFO, bilateral, custom made #1 ea 11/02/23 armodafinil 150 mg tablet 150 mg PO QAM #30 tabs 11/09/23 amlodipine 5 mg tablet 5 mg PO DAILY #90 tabs 12/07/23 gabapentin 800 mg tablet 800 mg PO BID #180 tabs 12/22/23 Diabetic shoes #1 ea 01/05/24 triamcinolone acetonide 0.1 % 1 applic topical DAILY #15 grams 01/25/24 topical cream ergocalciferol (vitamin D2) 1,250 See Rx Instructions .Route 01/28/24 mcg (50,000 unit) capsule .COMPLEX #12 caps metformin 500 mg tablet 500 mg PO BID #180 tabs 01/28/24 chlorhexidine gluconate 4 % 1 applic topical BID #473 mL 03/04/24 topical liquid hydrocortisone 2.5 % topical cream 1 applic NE QD-BID PRN hemorrhoids 03/14/24 with perineal applicator #30 grams ropinirole 2 mg tablet 2 mg PO QHS #60 tabs 03/20/24 nitroglycerin 0.4 mg sublingual 0.4 mg sublingual PRN PRN chest 03/24/24 tablet pain ##25 bisacodyl 5 mg tablet,delayed 5 mg PO ONCE colonscopy bowel prep 04/06/24 release (Dulcolax (bisacodyl)) #8 tabs sennosides 8.6 mg capsule (senna) 8.6 mg PO QHS 04/06/24 magnesium oxide 500 mg capsule 500 mg PO DAILY #90 caps 04/17/24 polyethylene glycol 3350 17 238 g PO ONCE #238 grams 04/18/24 gram/dose oral powder Current Visit Medications: Current Medications Generic Name Dose Route Start Last Admin Trade Name Freq PRN Reason Stop Dose Admin Ringer's Solution 1,000 mls @ 80 mls/hr 04/25/24 06:00 IV 04/25/24 23:59 INFUSION BHANU IV Miscellaneous Supplies 1 each 04/25/24 06:00 Iv Access IV 04/25/24 23:59 DIRECTED BHANU Sodium Chloride 0 ml 04/25/24 06:00 Normal Saline Flush 10 Ml Syr IV 04/25/24 23:59 PRN PRN Sodium Chloride 0 ml 04/25/24 06:00 Normal Saline 10 Ml Vial IJ 04/25/24 23:59 DIRECTED PRN Sterile Water 0 ml 04/25/24 06:00 Water,Injection,Sterile 10 Ml Vial IJ 04/25/24 23:59 DIRECTED PRN [facility] Active Problems Active Problems: Problem Status Onset Code Hemorrhoid Acute K64.9 Bilateral foot-drop Acute M21.371, M21.372 Daytime sleepiness Acute R40.0 Memory problem Acute R41.3 Hip pain Acute M25.559 Back pain Acute M54.9 Migraine Chronic G43.909 Bilateral primary osteoarthritis of knee Acute M17.0 Diarrhea Acute R19.7 Diabetic neuropathy, type II diabetes mellitus Acute E11.40 Bilateral knee pain Acute M25.561, M25.562 Sensorineural hearing loss Acute H90.5 Foot drop, left Acute M21.372 Bilateral lower extremity edema Acute R60.0 Nail dystrophy Acute L60.3 Ankle weakness Acute R29.898 Shortness of breath Acute R06.02 Wheezing Acute R06.2 Muscle spasm Acute M62.838 Balance problem Acute R26.89 Diabetes mellitus Chronic E11.9 Vitamin D deficiency Acute E55.9 Onychomycosis Acute B35.1 Hammer toes, bilateral Acute M20.41, M20.42 Fatigue Acute R53.83 Irritable bowel syndrome (IBS) Chronic K58.9 Epidermoid cyst of ear Acute L72.0 Avulsion fracture of left ankle Acute 07/01/20 S82.892A Cellulitis Acute L03.90 Peripheral edema Acute R60.9 S/P colonoscopy Acute ~12/12/18 Z98.890 Lumbar stenosis Acute M48.061 Chronic anxiety Chronic F41.9 Coronary artery disease of [place] artery of [place] heart with stable angina pectoris Chronic 09/29/16 I25.118 DJD (degenerative joint disease) Chronic M19.90 Depression Chronic F32.9 External hemorrhoids with other complication Resolved 05/11/11 K64.4 GERD (gastroesophageal reflux disease) Chronic K21.9 Gout Chronic M10.9 Hypertension Chronic I10 COPELAND (nonalcoholic steatohepatitis) Chronic 01/09/15 K75.81 Obesity Chronic 08/21/14 E66.9 Peripheral neuropathy Chronic G62.9 Psoriatic arthritis Chronic 11/01/13 L40.50 Sensorineural hearing loss, bilateral Chronic 01/07/15 H90.3 Sleep apnea, unspecified Chronic 04/17/15 G47.30 Medical History Medical History Constipation Annual physical exam Chronic anxiety Chronic back pain Peripheral neuropathy DJD (degenerative joint disease) Obesity, Class III, BMI 40-49.9 (morbid obesity) Surgical History Surgical History Stented coronary artery (~2018) Status post discectomy Status post hemorrhoidectomy Status post laminectomy Hemorrhoidectomy (07/22/11) L5 HEMILAMINECTOMY (03/07/91) DISKECTOMY (03/07/89) L5 S1 Tobacco Smoking/Tobacco Use Status: Never Alcohol Alcohol Intake: never Substance Use Substance use: Never Substance use type: does not use Vital Signs and Lab Results Point of Care Results Point of Care Results: Finger Stick Blood Glucose 130 04/25/24 09:42 Lab Results Blood Type / Crossmatch: No Data to Display Complete Blood Count: No Data to Display Complete Metabolic Panel: No Data to Display Liver Function Panel: No Data to Display Coagulation Panel: No Data to Display Cardiac Panel: No Data to Display Arterial Blood Gas: No Data to Display Venous Blood Gas: No Data to Display Pancreas Panel: No Data to Display Thyroid Panel: No Data to Display Infectious Disease: No Data to Display Blood Cultures: No Data to Display Toxicology Panel: No Data to Display Imaging and Studies Imaging and Studies Study information below may be from another EMR and interpreted by another provider. Please see original notes in EMR for more complete details. EKG Summary: Reviewed Stress Test Summary: Reviewed. Calculated EF 41% Echocardiogram Summary: Reviewed. Based on mild valvular disease, patient should have another ECHO prior to further elective procedures. Pulmonary Function Summary: Reviewed and normal Anesthesia Assessment and Plan Anesthesia History Personal History: No History of Anesthesia Complications Family History: No Family History of Anesthesia Complications Exercise Tolerance Exercise Tolerance: Metabolic Equivalents<4 Pertinent Negatives Pertinent Negatives: No History of CVA/TIA Cardiac & Pulmonary Exam Cardiac Exam: Normal S1/S2 Heart Sounds Pulmonary Exam: Clear Bilateral Breath Sounds Implantable Cardiac Device Does patient have a Pacemaker or an ICD?: No Airway Exam Known Difficult Airway: No Mallampati Class: 4 Mouth Opening: Normal (> 3cm) Thyromental Distance: Greater than 3 cm Neck Range of Motion: Full ROM Neck Circumference: Normal Teeth Condition: Generalized Poor Dentition, Loose or Chipped, Dental Caries and Advised tooth loss possible given current condition (indicate tooth) (sharp rear lower molar) ASA Classification ASA Score: ASA 3 Emergency Case?: No NPO Status NPO Status: NPO Clears >2 hours, Solids >8 hours Anesthesia Plan Resuscitation Status: Full Code Anesthesia Technique: General Anesthesia Airway Planned: Natural Airway Monitors Used: Standard Monitors
[2024-04-25 09:53] VITALS: BMI 39.7
[2024-04-25 10:13] VITALS: BP 125/83; PULSE 74; RESP 16; TEMP 36.7; O2SAT 97
[2024-04-25] MEDS: Lactated Ringers 1,000 ML 80 ML IV (10:20)
--- NOTE | 2024-04-25 10:35 | W.COLOREPORT ---
Date of service: 04/25/24 Time of Service: 10:35 Colonoscopy Report Procedure Description: Procedures performed: 1. Colonoscopy with hot snare polypectomy 2. Endoscopic clip application 3. Submucosal injection/tattoo Preoperative diagnosis: Sessile serrated polyps Postoperative diagnosis: Colon polyp, minimal diverticular disease, grade 1 internal hemorrhoids Surgeon: Michael Olivares MD Indication for procedure: The patient is a 68-year-old man who has had sessile serrated adenomas removed in the past. He has no symptoms and is due for his surveillance colonoscopy. Separately, he complains of a symptomatic hemorrhoid(though recently better) and reports he has had success with banding in the past. Findings: Normal terminal ileum. In the ascending colon, just proximal to the hepatic flexure, there is a large 18-20 mm sessile, multi?lobed colon polyp. It is very flat. I removed it piecemeal with the hot snare. There was a relatively large mucosal defect and so I approximated the mucosal edges using an endoscopic clip. I injected ink submucosal at the level of the lesion, on both sides of it. No other polyps were seen. There were a few scattered diverticuli in the left side. Grade 1 internal hemorrhoids are present but nothing significant internal or external. Surveillance interval/follow-up: 3 months -the polypectomy site needs to be reassessed and any re? growth needs to be aggressively resected. Specimens: yes Estimated blood loss: Minimal Complications: None Quality of prep: Excellent Procedure in detail: The patient gave written consent and was in agreement with the indications, the potential risks as well as the benefits of the procedure. They were taken to the endoscopy suite and laid in the left lateral decubitus position. A timeout was performed and anesthesia was administered which was tolerated well. I started the procedure. Digital rectal and visual examination was performed and grossly within normal limits. A well-lubricated flexible colonoscope was then introduced and passed without any notable difficulty all the way to the cecum identified by the ileocecal valve and the appendiceal orifice. The terminal ileum was briefly intubated and looked normal visually. The scope was then slowly withdrawn with the above-noted findings. The patient tolerated the procedure well and was taken to the PACU in hemodynamically stable condition.
--- NOTE | 2024-04-25 10:36 | W.PM.DSUDISC ---
Date of service: 04/25/24 Discharge Plan Disposition Patient Disposition: Home Condition: Good Discharge Details Attending Provider: Joshua Olivares Primary Care Provider: Jonathan Walker Home Meds and New Rx's Prescriptions: No Action nystatin 100,000 unit/gram ointment 1 applic topical BID Qty: 30 2RF polyethylene glycol 3350 [Miralax] 17 gram powder in packet 17 g PO DAILY PRN triamcinolone acetonide 0.1 % cream 1 applic topical DAILY Qty: 15 0RF nitroglycerin 0.4 mg tablet, sublingual 0.4 mg Sublingual PRN PRN (Reason: chest pain) Qty: 25 3RF hydrocortisone 2.5 % cream with perineal applicator 1 applic MA QD-BID PRN (Reason: hemorrhoids) Qty: 30 0RF senna 8.6 mg capsule 8.6 mg PO QHS bisacodyl [Dulcolax (bisacodyl)] 5 mg tablet,delayed release (DR/EC) 5 mg PO ONCE Qty: 8 0RF Rx Instructions: take per colonoscopy instructions multivitamin Tablet 1 tab PO DAILY losartan 100 mg tablet 100 mg PO DAILY Qty: 90 3RF prochlorperazine maleate 5 mg tablet 5 - 10 mg PO ONCE PRN (Reason: headache) pantoprazole 40 mg tablet,delayed release (DR/EC) 40 mg PO DAILY Qty: 90 3RF hydrochlorothiazide 12.5 mg tablet 12.5 mg PO DAILY Qty: 90 3RF (DME) AFO, bilateral, custom made See Rx Instructions .Route .MEDSUPPLY Qty: 1 0RF Rx Instructions: As directed; amlodipine 5 mg tablet 5 mg PO DAILY Qty: 90 3RF gabapentin 800 mg tablet 800 mg PO BID Qty: 180 3RF aspirin 81 MG tablet,chewable 81 mg PO DAILY venlafaxine 150 mg capsule,extended release 24hr 150 mg PO DAILY Qty: 90 3RF cyanocobalamin (vitamin B-12) [Vitamin B-12] 1,000 mcg tablet See Rx Instructions .ROUTE .COMPLEX Qty: 90 3RF Dose Instruction: TAKE ONE TABLET BY MOUTH EVERY DAY Rx Instructions: TAKE ONE TABLET BY MOUTH EVERY DAY atorvastatin 40 mg tablet 40 mg PO DAILY Qty: 90 3RF allopurinol 100 mg tablet 100 mg PO DAILY Qty: 90 3RF armodafinil 150 mg tablet 150 mg PO QAM Qty: 30 3RF (DME) Diabetic shoes See Rx Instructions .Route .MEDSUPPLY Qty: 1 0RF Rx Instructions: Please provide one pair. ergocalciferol (vitamin D2) 1,250 mcg (50,000 unit) capsule See Rx Instructions .ROUTE .COMPLEX Qty: 12 3RF Dose Instruction: TAKE 1 CAPSULE BY MOUTH EVERY WEEK Rx Instructions: TAKE 1 CAPSULE BY MOUTH EVERY WEEK metformin 500 mg tablet 500 mg PO BID Qty: 180 3RF ropinirole 2 mg tablet 2 mg PO QHS Qty: 60 2RF Rx Instructions: administer 1-3 hours before bedtime magnesium oxide 500 mg capsule 500 mg PO DAILY Qty: 90 3RF polyethylene glycol 3350 17 gram/dose powder 238 g PO ONCE Qty: 238 0RF Rx Instructions: For Colonoscopy bowel prep, as directed by office folic acid 400 MCG tablet 400 mcg PO DAILY chlorhexidine gluconate 4 % liquid 1 applic topical BID Qty: 473 0RF Discharge Instructions Additional Instructions: FINDINGS: A very large polyp was seen and removed from your colon. It is difficult to know whether or not the entire polyp was removed. We recommend that you repeat another colonoscopy in 3 months to reassess the site and ensure nothing is growing back. I did not perform hemorrhoid banding today because your hemorrhoid disease is very mild and minimal and aside from being acutely irritated by the colon prep, it sounds like it was getting better on its own. You should follow-up with us in the next couple of weeks to discuss pathology and next steps on the next colonoscopy. Activity:: Activity as Tolerated Diet:: As Tolerated
--- NOTE | 2024-04-25 11:00 | BOWEL_PTH ---
PATIENT: Acosta Driver LOC: [facility] U#:[id number] AGE/SX: 68/M ROOM: RE04/25/[address]: Joshua Olivares : 1955 BED: DIS: 04/25/2024 SPEC #: [id number] RECD: 04/25/24 12:47 STATUS: [place] REQ #: [id number] CONCHITA: 04/25/24 11:[address]: Joshua Olivares DEPT: Surgical Specimen RECD BY: Sarah Sanon ENTERED: 04/25/24 12:48 SP TYPE: Bowel OTHR DR: Jonathan Walker DO Tissues: 1 - BIOPSY BOWEL Procedures: GROSS AND MICRO LEVEL 4 IMMUNOPEROXIDASE STAIN Comments: [id number]
[2024-04-25] MEDS: Endoscopic Tattoo 5 ML SYR IJ (11:13)
[2024-04-25 11:27] VITALS: BP 134/72; PULSE 60; RESP 18; TEMP 36.4; O2SAT 96
--- NOTE | 2024-04-25 11:41 | W.ANESPOSTOP ---
Postoperative Evaluation Date, Time and Location Date Performed: 04/25/24 Time Performed: 11:41 Patient Location: Day [facility] Unit Vital Signs Most Recent Imported Vital Signs: Most Recent Vital Signs Temp Pulse Resp BP Pulse Ox 36.4 C L 60 18 134/72 96 04/25/24 11:27 04/25/24 11:27 04/25/24 11:27 04/25/24 11:27 04/25/24 11:27 Pain Score Most Recent Pain Score: Most Recent Pain Score Pain Level 0 04/25/24 11:27 Assessment Mental Status: Awake (Alert & Oriented to Patient Baseline) Airway and Respiratory Function: Patent airway with normal (patient baseline) respiratory exam Cardiovascular Function: Hemodynamically Stable Hydration Status: Adequately Hydrated Nausea & Vomiting: No Nausea or Vomiting Pain: Pt. Denies Any Pain Peripheral Nerve Block: Patient did not receive a nerve block
[2024-04-25 11:50] VITALS: BP 146/80; PULSE 69; RESP 18; TEMP 36.4; O2SAT 95
== END 2024-04-25 12:06 | disposition home or self-care (01) ==
PROVIDERS: PCP Family Medicine; Visit Provider Student in an Organized Health Care Education/Training Program
PROC: 0DJD8ZZ Inspection of Lower Intestinal Tract, Via Natural or Artificial Opening Endoscopic (ICD-10-PCS; CPT 45378; principal; 2024-04-25 10:30)
DX: Z12.11 Encounter for screening for malignant neoplasm of colon (principal); E11.9 Type 2 diabetes mellitus without complications; I10 Essential (primary) hypertension; D12.2 Benign neoplasm of ascending colon; K57.30 Diverticulosis of large intestine without perforation or abscess without bleeding; K64.0 First degree hemorrhoids
CPT/HCPCS: 45385; 45381; 88305; 88361; J2704

== ENCOUNTER → 2024-06-09 09:48 | Outpatient (BNVA) | payer MEDICARE, SELFPAY | PROVIDERS: PCP Family Medicine; Referring Provider Family Medicine; Visit Provider Physician Assistant | DX: M17.0 Bilateral primary osteoarthritis of knee (principal) | CPT/HCPCS: 20610; J1010 ==

== ENCOUNTER 2024-08-02 10:16 | Day surgery (SDC) | payer MEDICARE, SELFPAY ==
[2024-08-02 10:52] VITALS: BP 151/82; PULSE 69; RESP 20; TEMP 36.6; O2SAT 97
[2024-08-02] MEDS: Lactated Ringers 1,000 ML 80 ML IV (11:15)
--- NOTE | 2024-08-02 11:19 | W.SURGCON ---
Date of service: 08/02/24 Time of Service: :28 Assessment and Plan Assessment and plan (1) Adenomatous polyp: Status: Acute Assessment and plan: 68-year-old man with an advanced polyp at/near the hepatic flexure. It was resected 3 months ago. We will recheck and ensure no regrowth and if there is any destroyed it. Overall plan: Colonoscopy History of Present Illness Narrative: Acosta had an advanced polyp near the hepatic flexure which was resected about 3 months ago. It was tattooed. We discussed repeating colonoscopy to assess the site and ensure no regrowth. [facility] All Active Problems (Updated 08/02/24 @ 11:30 by Joshua Olivares MD) Adenomatous polyp (Acute) Round hole, right eye (Acute) Regular astigmatism, bilateral (Acute) Combined forms of age-related cataract, bilateral (Acute) Hemorrhoid (Acute) Bilateral foot-drop (Acute) Daytime sleepiness (Acute) Memory problem (Acute) Hip pain (Acute) Back pain (Acute) Migraine (Chronic) Bilateral primary osteoarthritis of knee (Acute) DEPO INJECTION R KNEE: 06/09/24; 03/19/23 L KNEE: 06/09/24 Diarrhea (Acute) Diabetic neuropathy, type II diabetes mellitus (Acute) Bilateral knee pain (Acute) Sensorineural hearing loss (Acute) Foot drop, left (Acute) Bilateral lower extremity edema (Acute) Nail dystrophy (Acute) Ankle weakness (Acute) Shortness of breath (Acute) Wheezing (Acute) Muscle spasm (Acute) Balance problem (Acute) Diabetes mellitus (Chronic) Vitamin D deficiency (Acute) Onychomycosis (Acute) Hammer toes, bilateral (Acute) Fatigue (Acute) Irritable bowel syndrome (IBS) (Chronic) Epidermoid cyst of ear (Acute) Cellulitis (Acute) Avulsion fracture of left ankle (Acute 07/01/20) Peripheral edema (Acute) S/P colonoscopy (Acute ~12/12/18) 12/24: sessile serrated adenoma. Traditional serrated adenoma. 11/2014- [place]- Tubular adenoma Lumbar stenosis (Acute) Chronic anxiety (Chronic) Coronary artery disease of [place] artery of [place] heart with stable angina pectoris (Chronic 09/29/16) stent [facility] [place] DJD (degenerative joint disease) (Chronic) WITH CHRONIC LOW BACK PAIN disability SSI Depression (Chronic) GERD (gastroesophageal reflux disease) (Chronic) Gout (Chronic) Hypertension (Chronic) COPELAND (nonalcoholic steatohepatitis) (Chronic 01/09/15) Obesity (Chronic 08/21/14) Peripheral neuropathy (Chronic) left great toe likely due to surgery Psoriatic arthritis (Chronic 11/01/13) Sensorineural hearing loss, bilateral (Chronic 01/07/15) Sleep apnea, unspecified (Chronic 04/17/15) Medical History (Updated 08/02/24 @ 11:30 by Joshua Olivares MD) Constipation Annual physical exam Chronic anxiety Chronic back pain Peripheral neuropathy DJD (degenerative joint disease) Obesity, Class III, BMI 40-49.9 (morbid obesity) Surgical History History of colonoscopy (~04/2024) Stented coronary artery (~2017) 2018-Has appt with Dr. Aguila 08/08/24 Status post discectomy Status post hemorrhoidectomy Status post laminectomy Hemorrhoidectomy (07/22/11) L5 HEMILAMINECTOMY (03/07/91) DISKECTOMY (03/07/89) L5 S1 Family History Mother , 67 Essential hypertension Myocardial infarction Depression Heart disease Hypertension Father , 67 Essential hypertension Asthma Depression Heart disease Brother , 64 Myocardial infarction Depression Heart disease Hypertension FAMILY HISTORY CAD (coronary artery disease) Stroke COPD (chronic obstructive pulmonary disease) Social History Smoking/Tobacco Use Status: Never Smoking risk assessment performed?: Yes Alcohol Intake: never Drug use: Never Substance use type: does not use Adopted: No Caregiver/Support person: Yes Foster care: No Household members: spouse Housing: house Number of Children: 1 number of grandchildren: 2 Communication Needs: Hard of Hearing Education Level: high school Do you need help understanding health information?: Often current occupation: Retired Pets and animals: Yes (1) Pets and animals: cat(s) Sexually active: No Do you think of yourself as: straight/heterosexual Current gender identity: male What is your relationship status?: How often do you talk on the phone with friends or family?: decline to answer How often do you get together with friends or relatives?: decline to answer How often do you attend jehovah's witness or muslim services?: decline to answer Do you belong to any clubs or organized social groups?: no Panel score (0-1 are the most socially isolated patients): 1 Fatou/Denominational: Latter Day Special fatou needs: No Seatbelt use: always Drive intox or ride w/intox transporter driver: No Additional Social history: [employer] Exam Narrative Exam Narrative: Gen: Non-toxic, comfortable and interactive Neuro: Alert and oriented x3 Psych: Good mood and affect. Good insight and understanding into condition. Chest: Non-labored breathing, no wheezing, no visible shortness of breath. Heart: Regular Results Last Vital Signs Temp 97.9 F 08/02/24 10:52 Pulse 69 08/02/24 10:52 Resp 20 08/02/24 10:52 BP 151/82 H 08/02/24 10:52 Pulse Ox 97 08/02/24 10:52
--- NOTE | 2024-08-02 11:31 | W.PM.DSUDISC ---
Date of service: 08/02/24 Discharge Plan Disposition Patient Disposition: Home Condition: Good Discharge Details Attending Provider: Joshua Olivares Primary Care Provider: Jonathan Walker Home Meds and New Rx's Prescriptions: No Action nystatin 100,000 unit/gram ointment 1 applic topical BID Qty: 30 2RF polyethylene glycol 3350 [Miralax] 17 gram powder in packet 17 g PO DAILY PRN triamcinolone acetonide 0.1 % cream 1 applic topical DAILY Qty: 15 0RF nitroglycerin 0.4 mg tablet, sublingual 0.4 mg Sublingual PRN PRN (Reason: chest pain) Qty: 25 3RF hydrocortisone 2.5 % cream with perineal applicator 1 applic MA QD-BID PRN (Reason: hemorrhoids) Qty: 30 0RF senna 8.6 mg capsule 8.6 mg PO QHS multivitamin Tablet 1 tab PO DAILY losartan 100 mg tablet 100 mg PO DAILY Qty: 90 3RF prochlorperazine maleate 5 mg tablet 5 - 10 mg PO ONCE PRN (Reason: headache) pantoprazole 40 mg tablet,delayed release (DR/EC) 40 mg PO DAILY Qty: 90 3RF hydrochlorothiazide 12.5 mg tablet 12.5 mg PO DAILY Qty: 90 3RF (DME) AFO, bilateral, custom made See Rx Instructions .Route .MEDSUPPLY Qty: 1 0RF Rx Instructions: As directed; amlodipine 5 mg tablet 5 mg PO DAILY Qty: 90 3RF gabapentin 800 mg tablet 800 mg PO BID Qty: 180 3RF aspirin 81 MG tablet,chewable 81 mg PO DAILY cyanocobalamin (vitamin B-12) [Vitamin B-12] 1,000 mcg tablet See Rx Instructions .ROUTE .COMPLEX Qty: 90 3RF Dose Instruction: TAKE ONE TABLET BY MOUTH EVERY DAY Rx Instructions: TAKE ONE TABLET BY MOUTH EVERY DAY atorvastatin 40 mg tablet 40 mg PO DAILY Qty: 90 3RF allopurinol 100 mg tablet 100 mg PO DAILY Qty: 90 3RF armodafinil 150 mg tablet 150 mg PO QAM Qty: 30 3RF (DME) Diabetic shoes See Rx Instructions .Route .MEDSUPPLY Qty: 1 0RF Rx Instructions: Please provide one pair. ergocalciferol (vitamin D2) 1,250 mcg (50,000 unit) capsule See Rx Instructions .ROUTE .COMPLEX Qty: 12 3RF Dose Instruction: TAKE 1 CAPSULE BY MOUTH EVERY WEEK Rx Instructions: TAKE 1 CAPSULE BY MOUTH EVERY WEEK metformin 500 mg tablet 500 mg PO BID Qty: 180 3RF ropinirole 2 mg tablet 2 mg PO QHS Qty: 60 2RF Rx Instructions: administer 1-3 hours before bedtime magnesium oxide 500 mg capsule 500 mg PO DAILY Qty: 90 3RF bisacodyl 5 mg tablet,delayed release (DR/EC) 5 mg PO ONCE Qty: 4 0RF Rx Instructions: Per Colonoscopy bowel prep instructions polyethylene glycol 3350 17 gram/dose powder 238 g PO ONCE Qty: 238 0RF Rx Instructions: For Colonoscopy bowel prep, as directed by office venlafaxine 150 mg capsule,extended release 24hr 150 mg PO DAILY Qty: 90 3RF folic acid 400 MCG tablet 400 mcg PO DAILY chlorhexidine gluconate 4 % liquid 1 applic topical BID Qty: 473 0RF Patient Comments: pt. used on arms today Discharge Instructions Additional Instructions: FINDINGS: There was a little bit of polyp tissue at the area that we had previously removed and resected. This is nothing to worry about and simply the reason that we did the colonoscopy today. All of that tissue was destroyed/burned. Depending on the biopsies we took of that, we will either repeat a colonoscopy in 1 year or 3. We will call you with those results in another week or so. Activity:: Activity as Tolerated Diet:: As Tolerated Discharge Orders Discharge Orders: Discharge Order (Routine); Ordered 08/02/24 Ordered By: Joshua Olivares DS: Diagnosis Discharge Diagnosis (1) Adenomatous polyp: Status: Acute
--- NOTE | 2024-08-02 11:31 | W.COLOREPORT ---
Date of service: 08/02/24 Time of Service: 11:31 Colonoscopy Report Procedure Description: PROCEDURES PERFORMED: 1. Colonoscopy with cold forceps polypectomy x1 2. Ablation/fulguration/destruction of recurrent colon polyp x1 PREOPERATIVE DIAGNOSIS: Surveillance colonoscopy, colon polyps, diverticulosis POSTOPERATIVE DIAGNOSIS: Diverticulosis, colorectal polyps, grade 1 internal hemorrhoids SURGEON: Michael Olivares MD INDICATION FOR PROCEDURE: 68-year-old man due for surveillance colonoscopy because he had a very large advanced polyp removed from the hepatic flexure 3 months ago. FINDINGS: Normal terminal ileum. Polyps: In the ascending colon a 2-3 mm sessile polyp was removed with cold forceps technique. At the tattoo site, easily identified, the endoscopic clip is still intact. There is some polypoid tissue around and isolated to the base of the clip. This was first biopsied to confirm/assessed and then circumferential ablation/destruction of this polypoid tissue was performed with the tip of the hot snare. There was moderate diverticular disease scattered throughout the left colon. There is no stricture or active inflammation. Grade 1 internal hemorrhoids are present in the rectum. SURVEILLANCE interval/FOLLOW-UP: If the biopsy of the polyp base confirms polypoid tissue, then repeat in 1 year. If the biopsy of the base was normal tissue, then it is presumably reactive/repair tissue and I would say repeat in 3 years. SPECIMENS: Yes EBL: Minimal COMPLICATIONS: None QUALITY of prep: Excellent Procedure in detail: The patient gave written consent and was in agreement with the indications, the potential risks as well as the benefits of the procedure. They were taken to the endoscopy suite and laid in the left lateral decubitus position. A timeout was performed and anesthesia was administered which was tolerated well. I started the procedure. Digital rectal and visual examination was performed and grossly within normal limits. A well-lubricated flexible colonoscope was then introduced and passed without any notable difficulty all the way to the cecum identified by the ileocecal valve and the appendiceal orifice. The terminal ileum was able to be briefly, superficially intubated and looked normal. The scope was then slowly withdrawn with the above-noted findings. The patient tolerated the procedure well and was taken to the PACU in hemodynamically stable condition.
--- NOTE | 2024-08-02 11:33 | ANES.PREOP_ITS ---
General Info Date of Service Date Performed: 08/02/24 Height: 6 ft 6 in Weight: 159.2 kg Body Mass Index (BMI): 40.5 Surgical Procedure: Operation Date: 08/02/24 11:50 Proposed Procedure Side Surgeon p Colonoscopy Joshua Olivares MD Actual Procedure Side Surgeon p Colonoscopy Not Applicable Joshua Olivares MD Meds Allergies and Home Medications Allergies Allergy/AdvReac Type Severity Reaction Status Date / Time aspirin (From Keren-[place]) Allergy Severe Swelling/Ed Verified 08/02/24 10:55 esperanza citric acid (From Allergy Severe Swelling/Ed Verified 08/02/24 10:55 Keren-Daniella) esperanza sodium bicarbonate (From Allergy Severe Swelling/Ed Verified 08/02/24 10:55 Keren-Daniella) esperanza Penicillins Allergy Mild Skin Rash Verified 08/02/24 10:55 codeine AdvReac Severe hypertention/pass Verified 08/02/24 10:55 out Home Medication ?Medication ?Instructions ?Recorded folic acid 400 mcg tablet 400 mcg PO DAILY 05/29/12 aspirin 81 mg chewable tablet 81 mg PO DAILY 09/29/16 nystatin 100,000 unit/gram topical 1 applic topical BID #30 grams 07/06/22 ointment multivitamin 1 tab PO DAILY 04/30/23 polyethylene glycol 3350 17 gram 17 g PO DAILY PRN 07/13/23 oral powder packet (Miralax) cyanocobalamin (vitamin B-12) See Rx Instructions .Route 07/26/23 1,000 mcg tablet (Vitamin B-12) .COMPLEX #90 tabs losartan 100 mg tablet 100 mg PO DAILY #90 tabs 08/13/23 atorvastatin 40 mg tablet 40 mg PO DAILY #90 tabs 09/01/23 hydrochlorothiazide 12.5 mg tablet 12.5 mg PO DAILY #90 tabs 09/21/23 pantoprazole 40 mg tablet,delayed 40 mg PO DAILY #90 tab-caps 09/21/23 release prochlorperazine maleate 5 mg 5 - 10 mg PO ONCE PRN headache 09/21/23 tablet allopurinol 100 mg tablet 100 mg PO DAILY #90 tab-caps 10/28/23 AFO, bilateral, custom made #1 ea 11/02/23 armodafinil 150 mg tablet 150 mg PO QAM #30 tabs 09/03/24 amlodipine 5 mg tablet 5 mg PO DAILY #90 tabs 12/07/23 gabapentin 800 mg tablet 800 mg PO BID #180 tabs 12/22/23 Diabetic shoes #1 ea 01/05/24 triamcinolone acetonide 0.1 % 1 applic topical DAILY #15 grams 01/25/24 topical cream ergocalciferol (vitamin D2) 1,250 See Rx Instructions .Route 01/28/24 mcg (50,000 unit) capsule .COMPLEX #12 caps metformin 500 mg tablet 500 mg PO BID #180 tabs 01/28/24 chlorhexidine gluconate 4 % 1 applic topical BID #473 mL 03/04/24 topical liquid hydrocortisone 2.5 % topical cream 1 applic DC QD-BID PRN hemorrhoids 03/14/24 with perineal applicator #30 grams ropinirole 2 mg tablet 2 mg PO QHS #60 tabs 03/20/24 nitroglycerin 0.4 mg sublingual 0.4 mg sublingual PRN PRN chest 03/24/24 tablet pain ##25 sennosides 8.6 mg capsule (senna) 8.6 mg PO QHS 04/06/24 magnesium oxide 500 mg capsule 500 mg PO DAILY #90 caps 04/17/24 bisacodyl 5 mg tablet,delayed 5 mg PO ONCE Colonoscopy Bowel 05/02/24 release Prep #4 tabs polyethylene glycol 3350 17 238 g PO ONCE #238 grams 05/02/24 gram/dose oral powder venlafaxine 150 mg 150 mg PO DAILY #90 caps 05/29/24 capsule,extended release 24 hr Current Visit Medications: Current Medications Generic Name Dose Route Start Last Admin Trade Name Tracy PRN Reason Stop Dose Admin Ringer's Solution 1,000 mls @ 80 mls/hr 08/02/24 06:00 08/02/24 11:15 IV 08/02/24 23:59 80 mls/hr INFUSION BHANU Administration IV Miscellaneous Supplies 1 each 08/02/24 06:00 Iv Access IV 08/02/24 23:59 DIRECTED BHANU Sodium Chloride 0 ml 08/02/24 06:00 Normal Saline Flush 10 Ml Syr IV 08/02/24 23:59 PRN PRN Sodium Chloride 0 ml 08/02/24 06:00 Normal Saline 10 Ml Vial IJ 08/02/24 23:59 DIRECTED PRN Sterile Water 0 ml 08/02/24 06:00 Water,Injection,Sterile 10 Ml Vial IJ 08/02/24 23:59 DIRECTED PRN PFS Active Problems Active Problems: Problem Status Onset Code Adenomatous polyp Acute D36.9 Round hole, right eye Acute H33.321 Regular astigmatism, bilateral Acute H52.223 Combined forms of age-related cataract, bilateral Acute H25.813 Hemorrhoid Acute K64.9 Bilateral foot-drop Acute M21.371, M21.372 Daytime sleepiness Acute R40.0 Memory problem Acute R41.3 Hip pain Acute M25.559 Back pain Acute M54.9 Migraine Chronic G43.909 Bilateral primary osteoarthritis of knee Acute M17.0 Diarrhea Acute R19.7 Diabetic neuropathy, type II diabetes mellitus Acute E11.40 Bilateral knee pain Acute M25.561, M25.562 Sensorineural hearing loss Acute H90.5 Foot drop, left Acute M21.372 Bilateral lower extremity edema Acute R60.0 Nail dystrophy Acute L60.3 Ankle weakness Acute R29.898 Shortness of breath Acute R06.02 Wheezing Acute R06.2 Muscle spasm Acute M62.838 Balance problem Acute R26.89 Diabetes mellitus Chronic E11.9 Vitamin D deficiency Acute E55.9 Onychomycosis Acute B35.1 Hammer toes, bilateral Acute M20.41, M20.42 Fatigue Acute R53.83 Irritable bowel syndrome (IBS) Chronic K58.9 Epidermoid cyst of ear Acute L72.0 Cellulitis Acute L03.90 Avulsion fracture of left ankle Acute 07/01/20 S82.892A Peripheral edema Acute R60.9 S/P colonoscopy Acute ~12/12/18 Z98.890 Lumbar stenosis Acute M48.061 Chronic anxiety Chronic F41.9 Coronary artery disease of [place] artery of [place] heart with stable angina pectoris Chronic 09/29/16 I25.118 DJD (degenerative joint disease) Chronic M19.90 Depression Chronic F32.9 External hemorrhoids with other complication Resolved 05/11/11 K64.4 GERD (gastroesophageal reflux disease) Chronic K21.9 Gout Chronic M10.9 Hypertension Chronic I10 [place] (nonalcoholic steatohepatitis) Chronic 01/09/15 K75.81 Obesity Chronic 08/21/14 E66.9 Peripheral neuropathy Chronic G62.9 Psoriatic arthritis Chronic 11/01/13 L40.50 Sensorineural hearing loss, bilateral Chronic 01/07/15 H90.3 Sleep apnea, unspecified Chronic 04/17/15 G47.30 Medical History Medical History (Updated 08/02/24 @ 11:30 by Joshua Olivares MD) Constipation Annual physical exam Chronic anxiety Chronic back pain Peripheral neuropathy DJD (degenerative joint disease) Obesity, Class III, BMI 40-49.9 (morbid obesity) Medical History Comments:: NEW allergy - keren marryer (edema) Surgical History Surgical History History of colonoscopy (~04/2024) Stented coronary artery (~2017) 2018-Has appt with Dr. Aguila 08/08/24 Status post discectomy Status post hemorrhoidectomy Status post laminectomy Hemorrhoidectomy (07/22/11) L5 HEMILAMINECTOMY (03/07/91) DISKECTOMY (03/07/89) L5 S1 Tobacco Smoking/Tobacco Use Status: Never Alcohol Alcohol Intake: never Substance Use Substance use: Never Substance use type: does not use Vital Signs and Lab Results Vital Signs Most Recent Vital Signs in EMR: Most Recent Vital Signs Temp Pulse Resp BP Pulse Ox 36.6 C 69 20 151/82 H 97 08/02/24 10:52 08/02/24 10:52 08/02/24 10:52 08/02/24 10:52 08/02/24 10:52 Point of Care Results Point of Care Results: Finger Stick Blood Glucose 117 08/02/24 11:06 Lab Results Blood Type / Crossmatch: No Data to Display Complete Blood Count: No Data to Display Complete Metabolic Panel: No Data to Display Liver Function Panel: No Data to Display Coagulation Panel: No Data to Display Cardiac Panel: No Data to Display Arterial Blood Gas: No Data to Display Venous Blood Gas: No Data to Display Pancreas Panel: No Data to Display Thyroid Panel: No Data to Display Infectious Disease: No Data to Display Blood Cultures: No Data to Display Toxicology Panel: No Data to Display Imaging and Studies Imaging and Studies Study information below may be from another EMR and interpreted by another provider. Please see original notes in EMR for more complete details. EKG Summary: Reviewed Stress Test Summary: Reviewed. Calculated EF 41% Echocardiogram Summary: Reviewed. Based on mild valvular disease, patient should have another ECHO prior to further elective procedures. Pulmonary Function Summary: Reviewed and normal Anesthesia Assessment and Plan Anesthesia History Personal History: No History of Anesthesia Complications Family History: No Family History of Anesthesia Complications Exercise Tolerance Exercise Tolerance: Metabolic Equivalents<4 Pertinent Negatives Pertinent Negatives: No Symptoms of GERD Cardiac & Pulmonary Exam Cardiac Exam: Normal S1/S2 Heart Sounds Pulmonary Exam: Clear Bilateral Breath Sounds Implantable Cardiac Device Does patient have a Pacemaker or an ICD?: No Airway Exam Known Difficult Airway: No Mallampati Class: 4 Mouth Opening: Normal (> 3cm) Thyromental Distance: Greater than 3 cm Neck Range of Motion: Full ROM Neck Circumference: Normal Teeth Condition: Generalized Poor Dentition, Loose or Chipped, Dental Caries and Advised tooth loss possible given current condition (indicate tooth) (sharp rear lower molar) ASA Classification ASA Score: ASA 3 Emergency Case?: No NPO Status NPO Status: NPO Clears >2 hours, Solids >8 hours Anesthesia Plan Resuscitation Status: Full Code Anesthesia Technique: General Anesthesia Airway Planned: Natural Airway Monitors Used: Standard Monitors
[2024-08-02 11:34] VITALS: BMI 40.5
--- NOTE | 2024-08-02 11:58 | BOWEL_PTH ---
PATIENT: Acosta Driver LOC: [facility] U#:[id number] AGE/SX: 68/M ROOM: RE08/02/[address]: Joshua Olivares : 1955 BED: DIS: 08/02/2024 SPEC #: [id number] RECD: 08/02/24 12:59 STATUS: [place] RE #: [id number] CONCHITA: 08/02/24 11:[address]: Joshua Olivares DEPT: Surgical Specimen RECD BY: Sarah Sanon ENTERED: 08/02/24 13:00 SP TYPE: Bowel OTHR DR: Jonathan Walker DO Tissues: 1 - BIOPSY BOWEL 2 - BIOPSY BOWEL Procedures: GROSS AND MICRO LEVEL 4 Comments: [id number]
[2024-08-02 12:20] VITALS: BP 103/64; PULSE 54; RESP 14; TEMP 36.3; O2SAT 95
--- NOTE | 2024-08-02 12:29 | W.ANESPOSTOP ---
Postoperative Evaluation Date, Time and Location Date Performed: 08/02/24 Time Performed: 12:29 Patient Location: Day Surgery Unit Vital Signs Most Recent Imported Vital Signs: Most Recent Vital Signs Temp Pulse Resp BP Pulse Ox 36.6 C 69 20 151/82 H 97 08/02/24 10:52 08/02/24 10:52 08/02/24 10:52 08/02/24 10:52 08/02/24 10:52 Pain Score Most Recent Pain Score: Most Recent Pain Score Pain Level 0 08/02/24 10:52 Assessment Mental Status: Awake (Alert & Oriented to Patient Baseline) Airway and Respiratory Function: Patent airway with normal (patient baseline) respiratory exam Cardiovascular Function: Hemodynamically Stable Hydration Status: Adequately Hydrated Nausea & Vomiting: No Nausea or Vomiting Pain: Pt. Denies Any Pain Peripheral Nerve Block: Patient did not receive a nerve block
[2024-08-02 12:50] VITALS: BP 164/80; PULSE 57; RESP 18; TEMP 36.2; O2SAT 97
== END 2024-08-02 13:15 | disposition home or self-care (01) ==
PROVIDERS: PCP Family Medicine; Visit Provider Student in an Organized Health Care Education/Training Program
PROC: 0DJD8ZZ Inspection of Lower Intestinal Tract, Via Natural or Artificial Opening Endoscopic (ICD-10-PCS; CPT 45378; principal; 2024-08-02 11:45)
DX: I10 Essential (primary) hypertension; I25.118 Atherosclerotic heart disease of native coronary artery with other forms of angina pectoris; K21.9 Gastro-esophageal reflux disease without esophagitis; G47.30 Sleep apnea, unspecified; K64.0 First degree hemorrhoids; Z12.11 Encounter for screening for malignant neoplasm of colon; K63.5 Polyp of colon; K57.30 Diverticulosis of large intestine without perforation or abscess without bleeding; K63.89 Other specified diseases of intestine
CPT/HCPCS: 45388; 45380; 88305; J2003; J2704

== ENCOUNTER → 2024-08-07 08:52 | Outpatient (BNVA) | payer MEDICARE, SELFPAY | PROVIDERS: PCP Family Medicine; Visit Provider Registered Nurse | DX: I25.118 Atherosclerotic heart disease of native coronary artery with other forms of angina pectoris (principal); I10 Essential (primary) hypertension; R06.00 Dyspnea, unspecified; R07.9 Chest pain, unspecified | CPT/HCPCS: 99214 ==

== ENCOUNTER 2024-08-21 00:14 | Outpatient (CLI) | payer MEDICARE, SELFPAY ==
--- NOTE | 2024-08-21 08:03 | DI.NM_ITS ---
APPROVED REPORT Conclusion Nuclear medicine portion of two day study. This is a resting myocardial perfusion imaging study Myocardial perfusion appears normal. There is no evidence of prior infarction
--- NOTE | 2024-08-21 14:28 | NUR.NOTE ---
Nursing Note: Patient presented for MPI test. Nursing in room to do stress portion of MPI test. IV noted to be infiltrated when nuclear tech administered shante scan dose (see incident report for more information). IV removed by nursing. Patient remained on ekg monitor tech x 30 minutes with no changes noted and vital signs remained stable. Patient denied any symptoms and was pleasant and conversing with staff. This nurse spoke with Nadeen Rubio NP regarding shante scan injection/infiltration. Patient ok to leave s/p 30 minutes on monitor after IV injection/infiltration of shante scan. Stress portion of test rescheduled as per Nadeen Rubio patient was not to have another shante scan injection today. Patient agreeable with plan. This nurse spoke with pharmacy who noted there were no specific instructions for shante scan infiltration. Discussed s/s of IV infiltration with patient (by both nuclear plant technical advisor and nursing) and when to be evaluated urgently. Patient stated understanding and left ambulatory in no apparent distress. :
== END 2024-08-21 00:34 ==
LOC: DI 00:14
PROVIDERS: PCP Family Medicine; Visit Provider Internal Medicine Cardiovascular Disease
DX: R07.9 Chest pain, unspecified (principal)
CPT/HCPCS: 78452; 93016; 93018; 93017

== ENCOUNTER 2024-08-24 00:26 | Outpatient (CLI) | payer MEDICARE, SELFPAY ==
--- NOTE | 2024-08-24 | DI.NM_ITS ---
APPROVED REPORT Exam: Pharmacologic Patient Location: Out-Patient Room/Bed: Stress Nurse: Usha Louis RN Ordering Provider:FOSTER BELTRE, Contact Number: BMI: 43.27 Baseline Rhythm: Sinus Bradycardia Comment: Occasional PAC's Indications: Chest pain on exertion Medical History Medical History: P.N, chronic anxiety, morbid obesity, DMT2, SOB, balance problems, LE edema, L foot drop, CAD with stable angina pectoris, GERD, HTN, depression, sleep apnea Cardiac Medications: Allopurinol, amlodipine, ropinirole, vanlafaxine, armodafinil, aspirin, atorvastatin, gabapentin, hydrochlorothiazide, losartan, metformin, madnesium oxide, nitro, pantoprazole Allergies: Aspirin, citric acid, sodium bicarbonate, penicillin, codeine Cardiac Risk Factors: Family hx, HTN, HLD, CVD, diabetes, obesity Previous Cardiac Procedures: Cardiac stent 2017 Pretest Chest Pain Characteristics: None Exercise History: Sedentary Physical Disabilities: Bilateral foot drop Lung Sounds: Clear to auscultation Heart Sounds: Regular Stress Test Details Test: Pharmacologic stress testing performed using 0.4 mg of regadenoson per 5 mL given IV over 10 seconds. Reason for pharmacologic stress test: physical limitation. Nuclear Acquisition: Rest Tc-99m/Stress Tc-99m 1 day Rest Isotope: Tc-99m Sestamibi. Dose: 15.0 Date: 08/24/2024 Injection Time: 1100 Stress Isotope: Tc-99m Sestamibi. Dose: 45.0 Date: 08/24/2024 Injection Time: 1025 HR Resting HR Supine: 59 bpm Max Heart Rate (APMHR): 151.978095 bpm Target HR (85% APMHR): 128.053320 bpm Max HR Achieved: 83 bpm % of APMHR: 54.97 Recovery HR: 76 bpm BP Resting BP Supine: 156/70 mmHg Max BP: 158/78 mmHg Recovery BP: 158/78 mmHg ECG Resting ECG: Sinus Bradycardia Ectopy: Occasional PAC's Stress ECG: Sinus Rhythm ST Change: Nondiagnostic low heart rate Recovery ECG: Sinus Rhythm Recovery ST Change: Nondiagnostic low heart rate Clinical Stress Symptoms: Mod SOB Angina Score: None Rate Pressure Product: 34782 Stress ECG Conclusion 1. Resting electrocardiogram was normal 2. Patient underwent testing using pharmacologic stress with regadenoson 3. Peak heart rate achieved was 55% of maximal predicted for age 4. The electrocardiographic portion of the test was nondiagnostic 5. See MPI report Stress Test Summary STAGE HR BP SpO2 Symptoms NOTES Supine 59 156/70 93% 1 min post Lexiscan injection 74 154/76 95% 3 min post Lexiscan injection 75 142/58 95% Mod SOB 6 min post Lexiscan injection 74 158/78 95% SOB resolved Patient unable to use treadmill r/t balance problems, and bilateral foot drop. Patient c/o mod SOB at approx 2-3 minutes s/p shante injection. All symptoms resolved at test end. Patient proceeded to imagain ambulatory in no apparent distress. MPI Conclusion Myocardial perfusion is notable for apical ischemia. There is no infarction EF is 47%, overall wall motion appears normal
[2024-08-24] MEDS: Regadenoson 0.4 MG/5 ML SYR IVP (10:59)
== END 2024-08-24 00:46 ==
LOC: DI 00:26
PROVIDERS: PCP Family Medicine; Visit Provider Internal Medicine Cardiovascular Disease
DX: I24.89 Other forms of acute ischemic heart disease (principal); R07.9 Chest pain, unspecified
CPT/HCPCS: 78452; 93016; 93018; 93017; J2785

== ENCOUNTER 2024-08-29 02:28 | Outpatient (CLI) | payer MEDICARE, SELFPAY ==
--- NOTE | 2024-08-29 14:30 | DI.US_ITS ---
APPROVED REPORT EXAM: Comprehensive 2D, Doppler, and color-flow Echocardiogram Patient Location: Out-Patient Carpet Binder: Haydee Isaac RDCS (AE) Indications: Dyspnea on exertion. Other Information Study Quality: Fair. Technically limited study due to body habitus. Conclusion Normal left ventricular wall thickness and chamber size. Ejection fraction is 55 to 60%. Wall motion is normal Normal right ventricular size and function Both atria are normal in size There is no structural or hemodynamically significant valvular disease Wall motion Left Ventricle The left ventricle is normal size. The left ventricular systolic function is normal. The left ventricular ejection fraction is within the normal range. There is normal left ventricular wall thickness. There is normal LV segmental wall motion. There is no ventricular septal defect visualized. LVEF is 55-60%. Right Ventricle The right ventricle is normal size. The right ventricular systolic function is normal. Atria The left atrium size is normal. The right atrium size is normal. The interatrial septum is intact with no evidence for an atrial septal defect. Aortic Valve The aortic valve is normal in structure. Aortic valve is trileaflet. There is no aortic valvular stenosis. No aortic regurgitation is present. Mitral Valve The mitral valve is normal in structure. No evidence of mitral valve stenosis. Trace mitral regurgitation. Tricuspid Valve The tricuspid valve is normal in structure. There is no tricuspid valve stenosis. Trace tricuspid regurgitation. Unable to assess PA pressure. Pulmonic Valve The pulmonary valve is normal in structure. There is no pulmonic valvular stenosis. There is no pulmonic valvular regurgitation. Great Vessels The aortic root is normal in size. The ascending aorta is normal in size. Aortic arch is normal in caliber. IVC is normal in size and collapses >50% with inspiration. Pericardium There is no pericardial effusion. 2D Dimensions IVSD d PLAX 1.11 cm M: 0.6-1.2 Ao Root d 3.47 cm M: 3.1 - 3.7 LVPW d PLAX 1.13 cm M: 0.6 - 1.2 Ao Asc Diam d 3.40 cm M: 2.6 - 3.4 LVID d PLAX 5.20 cm M: 4.2 - 5.8 LVDs 3.71 cm M: 2.5 - 4.0 LV EF Teichholz 55.0 % FS 28.76 % LV EDV (Teich) 129.7 mL LV ESV (Teich) 58.4 mL M-Mode TAPSE 2.30 cm (M/F) >1.7 Auto EF LV EDV A4C 188.3 mL LV EDV A2C 185.9 mL LV EDV BP 189.3 mL LV ESV A4C 85.3 mL LV ESV A2C 84.4 mL LV ESV BP 85.7 mL LVEF(%) A4C 54.7 % LVEF(%) A2C 54.6 % LVEF(%) BP 54.7 % LV SV A4C 103.0 ml LV SV A2C 101.4 ml LV SV BP 103.6 ml LV CO A4C 7.4 L/min LV CO A2C 6.8 L/min LV CO BP 7.1 L/min HR A4C 71.43 BPM HR A2C 67.30 BPM LV EDV Index (BP) LA Volume LA Length A4C 5.3 cm LA Length A2C 6.3 cm LA Area A4C s 19.91 cm2 LA Area A2C s 25.13 cm2 LA Vol A4C A-L 63.17 mL LA Vol A2C A-L 84.83 mL LA Vol Biplane A-L 79.7 mL LA Vol/BSA A4C A-L LA Vol/BSA A2C A-L LA Vol/BSA BP A-L 27.4 mL/m2 LA Vol A4C MOD 56.2 mL LA Vol A2C MOD 80.0 mL LA Vol BP MOD 72.8 mL RA Volume RA Area A4C 15.5 cm2 RA ESV A4C (A-L) 37.9mL RA Vol/BSA A4C A-L RA Length A4C 5.3 cm RA ESV A4C (MOD) 34.4mL LV Diastology MV E' medial 0.123 (>0.07 m/s) MV E Vmax 1.03 (0.4-1.3 m/s) MV E/E' MED 8.42 (<14) MV A Vmax 0.70 (0.4-1.3 m/s) MV E' lateral 0.123 (>0.1 m/s) E/A Ratio 1.5 MV E/E' LAT 8.39 (<14) MV E' Average 0.123 m/s MV E/E'(average) 8.41 Aortic Valve AoV Vmax 1.42 m/s LVOT Vmax 1.01 m/s AoV Peak Grad 8.0 mmHg LVOT Peak Grad 4.1 mmHg AoV Area (Vmax) 2.86 cm2 LVOT VTI 0.264 m AoV VTI 0.342 m LVOT Mean Grad 2.7 mmHg AoV Mean Mika. 1.03 m/s LVOT SV 106.15 mL AoV Mean Grad 4.9 mmHg LVOT Diam s 2.25 cm AoV Area (VTI) 3.10 cm2 AV Regurg Peak Gr. 8.02 mmHg Velocity Ratio 0.71 Mitral Valve MV DT 351 (160-240 msec) MV Vmax TIPS 1.00 m/s MV Mean Grad 1.5 (<2mmHg) MV VTI 0.315 m Pulmonary Valve PV Vmax 1.01 (0.5-1.5 m/s) RVOT Vmax 0.70 m/s PV Peak Grad 4.1 mmHg RVOT Peak Gr. 2.0 mmHg PV Mean Mika 0.62 m/s RVOT VTI 0.172 m PV Mean Grad 1.8 mmHg RVOT Mean Gr. 1.5 mmHg Tricuspid Valve TV S' 0.18 m/s
== END 2024-08-29 02:48 ==
PROVIDERS: PCP Family Medicine; Visit Provider Internal Medicine Cardiovascular Disease
DX: R06.09 Other forms of dyspnea (principal)
CPT/HCPCS: 93306

== ENCOUNTER 2024-09-05 15:16 | Outpatient (CLI) | payer MEDICARE, SELFPAY ==
[2024-09-05 14:49] LABS: HCT 37.9 % (40.0-50.0); HGB 12.7 g/dL (13.5-17.5); MCH 28.3 pg (27.0-33.0); MCHC 33.5 % (32.0-36.0); MCV 85 fL (80-95); MPV 11.1 fL (8.0-11.0); Platelet Count 187 10^3/uL (130-400); RBC 4.48 10^6/uL (4.36-5.78); RDW 14.6 % (11.8-14.1); RDW-SD 44.8 fL; WBC 7.54 10^3/uL (4.4-10.8)
[2024-09-05 15:04] LABS: INR 1.0 (0.9-1.1); PTT Activated 25.5 sec (20.6-30.2); Prothrombin Time 10.3 sec (9.1-11.1)
[2024-09-05 15:48] LABS: Anion Gap 10.2 mmol/L (3-11); BUN 18 mg/dL (7-18); CO2 27.8 mmol/L (21.0-32.0); Calcium 9.7 mg/dL (8.5-10.1); Chloride 103 mmol/L (98-107); Estimated GFR 92.45 (mL/min/1.73m2); Glucose 83 mg/dL (74-106); Potassium 4.5 mmol/L (3.5-5.1); Sodium 141 mmol/L (136-145)
== END 2024-09-05 15:17 | disposition home or self-care (01) ==
LOC: LBO 15:17
PROVIDERS: PCP Family Medicine; Visit Provider Registered Nurse
DX: I25.118 Atherosclerotic heart disease of native coronary artery with other forms of angina pectoris (principal)
CPT/HCPCS: 36415; 80048; 85027; 85610; 85730

== ENCOUNTER → 2024-10-20 08:46 | Outpatient (BNVA) | payer MEDICARE, SELFPAY | PROVIDERS: PCP Family Medicine; Referring Provider Family Medicine; Visit Provider Physician Assistant | DX: M17.0 Bilateral primary osteoarthritis of knee (principal) | CPT/HCPCS: 20610; J1010 ==

== ENCOUNTER 2024-11-25 11:50 | Emergency (ER) | payer MEDICARE, SELFPAY ==
[2024-11-25 11:59] VITALS: BP 164/73; PULSE 65; RESP 16; TEMP 36.9; O2SAT 97
--- NOTE | 2024-11-25 12:21 | W.ED.GENAD ---
Discharge Plan Disposition Patient Disposition: Home Discharge Details Clinical Impression: Pain, dental Primary Care Provider: Jonathan Walker ED Provider: Rashad Velazquez Home Meds and New Rx's Prescriptions: New clindamycin HCl [Cleocin HCl] 300 mg capsule 300 mg PO Q6H Qty: 28 0RF No Action nystatin 100,000 unit/gram ointment 1 applic topical BID Qty: 30 2RF triamcinolone acetonide 0.1 % cream 1 applic topical DAILY Qty: 15 0RF nitroglycerin 0.4 mg tablet, sublingual 0.4 mg Sublingual PRN PRN (Reason: chest pain) Qty: 25 3RF hydrocortisone 2.5 % cream with perineal applicator 1 applic MI QD-BID PRN (Reason: hemorrhoids) Qty: 30 0RF senna 8.6 mg capsule 8.6 mg PO QHS polyethylene glycol 3350 [Miralax] 17 gram powder in packet 17 g PO DAILY Qty: 100 3RF multivitamin Tablet 1 tab PO DAILY prochlorperazine maleate 5 mg tablet 5 - 10 mg PO ONCE PRN (Reason: headache) hydrochlorothiazide 12.5 mg tablet 12.5 mg PO DAILY Qty: 90 3RF (DME) AFO, bilateral, custom made See Rx Instructions .Route .MEDSUPPLY Qty: 1 0RF Rx Instructions: As directed; amlodipine 5 mg tablet 5 mg PO DAILY Qty: 90 3RF gabapentin 800 mg tablet 800 mg PO BID Qty: 180 3RF aspirin 81 MG tablet,chewable 81 mg PO DAILY armodafinil 150 mg tablet 150 mg PO QAM Qty: 30 3RF (DME) Diabetic shoes See Rx Instructions .Route .MEDSUPPLY Qty: 1 0RF Rx Instructions: Please provide one pair. magnesium oxide 500 mg capsule 500 mg PO DAILY Qty: 90 3RF venlafaxine 150 mg capsule,extended release 24hr 150 mg PO DAILY Qty: 90 3RF allopurinol 100 mg tablet 100 mg PO DAILY Qty: 90 3RF atorvastatin 40 mg tablet 40 mg PO DAILY Qty: 90 3RF cyanocobalamin (vitamin B-12) [Vitamin B-12] 1,000 mcg tablet See Rx Instructions .ROUTE .COMPLEX Qty: 90 3RF Dose Instruction: TAKE ONE TABLET BY MOUTH EVERY DAY Rx Instructions: TAKE ONE TABLET BY MOUTH EVERY DAY metformin 500 mg tablet 500 mg PO BID Qty: 180 3RF pantoprazole 40 mg tablet,delayed release (DR/EC) 40 mg PO DAILY Qty: 90 3RF losartan 100 mg tablet 100 mg PO DAILY Qty: 90 3RF ropinirole 2 mg tablet 2 mg PO QHS Qty: 60 3RF Rx Instructions: administer 1-3 hours before bedtime ergocalciferol (vitamin D2) 1,250 mcg (50,000 unit) capsule See Rx Instructions .ROUTE .COMPLEX Qty: 12 3RF Dose Instruction: TAKE 1 CAPSULE BY MOUTH EVERY WEEK Rx Instructions: TAKE 1 CAPSULE BY MOUTH EVERY WEEK folic acid 400 MCG tablet 400 mcg PO DAILY Discharge Instructions Additional Instructions: Please follow-up with your primary care provider regarding your visit to the emergency department today. Be sure to discuss results of all test performed here today to include radiology, and laboratory testing as well as results for any pending cultures. Should your symptoms worsen, or if you develop new concerning symptoms, please return immediately emergency department for further evaluation. Just HPI General Date/Time Provider Initiated Documentation: 11/25/24 12:12. HPI Narrative: MDM/Narrative: Initial Assessment: 71-year-old male with worsening dental pain. No fever, chills, vomiting, or significant changes in eating/drinking habits. Allergic to penicillin (rash) and codeine. Differential Diagnosis: - Dental abscess: Unlikely, no visible abscess. - Dental caries: Multiple caries noted, potential bacterial entry point. Recommend dental evaluation. - Dain's Angina: No evidence on exam of such. ED Course: - Exam: No abscess, slight gingival inflammation, multiple caries. - Administered clindamycin. - Prescription for clindamycin sent to pharmacy. Final Assessment: Dental pain likely due to bacterial infiltration through caries. No abscess noted. Administered clindamycin, advised Tylenol for pain. Clinical Impression: - Dental caries - Gingival inflammation Disposition: - Discharged with clindamycin prescription. - Follow-Up: Dental consultation recommended. Return if fever, swelling, or difficulty opening mouth. Patient Education: Monitor for fever, swelling, or difficulty opening mouth. Continue Tylenol for pain. Follow up with dentist for further evaluation and treatment. This document was created with assistance from [employer] The patient consented to its use. HPI: The patient is a 71-year-old male presenting with odontalgia localized to the lower left dentition, persisting for several days with progressive intensification. He reports no difficulty with mastication or deglutition, although he consumes food at a slower pace due to discomfort. Mild discomfort is noted in the posterior tooth. The patient denies experiencing pyrexia, chills, emesis, or any exacerbation of dyspnea. He has an upcoming surgical procedure scheduled for 12/12/2024 at 0000 hours. Pain management has been achieved with acetaminophen 500 mg. ROS: Negative besides as mentioned above Exam: Vital signs: Reviewed. General Appearance: Alert and oriented. No acute distress. HEENT: Multiple caries in left lower molar. Slight gingival inflammation in left lower premolar area. No palpable fluctuance, trismus, or stridor. Tolerating secretions. Neck: Supple, full range of motion, no observable masses, No meningeal sign. Respiratory: No Respiratory distress. No tachypnea. Cardiovascular: RRR, no edema. Gastrointestinal: Soft, nondistended, No rebound tenderness. Back: No midline tenderness to palpation or palpable step-offs of the C/T/L spine. Skin: Warm and dry, no rash. Neurological: Normal Gait, Grossly intact. Psychiatric: Appropriate for situation. Related Data Home Medications ?Medication ?Instructions ?Recorded ?Confirmed folic acid 400 mcg tablet 400 mcg PO DAILY 05/29/12 11/25/24 aspirin 81 mg chewable tablet 81 mg PO DAILY 09/29/16 11/25/24 nystatin 100,000 unit/gram topical 1 applic topical BID #30 grams 07/06/22 11/25/24 ointment multivitamin 1 tab PO DAILY 04/30/23 11/25/24 hydrochlorothiazide 12.5 mg tablet 12.5 mg PO DAILY #90 tabs 09/21/23 11/25/24 prochlorperazine maleate 5 mg 5 - 10 mg PO ONCE PRN headache 09/21/23 11/25/24 tablet AFO, bilateral, custom made #1 ea 11/02/23 11/25/24 armodafinil 150 mg tablet 150 mg PO QAM #30 tabs 11/09/23 11/25/24 amlodipine 5 mg tablet 5 mg PO DAILY #90 tabs 12/07/23 11/25/24 gabapentin 800 mg tablet 800 mg PO BID #180 tabs 12/22/23 11/25/24 Diabetic shoes #1 ea 01/05/24 11/25/24 triamcinolone acetonide 0.1 % 1 applic topical DAILY #15 grams 01/25/24 11/25/24 topical cream hydrocortisone 2.5 % topical cream 1 applic MI QD-BID PRN hemorrhoids 03/14/24 11/25/24 with perineal applicator #30 grams nitroglycerin 0.4 mg sublingual 0.4 mg sublingual PRN PRN chest 03/24/24 11/25/24 tablet pain ##25 sennosides 8.6 mg capsule (senna) 8.6 mg PO QHS 04/06/24 11/25/24 magnesium oxide 500 mg capsule 500 mg PO DAILY #90 caps 04/17/24 11/25/24 venlafaxine 150 mg 150 mg PO DAILY #90 caps 05/29/24 11/25/24 capsule,extended release 24 hr polyethylene glycol 3350 17 gram 17 g PO DAILY #100 ea 08/15/24 11/25/24 oral powder packet (Miralax) allopurinol 100 mg tablet 100 mg PO DAILY #90 tab-caps 08/18/24 11/25/24 atorvastatin 40 mg tablet 40 mg PO DAILY #90 tabs 08/18/24 11/25/24 cyanocobalamin (vitamin B-12) See Rx Instructions .Route 08/18/24 11/25/24 1,000 mcg tablet (Vitamin B-12) .COMPLEX #90 tabs metformin 500 mg tablet 500 mg PO BID #180 tabs 08/18/24 11/25/24 pantoprazole 40 mg tablet,delayed 40 mg PO DAILY #90 tab-caps 08/18/24 11/25/24 release losartan 100 mg tablet 100 mg PO DAILY #90 tabs 09/11/24 11/25/24 ropinirole 2 mg tablet 2 mg PO QHS #60 tabs 09/19/24 11/25/24 ergocalciferol (vitamin D2) 1,250 See Rx Instructions .Route 11/16/24 11/25/24 mcg (50,000 unit) capsule .COMPLEX #12 caps clindamycin HCl 300 mg capsule 300 mg PO Q6H #28 caps 11/25/24 (Cleocin HCl) Previous Rx's ?Medication ?Instructions ?Recorded nystatin 100,000 unit/gram topical 1 applic topical BID #30 grams 07/06/22 ointment hydrochlorothiazide 12.5 mg tablet 12.5 mg PO DAILY #90 tabs 09/21/23 AFO, bilateral, custom made #1 ea 11/02/23 armodafinil 150 mg tablet 150 mg PO QAM #30 tabs 11/09/23 amlodipine 5 mg tablet 5 mg PO DAILY #90 tabs 12/07/23 gabapentin 800 mg tablet 800 mg PO BID #180 tabs 12/22/23 Diabetic shoes #1 ea 01/05/24 triamcinolone acetonide 0.1 % 1 applic topical DAILY #15 grams 01/25/24 topical cream hydrocortisone 2.5 % topical cream 1 applic MI QD-BID PRN hemorrhoids 03/14/24 with perineal applicator #30 grams nitroglycerin 0.4 mg sublingual 0.4 mg sublingual PRN PRN chest 03/24/24 tablet pain ##25 magnesium oxide 500 mg capsule 500 mg PO DAILY #90 caps 04/17/24 venlafaxine 150 mg 150 mg PO DAILY #90 caps 05/29/24 capsule,extended release 24 hr polyethylene glycol 3350 17 gram 17 g PO DAILY #100 ea 08/15/24 oral powder packet (Miralax) allopurinol 100 mg tablet 100 mg PO DAILY #90 tab-caps 08/18/24 atorvastatin 40 mg tablet 40 mg PO DAILY #90 tabs 08/18/24 cyanocobalamin (vitamin B-12) See Rx Instructions .Route 08/18/24 1,000 mcg tablet (Vitamin B-12) .COMPLEX #90 tabs metformin 500 mg tablet 500 mg PO BID #180 tabs 08/18/24 pantoprazole 40 mg tablet,delayed 40 mg PO DAILY #90 tab-caps 08/18/24 release losartan 100 mg tablet 100 mg PO DAILY #90 tabs 09/11/24 ropinirole 2 mg tablet 2 mg PO QHS #60 tabs 09/19/24 ergocalciferol (vitamin D2) 1,250 See Rx Instructions .Route 11/16/24 mcg (50,000 unit) capsule .COMPLEX #12 caps clindamycin HCl 300 mg capsule 300 mg PO Q6H #28 caps 11/25/24 (Cleocin HCl) Allergies Allergy/AdvReac Type Severity Reaction Status Date / Time aspirin (From [facility]) Allergy Severe Swelling/Ed Verified 11/25/24 12:05 [facility] citric acid (From Allergy Severe Swelling/Ed Verified 11/25/24 12:05 [facility]) esperanza sodium bicarbonate (From Allergy Severe Swelling/Ed Verified 11/25/24 12:05 [facility]) esperanza Penicillins Allergy Mild Skin Rash Verified 11/25/24 12:05 codeine AdvReac Severe hypertention/pass Verified 11/25/24 12:05 out General Stated Complaint: DentalOral KRISTIAN: 4 Course Vital Signs Vital signs: Vital Signs Temperature 36.9 C 11/25/24 11:59 Pulse 65 11/25/24 11:59 Respiratory Rate 16 11/25/24 11:59 Blood Pressure 164/73 H 11/25/24 11:59 Pulse Oximetry 97 11/25/24 11:59 Temperature 36.9 C 11/25/24 11:59 Temperature Source Tympanic 11/25/24 11:59 Pulse 65 11/25/24 11:59 Respiratory Rate 16 11/25/24 11:59 Blood Pressure 164/73 H 11/25/24 11:59 Blood Pressure Position Sitting 11/25/24 11:59 Pulse Oximetry 97 11/25/24 11:59 Oxygen Delivery Method Room Air 11/25/24 11:59 Oxygen Flow Rate 0 11/25/24 11:59 Pain Level 6 11/25/24 11:59 Medical Decision Making Quality:SDOH Health Related Social Needs: Health related social needs details Not answered PFSH All Active Problems (Updated 11/25/24 @ 12:23 by Rashad Velazquez MD) Pain, dental (Acute) Adenomatous polyp (Acute) Round hole, right eye (Acute) Regular astigmatism, bilateral (Acute) Combined forms of age-related cataract, bilateral (Acute) Hemorrhoid (Acute) Bilateral foot-drop (Acute) Daytime sleepiness (Acute) Memory problem (Acute) Hip pain (Acute) Back pain (Acute) Migraine (Chronic) Bilateral primary osteoarthritis of knee (Chronic) DEPO INJECTION R KNEE: 10/20/24; 06/09/24; 03/19/23 L KNEE: 10/20/24; 06/09/24 Diarrhea (Acute) Diabetic neuropathy, type II diabetes mellitus (Acute) Bilateral knee pain (Acute) Sensorineural hearing loss (Acute) Foot drop, left (Acute) Bilateral lower extremity edema (Acute) Nail dystrophy (Acute) Ankle weakness (Acute) Shortness of breath (Acute) Wheezing (Acute) Muscle spasm (Acute) Balance problem (Acute) Diabetes mellitus (Chronic) Vitamin D deficiency (Acute) Onychomycosis (Acute) Hammer toes, bilateral (Acute) Fatigue (Acute) Irritable bowel syndrome (IBS) (Chronic) Epidermoid cyst of ear (Acute) Cellulitis (Acute) Avulsion fracture of left ankle (Acute 07/01/20) Peripheral edema (Acute) S/P colonoscopy (Acute ~12/12/18) 12/24: sessile serrated adenoma. Traditional serrated adenoma. 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 09/29/16) stent [facility] 08/22 DJD (degenerative joint disease) (Chronic) WITH CHRONIC LOW BACK PAIN disability SSI Depression (Chronic) GERD (gastroesophageal reflux disease) (Chronic) Gout (Chronic) Hypertension (Chronic) COPELAND (nonalcoholic steatohepatitis) (Chronic 01/09/15) Obesity (Chronic 08/21/14) Peripheral neuropathy (Chronic) left great toe likely due to surgery Psoriatic arthritis (Chronic 11/01/13) Sensorineural hearing loss, bilateral (Chronic 01/07/15) Sleep apnea, unspecified (Chronic 04/17/15) Medical History (Updated 11/25/24 @ 12:23 by Rashad Velazquez MD) Constipation Annual physical exam Chronic anxiety Chronic back pain Peripheral neuropathy DJD (degenerative joint disease) Obesity, Class III, BMI 40-49.9 (morbid obesity) Surgical History (Updated 08/04/24 @ 09:40 by Stefania Baig) Hx of colonoscopy with polypectomy (~07/2024) Ablation/fulguration/ destruction of recurrent polup x1 Stented coronary artery (~2017) 2018-Has appt with Dr. Aguila 08/08/24 Status post discectomy Status post hemorrhoidectomy Status post laminectomy Hemorrhoidectomy (07/22/11) L5 HEMILAMINECTOMY (03/07/91) DISKECTOMY (03/07/89) L5 S1 Family History Mother , 67 Essential hypertension Myocardial infarction Depression Heart disease Hypertension Father , 67 Essential hypertension Asthma Depression Heart disease Brother , 64 Myocardial infarction Depression Heart disease Hypertension FAMILY HISTORY CAD (coronary artery disease) Stroke COPD (chronic obstructive pulmonary disease) Social History Smoking/Tobacco Use Status: Never Smoking risk assessment performed?: Yes Alcohol Intake: never Drug use: Never Substance use type: does not use Adopted: No Caregiver/Support person: Yes Foster care: No Household members: spouse Housing: house Number of Children: 1 number of grandchildren: 2 Communication Needs: Hard of Hearing Education Level: high school Do you need help understanding health information?: Often current occupation: Retired Pets and animals: Yes (1) Pets and animals: cat(s) Sexually active: No Do you think of yourself as: straight/heterosexual Current gender identity: male What is your relationship status?: How often do you talk on the phone with friends or family?: decline to answer How often do you get together with friends or relatives?: decline to answer How often do you attend episcopalian or mormon services?: decline to answer Do you belong to any clubs or organized social groups?: no Panel score (0-1 are the most socially isolated patients): 1 Fatou/Alevism: Worship Special fatou needs: No Seatbelt use: always Drive intox or ride w/intox crew car driver: No Additional Social history: [employer]
[2024-11-25] MEDS: Clindamycin 300 MG CAP PO (12:36)
== END 2024-11-25 12:36 | disposition home or self-care (01) ==
PROVIDERS: Emergency Provider General Practice; PCP Family Medicine
DX: R68.84 Jaw pain (principal); K08.89 Other specified disorders of teeth and supporting structures
CPT/HCPCS: 99283 ×2

== ENCOUNTER → 2025-02-05 14:12 | Outpatient (BNVA) | payer MEDICARE, SELFPAY | PROVIDERS: PCP Family Medicine; Referring Provider Family Medicine; Visit Provider Podiatrist | DX: L97.521 Non-pressure chronic ulcer of other part of left foot limited to breakdown of skin (principal); E11.42 Type 2 diabetes mellitus with diabetic polyneuropathy; M20.42 Other hammer toe(s) (acquired), left foot; M21.371 Foot drop, right foot; M21.372 Foot drop, left foot; E66.01 Morbid (severe) obesity due to excess calories; L84 Corns and callosities; R60.0 Localized edema; E55.9 Vitamin D deficiency, unspecified; M20.41 Other hammer toe(s) (acquired), right foot; I73.89 Other specified peripheral vascular diseases; M79.671 Pain in right foot; M79.672 Pain in left foot; R09.89 Other specified symptoms and signs involving the circulatory and respiratory systems; L65.9 Nonscarring hair loss, unspecified; R23.8 Other skin changes; R23.4 Changes in skin texture; L53.8 Other specified erythematous conditions; L85.8 Other specified epidermal thickening | CPT/HCPCS: 11042; 11055; 11721; 11755; 93922; 97597 ==

== ENCOUNTER → 2025-02-22 00:33 | Outpatient (CLI) | payer MEDICARE, SELFPAY ==
--- NOTE | 2025-02-22 12:36 | DI.RAD_ITS ---
Exam(s) XR FOOT LT COMPLETE EXAM: XR FOOT LT COMPLETE CLINICAL HISTORY: hammertoe left 2nd and 3rd,m20.42,corns. TECHNIQUE: 2D digital imaging was performed. Three views. COMPARISON: CR XR FOOT RT COMPLETE from 02/22/2025 FINDINGS: BONES: No acute fracture is present. No bony destructive lesion is seen. There heel spurs. JOINTS: No dislocation present. There is prominent spurring at the dorsal aspect of the navicular. Severe hammertoe deformities. Mild degenerative changes of the tarsal metatarsal joints. SOFT TISSUE: Normal. Coarse calcification noted in the plantar fascia. Vascular calcifications. IMPRESSION: Severe hammertoe deformities. Degenerative changes with prominent spurring at the dorsal aspect of the navicular. DATA REPOSITORY: RADIATION DOSE DELIVERED:
--- NOTE | 2025-02-22 12:36 | DI.RAD_ITS ---
Exam(s) XR FOOT RT COMPLETE EXAM: XR FOOT RT COMPLETE CLINICAL HISTORY: hammertoes,bilat, m20.41,m20.42. TECHNIQUE: 2D digital imaging was performed. Three views. COMPARISON: CR LEFT FOOT COMPLETE from 04/23/2007 FINDINGS: BONES: No acute fracture is present. No bony destructive lesion is seen. Prominent plantar calcaneal spur. Enthesophyte is well as calcification at the distal Achilles. Small ossicle adjacent to the navicular. JOINTS: No dislocation present. Hammertoe deformities. [id number] degenerative changes of the 1st MTP joint. No hallux valgus. SOFT TISSUE: Small calcifications near plantar spur. Vascular calcifications. IMPRESSION: Prominent heel spurs. Hammertoe deformities. DATA REPOSITORY: RADIATION DOSE DELIVERED:
== END ==
LOC: DI 00:33
PROVIDERS: PCP Family Medicine; Visit Provider Podiatrist
DX: E11.621 Type 2 diabetes mellitus with foot ulcer (principal); L97.521 Non-pressure chronic ulcer of other part of left foot limited to breakdown of skin; M21.371 Foot drop, right foot; M21.372 Foot drop, left foot; E11.42 Type 2 diabetes mellitus with diabetic polyneuropathy; M20.42 Other hammer toe(s) (acquired), left foot; M20.41 Other hammer toe(s) (acquired), right foot; L84 Corns and callosities; E66.01 Morbid (severe) obesity due to excess calories; Z68.41 Body mass index [BMI] 40.0-44.9, adult
CPT/HCPCS: 11042; 73630